=== PATIENT | female | born 1940 | race Caucasian/White ===

== ENCOUNTER 2022-09-27 10:30 | Outpatient (RCR) | payer OTHER, SELFPAY ==
--- NOTE | 2022-08-09 16:32 | PT.OPEX ---
PT [facility] Outpatient Eval PT [facility] Outpatient Eval Start: 08/09/22 13:59 Freq: Status: Active Protocol: Document 08/09/22 13:59 EMILIA (Rec: 08/09/22 14:04 EMILIA [id number]) E-signed By Amanda Stroud DPT Physical Therapy Outpatient Evaluation Insurance Information Recert Due Date 11/07/22 Insurance Name [employer] Medical Diagnosis L knee OA Treating Diagnosis L knee pain, impaired L knee ROM, impaired L knee mobility/ strength, limited tolerance for extended standing/walking Subjective Subjective Patient reports chronic L knee pain for years. States pain has been minimal but she is noticing more issues with her L knee giving way at times with standing/walking. States she feels a catch in her knee , gets a maria d of pain, and then it will give way a bit. She denies any recent falls. She occasionally uses a walking stick when going out. She has to do some stairs with a split entry home. Reports doing stairs with step to pattern. Patient reports hx of R/L ROSIBEL and R TKA - all of them 8-10+ years ago. Pain rated 2/10. Date of Last Physician Visit 08/08/22 Current Work Status Retired Precautions Treatment Precautions/Contraindications breast cancer, R/L ROSIBEL, R TKA, L OA, osteoporosis Assessment Assessment/Impression Patient is an 81 year old female with L knee pain, impaired L knee ROM, impaired L knee mobility/strength, core /hip/glut weakness, limited tolerance for extended standing/walking. Pain rated 2/10. Overall, pain has been tolerable with patient's main c/o L knee giving way, weakness. She denies any recent falls. Reports using a walking stick on occasion. She is hoping to improve her strength and avoid a L TKA surgery. L knee ROM 0-5-112 degrees. R knee ROM 0-0-130 degrees. Patient with general weakness core/hip/gluts/LEs. Gait is slow, guarded with patient amb without an AD. She denies any tenderness with palpation L knee region this session. Reports MD hit a spot yesterday that causes increased pain. Patient would like to get a HEP established and focus on her home exercises. Patient would benefit from skilled PT for pain/sx management, improved L knee ROM, core/hip/glut/LE strengthening, and establishment of HEP. Plan of Care Rehabilitation Potential Good Physical Therapy Goals 1. Decrease/maintian L knee pain at less than/equal to 3/ 10 with daily activities and with the progression of PT activities over the next 4-6 weeks. 2. Improve L knee ROM to 0-0- 120 degrees over the next 6-8 weeks for return to functional knee ROM with daily activities and improved gait with full knee ext. 3. Improve core/hip/glut/LE strength over the next 8-10 weeks for improved tolerance for extended standing/walking and performance of daily activities/housework without flare up of knee pain or knee buckling. 4. Improve balance/ proprioception within 8-10 weeks for improved stability with static/dynamic activities , decreased stress to L knee, decreased knee pain, and improved tolerance for daily/ housework activities. 5. Patient will be I with HEP within 10 weeks for progression toward above goals, ongoing self management of pain/sx, ongoing self improvements in core/hip/glut/LE strength, and for return to PLF including extended standing/walking/housework activities without flare up of L knee pain or L knee buckling. Coordination/Communication With Referral Source Treatment Plan/Direct Interventions Manual Therapy,Therapeutic Exercises Frequency/Duration 1x/week Patient Will Be Discharged From Therapy Completion of LTG(s),Skills Plateau,Independent w/HEP, Independently Progressing Evaluation Billing Untimed Code Treatment Minutes 22 Complexity Moderate Certification Information Initial Certification Date 08/09/22 Ending Certification Date 11/07/22 Physician Comment/Change : Physician NPI Number #
== END 2023-01-05 23:59 | disposition home or self-care (01) ==
PROVIDERS: PCP Family Medicine; Visit Provider Orthopaedic Surgery
DX: M17.12 Unilateral primary osteoarthritis, left knee (principal); Z51.89 Encounter for other specified aftercare
CPT/HCPCS: 97110; 97162

== ENCOUNTER 2023-05-08 09:30 | Emergency (ER) | payer OTHER, SELFPAY ==
[2023-05-08 09:42] VITALS: BP 121/72; PULSE 92; RESP 20; TEMP 36.4; O2SAT 97
--- NOTE | 2023-05-08 09:55 | ED_ITS ---
HPI - General Adult General Time Seen by Provider: 09:55 <Lilliam Martinez - Last Filed: 05/08/23 11:26> Date Seen: 05/08/23 <Lilliam Martinez - Last Filed: 05/08/23 11:26> Chief complaint: Fall/Minor Trauma <Lilliam Martinez - Last Filed: 05/08/23 11:26> Stated complaint: fell a week ago- getting worse <Lilliam Martinez - Last Filed: 05/08/23 11:26> History of Present Illness HPI narrative: Pt presents after a fall on the 9th after she fell down an incline and landed on her butt and hit the back of her head on the concrete. Denies LOC. She denies headache, confusion, visual changes, changes in speech, or weakness. She reports that since the fall, the pain in her tailbone has been consistent and improves only while lying on her side sleeping. The pain is worst when she rises from bending over. She denies numbness or tingling in her legs, or weakness of her lower extremities outside of the pain. She is able to ambulate without a walker though she has pain with this in her bottom, she typically uses a cane or a walker to ambulate. Lying down is painful as well. She is on warfarin for her afib. She was not evaluated right after the fall. She reports mild soreness of her neck but has normal range of motion. She also notes that the right side of her lower ribs did hit the arm of the chair a few days ago and are slightly sore. She denies stool incontinence or new onset urinary incontinence, she does have chronic occasional incontinence of urine once nightly that is unchanged since the fall. She is currently in 8/10 pain and declines tylenol or other pain medications. After repositioning to her side the pain is decreased to 6/10. <Lilliam Martinez - Last Filed: 05/08/23 11:26> Related Data Home medications: Home Medications Medication Instructions Recorded Confirmed anastrozole 1 mg tablet 1 mg PO 08/08/22 08/08/22 calcium carbonate 600 mg-vitamin ea PO 08/08/22 08/08/22 D3 10 mcg (400 unit) tablet diltiazem HCl 240 mg cap PO 08/08/22 08/08/22 capsule,extended release 24 hr metoprolol succinate 50 mg tab PO 08/08/22 08/08/22 tablet,extended release 24 hr warfarin 5 mg tablet 5 mg PO 08/08/22 08/08/22 <Lilliam - Last Filed: 05/08/23 11:26> Allergies/adverse reactions: Allergies Allergy/AdvReac Type Severity Reaction Status Date / Time nickel Allergy Verified 05/08/23 09:51 < - Last Filed: 05/08/23 11:26> Review of Systems Status of ROS: Reports: 10 or more systems reviewed and unremarkable except as noted in History and below < Last Filed: 05/08/23 11:26> Narrative: Constitutional: No fevers, no weight gain or loss. Eyes: No discharge. No vision changes. HENT: No congestion, no sore throat, no ear pain. Cardiovascular: No chest pain, no palpitations. Respiratory: No shortness of breath, no wheezes, no cough. Gastrointestinal: No abdominal pain, no vomiting, no diarrhea. Genitourinary: No dysuria, no hematuria. Musculoskeletal: Pain in the tailbone region which is worse when bending forward. Skin: No rashes, no pruritis. Neurological: No dizziness, weakness, sensory change, speech change. Endo/Heme/Allergies: No bruising or bleeding. No polydipsia. Pysch: no suicidality, no anxiety, no insomnia. All other systems reviewed and are negative. <Gabriel Rowland MD - Last Filed: 05/08/23 13:12> [facility] Medical History: Medical History , RN) Atrial fibrillation (06/30/12) <Lilliam Martinez - Last Filed: 05/08/23 11:26> Surgical History: Surgical History , RN) H/O: hysterectomy History of total right hip replacement Status post total knee replacement Status post total replacement of left hip <Lilliam Martinez Last Filed: 05/08/23 11:26> Social History: Social History Smoking Status: Never smoker <Lilliam Jeddo - Last Filed: 05/08/23 11:26> Exam Narrative: Exam Narrative: General: Pt was initially standing when I entered the room and reported that there is no comfortable position, the nurse and I helped her to lie down HEENT: Atraumatic, normocephalic, PEERL Cardiac: Regular rate, irregularly irregular rhythm Resp: CTAB MSK: Mild tenderness over ribs 6-8 on the R. No midline tenderness of the cervical, thoracic or lumbar spine. Diffuse tenderness to palpation of the sacrum and tailbone. Mild tenderness to palpation of the L SI joint No ecchymoses or rashes noted No LE edema Neuro: Drug Safety Data Management Specialist strength intact b/l Sensation intact b/l LE Pt able to ambulate without losing her balance <[employer] - Last Filed: 05/08/23 11:26> Const: Vital Signs, click to edit/add: Vital Signs - 24 hr 05/08/23 09:42 Temperature 97.5 F L Pulse Rate [Right Pulse Oximeter] 92 Respiratory Rate 20 Blood Pressure [Ri ght Upper Arm] 121/72 Pulse Oximetry 97 Oxygen Delivery Me thod Room Air <[employer] - Last Filed: 05/08/23 11:26> Vital Signs, click to edit/add: Vital Signs - 24 hr 05/08/23 09:42 Temperature 97.5 F L Pulse Rate [Right Pulse Oximeter] 92 Respiratory Rate 20 Blood Pressure [Ri ght Upper Arm] 121/72 Pulse Oximetry 97 Oxygen Delivery Me thod Room Air <Gabriel Rowland MD - Last Filed: 05/08/23 13:12> Course Course ED Course: DDx includes but not limited to pelvic fracture, bone bruise, tailbone fracture, muscle strain, cauda equina, conus medullaris, herniated disc of lumbar spine, shingles, rib fx <[employer] Last Filed: 05/08/23 11:26> Vital Signs Vital signs: Initial Vital Signs Temperature 97.5 F L 05/08/23 09:42 Temperature Source Temporal Artery Scan 05/08/23 09:42 Pulse Rate 92 05/08/23 09:42 Pulse Rhythm Regular 05/08/23 09:42 Respiratory Rate 20 05/08/23 09:42 Blood Pressure 121/72 05/08/23 09:42 Blood Pressure Mean 88 05/08/23 09:42 Blood Pressure Position Sitting 05/08/23 09:42 Pulse Oximetry 97 05/08/23 09:42 Oxygen Delivery Method Room Air 05/08/23 09:42 Vital Signs Temperature 97.5 F L 05/08/23 09:42 Pulse Rate 92 05/08/23 09:42 Respiratory Rate 20 05/08/23 09:42 Blood Pressure 121/72 05/08/23 09:42 Pulse Oximetry 97 05/08/23 09:42 Oxygen Delivery Method Room Air 05/08/23 09:42 Temperature 97.5 F L 05/08/23 09:42 Pulse Rate 92 05/08/23 09:42 Respiratory Rate 20 05/08/23 09:42 Blood Pressure 121/72 05/08/23 09:42 Pulse Oximetry 97 05/08/23 09:42 Oxygen Delivery Method Room Air 05/08/23 09:42 <Lilliam Martinez - Last Filed: 05/08/23 11:26> Initial Vital Signs Temperature 97.5 F L 05/08/23 09:42 Temperature Source Temporal Artery Scan 05/08/23 09:42 Pulse Rate 92 05/08/23 09:42 Pulse Rhythm Regular 05/08/23 09:42 Respiratory Rate 20 05/08/23 09:42 Blood Pressure 121/72 05/08/23 09:42 Blood Pressure Mean 88 05/08/23 09:42 Blood Pressure Position Sitting 05/08/23 09:42 Pulse Oximetry 97 05/08/23 09:42 Oxygen Delivery Method Room Air 05/08/23 09:42 Vital Signs Temperature 97.5 F L 05/08/23 09:42 Pulse Rate 92 05/08/23 09:42 Respiratory Rate 20 05/08/23 09:42 Blood Pressure 121/72 05/08/23 09:42 Pulse Oximetry 97 05/08/23 09:42 Oxygen Delivery Method Room Air 05/08/23 09:42 Temperature 97.5 F L 05/08/23 09:42 Pulse Rate 92 05/08/23 09:42 Respiratory Rate 20 05/08/23 09:42 Blood Pressure 121/72 05/08/23 09:42 Pulse Oximetry 97 05/08/23 09:42 Oxygen Delivery Method Room Air 05/08/23 09:42 <Gabriel Rowland MD - Last Filed: 05/08/23 13:12> Medical Decision Making MDM Narrative Medical decision making narrative: This patient comes in for evaluation of a fall that occurred a bit more than a week ago. She is ambulatory. She did not have loss of consciousness. She fell onto her bottom and then did bump her head. She reports pain currently when bending forward to pick something up from the floor. She states that she has rather intense pain when attempting to stand upright again. X-ray imaging of the pelvis shows no acute findings. Additionally lab results are reassuring. Her INR is therapeutic. This was reassuring to the patient. She will use [id number] medicines as needed and directed and increase her activity as tolerated. <Gabriel Rowland MD - Last Filed: 05/08/23 13:12> Lab Data Labs: Lab Results 05/08/23 Range/Units 11:40 WBC 5.42 (4.50-11.00) K/uL RBC 5.11 (4.00-5.20) m/uL Hgb 15.8 (12.0-16.0) gm/dL Hct 48.7 (33.0-51.0) % MCV 95 (80-100) fL MCH 31 (26-34) pg MCHC 32 (32-36) gm/dL RDW Coeff of Gonzalez 13.0 (11.5-15.5) % Plt Count 176 (140-440) K/uL Neut % (Auto) 56.5 (42.0-72.0) % Lymph % (Auto) 31.4 (20-44) % [place] % (Auto) 9.0 (0.0-11.0) % Eos % (Auto) 1.5 (0.0-7.0) % Baso % (Auto) 0.7 (0.0-3.0) % Neut # (Auto) 3.06 (1.7-7.0) K/uL Lymph # (Auto) 1.70 (0.90-2.90) K/uL [place] # (Auto) 0.50 (0.00-0.90) K/UL Eos # (Auto) 0.08 (0.00-0.50) K/uL Baso # (Auto) 0.04 (0.00-0.30) K/uL Abs Immat Gran (auto) 0.05 (0.00-0.30) K/uL Imm/Tot Granulo (auto) 0.9 % Diff Slide Review Acceptable Review (Acceptable) INR 2.83 H (0.91-1.10) Sodium 139 (135-149) mmol/L Potassium 3.8 (3.6-5.1) mmol/L Chloride 105 (96-114) mmol/L Carbon Dioxide 28 (20-32) mmol/L Anion Gap 6 L (7-15) mEq/L BUN 20 (7-30) mg/dL Creatinine 0.6 (0.5-1.5) mg/dL Estimated GFR 88 ml/min Glucose 96 (60-115) mg/dL Calcium 10.5 (8.4-10.6) mg/dL <Lilliam Juan - Last Filed: 05/08/23 11:26> Lab Results 05/08/23 Range/Units 11:40 WBC 5.42 (4.50-11.00) K/uL RBC 5.11 (4.00-5.20) m/uL Hgb 15.8 (12.0-16.0) gm/dL Hct 48.7 (33.0-51.0) % MCV 95 (80-100) fL MCH 31 (26-34) pg MCHC 32 (32-36) gm/dL RDW Coeff of Gonzalez 13.0 (11.5-15.5) % Plt Count 176 (140-440) K/uL Neut % (Auto) 56.5 (42.0-72.0) % Lymph % (Auto) 31.4 (20-44) % [place] % (Auto) 9.0 (0.0-11.0) % Eos % (Auto) 1.5 (0.0-7.0) % Baso % (Auto) 0.7 (0.0-3.0) % Neut # (Auto) 3.06 (1.7-7.0) K/uL Lymph # (Auto) 1.70 (0.90-2.90) K/uL [place] # (Auto) 0.50 (0.00-0.90) K/UL Eos # (Auto) 0.08 (0.00-0.50) K/uL Baso # (Auto) 0.04 (0.00-0.30) K/uL Abs Immat Gran (auto) 0.05 (0.00-0.30) K/uL Imm/Tot Granulo (auto) 0.9 % Diff Slide Review Acceptable Review (Acceptable) INR 2.83 H (0.91-1.10) Sodium 139 (135-149) mmol/L Potassium 3.8 (3.6-5.1) mmol/L Chloride 105 (96-114) mmol/L Carbon Dioxide 28 (20-32) mmol/L Anion Gap 6 L (7-15) mEq/L BUN 20 (7-30) mg/dL Creatinine 0.6 (0.5-1.5) mg/dL Estimated GFR 88 ml/min Glucose 96 (60-115) mg/dL Calcium 10.5 (8.4-10.6) mg/dL <Gabriel Rowland MD - Last Filed: 05/08/23 13:12> Imaging Data xr pelvis: Radiologist's impression: No acute fracture or malalignment. Postsurgical changes of bilateral total hip arthroplasties without evidence of hardware related complication. Minimal adjacent heterotopic ossification, similar compared to prior exam. Degenerative changes of the visualized lower lumbar spine. Few pelvic phleboliths. <Gabriel Rowland MD - Last Filed: 05/08/23 13:12> Discharge Plan Discharge Clinical Impression: Contusion of sacrum <Lilliam Martinez - Last Filed: 05/08/23 11:26> Patient Disposition: Home, Self-Care <Lilliam Martinez - Last Filed: 05/08/23 11:26> Condition: Unchanged <Lilliam Martinez - Last Filed: 05/08/23 11:26> Additional Instructions: For pain related to sacral contusion, you may take tylenol up to 1000mg every 6 hours. Do not exceed 1000mg in any dose or 4000mg in a day. You may apply over the counter a lidocaine patch to the area daily. Continue to be active as tolerated. Please follow up with your PCP if this does not resolve in 6-8 weeks. If you experience another fall, severe pain, urinary or stool incontinence, numbness or tingling of your legs, or weakness, please return to the ED. <Lilliam Martinez - Last Filed: 05/08/23 11:26> Activity Level: Activity as Tolerated <Lilliam Martinez - Last Filed: 05/08/23 11:26> Activity as Tolerated <Gabriel Rowland MD - Last Filed: 05/08/23 13:12> Discharge Diet: Regular <Lilliam Martinez - Last Filed: 05/08/23 11:26> Regular <Gabriel Rowland MD - Last Filed: 05/08/23 13:12> Prescriptions: No Action metoprolol succinate 50 mg tablet extended release 24 hr PO warfarin 5 mg tablet 5 mg PO Patient Comments: TAKE 5 MG (1 TAB) EVERY MON, MON, DANIEL 2.5 MG (1/2 TAB) ALL OTHER DAYS IN EVENING OR DIRECTED diltiazem HCl 240 mg capsule,extended release 24hr PO calcium carbonate-vitamin D3 600 mg-10 mcg (400 unit) tablet PO Patient Comments: TAKE 1 TABLET BY MOUTH TWICE A DAY WITH MEALS anastrozole 1 mg tablet 1 mg PO Patient Comments: TAKE 1 TABLET BY MOUTH EVERY DAY <Lilliam Martinez - Last Filed: 05/08/23 11:26> Follow Up/Referrals: Krysta Monroe DO [Primary Care Provider] - <Lilliam Martinez - Last Filed: 05/08/23 11:26> Stand Alone Forms: MyHealth Info Instructions <Lilliam Martinez - Last Filed: 05/08/23 11:26>
--- NOTE | 2023-05-08 11:17 | CRLHL7_ITS ---
For Patients: As a result of the Cures Act, medical imaging exams and procedure reports are released immediately into your electronic medical record. You may view this report before your referring provider. If you have questions, please contact your health care provider. Indication: Fall 1 week ago Technique: Two views of the pelvis, AP low Comparison: Pelvic radiograph on July 02, 2014 Findings/impression: No acute fracture or malalignment. Postsurgical changes of bilateral total hip arthroplasties without evidence of hardware related complication. Minimal adjacent heterotopic ossification, similar compared to prior exam. Degenerative changes of the visualized lower lumbar spine. Few pelvic phleboliths. Dictated by Reed Vargas MD @ 05/08/2023 12:54:29 PM (Electronically Signed)
[2023-05-08 11:51] LABS: Basophils Absolute Auto 0.04 K/uL (0.00-0.30); Basophils Percent Auto 0.7 % (0.0-3.0); Eosinophils Absolute Auto 0.08 K/uL (0.00-0.50); Eosinophils Percent Auto 1.5 % (0.0-7.0); Hematocrit 48.7 % (33.0-51.0); Hemoglobin* 15.8 gm/dL (12.0-16.0); Immature Granulocytes Abs Auto 0.05 K/uL (0.00-0.30); Immature Granulocytes Pct Auto 0.9 %; Lymphocytes Percent Auto 31.4 % (20-44); Mean Corpuscular HGB Conc 32 gm/dL (32-36); Mean Corpuscular Hemoglobin 31 pg (26-34); Mean Corpuscular Volume 95 fL (80-100); Neutrophils Absolute Auto 3.06 K/uL (1.7-7.0); Neutrophils Percent Auto 56.5 % (42.0-72.0); Platelet Count* 176 K/uL (140-440); Red Blood Count 5.11 m/uL (4.00-5.20); White Blood Count* 5.42 K/uL (4.50-11.00)
[2023-05-08 12:05] LABS: Chloride* 105 mmol/L (96-114); Potassium* 3.8 mmol/L (3.6-5.1); Sodium* 139 mmol/L (135-149)
[2023-05-08 12:07] LABS: INR 2.83 (0.91-1.10); Prothrombin Time 31.9 Seconds
[2023-05-08 12:08] LABS: Anion Gap 6 mEq/L (7-15); Blood Urea Nitrogen* 20 mg/dL (7-30); Carbon Dioxide* 28 mmol/L (20-32); Creatinine* 0.6 mg/dL (0.5-1.5); Estimated Glomerular Filt Rate 88 ml/min
[2023-05-08 12:09] LABS: Calcium* 10.5 mg/dL (8.4-10.6); Glucose* 96 mg/dL (60-115)
[2023-05-08 12:29] LABS: Slide Review Acceptable Review (Acceptable); Slide Review Reflex Yes
[2023-05-08 13:00] VITALS: BP 120/80; PULSE 82; RESP 20; O2SAT 96
== END 2023-05-08 13:20 | disposition home or self-care (01) ==
PROVIDERS: Emergency Provider Emergency Medicine Emergency Medical Services; PCP Family Medicine
DX: S30.0XXA Contusion of lower back and pelvis, initial encounter (principal); W18.30XA Fall on same level, unspecified, initial encounter
CPT/HCPCS: 36415; 72170; 80048; 85025; 85610; 99283; 99284

== ENCOUNTER 2023-08-08 09:00 | Outpatient (RCR) | payer OTHER, SELFPAY | END 2023-12-06 23:59 | disposition home or self-care (01) | PROVIDERS: PCP Family Medicine; Visit Provider Family Medicine | DX: S30.0XXS Contusion of lower back and pelvis, sequela (principal); R26.89 Other abnormalities of gait and mobility; M25.562 Pain in left knee; M62.81 Muscle weakness (generalized); R26.81 Unsteadiness on feet; Z91.81 History of falling; Z51.89 Encounter for other specified aftercare | CPT/HCPCS: 97110; 97162 ==

== ENCOUNTER 2023-11-29 17:24 | Outpatient (CLI) | payer OTHER, SELFPAY | END 2023-11-29 17:25 | disposition home or self-care (01) | LOC: AMB 12-01 16:45 | PROVIDERS: PCP Family Medicine; Visit Provider Family Medicine | DX: R10.9 Unspecified abdominal pain (principal) | CPT/HCPCS: A0425; A0427 ==

== ENCOUNTER 2023-11-29 17:44 | Inpatient (IN) | payer OTHER, SELFPAY ==
[2023-11-29] VITALS (15 sets, daily range): BP systolic 124–137; BP diastolic 77–91; PULSE 74–94; RESP 16–18; TEMP 36.2; O2SAT 85–96
--- NOTE | 2023-11-29 18:02 | ED_ITS ---
HPI - General Adult General Date Seen: 11/29/23 Chief complaint: Abdominal Pain Stated complaint: Bowel obstruction Time Seen by Provider: 11/29/23 17:58 History of Present Illness HPI narrative: This is an 82-year-old female presenting to the ER today by EMS from home for evaluation of abdominal pain. She has been having abdominal pain is not had any bowel movement for 2 days. She went to the [facility] clinic today and they she had an abdominal x-ray. She was prescribed GoLYTELY for constipation. She took it but has had increasing pain. She called 911. While she was in route to the ER she suffered a large volume emesis of clear fluid According to records from [facility] she has a history of essential hypertension, paroxysmal AFib, hyperparathyroidism, sensorineural hearing loss, colon polyps, history of breast cancer, osteoporosis. Patient has been experiencing generalized abdominal pain for the past couple of days. Initially started as a bandlike pain all way across her upper abdomen and lower chest and wrapping around to her back. It has been getting more diffuse and more progressive since then. She has had poor appetite. She has really only been able to pass ?a few nuggets? of stool since Monday. Her bowels are normally very regular and long. No recent black or bloody stools. Because of worsening symptoms she went to the [facility] today. She says she had an x-ray that showed a bowel obstruction and so she was sent home with a 4 L bottle of GoLYTELY. She was trying to drink ago likely and probably had a couple 100 mL but with that had worsening pain which ultimately led her family to call 911 and then she vomited on the way here. In review of her records from [facility], X-ray abdomen/pelvis 11/29/2023 IMPRESSION: Severe colonic stool burden, correlate for constipation. Otherwise, no bowel obstruction. According to the provider notes She had presented with abdominal pain and decreased bowel movements. She was prescribed a GoLYTELY bowel prep. Incidentally the patient notes that she does have history of AFib and is chronically anticoagulated on warfarin. She takes 5 mg a few days per week and 2.5 mg of warfarin the other days of the week. On Monday she usually takes 2.5. She does not have any history of coronary disease but does have occasional chest pains. She gets them once every few months, perhaps every 4 months or so. They typically occur earlier in the morning. After she arrives here in the ER she had some left-sided chest discomfort that came and went for 2 occasions. She had not been having any chest pain at home. Related Data Home Medications ?Medication ?Instructions ?Recorded ?Confirmed anastrozole 1 mg tablet 1 mg PO DAILY 08/08/22 11/29/23 calcium carbonate 600 mg-vitamin 1 tab PO Q12H 08/08/22 11/29/23 D3 10 mcg (400 unit) tablet diltiazem HCl 240 mg 240 mg PO DAILY 08/08/22 11/29/23 capsule,extended release 24 hr metoprolol succinate 50 mg 50 mg PO DAILY 08/08/22 11/29/23 tablet,extended release 24 hr warfarin 5 mg tablet 5 mg PO DAILY 08/08/22 11/29/23 cholecalciferol (vitamin D3) 25 1,000 unit PO DAILY 11/29/23 11/29/23 mcg (1,000 unit) tablet (Vitamin D3) nitroglycerin 0.4 mg sublingual 0.4 mg sublingual Q5M PRN 11/29/23 11/29/23 tablet Allergies Allergy/AdvReac Type Severity Reaction Status Date / Time nickel Allergy Verified 11/29/23 17:58 [facility] Medical History , RN) Atrial fibrillation (06/30/12) Surgical History , RN) H/O: hysterectomy History of total right hip replacement Status post total knee replacement Status post total replacement of left hip Social History Smoking Status: Never smoker Do you use any of these nicotine containing products: None How often do you have a drink containing alcohol: never How often do you have six or more drinks on one occasion: Never AUDIT-C Alcohol total score: 0 Non-prescribed substance use: denies use Exam Narrative: Exam Narrative: Constitutional: Appears well-developed and well-nourished. Alert. Uncomfortable but conversant. She has a detailed, verbose historian. Non toxic. HENT: Head: Atraumatic. Nose: Nose normal. Mouth/Throat: Oral mucosa is clear and moist. no trismus. Pharynx normal. Tonsils symmetric. No tonsillar enlargement, erythema, or exudate. Eyes: Conjunctivae normal. EOM normal. Pupils equal, round, and reactive to light. No scleral icterus. Neck: Normal range of motion. Neck supple. No tracheal deviation present. Cardiovascular: Normal rate, regular rhythm. No gallop. No friction rub. No murmur heard. Symmetric radial artery pulses Pulmonary/Chest: Effort normal. No stridor. No respiratory distress. No wheezes. No rales. No rhonchi . No tenderness. Abdominal: Soft. Bowel sounds normal. Distended and protuberant but dull to percussion. No mass. Diffuse tenderness. No rebound. No guarding. Musculoskeletal: RUE: Normal range of motion. No tenderness. No deformity LUE: Normal range of motion. No tenderness. No deformity RLE: Normal range of motion. No edema. No tenderness. No deformity LLE: Normal range of motion. No edema. No tenderness. No deformity Neurological: Alert and oriented to person, place, and time. Normal strength. CN II-VII intact. No sensory deficit. GCS eye subscore is 4. GCS verbal subscore is 5. GCS motor subscore is 6. Normal coordination Skin: Skin is warm and dry. No rash noted. No pallor. Normal capillary refill. Psychiatric: Normal mood. Normal affect. Const: Vital Signs, click to edit/add: Vital Signs - 24 hr 11/29/23 17:58 11/29/23 19:38 11/29/23 19:39 Temperature 97.2 F L Pulse Rate 86 Pulse Rate [Pulse Oximeter] 80 Respiratory Rate 18 Blood Pressure Blood Pressure [Le ft Upper Arm] 125/77 Pulse Oximetry 93 85 L 92 Oxygen Delivery Me thod Room Air Room Air Nasal Cannula Oxygen Flow Rate 2 11/29/23 20:08 11/29/23 20:10 11/29/23 20:30 Temperature Pulse Rate 90 91 88 Pulse Rate [Pulse Oximeter] Respiratory Rate Blood Pressure 137/91 H Blood Pressure [Le ft Upper Arm] Pulse Oximetry 91 92 93 Oxygen Delivery Me thod Nasal Cannula Room Air Room Air Oxygen Flow Rate 2 11/29/23 21:02 11/29/23 21:32 Temperature Pulse Rate 94 88 Pulse Rate [Pulse Oximeter] Respiratory Rate 16 18 Blood Pressure 127/88 135/87 Blood Pressure [Le ft Upper Arm] Pulse Oximetry 92 91 Oxygen Delivery Me thod Room Air Room Air Oxygen Flow Rate Course Vital Signs Vital signs: Initial Vital Signs Temperature 97.2 F L 11/29/23 17:58 Temperature Source Temporal Artery Scan 11/29/23 17:58 Pulse Rate 80 11/29/23 17:58 Respiratory Rate 18 11/29/23 17:58 Blood Pressure 125/77 11/29/23 17:58 Blood Pressure Mean 93 11/29/23 17:58 Blood Pressure Position Semi-Fowlers 11/29/23 17:58 Pulse Oximetry 93 11/29/23 17:58 Oxygen Delivery Method Room Air 11/29/23 17:58 Vital Signs Temperature 97.2 F L 11/29/23 17:58 Pulse Rate 80 11/29/23 17:58 Respiratory Rate 18 11/29/23 17:58 Blood Pressure 125/77 11/29/23 17:58 Pulse Oximetry 93 11/29/23 17:58 Oxygen Delivery Method Room Air 11/29/23 17:58 Temperature 97.2 F L 11/29/23 17:58 Pulse Rate 88 11/29/23 21:32 Respiratory Rate 18 11/29/23 21:32 Blood Pressure 135/87 11/29/23 21:32 Pulse Oximetry 91 11/29/23 21:32 Oxygen Delivery Method Room Air 11/29/23 21:32 Oxygen Flow Rate 2 11/29/23 20:08 Medical Decision Making MDM Narrative Medical decision making narrative: Presented to the Emergency Department with generalized abdominal pain, that sta rted about 2 days ago and got worse today. She had an x-ray done urgent care today that showed a large colonic stool burden so was prescribed a GoLYTELY bowel prep. While drinking that she had increasing pain, increasing bloating and developed nausea with vomiting (nonbloody). She is status post appendectomy and cholecystectomy. The differential diagnosis of abdominal pain includes: Bowel Obstruction, Ulcer, Ischemia, Cholecystitis, Diverticulitis, Pancreatitis, UTI, kidney stone, Enteritis/Colitis, amongst many other etiologies. Laboratory testing does not reveal a cause for the patient's pain. White count reassuring. Hemoglobin hemoconcentrated at 16. Electrolytes normal. Kidney function normal. LFTs normal. Lipase normal. CT imaging shows dilated fluid filled loops of small and large bowel without any clear obstruction. No perforation or free air. It is possible that she is having an ileus. The exact etiology of the abdominal pain is not clear at this time. No life threatening cause or need for emergent surgery or hospital admission is detected today. Patient was quite uncomfortable the time of presentation required IV Dilaudid for pain control which improved her pain but then triggered hypoxia. At this point did in discussion with the patient and family we agree that admission for observation for pain control and monitoring overnight is would be beneficial. Discharged home would be highly likely to fail with potential for recurrent pain or other worsening symptoms. While the patient was here in the ER she did have some left-sided chest discomfort. She recalls she does get this occasionally about once every 4 months or so at home. 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 We did obtain EKGs here which show previously known atrial fibrillation but no definite ischemia. Initial point of care troponin is normal at 0.02. No clear sign of ACS at this point. It would be reasonable to trend another troponin overnight. Discussed with our hospitalist, Dr. Hazel, who graciously agrees to admit. Lab Data Labs: Lab Results 11/29/23 11/29/23 Range/Units 19:10 21:45 WBC 8.38 (4.50-11.00) K/uL RBC 5.22 H (4.00-5.20) m/uL Hgb 16.1 H (12.0-16.0) gm/dL Hct 49.8 (33.0-51.0) % MCV 95 (80-100) fL MCH 31 (26-34) pg MCHC 32 (32-36) gm/dL RDW Coeff of Gonzalez 13.4 (11.5-15.5) % Plt Count 167 (140-440) K/uL Neut % (Auto) 68.5 (42.0-72.0) % Lymph % (Auto) 21.7 (20-44) % Doddridge % (Auto) 7.6 (0.0-11.0) % Eos % (Auto) 1.3 (0.0-7.0) % Baso % (Auto) 0.4 (0.0-3.0) % Neut # (Auto) 5.74 (1.7-7.0) K/uL Lymph # (Auto) 1.82 (0.90-2.90) K/uL Doddridge # (Auto) 0.60 (0.00-0.90) K/UL Eos # (Auto) 0.11 (0.00-0.50) K/uL Baso # (Auto) 0.03 (0.00-0.30) K/uL Abs Immat Gran (auto) 0.04 (0.00-0.30) K/uL Imm/Tot Granulo (auto) 0.5 % INR 1.79 H (0.91-1.10) Sodium 136 (135-149) mmol/L Potassium 4.1 (3.6-5.1) mmol/L Chloride 102 (96-114) mmol/L Carbon Dioxide 28 (20-32) mmol/L Anion Gap 6 L (7-15) mEq/L BUN 24 (7-30) mg/dL Creatinine 0.8 (0.5-1.5) mg/dL Estimated GFR 73 ml/min Glucose 125 H (60-115) mg/dL Lactate 1.5 (0.5-1.9) mmol/L Calcium 10.7 H (8.4-10.6) mg/dL Total Bilirubin 1.1 (0.1-1.5) mg/dL AST 44 H (12-35) U/L ALT 20 (4-35) U/L Alkaline Phosphatase 89 (40-150) U/L Total Protein 7.4 (6.0-8.3) g/dL Albumin 4.4 (3.3-5.0) g/dL Lipase 125 (23-300) U/L POC Troponin I 0.02 (0.01-0.04) ng/ml ECG Data Attestation: I personally reviewed and interpreted this ECG as follows: Interpretation: Atrial fibrillation Rate: 89 DC: Atrial fibrillation QRS axis: Normal axis. No pathologic Q-waves. ST segment/T wave: No ST segment elevation or depression QTc: 440 Discharge Plan Discharge Clinical Impression: Abdominal pain, Vomiting, Chest pain Patient Disposition: Admitted As Observation
--- NOTE | 2023-11-29 18:28 | CRLHL7_ITS ---
For Patients: As a result of the Century Cures Act, medical imaging exams and procedure reports are released immediately into your electronic medical record. You may view this report before your referring provider. If you have questions, please contact your health care provider. INDICATION: Abdominal pain and vomiting. No bowel movement for [address] ABDOMEN AND PELVIS WITH CONTRAST TECHNIQUE: Multidetector CT imaging was performed through the abdomen and pelvis following intravenous contrast administration using 70 mL Isovue 370. Coronal and sagittal reconstructions were generated. COMPARISON: None. FINDINGS: Lower chest: Mild bibasilar lung atelectasis. Mild cardiomegaly. Small to moderate-sized hiatal hernia. Liver: Normal liver size and contour. 2 centimeter hepatic cyst in the left lobe of the liver. Nonspecific mild diffuse heterogeneity of liver density. Gallbladder and bile ducts: Status post cholecystectomy. Mild dilation of the biliary tree likely reflecting post cholecystectomy reservoir effect. Pancreas: Unremarkable. Spleen: Normal. Adrenals: No nodules or masses. Kidneys, ureters, and urinary bladder: 2 centimeter right renal cortical cyst. No hydronephrosis involving either kidney. Partial obscuration of the urinary bladder by artifact from hip prostheses. No obvious bladder mass. Gastrointestinal tract: Nonspecific moderate diffuse prominence in fluid within mid and distal small bowel loops and in the colon, possibly representing gastroenteritis. No caliber transition to suggest bowel obstruction. No definite bowel wall thickening. The appendix is normal. There are a few sigmoid colon diverticula, without evidence of diverticulitis. Vascular structures: Tortuous but normal caliber abdominal aorta with mild atherosclerotic calcifications. Peritoneum: No free air, abscess, or significant free fluid. Lymph nodes: No pathologically enlarged nodes identified. Reproductive organs: Evaluation limited by artifact from hip prostheses. The uterus is not visualized and is likely surgically absent. No pelvic masses. Bones: Diffuse osteopenia. Moderate multilevel spondylosis. Bilateral hip prostheses. IMPRESSION: 1. Nonspecific increase in bowel gas in fluid, possibly representing gastroenteritis. 2. Nonacute additional findings as detailed above. ANGELA WAGONER MD [employer] Dictated by Ten Wagoner MD @ 11/29/2023 9:08:54 PM Please note that all CT scans at this facility use dose modulation, iterative reconstruction, and/or weight-based dosing when appropriate to reduce radiation dose to as low as reasonably achievable. Dictated by: Ten Wagoner MD @ 11/29/2023 21:10:37 (Electronically Signed)
[2023-11-29 19:23] LABS: Basophils Absolute Auto 0.03 K/uL (0.00-0.30); Basophils Percent Auto 0.4 % (0.0-3.0); Eosinophils Absolute Auto 0.11 K/uL (0.00-0.50); Eosinophils Percent Auto 1.3 % (0.0-7.0); Hematocrit 49.8 % (33.0-51.0); Hemoglobin* 16.1 gm/dL (12.0-16.0); Immature Granulocytes Abs Auto 0.04 K/uL (0.00-0.30); Immature Granulocytes Pct Auto 0.5 %; Lactate* 1.5 mmol/L (0.5-1.9); Lymphocytes Absolute Auto 1.82 K/uL (0.90-2.90); Lymphocytes Percent Auto 21.7 % (20-44); Mean Corpuscular HGB Conc 32 gm/dL (32-36); Mean Corpuscular Hemoglobin 31 pg (26-34); Mean Corpuscular Volume 95 fL (80-100); Monocytes Percent Auto 7.6 % (0.0-11.0); Neutrophils Absolute Auto 5.74 K/uL (1.7-7.0); Neutrophils Percent Auto 68.5 % (42.0-72.0); Platelet Count* 167 K/uL (140-440); RDW Coefficient of Variation % 13.4 % (11.5-15.5); Red Blood Count 5.22 m/uL (4.00-5.20); White Blood Count* 8.38 K/uL (4.50-11.00)
[2023-11-29 19:33] LABS: Slide Review Reflex No
[2023-11-29 19:35] LABS: Albumin* 4.4 g/dL (3.3-5.0); Chloride* 102 mmol/L (96-114)
[2023-11-29 19:36] LABS: Potassium* 4.1 mmol/L (3.6-5.1); Sodium* 136 mmol/L (135-149)
[2023-11-29 19:38] LABS: Anion Gap 6 mEq/L (7-15); Bilirubin Total* 1.1 mg/dL (0.1-1.5); Carbon Dioxide* 28 mmol/L (20-32); Creatinine* 0.8 mg/dL (0.5-1.5); Estimated Glomerular Filt Rate 73 ml/min; INR 1.79 (0.91-1.10); Prothrombin Time 22.1 Seconds; Total Protein* 7.4 g/dL (6.0-8.3)
[2023-11-29 19:39] LABS: Alanine Aminotransferase* 20 U/L (4-35); Alkaline Phosphatase* 89 U/L (40-150); Aspartate Amino Transferase* 44 U/L (12-35); Blood Urea Nitrogen* 24 mg/dL (7-30); Calcium* 10.7 mg/dL (8.4-10.6); Glucose* 125 mg/dL (60-115); Lipase* 125 U/L (23-300)
--- NOTE | 2023-11-29 19:39 | ED.NURSE ---
Sats dropping to 85% on room air following Dilaudid administration. Placed on 2 LPM via NC and sats back up to 92%.
[2023-11-29 21:58] LABS: Troponin, Point-of-Care* 0.02 ng/ml (0.01-0.04)
--- NOTE | 2023-11-29 22:53 | P.IMHP_ITS ---
Hospitalist- H&P: HPI History of Present Illness Date Seen: 11/29/23 Chief complaint: Bowel obstruction Narrative: Alicia Ordonez is a 82 year old female with atrial fibrillation, hyperparathyroidism, chronic anticoagulation, hypertension admitted through the emergency department with 2-3 day history of back pain and abdominal pain, nausea and constipation and now hypoxia. Patient reports she was generally doing well until the last 2-3 days when she developed mid to lower back and mid abdominal pain. Initially the pain was somewhat intermittent and seemed positional. When she would get up and move around it would hurt more in when she would be still in bed or in chair it was better. It has become more severe and more persistent over the last 2 days. During this time she has not had a normal bowel movement. She has only passed a few hard pellets of stool. This is unusual for her because she typically has a few bowel movements a day that are soft formed and brown. She has had a poor appetite and has been eating and drinking very little. Today she went to clinic where she had evaluation including abdominal x-rays which showed a severe burden of stool and a chest x-ray which showed no acute changes. She was prescribed 4000 mL of GoLYTELY to drink. She estimates she drank about 2/3 of that and then had increasing abdominal pain and then started recurrently vomiting. No blood in the emesis. She came to our emergency room where she had an abdominal CT which showed relatively diffuse small-bowel and colon loops that were dilated and filled with fluid. No transition point her obvious obstruction. Her abdominal pain is now better. In the emergency department she received dilaudid and subsequently became somewhat hypoxic possibly because the dilaudid. She also developed some chest pain in the emergency department and had initiate nicole of some evaluation for that as well. On admission now her symptoms are all better. Review of Systems Narrative: Prior to the last 2 or 3 days she was doing well and not having any history of bowel problems or abdominal problems. She does have a history of back problems and does have osteoporosis. [facility] Medical History (Updated 11/29/23 @ 23:57 by Getachew Hazel MD) Hypertension ?I10 - Essential (primary) hypertension (ICD-10) Breast cancer ?C50.919 - Malignant neoplasm of unspecified site of unspecified female breast (ICD-10) Osteoporosis ?M81.0 - Age-related osteoporosis without current pathological fracture (ICD- 10) Hyperparathyroidism ?E21.3 - Hyperparathyroidism, unspecified (ICD-10) Atrial fibrillation (06/30/12) ?I48.91 - Unspecified atrial fibrillation (ICD-10) Surgical History (Updated 11/29/23 @ 23:52 by Getachew Hazel MD) Hx laparoscopic cholecystectomy ?Z90.49 - Acquired absence of other specified parts of digestive tract (ICD- 10) Status post Mohs surgery ?Z98.890 - Other specified postprocedural states (ICD-10) H/O colonoscopy ?Z98.890 - Other specified postprocedural states (ICD-10) Status post total knee replacement ?Z96.659 - Presence of unspecified artificial knee joint (ICD-10) History of total right hip replacement ?Z96.641 - Presence of right artificial hip joint (ICD-10) Status post total replacement of left hip ?Z96.642 - Presence of left artificial hip joint (ICD-10) H/O: hysterectomy ?Z90.710 - Acquired absence of both cervix and uterus (ICD-10) Family History (Updated 11/29/23 @ 23:50 by Getachew Hazel MD) Daughter Breast cancer Mother Stroke Social History (Updated 11/29/23 @ 23:53 by Getachew Hazel MD) Narrative: She lives with her , Rufino, who is healthcare power of energy attorney. Code status DNR. She never smoked. She does not drink alcohol. Smoking Status: Never smoker Do you use any of these nicotine containing products: None How often do you have a drink containing alcohol: never How often do you have six or more drinks on one occasion: Never AUDIT-C Alcohol total score: 0 Non-prescribed substance use: denies use Meds Home Medications and Allergies Home Medications ?Medication ?Instructions ?Recorded ?Confirmed ?Type anastrozole 1 mg tablet 1 mg PO DAILY 08/08/22 11/29/23 History calcium carbonate 600 mg-vitamin 1 tab PO Q12H 08/08/22 11/29/23 History D3 10 mcg (400 unit) tablet diltiazem HCl 240 mg 240 mg PO DAILY 08/08/22 11/29/23 History capsule,extended release 24 hr metoprolol succinate 50 mg 50 mg PO DAILY 08/08/22 11/29/23 History tablet,extended release 24 hr warfarin 5 mg tablet 5 mg PO DAILY 08/08/22 11/29/23 History cholecalciferol (vitamin D3) 25 1,000 unit PO DAILY 11/29/23 11/29/23 History mcg (1,000 unit) tablet (Vitamin D3) nitroglycerin 0.4 mg sublingual 0.4 mg sublingual Q5M PRN 11/29/23 11/29/23 History tablet Allergies Allergy/AdvReac Type Severity Reaction Status Date / Time nickel Allergy Verified 11/29/23 17:58 Exam Narrative: Exam Narrative: She is alert and appears in no distress. Speech is normal. She is oriented to her circumstances. Oropharynx is normal. Neck is supple without mass or janessa nopathy. Respirations are notable for a few bilateral crackles at lung bases. No wheezing. Good air exchange all lung andres. Cardiovascular: S1, S2, irregularly irregular. Abdomen: Bowel sounds are active. Abdomen is soft with minimal tenderness. Extremities without edema. Chronic sun damaged skin changes noted in all sun-exposed areas. Intact pedal pulses. Const: Vital Signs, click to edit/add: Vital Signs - 24 hr 11/29/23 17:58 11/29/23 19:38 11/29/23 19:39 Temperature 97.2 F L Pulse Rate 86 Pulse Rate [Pulse Oximeter] 80 Respiratory Rate 18 Blood Pressure Blood Pressure [Le ft Upper Arm] 125/77 Pulse Oximetry 93 85 L 92 Oxygen Delivery Me thod Room Air Room Air Nasal Cannula Oxygen Flow Rate 2 11/29/23 20:08 11/29/23 20:10 11/29/23 20:30 Temperature Pulse Rate 90 91 88 Pulse Rate [Pulse Oximeter] Respiratory Rate Blood Pressure 137/91 H Blood Pressure [Le ft Upper Arm] Pulse Oximetry 91 92 93 Oxygen Delivery Me thod Nasal Cannula Room Air Room Air Oxygen Flow Rate 2 11/29/23 21:02 11/29/23 21:32 11/29/23 21:33 Temperature Pulse Rate 94 88 92 Pulse Rate [Pulse Oximeter] Respiratory Rate 16 18 Blood Pressure 127/88 135/87 Blood Pressure [Le ft Upper Arm] Pulse Oximetry 92 91 93 Oxygen Delivery Me thod Room Air Room Air Oxygen Flow Rate 11/29/23 21:45 11/29/23 22:00 11/29/23 22:02 Temperature Pulse Rate 83 82 74 Pulse Rate [Pulse Oximeter] Respiratory Rate 18 Blood Pressure 125/85 Blood Pressure [Le ft Upper Arm] Pulse Oximetry 92 95 95 Oxygen Delivery Me thod Room Air Oxygen Flow Rate 11/29/23 22:15 11/29/23 22:30 11/29/23 22:32 Temperature Pulse Rate 84 85 82 Pulse Rate [Pulse Oximeter] Respiratory Rate 16 Blood Pressure 124/83 Blood Pressure [Le ft Upper Arm] Pulse Oximetry 92 93 96 Oxygen Delivery Me thod Room Air Oxygen Flow Rate Documenting provider has reviewed patient's vital signs: yes Hospitalist - H&P: Result Labs Labs: Short CBC 11/29/23 Range/Units 19:10 WBC 8.38 (4.50-11.00) K/uL Hgb 16.1 H (12.0-16.0) gm/dL Hct 49.8 (33.0-51.0) % Plt Count 167 (140-440) K/uL BMP 11/29/23 19:10 Sodium 136 Potassium 4.1 Chloride 102 Carbon Dioxide 28 BUN 24 Creatinine 0.8 Glucose 125 H Calcium 10.7 H Liver Function 11/29/23 Range/Units 19:10 Total Bilirubin 1.1 (0.1-1.5) mg/dL AST 44 H (12-35) U/L ALT 20 (4-35) U/L Alkaline Phosphatase 89 (40-150) U/L Albumin 4.4 (3.3-5.0) g/dL Imaging Abdominal x-ray: Radiologist's impression: INDICATION: Abdominal pain ? TECHNIQUE: Abdominal radiographs, 2 views. ? COMPARISON: Abdominal radiographs 08/20/2014. ? FINDINGS: ? Bowel: No bowel obstruction. Unremarkable bowel gas pattern. Severe colonic stool burden, correlate for constipation. ? Soft tissues: Cholecystectomy clips in the right upper quadrant. ? Bones: No acute osseous abnormalities. Severe degenerative changes of the lumbar spine. S shaped scoliosis of the lumbar spine. Status post total hip arthroplasty bilaterally. ? ? ? IMPRESSION: Severe colonic stool burden, correlate for constipation. Otherwise, no bowel obstruction. ? Chest x-ray: Radiologist's impression: INDICATION: Chest pain. ? TECHNIQUE: Chest 2 views. ? COMPARISON: 12/07/20. ? FINDINGS: Cardiovascular and mediastinum: Cardiomediastinal silhouette is enlarged, similar to prior. Aortic arch calcifications. ? Lungs and pleural spaces: Lungs are clear. No sign of pleural effusion. No pneumothorax. ? Bones and soft tissues: Unremarkable for age. ? IMPRESSION: No acute findings and no significant change from the prior exam. CT scan - abdomen: Radiologist's impression: INDICATION: Abdominal pain and vomiting. No bowel movement for [address] ABDOMEN AND PELVIS WITH CONTRAST TECHNIQUE: Multidetector CT imaging was performed through the abdomen and pelvis following intravenous contrast administration using 70 mL Isovue 370. Coronal and sagittal reconstructions were generated. COMPARISON: None. FINDINGS: Lower chest: Mild bibasilar lung atelectasis. Mild cardiomegaly. Small to moderate-sized hiatal hernia. Liver: Normal liver size and contour. 2 centimeter hepatic cyst in the left lobe of the liver. Nonspecific mild diffuse heterogeneity of liver density. Gallbladder and bile ducts: Status post cholecystectomy. Mild dilation of the biliary tree likely reflecting post cholecystectomy reservoir effect. Pancreas: Unremarkable. Spleen: Normal. Adrenals: No nodules or masses. Kidneys, ureters, and urinary bladder: 2 centimeter right renal cortical cyst. No hydronephrosis involving either kidney. Partial obscuration of the urinary bladder by artifact from hip prostheses. No obvious bladder mass. Gastrointestinal tract: Nonspecific moderate diffuse prominence in fluid within mid and distal small bowel loops and in the colon, possibly representing gastroenteritis. No caliber transition to suggest bowel obstruction. No definite bowel wall thickening. The appendix is normal. There are a few sigmoid colon diverticula, without evidence of diverticulitis. Vascular structures: Tortuous but normal caliber abdominal aorta with mild atherosclerotic calcifications. Peritoneum: No free air, abscess, or significant free fluid. Lymph nodes: No pathologically enlarged nodes identified. Reproductive organs: Evaluation limited by artifact from hip prostheses. The uterus is not visualized and is likely surgically absent. No pelvic masses. Bones: Diffuse osteopenia. Moderate multilevel spondylosis. Bilateral hip prostheses. IMPRESSION: 1. Nonspecific increase in bowel gas in fluid, possibly representing gastroenteritis. 2. Nonacute additional findings as detailed above. ANGELA WAGONER MD Assessment and Plan Assessment and plan (1) Back pain: Problem comment: Back pain associated with abdominal pain. Previously was noted to be quite positional. Cause is uncertain. Status: Acute (2) Abdominal pain: Problem comment: Abdominal pain associated with back pain. Previously noted to be quite positional. Cause is uncertain. Possibly related to findings of ileus on CT abdomen. Avoid opioids for pain Status: Acute (3) Constipation: Problem comment: Associated with plain film findings of large stool burden and now findings of ileus with dilated fluid-filled loops of bowel after GoLYTELY Status: Acute (4) Vomiting: Problem comment: Likely due to current abdominal process of ileus Status: Acute (5) Ileus: Problem comment: Cause unclear Status: Acute (6) Hypoxia: Problem comment: Possibly due to dilaudid. Possibly associated with abnormal breath sounds. Monitor and further evaluate if not getting better as dilaudid wears off. Status: Acute (7) Abnormal breath sounds: Problem comment: Evaluate if symptomatic. Chest x-ray in clinic was unremarkable Status: Acute (8) Chest pain: Problem comment: Currently resolved. Trend troponin and monitor symptoms and vitals Status: Acute Plan Patient is admitted the hospital for evaluation of ileus, abdominal pain, back pain, chest pain, hypoxia. Total Time Spent Total Time Spent: Total time spent is 75 minutes, 50 minutes in coordination of care discussing with patient and and other providers ongoing evaluation management of abdominal pain and ileus.
[2023-11-29] MEDS: LACTATED RINGERS 1000 ML 1,000 ML 75 ML IV (23:40)
[2023-11-29] MEDS: WARFARIN 5 MG TABLET PO (23:40)
[2023-11-30] VITALS (7 sets, daily range): BP systolic 115–129; BP diastolic 70–89; PULSE 68–88; RESP 16–20; TEMP 36.3–36.6; O2SAT 89–91; BMI 24.2
[2023-11-30 06:35] LABS: Basophils Absolute Auto 0.06 K/uL (0.00-0.30); Eosinophils Absolute Auto 0.11 K/uL (0.00-0.50); Eosinophils Percent Auto 1.9 % (0.0-7.0); Hematocrit 44.7 % (33.0-51.0); Hemoglobin* 14.4 gm/dL (12.0-16.0); Immature Granulocytes Abs Auto 0.04 K/uL (0.00-0.30); Immature Granulocytes Pct Auto 0.7 %; Lymphocytes Absolute Auto 1.34 K/uL (0.90-2.90); Mean Corpuscular HGB Conc 32 gm/dL (32-36); Mean Corpuscular Hemoglobin 31 pg (26-34); Mean Corpuscular Volume 97 fL (80-100); Monocytes Percent Auto 7.9 % (0.0-11.0); Neutrophils Absolute Auto 3.82 K/uL (1.7-7.0); Neutrophils Percent Auto 65.5 % (42.0-72.0); Platelet Count* 160 K/uL (140-440); RDW Coefficient of Variation % 13.4 % (11.5-15.5); Red Blood Count 4.62 m/uL (4.00-5.20); White Blood Count* 5.83 K/uL (4.50-11.00)
--- NOTE | 2023-11-30 06:44 | PC.NURSE ---
Arrived to floor around 2300: A&O with some forgetfulness but pleasant and cooperative. VSS. Denies pain. Pt did have x3 medium loose stool throughout shift. A1 w/ cane and gait belt. Using call light appropriately. Bed alarm in place.
[2023-11-30 06:56] LABS: Chloride* 101 mmol/L (96-114); Potassium* 3.7 mmol/L (3.6-5.1); Slide Review Reflex No; Sodium* 137 mmol/L (135-149)
[2023-11-30 06:59] LABS: Anion Gap 4 mEq/L (7-15); Blood Urea Nitrogen* 16 mg/dL (7-30); Carbon Dioxide* 32 mmol/L (20-32); Creatinine* 0.7 mg/dL (0.5-1.5); Est. Creatinine Clearance* 37.68; Estimated Glomerular Filt Rate 85 ml/min
[2023-11-30 07:00] LABS: Calcium* 9.3 mg/dL (8.4-10.6); Glucose* 110 mg/dL (60-115)
[2023-11-30 07:03] LABS: INR 1.86 (0.91-1.10); Prothrombin Time 22.8 Seconds
[2023-11-30 07:31] LABS: Troponin I* < 0.01 ng/mL (0.01-0.04)
[2023-11-30 07:42] LABS: Thyroid Stimulating Hormone* 0.558 uIU/mL (0.270-4.20)
[2023-11-30] MEDS: dilTIAZem 240 MG CAP (CD) PO (08:47)
[2023-11-30] MEDS: METOPROLOL SUCCINATE (XL) 50 MG TAB PO (08:47)
--- NOTE | 2023-11-30 09:03 | PM.IMPN1 ---
Progress Note: A&P Assessment and plan (1) Abdominal pain: Problem details: Abdominal pain associated with back pain. Previously noted to be quite positional. Cause is uncertain. Possibly related to findings of ileus on CT abdomen. Avoid opioids for pain Status: Acute Assessment and Plan: 11/29: Nausea, vomiting have resolved, abdominal pain and back pain improving; has had several BMs. Plan for today; see how she tolerates diet, PT evaluation. She does not feel ready to discharge. Hopefully discharge to home tomorrow (2) Constipation: Problem details: Associated with plain film findings of large stool burden and now findings of ileus with dilated fluid-filled loops of bowel after GoLYTELY Status: Acute (3) Back pain: Problem details: Back pain associated with abdominal pain. Previously was noted to be quite positional. Cause is uncertain. Status: Acute Plan 11/29: Nausea, vomiting have resolved, abdominal pain and back pain improving; has had several BMs. Plan for today; see how she tolerates diet, PT evaluation. She does not feel ready to discharge. Hopefully discharge to home tomorrow Subjective Date Seen: 11/30/23 Interval history: patient had BM abdominal pain and back pain improved no vomiting this morning breakfast pending endorses weakness Exam Narrative: Exam Narrative: Gen: no acute distress HEENT: NCAT EOMI mmm CV: RRR normal s1 s2 Lungs: CTAB Abd: Soft,nt, nd Neuro: Alert, oriented, CN grossly intact; nonfocal screening?exam Psych: appropriate affect MSK: age appropriate muscle mass Skin; Warm, dry no rash on face Const: Vital Signs, click to edit/add: Vital Signs - 24 hr 11/29/23 17:58 11/29/23 19:38 11/29/23 19:39 Temperature 97.2 F L Pulse Rate 86 Pulse Rate [Pulse Oximeter] 80 Respiratory Rate 18 Blood Pressure Blood Pressure [Le ft Arm] Blood Pressure [Le ft Upper Arm] 125/77 Pulse Oximetry 93 85 L 92 Oxygen Delivery Me thod Room Air Room Air Nasal Cannula Oxygen Flow Rate 2 11/29/23 20:08 11/29/23 20:10 11/29/23 20:30 Temperature Pulse Rate 90 91 88 Pulse Rate [Pulse Oximeter] Respiratory Rate Blood Pressure 137/91 H Blood Pressure [Le ft Arm] Blood Pressure [Le ft Upper Arm] Pulse Oximetry 91 92 93 Oxygen Delivery Me thod Nasal Cannula Room Air Room Air Oxygen Flow Rate 2 11/29/23 21:02 11/29/23 21:32 11/29/23 21:33 Temperature Pulse Rate 94 88 92 Pulse Rate [Pulse Oximeter] Respiratory Rate 16 18 Blood Pressure 127/88 135/87 Blood Pressure [Le ft Arm] Blood Pressure [Le ft Upper Arm] Pulse Oximetry 92 91 93 Oxygen Delivery Me thod Room Air Room Air Oxygen Flow Rate 11/29/23 21:45 11/29/23 22:00 11/29/23 22:02 Temperature Pulse Rate 83 82 74 Pulse Rate [Pulse Oximeter] Respiratory Rate 18 Blood Pressure 125/85 Blood Pressure [Le ft Arm] Blood Pressure [Le ft Upper Arm] Pulse Oximetry 92 95 95 Oxygen Delivery Me thod Room Air Oxygen Flow Rate 11/29/23 22:15 11/29/23 22:30 11/29/23 22:32 Temperature Pulse Rate 84 85 82 Pulse Rate [Pulse Oximeter] Respiratory Rate 16 Blood Pressure 124/83 Blood Pressure [Le ft Arm] Blood Pressure [Le ft Upper Arm] Pulse Oximetry 92 93 96 Oxygen Delivery Me thod Room Air Oxygen Flow Rate 11/30/23 00:02 11/30/23 03:08 Temperature Pulse Rate Pulse Rate [Pulse Oximeter] 84 Respiratory Rate 16 16 Blood Pressure Blood Pressure [Le ft Arm] 118/70 Blood Pressure [Le ft Upper Arm] Pulse Oximetry 90 Oxygen Delivery Me thod Room Air Oxygen Flow Rate Labs Labs: Laboratory Results - last 24 hr 11/29/23 11/29/23 11/30/23 19:10 21:45 06:18 WBC 8.38 5.83 RBC 5.22 H 4.62 Hgb 16.1 H 14.4 Hct 49.8 44.7 MCV 95 97 MCH 31 31 MCHC 32 32 RDW Coeff of Gonzalez 13.4 13.4 Plt Count 167 160 Neut % (Auto) 68.5 65.5 Lymph % (Auto) 21.7 23.0 Stone % (Auto) 7.6 7.9 Eos % (Auto) 1.3 1.9 Baso % (Auto) 0.4 1.0 Neut # (Auto) 5.74 3.82 Lymph # (Auto) 1.82 1.34 Stone # (Auto) 0.60 0.50 Eos # (Auto) 0.11 0.11 Baso # (Auto) 0.03 0.06 Abs Immat Gran (auto) 0.04 0.04 Imm/Tot Granulo (auto) 0.5 0.7 INR 1.79 H 1.86 H Sodium 136 137 Potassium 4.1 3.7 Chloride 102 101 Carbon Dioxide 28 32 Anion Gap 6 L 4 L BUN 24 16 Creatinine 0.8 0.7 Estimated Creat Clear 37.68 Estimated GFR 73 85 Glucose 125 H 110 Lactate 1.5 Calcium 10.7 H 9.3 Total Bilirubin 1.1 AST 44 H ALT 20 Alkaline Phosphatase 89 Troponin I < 0.01 L Total Protein 7.4 Albumin 4.4 Lipase 125 TSH 0.558 POC Troponin I 0.02
--- NOTE | 2023-11-30 11:33 | CRLHL7_ITS ---
For Patients: As a result of the Century Cures Act, medical imaging exams and procedure reports are released immediately into your electronic medical record. You may view this report before your referring provider. If you have questions, please contact your health care provider. Indication: Abdominal pain Technique: 2 AP views of the abdomen. Comparison: 11/29/2023 Findings: Enlarged cardiomediastinal silhouette. Right upper quadrant abdominal surgical clips. Moderate multilevel degenerative changes of the visualized spine. Moderately dilated colon measuring up to 6.7 centimeter. No significant small bowel dilation. No large pneumoperitoneum. Visualized lung bases are clear. Postsurgical changes from bilateral total hip arthroplasties. Impression: Moderately dilated colon measuring up to 6.7 centimeter without significant small bowel dilation. Findings may represent colonic ileus. Dictated by Rah Keller MD @ 11/30/2023 1:35:33 PM (Electronically Signed)
[2023-11-30 12:03] LABS: Lactate* 1.2 mmol/L (0.5-1.9)
[2023-11-30 12:29] LABS: Albumin* 3.6 g/dL (3.3-5.0)
[2023-11-30 12:31] LABS: Bilirubin Direct* 0.4 mg/dL (0.0-0.5); Bilirubin Total* 1.1 mg/dL (0.1-1.5)
[2023-11-30 12:32] LABS: Alanine Aminotransferase* 113 U/L (4-35); Alkaline Phosphatase* 112 U/L (40-150); Aspartate Amino Transferase* 135 U/L (12-35); Total Protein* 6.4 g/dL (6.0-8.3)
[2023-11-30] MEDS: HYDROmorphone 0.5 mg/0.5 ml inj IVP (15:39)
--- NOTE | 2023-11-30 16:19 | ED.NURSE ---
Pt was given 1000ml lactated ringers, 0.5 mg of hydromorphone, and 4mg of Zofran 11/29/23, at 1835.
[2023-11-30] MEDS: bisacodyL 10 MG SUPP.RECT PR (18:38)
[2023-11-30] MEDS: LACTATED RINGERS 1000 ML 1,000 ML 75 ML IV (18:41)
--- NOTE | 2023-11-30 19:30 | PC.NURSE ---
End of shift [id number] - Pt alert, oriented, talkative. Up in room with standby assistance. Continent of bowel and bladder, but experienced episodes of incontinence of bowel due to urge during shift. Pt noted to experience scant amounts of liquid stool, but no formed BM during shift. Tolerating RA and clear liquid diet. Family at bedside. Pt reported feeling pain described as tightness around her abdomen that spread to her back. Pt initially refused pain medication, ended up accepting pain medication per MAR and reported improvement. Pt
[2023-11-30] MEDS: WARFARIN 5 MG TABLET PO (22:21)
--- NOTE | 2023-12-01 00:23 | PC.NURSE ---
Small liquid stool after suppository, but no formed BM. Up ad donis. Sats 88-91% RA. Reports feeling like she doesn't have enough air when speaking. Updated Dr. Hazel, oxygen order for sats below 88%. Patient given IS and educated on use as well as on C/DB.
[2023-12-01] MEDS: LACTATED RINGERS 1000 ML 1,000 ML 75 ML IV ×2 (02:16→14:23)
[2023-12-01 03:00] VITALS: BP 129/91; PULSE 91; RESP 16; TEMP 36.6; O2SAT 93
--- NOTE | 2023-12-01 06:00 | CRLHL7_ITS ---
For Patients: As a result of the Century Cures Act, medical imaging exams and procedure reports are released immediately into your electronic medical record. You may view this report before your referring provider. If you have questions, please contact your health care provider. Indication: Shortness of breath Technique: Abdomen 1 view, 2 films Comparison: Abdomen 11/30/2023 Findings/Impression: Bowel: Somewhat nonspecific bowel-gas pattern with mildly prominent loop of bowel in the mid abdomen, probably colon. Question ileus. Soft tissues: Retrocardiac consolidation. Right upper quadrant surgical clips. Bones: Degenerative disc disease lumbar spine. Status post bilateral total hip replacements. Dictated by Daniel Benavides MD @ 12/01/2023 9:18:18 AM (Electronically Signed)
[2023-12-01 06:53] LABS: Basophils Absolute Auto 0.05 K/uL (0.00-0.30); Eosinophils Absolute Auto 0.14 K/uL (0.00-0.50); Eosinophils Percent Auto 2.7 % (0.0-7.0); Hematocrit 44.3 % (33.0-51.0); Hemoglobin* 14.4 gm/dL (12.0-16.0); Immature Granulocytes Abs Auto 0.02 K/uL (0.00-0.30); Immature Granulocytes Pct Auto 0.4 %; Lymphocytes Absolute Auto 1.43 K/uL (0.90-2.90); Lymphocytes Percent Auto 27.8 % (20-44); Mean Corpuscular HGB Conc 33 gm/dL (32-36); Mean Corpuscular Hemoglobin 31 pg (26-34); Mean Corpuscular Volume 96 fL (80-100); Monocytes Percent Auto 8.7 % (0.0-11.0); Neutrophils Absolute Auto 3.06 K/uL (1.7-7.0); Neutrophils Percent Auto 59.4 % (42.0-72.0); Platelet Count* 170 K/uL (140-440); RDW Coefficient of Variation % 13.6 % (11.5-15.5); White Blood Count* 5.15 K/uL (4.50-11.00)
[2023-12-01 07:04] LABS: INR 1.99 (0.91-1.10); Prothrombin Time 24.1 Seconds
[2023-12-01 07:11] LABS: Slide Review Reflex No
[2023-12-01 07:13] LABS: Chloride* 103 mmol/L (96-114)
[2023-12-01 07:14] LABS: Albumin* 3.4 g/dL (3.3-5.0); Potassium* 3.3 mmol/L (3.6-5.1); Sodium* 136 mmol/L (135-149)
[2023-12-01 07:17] LABS: Alanine Aminotransferase* 81 U/L (4-35); Alkaline Phosphatase* 111 U/L (40-150); Anion Gap 4 mEq/L (7-15); Aspartate Amino Transferase* 92 U/L (12-35); Blood Urea Nitrogen* 10 mg/dL (7-30); Carbon Dioxide* 29 mmol/L (20-32); Creatinine* 0.6 mg/dL (0.5-1.5); Est. Creatinine Clearance* 37.68; Estimated Glomerular Filt Rate 88 ml/min; Glucose* 104 mg/dL (60-115); Total Protein* 6.1 g/dL (6.0-8.3)
[2023-12-01 07:18] LABS: Calcium* 9.9 mg/dL (8.4-10.6)
--- NOTE | 2023-12-01 07:18 | CRLHL7_ITS ---
For Patients: As a result of the Cures Act, medical imaging exams and procedure reports are released immediately into your electronic medical record. You may view this report before your referring provider. If you have questions, please contact your health care provider. Indication: Shortness of breath Technique: Chest 1 view Comparison: None Findings/Impression: Cardiovascular and mediastinum: Globular cardiomegaly with atherosclerotic calcification. Faint density behind the heart, suspect hiatal hernia. Lungs and pleural space: No pneumothorax. Pulmonary cephalization with patchy opacities lung bases consistent with atelectasis or pneumonia. Bones and soft tissues: Bilateral glenohumeral osteoarthritis. Narrowing of the acromiohumeral distance on the right consistent with rotator cuff disease. Dictated by Daniel Benavides MD @ 12/01/2023 9:16:18 AM (Electronically Signed)
[2023-12-01 08:00] VITALS: BP 136/98; PULSE 98; RESP 18; TEMP 36.6; O2SAT 91
[2023-12-01] MEDS: dilTIAZem 240 MG CAP (CD) PO (08:44)
[2023-12-01] MEDS: METOPROLOL SUCCINATE (XL) 50 MG TAB PO (08:44)
--- NOTE | 2023-12-01 09:58 | PM.IMPN1 ---
Progress Note: A&P Assessment and plan (1) Constipation: Problem details: Associated with plain film findings of large stool burden and now findings of ileus with dilated fluid-filled loops of bowel after GoLYTELY 11/30: Repeat AXR with questionable ileus; continue suppository q12h, clear liquid, Surgery consulted; pain mgmt Status: Acute (2) Abdominal pain: Problem details: likely related to findings of ileus on CT abdomen. Avoid opioids for pain Status: Acute (3) Back pain: Problem details: Back pain associated with abdominal pain. Previously was noted to be quite positional. Status: Acute (4) Hypoxia: Problem details: Possibly due to dilaudid. 11/30: CXR with possible atelectasis vs infiltrate; will check procal; on room air, normal wbc; will reassess antibiotics pending procal Status: Acute (5) Atrial fibrillation: Problem details: warfarin pharm to dose; continue metoprolol, continue diltiazem Status: Acute Plan anticipated discharge 2 days pending resolution of ileus Subjective Date Seen: 12/01/23 Interval history: patient had BM today she describes as yellow, liquid on room air; had SOB overnight continues to have suppository CXR AXR Bowel: Somewhat nonspecific bowel-gas pattern with mildly prominent loop of bowel in the mid abdomen, probably colon. Question ileus. Exam Narrative: Exam Narrative: Gen: no acute distress HEENT: NCAT EOMI mmm CV: RRR normal s1 s2 Lungs: CTAB Abd: mild distention no rebound or guarding Neuro: Alert, oriented, CN grossly intact; nonfocal screening?exam Psych: appropriate affect MSK: age appropriate muscle mass Skin; Warm, dry no rash on face Const: Vital Signs, click to edit/add: Vital Signs - 24 hr 11/30/23 10:20 11/30/23 11:00 11/30/23 20:30 Temperature 97.9 F Pulse Rate [Pulse Oximeter] 82 68 68 Respiratory Rate 20 20 16 Blood Pressure [Le ft Arm] 123/75 115/89 Pulse Oximetry 89 91 Oxygen Delivery Me thod Room Air Room Air 11/30/23 21:29 11/30/23 23:00 11/30/23 23:00 Temperature 97.3 F L 97.7 F Pulse Rate [Pulse Oximeter] 68 88 Respiratory Rate 16 16 16 Blood Pressure [Le ft Arm] 115/73 129/84 Pulse Oximetry 90 89 89 Oxygen Delivery Me thod Room Air Room Air Room Air 12/01/23 03:00 12/01/23 08:00 12/01/23 08:00 Temperature 98 F 97.9 F Pulse Rate [Pulse Oximeter] 91 98 Respiratory Rate 16 18 18 Blood Pressure [Le ft Arm] 129/91 H 136/98 H Pulse Oximetry 93 91 91 Oxygen Delivery Me thod Room Air Room Air Room Air Labs Labs: Laboratory Results - last 24 hr 11/30/23 12/01/23 11:53 05:55 WBC 5.15 RBC 4.60 Hgb 14.4 Hct 44.3 MCV 96 MCH 31 MCHC 33 RDW Coeff of Gonzalez 13.6 Plt Count 170 Neut % (Auto) 59.4 Lymph % (Auto) 27.8 [place] % (Auto) 8.7 Eos % (Auto) 2.7 Baso % (Auto) 1.0 Neut # (Auto) 3.06 Lymph # (Auto) 1.43 [place] # (Auto) 0.40 Eos # (Auto) 0.14 Baso # (Auto) 0.05 Abs Immat Gran (auto) 0.02 Imm/Tot Granulo (auto) 0.4 INR 1.99 H Sodium 136 Potassium 3.3 L Chloride 103 Carbon Dioxide 29 Anion Gap 4 L BUN 10 Creatinine 0.6 Estimated Creat Clear 37.68 Estimated GFR 88 Glucose 104 Lactate 1.2 Calcium 9.9 Total Bilirubin 1.1 1.0 Direct Bilirubin 0.4 AST 135 H 92 H ALT 113 H 81 H Alkaline Phosphatase 112 111 Total Protein 6.4 6.1 Albumin 3.6 3.4
[2023-12-01] MEDS: bisacodyL 10 MG SUPP.RECT PR ×2 (10:35→21:20)
[2023-12-01 10:45] VITALS: BP 129/89; PULSE 98; RESP 18; TEMP 36.6; O2SAT 92
[2023-12-01] MEDS: polyethylene glycoL 3350 17 GM PACK PO (14:38)
[2023-12-01 15:00] VITALS: BP 115/95; PULSE 102; RESP 18; TEMP 37.1; O2SAT 92
--- NOTE | 2023-12-01 15:08 | PM.GSCN ---
History of Present Illness Consult details Date Seen: 12/01/23 Consult date: 12/01/23 Narrative: Patient presented to the emergency department on 11/29/2023 with a 2 day history of back pain abdominal pain, nausea and constipation. She states she was in her normal state of health until about 3 days prior to the emergency department when she develop some diffuse, intermittent abdominal pain. The pain would come and go and at times radiate to the back. She usually has 1 bowel movement per day, but has been suffering from constipation. At home she continued to pass gas and only passed a few hard pellets of stool. She usually has very soft, formed bowel movements. She also reported a poor appetite. She went to the clinic for evaluation and was given GoLYTELY 4000 mL. She drink about half of this, but developed increasing abdominal pain and was unable to have a bowel movement. She came to the emergency department where she had a large emesis episode. During evaluation in the emergency department an abdominal CT scan was performed which demonstrated dilation of small bowel and colon loops with no obvious transition point. She has never had pain like this before. Her abdominal surgical history is positive for a laparoscopic cholecystectomy and hysterectomy. She denies any history of small-bowel obstructions in the past. Her last colonoscopy was ?several years ago?. No personal history of polyps that she knows of. Since being admitted her pain is improved, but is still present. She continues to pass gas. She has had a few ?small bowel?, but nothing like what she normally has. She has been tolerating clear liquids. She denies currently any nausea. Review of Systems Status of ROS: Reports: 10 or more systems reviewed and unremarkable except as noted in History and below [facility] Medical History (Updated 12/01/23 @ 10:06 by Radu Springer MD) Hypertension ?I10 - Essential (primary) hypertension (ICD-10) Breast cancer ?C50.919 - Malignant neoplasm of unspecified site of unspecified female breast (ICD-10) Osteoporosis ?M81.0 - Age-related osteoporosis without current pathological fracture (ICD-10) Hyperparathyroidism ?E21.3 - Hyperparathyroidism, unspecified (ICD-10) Atrial fibrillation (06/30/12) ?I48.91 - Unspecified atrial fibrillation (ICD-10) Surgical History (Updated 11/29/23 @ 23:52 by Getachew Hazel MD) Hx laparoscopic cholecystectomy ?Z90.49 - Acquired absence of other specified parts of digestive tract (ICD-10) Status post Mohs surgery ?Z98.890 - Other specified postprocedural states (ICD-10) H/O colonoscopy ?Z98.890 - Other specified postprocedural states (ICD-10) Status post total knee replacement ?Z96.659 - Presence of unspecified artificial knee joint (ICD-10) History of total right hip replacement ?Z96.641 - Presence of right artificial hip joint (ICD-10) Status post total replacement of left hip ?Z96.642 - Presence of left artificial hip joint (ICD-10) H/O: hysterectomy ?Z90.710 - Acquired absence of both cervix and uterus (ICD-10) Family History (Updated 11/29/23 @ 23:50 by Getachew Hazel MD) Daughter Breast cancer Mother Stroke Social History (Updated 11/29/23 @ 23:53 by Getachew Hazel MD) Narrative: She lives with her , Rufino, who is healthcare power of workers compensation attorney. Code status DNR. She never smoked. She does not drink alcohol. What is your current living situation?: I presently have a place to live Problems where you live: no known problems Problems where you live details: n/a In the past 12 months, utilities in danger of being shut off: no In past 12 months, lack of transportation kept you from medical appts, meetings, work, or getting things needed for daily living: no In the past 12 mos, have been you worried that your food would run out before you had money to buy more?: never true In the past 12 mos, the food you bought just didn't last and you didn't have money to buy more?: never true Highest level of school completed/degree received: Master's degree Smoking Status: Never smoker Do you use any of these nicotine containing products: None How often do you have a drink containing alcohol: monthly or less How often do you have six or more drinks on one occasion: Less than monthly AUDIT-C Alcohol total score: 2 Non-prescribed substance use: denies use Caffeine: Yes How often does anyone, including family, friends and others, physically hurt you: never How often does anyone, including family, friends and others, insult or talk down to you: never How often does anyone, including family, friends and others, threaten you with harm: never How often does anyone, including family, friends and others, scream or curse at you: never service: No Meds Home Medications and Allergies Home Medications ?Medication ?Instructions ?Recorded ?Confirmed ?Type anastrozole 1 mg tablet 1 mg PO DAILY 08/08/22 11/29/23 History calcium carbonate 600 mg-vitamin 1 tab PO Q12H 08/08/22 11/29/23 History D3 10 mcg (400 unit) tablet diltiazem HCl 240 mg 240 mg PO DAILY 08/08/22 11/29/23 History capsule,extended release 24 hr metoprolol succinate 50 mg 50 mg PO DAILY 08/08/22 11/29/23 History tablet,extended release 24 hr warfarin 5 mg tablet 5 mg PO DAILY 08/08/22 11/29/23 History cholecalciferol (vitamin D3) 25 1,000 unit PO DAILY 11/29/23 11/29/23 History mcg (1,000 unit) tablet (Vitamin D3) nitroglycerin 0.4 mg sublingual 0.4 mg sublingual Q5M PRN 11/29/23 11/29/23 History tablet Allergies Allergy/AdvReac Type Severity Reaction Status Date / Time nickel Allergy Verified 11/29/23 17:58 Exam Narrative: Exam Narrative: General: Alert and oriented, no acute distress Respiratory: Equal breath rise, maintained on room air CV: Well perfused, regular rhythm and rate Abdomen: Soft, mild distention. Some mild tenderness to palpation in right upper quadrant with no guarding or rebound. Positive bowel sounds. Const: Vital Signs, click to edit/add: Vital Signs - 24 hr 11/30/23 20:30 11/30/23 21:29 11/30/23 23:00 Temperature 97.3 F L Pulse Rate [Pulse Oximeter] 68 68 Respiratory Rate 16 16 16 Blood Pressure [Le ft Arm] 115/73 Pulse Oximetry 90 89 Oxygen Delivery Me thod Room Air Room Air 11/30/23 23:00 12/01/23 03:00 12/01/23 08:00 Temperature 97.7 F 98 F Pulse Rate [Pulse Oximeter] 88 91 Respiratory Rate 16 16 18 Blood Pressure [Le ft Arm] 129/84 129/91 H Pulse Oximetry 89 93 91 Oxygen Delivery Me thod Room Air Room Air Room Air 12/01/23 08:00 12/01/23 10:45 Temperature 97.9 F 97.9 F Pulse Rate [Pulse Oximeter] 98 98 Respiratory Rate 18 18 Blood Pressure [Le ft Arm] 136/98 H 129/89 Pulse Oximetry 91 92 Oxygen Delivery Ak thod Room Air Room Air Results Labs Labs: Abnormal lab results 12/01/23 Range/Units 05:55 INR 1.99 H (0.91-1.10) Potassium 3.3 L (3.6-5.1) mmol/L Anion Gap 4 L (7-15) mEq/L AST 92 H (12-35) U/L ALT 81 H (4-35) U/L Diabetes panel 12/01/23 Range/Units 05:55 Sodium 136 (135-149) mmol/L Potassium 3.3 L (3.6-5.1) mmol/L Chloride 103 (96-114) mmol/L Carbon Dioxide 29 (20-32) mmol/L BUN 10 (7-30) mg/dL Creatinine 0.6 (0.5-1.5) mg/dL Glucose 104 (60-115) mg/dL Calcium 9.9 (8.4-10.6) mg/dL AST 92 H (12-35) U/L ALT 81 H (4-35) U/L Alkaline Phosphatase 111 (40-150) U/L Total Protein 6.1 (6.0-8.3) g/dL Albumin 3.4 (3.3-5.0) g/dL Calcium panel 12/01/23 Range/Units 05:55 Calcium 9.9 (8.4-10.6) mg/dL Albumin 3.4 (3.3-5.0) g/dL Pituitary panel 12/01/23 Range/Units 05:55 Sodium 136 (135-149) mmol/L Potassium 3.3 L (3.6-5.1) mmol/L Chloride 103 (96-114) mmol/L Carbon Dioxide 29 (20-32) mmol/L BUN 10 (7-30) mg/dL Creatinine 0.6 (0.5-1.5) mg/dL Glucose 104 (60-115) mg/dL Calcium 9.9 (8.4-10.6) mg/dL Adrenal panel 12/01/23 Range/Units 05:55 Sodium 136 (135-149) mmol/L Potassium 3.3 L (3.6-5.1) mmol/L Chloride 103 (96-114) mmol/L Carbon Dioxide 29 (20-32) mmol/L BUN 10 (7-30) mg/dL Creatinine 0.6 (0.5-1.5) mg/dL Glucose 104 (60-115) mg/dL Calcium 9.9 (8.4-10.6) mg/dL Total Bilirubin 1.0 (0.1-1.5) mg/dL AST 92 H (12-35) U/L ALT 81 H (4-35) U/L Alkaline Phosphatase 111 (40-150) U/L Total Protein 6.1 (6.0-8.3) g/dL Albumin 3.4 (3.3-5.0) g/dL All other labs normal. Imaging Abdominal x-ray: report reviewed and image reviewed Abdomen CT scan report/results: report reviewed and image reviewed Progress Note:A&P Assessment and plan (1) Ileus: Status: Acute Plan Patient is an 82-year-old female with evidence of a generalized ileus. CT scan shows no transition point or concern for obstruction. An abdominal x-ray was performed yesterday and demonstrated a dilated cecum of a little less than 7 cm. When compared to the abdominal x-ray today the cecum is not easily identified. She still has some mild dilation of the small bowel and colon, but appears improved when compared to the previous days imaging. Her exam is benign and she continues to pass gas. She is tolerating a regular diet. No concern at this time for obstructions secondary to adhesions with no transition point identified on CT imaging. This could be telephone sales representative of a colonic pseudo-obstruction. The cecum was dilated and measured at 7 cm, no concern for any continuing dilation on imaging or concern for perforation at this time. -would continue clear liquids -avoid narcotics -continue suppositories and add bowel regimen of p.o. MiraLax, could also consider milk of magnesia as tolerated -encourage ambulation. -recommend repeat abdominal x-ray tomorrow morning or sooner if clinically indicated.
--- NOTE | 2023-12-01 16:48 | PC.NURSE ---
Shift Summary 05-15: Patient pleasant and cooperative. Vitals stable and WNL. Encouraged to ambulate in halls, has walked several times today. Patient is independent. No BM however is passing gas. Some abdominal distention and discomfort but denies need for pain. Tolerates clear fluids.
[2023-12-01] MEDS: WARFARIN 2.5 MG TABLET PO (20:19)
[2023-12-01 20:24] VITALS: BP 134/93; PULSE 90; RESP 16; TEMP 36.5; O2SAT 93
[2023-12-01 23:18] VITALS: BP 135/93; PULSE 98; RESP 16; TEMP 36.6; O2SAT 93
[2023-12-02] MEDS: LACTATED RINGERS 1000 ML 1,000 ML 75 ML IV (02:30)
[2023-12-02 02:32] VITALS: BP 130/77; PULSE 90; RESP 17; TEMP 36.7; O2SAT 90
--- NOTE | 2023-12-02 07:14 | CRLHL7_ITS ---
For Patients: As a result of the Century Cures Act, medical imaging exams and procedure reports are released immediately into your electronic medical record. You may view this report before your referring provider. If you have questions, please contact your health care provider. INDICATION: Ileus COMPARISON: 12/01/2023 TECHNIQUE: 1 view abdomen, supine. FINDINGS: Devices: None No stool. No dilated bowel. Mild gaseous distention of nondilated small bowel and colon throughout the abdomen. Surgical clips right upper quadrant. Phleboliths in the pelvis. Bilateral hip arthroplasties. IMPRESSION: Mild gaseous distention of the small bowel and colon may reflect a mild ileus. Dictated by Chanel Alejandro MD @ 12/02/2023 7:46:39 AM (Electronically Signed)
[2023-12-02 07:19] LABS: Basophils Absolute Auto 0.04 K/uL (0.00-0.30); Basophils Percent Auto 0.7 % (0.0-3.0); Eosinophils Absolute Auto 0.11 K/uL (0.00-0.50); Hematocrit 44.2 % (33.0-51.0); Hemoglobin* 14.3 gm/dL (12.0-16.0); Immature Granulocytes Abs Auto 0.01 K/uL (0.00-0.30); Immature Granulocytes Pct Auto 0.2 %; Lymphocytes Absolute Auto 1.25 K/uL (0.90-2.90); Lymphocytes Percent Auto 22.5 % (20-44); Mean Corpuscular HGB Conc 32 gm/dL (32-36); Mean Corpuscular Hemoglobin 31 pg (26-34); Mean Corpuscular Volume 96 fL (80-100); Monocytes Percent Auto 8.3 % (0.0-11.0); Neutrophils Absolute Auto 3.68 K/uL (1.7-7.0); Neutrophils Percent Auto 66.3 % (42.0-72.0); Platelet Count* 184 K/uL (140-440); RDW Coefficient of Variation % 13.2 % (11.5-15.5); Red Blood Count 4.61 m/uL (4.00-5.20); White Blood Count* 5.55 K/uL (4.50-11.00)
[2023-12-02 07:21] LABS: Slide Review Reflex No
[2023-12-02 07:36] LABS: INR 2.86 (0.91-1.10); Prothrombin Time 32.2 Seconds
[2023-12-02 07:46] LABS: Chloride* 103 mmol/L (96-114); Potassium* 3.2 mmol/L (3.6-5.1); Sodium* 136 mmol/L (135-149)
[2023-12-02 07:49] LABS: Anion Gap 5 mEq/L (7-15); Blood Urea Nitrogen* 6 mg/dL (7-30); Carbon Dioxide* 28 mmol/L (20-32); Creatinine* 0.6 mg/dL (0.5-1.5); Est. Creatinine Clearance* 37.68; Estimated Glomerular Filt Rate 88 ml/min
[2023-12-02 07:50] LABS: Calcium* 9.5 mg/dL (8.4-10.6); Glucose* 99 mg/dL (60-115)
--- NOTE | 2023-12-02 07:58 | PC.NURSE ---
Pt alert and oriented x3. Afebrile. No BM overnight but pt is passing gas. Pt has hypoactive bowel sounds. Pt is up SBA/Ind in room with IV pole. Pt reports feeling 4/10 pain but states its not really pain but more of a bloated feeling. pain medications offered pt refused. Pt slept throughout most of night.
[2023-12-02 08:00] VITALS: RESP 18; O2SAT 94
[2023-12-02 08:20] LABS: Magnesium* 1.9 mg/dL (1.5-2.6)
--- NOTE | 2023-12-02 08:33 | PM.GSPN ---
Subjective Subjective Date Seen: 12/02/23 Interval history: Feeling better this morning. She was able to get in a comfortable position in sleep overnight. She continues to pass gas but is concerned that she has not yet had a bowel movement. She is tolerating clear liquids with no nausea or vomiting. She does feel hungry like she could eat more regular food. On exam her abdomen remains benign, is less distended today with less pain on deep palpation. Exam Narrative: Exam Narrative: General: Alert and oriented, no acute distress Abdomen: Soft, nontender to palpation with no guarding or rebound. Nondistended Const: Vital Signs, click to edit/add: Vital Signs - 24 hr 12/01/23 10:45 12/01/23 15:00 12/01/23 15:00 Temperature 97.9 F 98.7 F Pulse Rate [Pulse Oximeter] 98 102 H Respiratory Rate 18 18 Blood Pressure [Le ft Arm] 129/89 115/95 H Pulse Oximetry 92 92 92 Oxygen Delivery Me thod Room Air Room Air Room Air 12/01/23 20:24 12/01/23 20:24 12/01/23 23:18 Temperature 97.7 F Pulse Rate [Pulse Oximeter] 90 90 Respiratory Rate 16 16 16 Blood Pressure [Le ft Arm] 134/93 H Pulse Oximetry 93 93 Oxygen Delivery Me thod Room Air Room Air 12/01/23 23:18 12/02/23 02:32 Temperature 97.8 F 98.1 F Pulse Rate [Pulse Oximeter] 98 90 Respiratory Rate 16 17 Blood Pressure [Le ft Arm] 135/93 H 130/77 Pulse Oximetry 93 90 Oxygen Delivery Me thod Room Air Room Air Labs/Imaging Imaging Imaging: Abdominal x-ray reviewed this morning. Mild dilation of colon and small bowel, this is stable compared to yesterday. Gas is within the rectum. Progress Note:A&P Assessment and plan (1) Ileus: Status: Acute Plan Patient is hospital day 3 for mild ileus. Her exam has improved today compared to yesterday with less distention and tenderness. She continues to pass gas and is tolerating clear liquids without nausea or vomiting. No evidence of obstruction at this time. Would recommend increasing oral laxative to GoLYTELY and continuous suppositories. Patient was instructed to sip on the GoLYTELY slowly, stopping if she has any nausea or increasing abdominal pain. Would encourage continued ambulation.
[2023-12-02] MEDS: POTASSIUM CHLORIDE 10 MEQ CAPSULE ER 40 MEQ PO (09:03)
[2023-12-02] MEDS: dilTIAZem 240 MG CAP (CD) PO (09:04)
[2023-12-02 09:05] LABS: Lactate* 1.5 mmol/L (0.5-1.9)
[2023-12-02] MEDS: METOPROLOL SUCCINATE (XL) 50 MG TAB PO (09:05)
[2023-12-02] MEDS: bisacodyL 10 MG SUPP.RECT PR (09:06)
[2023-12-02 09:09] VITALS: BP 139/86; PULSE 75; RESP 18; TEMP 36.6; O2SAT 94
--- NOTE | 2023-12-02 09:11 | PM.IMPN1 ---
Progress Note: A&P Assessment and plan (1) Ileus: Problem details: appears to resolving. lactate normal; starting golytele prep Status: Acute (2) Atrial fibrillation: Problem details: warfarin pharm to dose; continue metoprolol, continue diltiazem Status: Acute (3) Back pain: Problem details: Back pain associated with abdominal pain. Previously was noted to be quite positional. Status: Acute (4) Abdominal pain: Problem details: likely related to findings of ileus on CT abdomen. Avoid opioids for pain Status: Acute Subjective Date Seen: 12/02/23 Interval history: the patient is passing gas but no BM denies nausea and vomiting she states she is hungry walking in hallway AXR Mild gaseous distention of the small bowel and colon may reflect a mild ileus. Exam Narrative: Exam Narrative: Gen: no acute distress HEENT: NCAT EOMI mmm CV: RRR normal s1 s2 Lungs: CTAB Abd: Soft,nt, nd Neuro: Alert, oriented, CN grossly intact; nonfocal screening?exam Psych: anxious MSK: age appropriate muscle mass Skin; Warm, dry no rash on face Const: Vital Signs, click to edit/add: Vital Signs - 24 hr 12/01/23 10:45 12/01/23 15:00 12/01/23 15:00 Temperature 97.9 F 98.7 F Pulse Rate [Pulse Oximeter] 98 102 H Respiratory Rate 18 18 Blood Pressure [Le ft Arm] 129/89 115/95 H Pulse Oximetry 92 92 92 Oxygen Delivery Me thod Room Air Room Air Room Air 12/01/23 20:24 12/01/23 20:24 12/01/23 23:18 Temperature 97.7 F Pulse Rate [Pulse Oximeter] 90 90 Respiratory Rate 16 16 16 Blood Pressure [Le ft Arm] 134/93 H Pulse Oximetry 93 93 Oxygen Delivery Me thod Room Air Room Air 12/01/23 23:18 12/02/23 02:32 12/02/23 09:09 Temperature 97.8 F 98.1 F 97.9 F Pulse Rate [Pulse Oximeter] 98 90 75 Respiratory Rate 16 17 18 Blood Pressure [Le ft Arm] 135/93 H 130/77 139/86 Pulse Oximetry 93 90 94 Oxygen Delivery Me thod Room Air Room Air Room Air Labs Labs: Laboratory Results - last 24 hr 06/12/01/23 12/02/23 05:55 10:04 06:09 WBC 5.55 RBC 4.61 Hgb 14.3 Hct 44.2 MCV 96 MCH 31 MCHC 32 RDW Coeff of Gonzalez 13.2 Plt Count 184 Neut % (Auto) 66.3 Lymph % (Auto) 22.5 Terrell % (Auto) 8.3 Eos % (Auto) 2.0 Baso % (Auto) 0.7 Neut # (Auto) 3.68 Lymph # (Auto) 1.25 Terrell # (Auto) 0.50 Eos # (Auto) 0.11 Baso # (Auto) 0.04 Abs Immat Gran (auto) 0.01 Imm/Tot Granulo (auto) 0.2 INR 2.86 H Sodium 136 Potassium 3.2 L Chloride 103 Carbon Dioxide 28 Anion Gap 5 L BUN 6 L Creatinine 0.6 Estimated Creat Clear 37.68 Estimated GFR 88 Glucose 99 Lactate Calcium 9.5 Magnesium 1.9 Procalcitonin 0.10 Lab Acknowledgement Test Added 12/02/23 12/02/23 08:04 08:49 WBC RBC Hgb Hct MCV MCH MCHC RDW Coeff of Gonzalez Plt Count Neut % (Auto) Lymph % (Auto) Terrell % (Auto) Eos % (Auto) Baso % (Auto) Neut # (Auto) Lymph # (Auto) Terrell # (Auto) Eos # (Auto) Baso # (Auto) Abs Immat Gran (auto) Imm/Tot Granulo (auto) INR Sodium Potassium Chloride Carbon Dioxide Anion Gap BUN Creatinine Estimated Creat Clear Estimated GFR Glucose Lactate 1.5 Calcium Magnesium Procalcitonin Lab Acknowledgement Test Added
[2023-12-02] MEDS: MAGNESIUM CITRATE 300 ML SOLUTION PO (09:19)
[2023-12-02] MEDS: PEG-3350 SODIUM CL/BICARB-KCL 4,000 ML SOLN 4000 ML PO (10:40)
[2023-12-02 15:00] VITALS: BP 133/87; PULSE 72; RESP 18; TEMP 36.6; O2SAT 94
[2023-12-02] MEDS: LACTATED RINGERS 1000 ML 1,000 ML 100 ML IV (15:40)
[2023-12-02] MEDS: POTASSIUM CHLORIDE 10 MEQ CAPSULE ER 20 MEQ PO (18:18)
--- NOTE | 2023-12-02 18:37 | PC.NURSE ---
shift note; vss stable. pt had 10 oz magnesium citrate and 6 oz of Golytle. pt had total 9 moderate to large loose brown incont/cont stools. pt bottom is red; cream applied. BS hyperactive. abd soft and nontender. IV patent. pt tolerating full liquids with toast
[2023-12-02 19:00] VITALS: BP 129/72; PULSE 83; RESP 18; TEMP 36.6; O2SAT 94
[2023-12-02] MEDS: WARFARIN 2.5 MG TABLET 1.25 MG PO (20:22)
[2023-12-02] MEDS: SODIUM CHLORIDE 0.9 % (FLUSH) 10 ML SYRINGE 5 ML IVF (20:23)
[2023-12-02 23:00] VITALS: BP 128/86; PULSE 81; RESP 18; TEMP 36.6; O2SAT 94
[2023-12-03] MEDS: LACTATED RINGERS 1000 ML 1,000 ML 100 ML IV (02:15)
[2023-12-03 02:28] VITALS: BP 112/71; PULSE 91; RESP 18; TEMP 36.6; O2SAT 91
--- NOTE | 2023-12-03 05:58 | PC.NURSE ---
Shift note: Pt is alert and oriented. She complained of abdominal pain of 5 but refused pain medication. Ambulated with A1, walker and GB. Pt reported of having 9x BM. Bisacodyl was held, notified. No BM tonight. Tolerated solid food well.Vitally stable.
--- NOTE | 2023-12-03 07:21 | CRLHL7_ITS ---
For Patients: As a result of the Century Cures Act, medical imaging exams and procedure reports are released immediately into your electronic medical record. You may view this report before your referring provider. If you have questions, please contact your health care provider. INDICATION: Abdominal pain. COMPARISON: 11/29/2023 TECHNIQUE: CT of the abdomen and pelvis with intravenous contrast. Multiplanar axial, coronal, and sagittal reformats were reconstructed. Contrast: 69 mL Isovue 370. FINDINGS: Lung bases: Small bibasilar pleural effusions have increased compared to prior. Increased compressive atelectasis. Severe biatrial enlargement is not a new finding. Liver: Diffusely low-density liver. Favor diffuse patchy hepatic steatosis. There may be some component of vascular congestion as well given the degree of severe right atrial dilatation. However the intrahepatic veins do not appear to be severely dilated and there is limited if any contrast reflux into the upper abdomen. Unchanged cystic lesion just above the falciform ligament in the left lobe. Gallbladder and bile ducts: Cholecystectomy. No bile duct dilation. Pancreas: Significantly different appearance of the pancreas today compared to a few days ago. Generally contracted pancreas without any peripancreatic edema or fluid. Change raises the possibility of acute pancreatitis on the previous exam. There is a 6 millimeter low-density pancreatic body lesion (series 2, image 42). There is a 7 millimeter low-density pancreatic tail lesion (series 2, image 46). Spleen: Normal. Adrenal glands: Normal. Kidneys: Normal parenchyma. Small right renal cysts. There is contrast excreted into both renal collecting systems. No large urinary tract calculi seen. No urinary tract dilation. Urinary bladder: Only partially filled. Pelvis: Streak artifact from the hip arthroplasties. Metal reduction artifact images are provided and no pelvic cyst or mass is seen. Vessels: Scattered atherosclerotic vascular calcifications. The mesenteric arteries and veins appear patent. Bowel: Nondilated fluid-filled small bowel and colon with scattered air-fluid levels. No appreciable bowel wall thickening. Normal appendix. No formed stool burden. Lymph nodes: No adenopathy. Peritoneum: No ascites. Abdominal wall: Small fat containing right inguinal hernia. Fairly large left flank hernia containing fat and a minimal amount of the splenic flexure. Bones: No fractures. No focal worrisome bone lesions. Bilateral hip arthroplasties. IMPRESSION: 1. Increased but still small bilateral pleural effusions. 2. The pancreatic parenchyma is significantly contracted with increased enhancement when compared to the exam a few days ago. This raises the possibility that there was previously pancreatitis that has now essentially resolved. 3. There are 2 subcentimeter hypodense pancreatic lesions. 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 There are no specific recommendations regarding further imaging or follow-up in a patient of this age. 4. Continued enteritis and colitis. No ischemia or perforation seen. 5. Appearance of the liver suggestive of some combination of hepatic steatosis and vascular congestion due to elevated right heart pressures. Please note that all CT scans at this facility use dose modulation, iterative reconstruction, and/or weight-based dosing when appropriate to reduce radiation dose to as low as reasonably achievable. Dictated by Chanel Alejandro MD @ 12/03/2023 8:44:19 AM (Electronically Signed)
--- NOTE | 2023-12-03 07:22 | W.PM.CROSSCO ---
Subjective Subjective Interval history: I am hoping to discharge patient later today she has had 9+BM she still states she has abdominal pain, If CT AP ok and tolerating diet can discharge Patient making inappropriate comments towards physician nationality so I left room full discharge summary or progress note to follow later
[2023-12-03 07:25] LABS: Chloride* 105 mmol/L (96-114); INR 2.71 (0.91-1.10); Potassium* 3.4 mmol/L (3.6-5.1); Prothrombin Time 30.9 Seconds; Sodium* 136 mmol/L (135-149)
[2023-12-03 07:27] LABS: Creatinine* 0.6 mg/dL (0.5-1.5); Est. Creatinine Clearance* 37.68; Estimated Glomerular Filt Rate 88 ml/min
[2023-12-03 07:28] LABS: Anion Gap 5 mEq/L (7-15); Blood Urea Nitrogen* 7 mg/dL (7-30); Calcium* 9.6 mg/dL (8.4-10.6); Carbon Dioxide* 26 mmol/L (20-32); Glucose* 102 mg/dL (60-115)
[2023-12-03 08:00] VITALS: BP 139/80; PULSE 90; RESP 18; TEMP 36.6; O2SAT 94
--- NOTE | 2023-12-03 09:15 | P.DS_ITS ---
DS: Providers Provider Date Seen: 12/03/23 Date of admission: 12/01/23 09:30 Primary care physician: Krysta Monroe DO Admitting Clinician: Getachew Hazel MD Consults: 11/30/23 07:47 Consult to Physical Therapy [CONS] Routine Comment: Reason(s) for PT Consult:: Evaluate and Treat Any Restrictions?:: No Restrictions 11/30/23 14:21 Consult to Physician [CONS] Routine Comment: Consulting Provider: Joselin Fowler Has provider been notified: No Attending Physician on discharge: Radu Springer MD Date of Discharge: 12/03/23 DS: Diagnosis Discharge Diagnosis (1) Ileus: Status: Acute Problem details: appears to resolved; given suppository and Golyteley prep (2) Atrial fibrillation: Status: Acute Problem details: warfarin pharm to dose; continue metoprolol, continue diltiazem DS: Summary Hospital Course Hospital Course: Hospitalist- H&P: HPI History of Present Illness Date Seen: 11/29/23 Chief complaint: Bowel obstruction Narrative: Alicia Ordonez is a 82 year old female with atrial fibrillation, hyperparathyroidism, chronic anticoagulation, hypertension admitted through the emergency department with 2-3 day history of back pain and abdominal pain, nausea and constipation and now hypoxia. Patient reports she was generally doing well until the last 2-3 days when she developed mid to lower back and mid abdominal pain. Initially the pain was somewhat intermittent and seemed positional. When she would get up and move around it would hurt more in when she would be still in bed or in chair it was better. It has become more severe and more persistent over the last 2 days. During this time she has not had a normal bowel movement. She has only passed a few hard pellets of stool. This is unusual for her because she typically has a few bowel movements a day that are soft formed and brown. She has had a poor appetite and has been eating and drinking very little. Today she went to clinic where she had evaluation including abdominal x-rays which showed a severe burden of stool and a chest x-ray which showed no acute changes. She was prescribed 4000 mL of GoLYTELY to drink. She estimates she drank about 2/3 of that and then had increasing abdominal pain and then started recurrently vomiting. No blood in the emesis. She came to our emergency room where she had an abdominal CT which showed relatively diffuse small-bowel and colon loops that were dilated and filled with fluid. No transition point her obvious obstruction. Her abdominal pain is now better. In the emergency department she received dilaudid and subsequently became somewhat hypoxic possibly because the dilaudid. She also developed some chest pain in the emergency department and had initiate nicole of some evaluation for that as well. On admission now her symptoms are all better. HOSPITAL COURSE The patient was admitted and found to have mild ileus. General Surgery was consulted. She was started on suppository and miralax; then transitioned to Golytely prep. She had several episodes of BMs some formed stools with alternating liquid stools. Serial lactic acid level normal. Normal wbc. Gen Surgery consulted with no surgical intervention required. Of note patient has 2 subcentimeter hypodense pancreatic lesions. 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 discussed results with patient including option of having primary care provider help arrange abdominal MRI for further investigation Surgery Consult Assessment and plan (1) Ileus: Status: Acute Plan Patient is hospital day 3 for mild ileus. Her exam has improved today compared to yesterday with less distention and tenderness. She continues to pass gas and is tolerating clear liquids without nausea or vomiting. No evidence of obstruction at this time. Would recommend increasing oral laxative to GoLYTELY and continuous suppositories. Patient was instructed to sip on the GoLYTELY slowly, stopping if she has any nausea or increasing abdominal pain. Would encourage continued ambulation. CT AP 616 MPRESSION: 1. Increased but still small bilateral pleural effusions. 2. The pancreatic parenchyma is significantly contracted with increased enhancement when compared to the exam a few days ago. This raises the possibility that there was previously pancreatitis that has now essentially resolved. 3. There are 2 subcentimeter hypodense pancreatic lesions. 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 There are no specific recommendations regarding further imaging or follow-up in a patient of this age. 4. Continued enteritis and colitis. No ischemia or perforation seen. 5. Appearance of the liver suggestive of some combination of hepatic steatosis and vascular congestion due to elevated right heart pressures. CT AP IMPRESSION: 1. Nonspecific increase in bowel gas in fluid, possibly representing gastroenteritis. 2. Nonacute additional findings as detailed above. Time Spent with Patient Time attestation: Total time spent providing and/or coordinating discharge services: Exam Narrative: Exam Narrative: Gen: no acute distress HEENT: NCAT EOMI mmm Neck: Supple CV: RRR normal s1 s2 Lungs: CTAB Abd: Soft,nt, nd Neuro: Alert, oriented, CN grossly intact; nonfocal screening?exam Psych: appropriate affect MSK: age appropriate muscle mass Skin; Warm, dry no rash on face Const: Vital Signs, click to edit/add: Vital Signs - 24 hr 12/02/23 15:00 12/02/23 15:00 12/02/23 15:00 Temperature 97.8 F Pulse Rate [Pulse Oximeter] 72 72 Respiratory Rate 18 18 18 Blood Pressure [Le ft Arm] 133/87 Pulse Oximetry 94 94 Oxygen Delivery Me thod Room Air Room Air 12/02/23 19:00 12/02/23 23:00 12/02/23 23:00 Temperature 97.9 F Pulse Rate [Pulse Oximeter] 83 81 Respiratory Rate 18 18 18 Blood Pressure [Le ft Arm] 129/72 Pulse Oximetry 94 94 Oxygen Delivery Me thod Room Air Room Air 12/02/23 23:00 12/03/23 02:28 Temperature 97.9 F 97.9 F Pulse Rate [Pulse Oximeter] 81 91 Respiratory Rate 18 18 Blood Pressure [Le ft Arm] 128/86 112/71 Pulse Oximetry 94 91 Oxygen Delivery Me thod Room Air Room Air DS: Data Data Completed and Pending Labs on day of discharge: Labs from last 24 hours 12/03/23 06:06 INR 2.71 H Sodium 136 Potassium 3.4 L Chloride 105 Carbon Dioxide 26 Anion Gap 5 L BUN 7 Creatinine 0.6 Estimated Creat Clear 37.68 Estimated GFR 88 Glucose 102 Calcium 9.6 Discharge Plan Discharge Disposition: Home, Self-Care Date of Admission: 12/01/23 09:30 Attending Provider on Discharge: Radu Springer Consulting Providers: Joselin Fowler Primary Care Provider: Krysta Monroe Condition: Improved Anticipated Discharge Date/Time: 12/03/23 13:00 Discharge Medications: Continued metoprolol succinate 50 mg tablet extended release 24 hr 50 mg PO DAILY warfarin 5 mg tablet 5 mg PO DAILY Patient Comments: TAKE 5 MG (1 TAB) EVERY MON, MON, DANIEL 2.5 MG (1/2 TAB) ALL OTHER DAYS IN EVENING OR DIRECTED diltiazem HCl 240 mg capsule,extended release 24hr 240 mg PO DAILY calcium carbonate-vitamin D3 600 mg-10 mcg (400 unit) tablet 1 tab PO Q12H Patient Comments: TAKE 1 TABLET BY MOUTH TWICE A DAY WITH MEALS anastrozole 1 mg tablet 1 mg PO DAILY Patient Comments: TAKE 1 TABLET BY MOUTH EVERY DAY nitroglycerin 0.4 mg tablet, sublingual 0.4 mg sublingual Q5M PRN Rx Instructions: PRN CHEST PAIN cholecalciferol (vitamin D3) [Vitamin D3] 25 mcg (1,000 unit) tablet 1,000 unit PO DAILY Discharge Orders: Discharge Order (Routine); Ordered 12/03/23 Ordered By: Radu Springer Patient Education: Ileus (DC) Activity Detail: return to previous home diet Follow Up Appointments: Samantha Carver MD [Staff Physician] - 12/08/23 10:40 am ([facility] for follow-up[facility] Krysta Monroe DO [Primary Care Provider] - (post hospital follow up 3-5 days) Forms: [facility] Info Instructions
[2023-12-03] MEDS: METOPROLOL SUCCINATE (XL) 50 MG TAB PO (09:23)
[2023-12-03] MEDS: dilTIAZem 240 MG CAP (CD) PO (09:24)
[2023-12-03] MEDS: POTASSIUM CHLORIDE 10 MEQ CAPSULE ER 40 MEQ PO (09:24)
--- NOTE | 2023-12-03 14:50 | PC.NURSE ---
Shift note: dc'd iv intact rt AC. Reviewed dc instructions and copies sent with pt at dc. Belongings reviewed and sent with pt at dc. home medications sent with pt at dc
== END 2023-12-03 11:58 | disposition home or self-care (01) | DRG 390 ==
LOC: ED 22:11 → MEDSURG 22:46
PROVIDERS: Admitting Provider Hospitalist; Emergency Provider Emergency Medicine; PCP Family Medicine; Visit Provider Family Medicine
DX: K56.7 Ileus, unspecified (principal); I48.91 Unspecified atrial fibrillation; K59.00 Constipation, unspecified; M54.9 Dorsalgia, unspecified; R10.9 Unspecified abdominal pain; R11.10 Vomiting, unspecified; R09.02 Hypoxemia; R07.9 Chest pain, unspecified; R06.89 Other abnormalities of breathing; I10 Essential (primary) hypertension; M81.0 Age-related osteoporosis without current pathological fracture; E21.3 Hyperparathyroidism, unspecified; Z79.01 Long term (current) use of anticoagulants; I48.0 Paroxysmal atrial fibrillation; K86.9 Disease of pancreas, unspecified
CPT/HCPCS: 36415; 51798; 71045; 74018; 74177; 80048; 80053; 80076; 82565; 83605; 83690; 83735; 84145; 84443; 84484; 85025; 85610; 93005; 97116; 97161; 99283; 99285; A9270; G0378; J1170; J7120; Q9967

== ENCOUNTER 2023-12-03 14:47 | Emergency (ER) | payer OTHER, SELFPAY ==
[2023-12-03 14:52] VITALS: BP 124/77; PULSE 85; RESP 18; TEMP 36.3; O2SAT 94; BMI 23.6
--- NOTE | 2023-12-03 15:32 | CRLHL7_ITS ---
For Patients: As a result of the Cures Act, medical imaging exams and procedure reports are released immediately into your electronic medical record. You may view this report before your referring provider. If you have questions, please contact your health care provider. INDICATION: Pain. TECHNIQUE: Abdomen and pelvis 1 view(s) COMPARISON: CT abdomen and pelvis earlier same day. KUB dated 12/02/2023. FINDINGS/IMPRESSION: Multiple prominent air-filled loops of colon throughout the abdomen, similar to slightly increased since prior study. No evidence of pneumoperitoneum, within limitations of supine positioning. Trace right pleural effusion. Bilateral hip arthroplasties. Multilevel degenerative changes of the visualized spine. Dictated by Ruth Mejia MD @ 12/03/2023 4:40:29 PM (Electronically Signed)
--- NOTE | 2023-12-03 15:34 | ED_ITS ---
HPI - Abdominal Pain General Chief Complaint: Abdominal Pain Stated Complaint: R side pain Time Seen by Provider: 12/03/23 14:49 History of Present Illness HPI narrative: This 82-year-old female comes in with her daughter and in because of right-sided abdominal pain that seems to come and go. She was recently hospitalized for abdominal pain and was discharged about 3 hours ago. She did have a CT scan earlier today prior to discharge. She states that she went home and felt that her pain was such that she could take care of herself. She is not taking any medication for pain except some occasional Tylenol. She does have a history of some back pain and states that the pain does come around across her upper abdomen and around to her back. She has a history of lobular breast cancer and is taking an aromatase inhibitor but has not had any other radiation or chemotherapy. She has had follow-up appointments with [facility] and there is no evidence of metastatic disease currently. The while in the hospital she did have some GoLYTELY because of constipation. She states that she is now having diarrhea. She does not report any nausea, vomiting, or fever. She states that the pain is worse with certain positions or movements and when taking a deep breath. Currently she is in a good position and does not have much pain. Related Data Home Medications ?Medication ?Instructions ?Recorded ?Confirmed anastrozole 1 mg tablet 1 mg PO DAILY 08/08/22 11/29/23 calcium carbonate 600 mg-vitamin 1 tab PO Q12H 08/08/22 11/29/23 D3 10 mcg (400 unit) tablet diltiazem HCl 240 mg 240 mg PO DAILY 08/08/22 11/29/23 capsule,extended release 24 hr metoprolol succinate 50 mg 50 mg PO DAILY 08/08/22 11/29/23 tablet,extended release 24 hr warfarin 5 mg tablet 5 mg PO DAILY 08/08/22 11/29/23 cholecalciferol (vitamin D3) 25 1,000 unit PO DAILY 11/29/23 11/29/23 mcg (1,000 unit) tablet (Vitamin D3) nitroglycerin 0.4 mg sublingual 0.4 mg sublingual Q5M PRN 11/29/23 11/29/23 tablet Allergies Allergy/AdvReac Type Severity Reaction Status Date / Time nickel Allergy Verified 11/29/23 17:58 Review of Systems Status of ROS Reports: 10 or more systems reviewed and unremarkable except as noted in History and below Narrative Constitutional: No fevers, no weight gain or loss. Eyes: No discharge. No vision changes. HENT: No congestion, no sore throat, no ear pain. Cardiovascular: No chest pain, no palpitations. Respiratory: No shortness of breath, no wheezes, no cough. Gastrointestinal: No vomiting. Abdominal pain as described above. She has had some diarrhea recently related to GoLYTELY treatment. Genitourinary: No dysuria, no hematuria. Musculoskeletal: Normal range of motion. Skin: No rashes, no pruritis. Neurological: No dizziness, weakness, sensory change, speech change. Endo/Heme/Allergies: No bruising or bleeding. No polydipsia. Pysch: no suicidality, no anxiety, no insomnia. All other systems reviewed and are negative. [facility] Medical History (Updated 12/03/23 @ 17:21 by Gabriel Rowland MD) Hypertension ?I10 - Essential (primary) hypertension (ICD-10) Breast cancer ?C50.919 - Malignant neoplasm of unspecified site of unspecified female breast (ICD-10) Osteoporosis ?M81.0 - Age-related osteoporosis without current pathological fracture (ICD- 10) Hyperparathyroidism ?E21.3 - Hyperparathyroidism, unspecified (ICD-10) Atrial fibrillation (06/30/12) ?I48.91 - Unspecified atrial fibrillation (ICD-10) Surgical History (Updated 11/29/23 @ 23:52 by Getachew Hazel MD) Hx laparoscopic cholecystectomy ?Z90.49 - Acquired absence of other specified parts of digestive tract (ICD- 10) Status post Mohs surgery ?Z98.890 - Other specified postprocedural states (ICD-10) H/O colonoscopy ?Z98.890 - Other specified postprocedural states (ICD-10) Status post total knee replacement ?Z96.659 - Presence of unspecified artificial knee joint (ICD-10) History of total right hip replacement ?Z96.641 - Presence of right artificial hip joint (ICD-10) Status post total replacement of left hip ?Z96.642 - Presence of left artificial hip joint (ICD-10) H/O: hysterectomy ?Z90.710 - Acquired absence of both cervix and uterus (ICD-10) Family History (Updated 11/29/23 @ 23:50 by Getachew Hazel MD) Daughter Breast cancer Mother Stroke Social History (Updated 11/29/23 @ 23:53 by Getachew Hazel MD) Narrative: She lives with her , Rufino, who is healthcare power of consumer attorney. Code status DNR. She never smoked. She does not drink alcohol. What is your current living situation?: I presently have a place to live Problems where you live: no known problems Problems where you live details: n/a In the past 12 months, utilities in danger of being shut off: no In past 12 months, lack of transportation kept you from medical appts, meetings, work, or getting things needed for daily living: no In the past 12 mos, have been you worried that your food would run out before you had money to buy more?: never true In the past 12 mos, the food you bought just didn't last and you didn't have money to buy more?: never true Highest level of school completed/degree received: Master's degree Smoking Status: Never smoker Do you use any of these nicotine containing products: None How often do you have a drink containing alcohol: monthly or less How often do you have six or more drinks on one occasion: Less than monthly AUDIT-C Alcohol total score: 2 Non-prescribed substance use: denies use Caffeine: Yes How often does anyone, including family, friends and others, physically hurt you : never How often does anyone, including family, friends and others, insult or talk down to you: never How often does anyone, including family, friends and others, threaten you with harm: never How often does anyone, including family, friends and others, scream or curse at you: never service: No Exam Narrative: Exam Narrative: Constitutional: Well-developed, well-nourished, no acute distress. HEENT: Normocephalic, atraumatic. Neck: Normal range of motion. Nontender. Supple. Heart: Regular. No murmurs. Normal rate. Intact distal pulses. Lungs: Clear to auscultation. No chest discomfort. No wheezes, rhonchi, or rales. Abdomen: Normal bowel sounds. Nontender. No rebound tenderness. Genitalia: Deferred. Back: Normal range of motion. Extremities: Normal range of motion. No injury. Skin: Intact. No rash. Warm. No erythema or pallor. Neurologic: No altered sensation. No weakness. Alert and oriented. Psychiatric: No suicidality. No anxiety or depression. No insomnia. Nursing notes and vitals signs are reviewed. Const: Vital Signs, click to edit/add: Vital Signs - 24 hr 12/03/23 14:52 12/03/23 16:00 Temperature 97.4 F L Pulse Rate [Pulse Oximeter] 85 85 Respiratory Rate 18 16 Blood Pressure [Ri t Upper Arm] 124/77 127/91 H Pulse Oximetry 94 93 Oxygen Delivery Me thod Room Air Room Air Course Vital Signs Vital signs: Initial Vital Signs Temperature 97.4 F L 12/03/23 14:52 Temperature Source Temporal Artery Scan 12/03/23 14:52 Pulse Rate 85 12/03/23 14:52 Respiratory Rate 18 12/03/23 14:52 Blood Pressure 124/77 12/03/23 14:52 Blood Pressure Mean 92 12/03/23 14:52 Pulse Oximetry 94 12/03/23 14:52 Oxygen Delivery Method Room Air 12/03/23 14:52 Vital Signs Temperature 97.4 F L 12/03/23 14:52 Pulse Rate 85 12/03/23 14:52 Respiratory Rate 18 12/03/23 14:52 Blood Pressure 124/77 12/03/23 14:52 Pulse Oximetry 94 12/03/23 14:52 Oxygen Delivery Method Room Air 12/03/23 14:52 Temperature 97.4 F L 12/03/23 14:52 Pulse Rate 85 12/03/23 16:00 Respiratory Rate 16 12/03/23 16:00 Blood Pressure 127/91 H 12/03/23 16:00 Pulse Oximetry 93 12/03/23 16:00 Oxygen Delivery Method Room Air 12/03/23 16:00 Medications Administered Medications: Discontinued Medications Generic Name Dose Route Start Last Admin Trade Name Freq PRN Reason Stop Dose Admin Hydrocodone Bitart/Acetaminophen 1 tab 12/03/23 15:32 12/03/23 15:49 Hydrocodone-Acetamin 5-325 Mg 1 Tab PO 12/03/23 15:33 1 tab ONCE ONE Administration MDM - Abdominal Pain MDM Narrative Medical decision making narrative: This 82-year-old female comes in with episodes of severe abdominal pain. She was just discharged from the hospital several hours prior to her return visit here. She did have a CT scan this morning and I reviewed those results along with other lab and imaging results from her recent hospitalization. Today she did have another abdominal x-ray which does show distension of her bowels due to presence of gas. There are no other findings that are significant. The patient did receive 1 oral tablet of [place] with the understanding that this can slow her bowels. It did provide good pain relief. She has been having diarrhea the recently because she took a regimen of GoLYTELY while in the hospital. I recommended to the patient that she attempt to get back to regular activity and diet and as for her abdominal pain there appears to be of reason on x-ray imaging that explains it but yet does not trigger findings typical of an acute abdomen.She received instymed prescriptions for a few tablets of norco and fle xeril to be used only as needed. Discharge Plan Discharge Clinical Impression: Abdominal pain Patient Disposition: Home, Self-Care Condition: Improved Additional Instructions: Resume normal diet and activity as able. Use medicines as needed and directed. Follow up with MD return if worsening. Prescriptions: No Action metoprolol succinate 50 mg tablet extended release 24 hr 50 mg PO DAILY warfarin 5 mg tablet 5 mg PO DAILY Patient Comments: TAKE 5 MG (1 TAB) EVERY MON, MON, MON 2.5 MG (1/2 TAB) ALL OTHER DAYS IN EVENING OR DIRECTED diltiazem HCl 240 mg capsule,extended release 24hr 240 mg PO DAILY calcium carbonate-vitamin D3 600 mg-10 mcg (400 unit) tablet 1 tab PO Q12H Patient Comments: TAKE 1 TABLET BY MOUTH TWICE A DAY WITH MEALS anastrozole 1 mg tablet 1 mg PO DAILY Patient Comments: TAKE 1 TABLET BY MOUTH EVERY DAY nitroglycerin 0.4 mg tablet, sublingual 0.4 mg sublingual Q5M PRN Rx Instructions: PRN CHEST PAIN cholecalciferol (vitamin D3) [Vitamin D3] 25 mcg (1,000 unit) tablet 1,000 unit PO DAILY Follow Up/Referrals: Krysta Monroe DO [Primary Care Provider] - Stand Alone Forms: [facility] Info Instructions
[2023-12-03] MEDS: HYDROCODONE-ACETAMIN 5-325 MG 1 TAB PO (15:49)
[2023-12-03 16:00] VITALS: BP 127/91; PULSE 85; RESP 16; O2SAT 93
[2023-12-03 17:40] VITALS: PULSE 79; RESP 16; O2SAT 92
== END 2023-12-03 17:41 | disposition home or self-care (01) ==
PROVIDERS: Emergency Provider Emergency Medicine Emergency Medical Services; PCP Family Medicine
DX: R10.9 Unspecified abdominal pain (principal)
CPT/HCPCS: 74018; 99283; 99284; A9270

== ENCOUNTER 2023-12-06 08:33 | Observation (INO) | payer OTHER, SELFPAY ==
[2023-12-06] VITALS (7 sets, daily range): BP systolic 127–145; BP diastolic 86–99; PULSE 80–94; RESP 16–20; TEMP 36–36.7; O2SAT 92–99; BMI 22.9; BMI 22.8
--- NOTE | 2023-12-06 08:59 | ED.ABDPAIN ---
HPI - Abdominal Pain General Chief Complaint: Abdominal Pain Stated Complaint: Chronic abdominal pain Time Seen by Provider: 12/06/23 08:45 Source: patient, family, RN notes reviewed and old records reviewed Mode of arrival: ambulatory Limitations: no limitations History of Present Illness HPI narrative: This 82-year-old female is coming to the ER today in setting of recent ileus and no true bowel movement for the last week now. She is having ongoing abdominal pain with this. She is passing flatus maybe 3 to 4 times a day. She states she is urinating fine. She was hospitalized November 28 through the . She did have abdominal imaging and CT imaging consistent with ileus. She was tolerating orals on discharge. She did follow up in the clinic on Monday the , did start with MiraLax and Metamucil. She has been tolerating small amounts of foods, taking liquids fine. She has had no nausea or vomiting. There have been no fevers. She states that there was some documentation in the record that she has had a bowel movement since last Monday but she is adamant that she has not. She has had colonoscopy before but no reported polyps, unknown when this was last done. She has had a cholecystectomy and hysterectomy for abdominal surgeries, no history of bowel obstruction reportedly. She has been taking Tylenol for pain, did take a 1000 mg earlier this morning. MD elicited complaint: abdominal pain Related Data Hx Last Menstrual Period: Postmenopausal Patient : No Home Medications ?Medication ?Instructions ?Recorded ?Confirmed anastrozole 1 mg tablet 1 mg PO DAILY 08/08/22 12/06/23 calcium carbonate 600 mg-vitamin 1 tab PO Q12H 08/08/22 12/06/23 D3 10 mcg (400 unit) tablet diltiazem HCl 240 mg 240 mg PO DAILY 08/08/22 12/06/23 capsule,extended release 24 hr metoprolol succinate 50 mg 50 mg PO DAILY 08/08/22 12/06/23 tablet,extended release 24 hr warfarin 5 mg tablet 5 mg PO DAILY 08/08/22 12/06/23 cholecalciferol (vitamin D3) 25 1,000 unit PO DAILY 11/29/23 12/06/23 mcg (1,000 unit) tablet (Vitamin D3) nitroglycerin 0.4 mg sublingual 0.4 mg sublingual Q5M PRN 11/29/23 11/29/23 tablet Allergies Allergy/AdvReac Type Severity Reaction Status Date / Time nickel Allergy Verified 12/06/23 14:01 Review of Systems Status of ROS Reports: 6 or more systems reviewed and unremarkable except as noted in History and below Narrative Patient does also report that she is in atrial fibrillation chronically. [facility] Medical History Hypertension ?I10 - Essential (primary) hypertension (ICD-10) Breast cancer ?C50.919 - Malignant neoplasm of unspecified site of unspecified female breast (ICD-10) Osteoporosis ?M81.0 - Age-related osteoporosis without current pathological fracture (ICD-10) Hyperparathyroidism ?E21.3 - Hyperparathyroidism, unspecified (ICD-10) Atrial fibrillation (06/30/12) ?I48.91 - Unspecified atrial fibrillation (ICD-10) Surgical History Hx laparoscopic cholecystectomy ?Z90.49 - Acquired absence of other specified parts of digestive tract (ICD-10) Status post Mohs surgery ?Z98.890 - Other specified postprocedural states (ICD-10) H/O colonoscopy ?Z98.890 - Other specified postprocedural states (ICD-10) Status post total knee replacement ?Z96.659 - Presence of unspecified artificial knee joint (ICD-10) History of total right hip replacement ?Z96.641 - Presence of right artificial hip joint (ICD-10) Status post total replacement of left hip ?Z96.642 - Presence of left artificial hip joint (ICD-10) H/O: hysterectomy ?Z90.710 - Acquired absence of both cervix and uterus (ICD-10) Family History Daughter Breast cancer Mother Stroke Social History Narrative: She lives with her , Rufino, who is healthcare power of compliance attorney. Code status DNR. She never smoked. She does not drink alcohol. What is your current living situation?: I presently have a place to live Problems where you live: no known problems Problems where you live details: n/a In the past 12 months, utilities in danger of being shut off: no In past 12 months, lack of transportation kept you from medical appts, meetings, work, or getting things needed for daily living: no In the past 12 mos, have been you worried that your food would run out before you had money to buy more?: never true In the past 12 mos, the food you bought just didn't last and you didn't have money to buy more?: never true Highest level of school completed/degree received: Master's degree Smoking Status: Never smoker Do you use any of these nicotine containing products: None How often do you have a drink containing alcohol: monthly or less How often do you have six or more drinks on one occasion: Less than monthly AUDIT-C Alcohol total score: 2 Non-prescribed substance use: denies use Caffeine: Yes How often does anyone, including family, friends and others, physically hurt you: never How often does anyone, including family, friends and others, insult or talk down to you: never How often does anyone, including family, friends and others, threaten you with harm: never How often does anyone, including family, friends and others, scream or curse at you: never service: No Exam Const: Vital Signs, click to edit/add: Vital Signs - 24 hr 12/06/23 08:37 12/06/23 09:13 12/06/23 11:03 Temperature 97 F L Pulse Rate [Right Pulse Oximeter] 89 80 Respiratory Rate 18 18 Blood Pressure [Ri ght Upper Arm] 129/86 134/91 H Pulse Oximetry 99 93 94 Oxygen Delivery Me thod Room Air Room Air 12/06/23 13:31 Temperature Pulse Rate [Right Pulse Oximeter] 80 Respiratory Rate 18 Blood Pressure [Ri ght Upper Arm] 127/97 H Pulse Oximetry 93 Oxygen Delivery Me thod Room Air Alicia is an 82-year-old female that ambulatory into the ED of her own accord. She is alert, interactive, no apparent distress. Sclera clear, conjugate gaze, able speak in complete sentences with normal speech. Lungs are clear, no wheezing or crackles, no tachypnea. CV is irregular, do not hear any murmur, normal S1-S2. Abdomen is mildly distended, bowel sounds are active but have no abnormal character to them. She has some mild diffuse tenderness in the lower abdomen, no rebound or guarding or any organomegaly or masses noted at this time. She has no lower extremity edema. Her gait was independent. Documenting provider has reviewed patient's vital signs: yes Course Course ED Course: Alicia will have a repeat flat and upright, will get baseline labs. She could have ongoing ileus, this does not sound obstructive in nature. She understands we may need to repeat her CT imaging. Reevaluation(s) Time of Reevaluation #1: 10:17 Reevaluation #1: Reviewed with Alicia and her that she has buildup significant stool now, looks to be probable constipation. Labs are reassuring, no elevated white blood count, normal lactate, no electrolyte abnormalities seen. Will proceed with Enemeez. Still awaiting her INR. In review of her bowel regimen, she has been taking a tbsp of the MiraLax twice a day and then Metamucil. Consultations Consultation #1: Spoke with our general surgeon on-call Dr. Mehta. We reviewed this case. She agrees we should proceed with CT imaging with contrast and in addition to the IV, will do oral. This may help stimulate stool production. If there is no stool production, need to initiate GoLYTELY. Patient may ultimately need to go into the hospital, feel it is imperative that we know that this patient is returning to normal bowel movements prior to any discharge given her recent history. We will do the CT imaging with oral contrast to make sure we are not seeing any mass. Patient may ultimately eventually need a colonoscopy. Did review the plan with Alicia and her . Time: 13:08 Consultation #2: Have spoken to the daytime hospitalist Sobeida Betts, she directs us to the [facility] night hospitalist, will let him know to call us as soon as he is able to. Will await call back from Dr. Oshea. Did subsequently touch base with the hospitalist service on this patient, they agree for acceptance. Will place her on observation for her admission. Time: 14:04 Vital Signs Vital signs: Initial Vital Signs Temperature 97 F L 12/06/23 08:37 Temperature Source Temporal Artery Scan 12/06/23 08:37 Pulse Rate 89 12/06/23 08:37 Pulse Rhythm Regular 12/06/23 08:37 Respiratory Rate 18 12/06/23 08:37 Blood Pressure 129/86 12/06/23 08:37 Blood Pressure Mean 100 12/06/23 08:37 Blood Pressure Position Sitting 12/06/23 08:37 Pulse Oximetry 99 12/06/23 08:37 Oxygen Delivery Method Room Air 12/06/23 08:37 Vital Signs Temperature 97 F L 12/06/23 08:37 Pulse Rate 89 12/06/23 08:37 Respiratory Rate 18 12/06/23 08:37 Blood Pressure 129/86 12/06/23 08:37 Pulse Oximetry 99 12/06/23 08:37 Oxygen Delivery Method Room Air 12/06/23 08:37 Temperature 97 F L 12/06/23 08:37 Pulse Rate 80 12/06/23 13:31 Respiratory Rate 18 12/06/23 13:31 Blood Pressure 127/97 H 12/06/23 13:31 Pulse Oximetry 93 12/06/23 13:31 Oxygen Delivery Method Room Air 12/06/23 13:31 Medications Administered Medications: Discontinued Medications Generic Name Dose Route Start Last Admin Trade Name Baldo PRN Reason Stop Dose Admin Bisacodyl 10 mg 12/06/23 11:22 12/06/23 12:46 [address]acod[address] PO 12/06/23 11:23 10 mg ONCE ONE Administration Docusate Sodium/Benzocaine 5 ml 12/06/23 10:18 12/06/23 10:28 Docusate Sodium/Benzocaine 5 Ml Enema [place] 12/06/23 10:19 5 ml ONCE ONE Administration MDM - Abdominal Pain Lab Data Attestation: I reviewed the patient's lab results. Lab results narrative: TSH was normal 0.558 on 11/30/2023. Labs: Lab Results 12/06/23 12/06/23 Range/Units 09:29 09:55 WBC 5.41 (4.50-11.00) K/uL RBC 4.77 (4.00-5.20) m/uL Hgb 14.7 (12.0-16.0) gm/dL Hct 45.7 (33.0-51.0) % MCV 96 (80-100) fL MCH 31 (26-34) pg MCHC 32 (32-36) gm/dL RDW Coeff of Gonzalez 13.2 (11.5-15.5) % Plt Count 194 (140-440) K/uL Neut % (Auto) 61.3 (42.0-72.0) % Lymph % (Auto) 24.6 (20-44) % [place] % (Auto) 7.8 (0.0-11.0) % Eos % (Auto) 4.3 (0.0-7.0) % Baso % (Auto) 1.1 (0.0-3.0) % Neut # (Auto) 3.32 (1.7-7.0) K/uL Lymph # (Auto) 1.33 (0.90-2.90) K/uL [place] # (Auto) 0.40 (0.00-0.90) K/UL Eos # (Auto) 0.23 (0.00-0.50) K/uL Baso # (Auto) 0.06 (0.00-0.30) K/uL Abs Immat Gran (auto) 0.05 (0.00-0.30) K/uL Imm/Tot Granulo (auto) 0.9 % INR 3.84 H (0.91-1.10) Sodium 136 (135-149) mmol/L Potassium 3.6 (3.6-5.1) mmol/L Chloride 104 (96-114) mmol/L Carbon Dioxide 26 (20-32) mmol/L Anion Gap 6 L (7-15) mEq/L BUN 9 (7-30) mg/dL Creatinine 0.7 (0.5-1.5) mg/dL Estimated Creat Clear 39.20 Estimated GFR 85 ml/min Glucose 116 H (60-115) mg/dL Lactate 1.5 (0.5-1.9) mmol/L Calcium 10.1 (8.4-10.6) mg/dL Total Bilirubin 0.6 (0.1-1.5) mg/dL AST 46 H (12-35) U/L ALT 30 (4-35) U/L Alkaline Phosphatase 98 (40-150) U/L C-Reactive Protein 1.2 H (0.5-1.0) mg/dL Total Protein 6.7 (6.0-8.3) g/dL Albumin 3.9 (3.3-5.0) g/dL Lipase 61 (23-300) U/L Lab Acknowledgement Test Added Imaging Data Abdominal x-ray: Attestation: I have reviewed the pertinent imaging results. Radiologist's impression: Patient: ALICIA BAZAN Facility:?[facility] Patient ID:?[id number] Site Patient ID:?[id number]. Site :?[id number] Study:?XRay-Abdomen/Pelvis 2 VIEWS-12/06/2023 9:49:08 AM Ordering Physician:Ashlie Daniels Final Report: INDICATION: RECENT ILEUS, BOWEL ISSUES. (Sic) COMPARISON: None available. TECHNIQUE: Views: Two views (AP supine and AP upright views of the abdomen; 4 images). 12/03/2023 FINDINGS: Nondilated bowel. Nonspecific moderate colonic fecal loading. Small right pleural effusion. Right upper quadrant cholecystectomy clips. Cardiomegaly. Bilateral hip arthroplasties, incompletely included in the field of view. Pelvic phleboliths are incidentally noted. Lumbar spondylosis. IMPRESSION: Nondilated bowel. Nonspecific moderate colonic fecal loading. Incidental findings described above. Dictated by Saw Page MD @ 12/06/2023 10:05:48 AM (Electronic Signature) CT scan - abdomen: My impression: Patient id mid id prior to CT being done. Needed to await the oral contrast. Discharge Plan Discharge Clinical Impression: Acute constipation Abdominal pain Qualifiers: Abdominal location: lower abdomen, unspecified Qualified Code(s): R10.30 - Lower abdominal pain, unspecified Patient Disposition: Admitted As Observation Condition: Unchanged
--- NOTE | 2023-12-06 09:03 | CRLHL7_ITS ---
For Patients: As a result of the Century Cures Act, medical imaging exams and procedure reports are released immediately into your electronic medical record. You may view this report before your referring provider. If you have questions, please contact your health care provider. INDICATION: RECENT ILEUS, BOWEL ISSUES. (Sic) COMPARISON: None available. TECHNIQUE: Views: Two views (AP supine and AP upright views of the abdomen; 4 images). 12/03/2023 FINDINGS: Nondilated bowel. Nonspecific moderate colonic fecal loading. Small right pleural effusion. Right upper quadrant cholecystectomy clips. Cardiomegaly. Bilateral hip arthroplasties, incompletely included in the field of view. Pelvic phleboliths are incidentally noted. Lumbar spondylosis. IMPRESSION: Nondilated bowel. Nonspecific moderate colonic fecal loading. Incidental findings described above. Dictated by Saw Page MD @ 12/06/2023 10:05:48 AM (Electronically Signed)
[2023-12-06 09:31] LABS: Lactate* 1.5 mmol/L (0.5-1.9)
[2023-12-06 09:39] LABS: Albumin* 3.9 g/dL (3.3-5.0); Basophils Absolute Auto 0.06 K/uL (0.00-0.30); Basophils Percent Auto 1.1 % (0.0-3.0); Chloride* 104 mmol/L (96-114); Eosinophils Absolute Auto 0.23 K/uL (0.00-0.50); Eosinophils Percent Auto 4.3 % (0.0-7.0); Hematocrit 45.7 % (33.0-51.0); Hemoglobin* 14.7 gm/dL (12.0-16.0); Immature Granulocytes Abs Auto 0.05 K/uL (0.00-0.30); Immature Granulocytes Pct Auto 0.9 %; Lymphocytes Absolute Auto 1.33 K/uL (0.90-2.90); Lymphocytes Percent Auto 24.6 % (20-44); Mean Corpuscular HGB Conc 32 gm/dL (32-36); Mean Corpuscular Hemoglobin 31 pg (26-34); Mean Corpuscular Volume 96 fL (80-100); Monocytes Percent Auto 7.8 % (0.0-11.0); Neutrophils Absolute Auto 3.32 K/uL (1.7-7.0); Neutrophils Percent Auto 61.3 % (42.0-72.0); Platelet Count* 194 K/uL (140-440); RDW Coefficient of Variation % 13.2 % (11.5-15.5); Red Blood Count 4.77 m/uL (4.00-5.20); White Blood Count* 5.41 K/uL (4.50-11.00)
[2023-12-06 09:40] LABS: Potassium* 3.6 mmol/L (3.6-5.1); Slide Review Reflex No; Sodium* 136 mmol/L (135-149)
[2023-12-06 09:42] LABS: Alkaline Phosphatase* 98 U/L (40-150); Anion Gap 6 mEq/L (7-15); Aspartate Amino Transferase* 46 U/L (12-35); Bilirubin Total* 0.6 mg/dL (0.1-1.5); Carbon Dioxide* 26 mmol/L (20-32); Creatinine* 0.7 mg/dL (0.5-1.5); Estimated Glomerular Filt Rate 85 ml/min; Lipase* 61 U/L (23-300); Total Protein* 6.7 g/dL (6.0-8.3)
[2023-12-06 09:43] LABS: Alanine Aminotransferase* 30 U/L (4-35); Blood Urea Nitrogen* 9 mg/dL (7-30); Calcium* 10.1 mg/dL (8.4-10.6); Glucose* 116 mg/dL (60-115)
[2023-12-06 09:45] LABS: C Reactive Protein* 1.2 mg/dL (0.5-1.0)
[2023-12-06 10:14] LABS: INR 3.84 (0.91-1.10); Prothrombin Time 40.8 Seconds
[2023-12-06] MEDS: DOCUSATE SODIUM/BENZOCAINE 5 ML ENEMA PR (10:28)
--- OUTSIDE RECORDS SUMMARY | 2023-12-06 10:31 | XMS_ITS | Clinical Summary ---
Author Organization [facility] Address [address] [place] [id number] Care Team Providers Care Scowman Name Role Phone Elsewhere, Pcp Primary Care Provider Unavailabl e Source Comments Patient records contain information from all sites at [facility]. For routine questions regarding patient records, call [phone] during business hours, M-F 8:00 AM - 5:00 PM Central Time. Record requests for emergency care only can be directed to [phone] at any time.[facility] Allergies Active Allergy Reactions Criticality Noted Date Comments Nickel Other (see comments) 08/19/2006 rash Medications Medication Sig Dispensed Refills Start Date End Date Status cholecalciferol (VITAMIN D3) 25 mcg (1,000 Unit) capsule Take 1 capsule by mouth daily. 11/07/2017 Active dilTIAZem (TIAZAC/TAZTIA XT) 240 mg ER capsule Take 1 capsule by mouth daily. 07/02/2020 Active metoprolol succinate (TOPROL-XL) 50 mg 24 hr tablet Take 1 tablet by mouth daily. 07/02/2020 Active nitroglycerin (NITROSTAT) 0.[address] 0.4 mg under the tongue as needed. 08/20/2020 Active warfarin (COUMADIN) 5 mg tablet Monday, Monday, Monday, AND Saturdays 2.5 MG 5MG All other days 07/23/2020 Active calcium carbonate (CALCIUM 600 ORAL) Take 1 tablet by mouth 2 (two) times a day. Active anastrozole (ARIMIDEX) 1 mg tabletIndications:Ma lignant Neoplasm Of Overlapping Sites Of Left Female Breast (HCC) TAKE 1 TABLET BY MOUTH EVERY DAY 90 tablet 3 12/19/2022 Active calcium carbonate-vitamin D3 1,500 mg (600 mg calcium)-10 mcg (400 Unit) per tablet Take 1 tablet by mouth 2 (two) times a day with meals. 02/12/2023 Active Active Problems Problem Noted Date Diagnosed Date Malignant Neoplasm Of Overla pping Sites Of Left Female Breast 02/10/2021 Cancer Staging:Clinical stage from 12/24/2020:Stage IIIB(cT4c, cN1, cM0, G2, ER+, [place]-, HER2-) - Signed by Enrique Vang APRN, C.N.P., M.S.N. on 08/03/2022 Atherosclerotic Heart Diseas e Of [place] Coronary Artery Without Angina Pectoris 02/10/2021 Osteoporosis Atrial Fibrillation Unspecified Immunizations Name Administration Dates Next Due HZV (ZOSTAVAX) 05/23/2012 HepA Adult 06/10/1998,12/09/1997 HepB Adult 06/10/1998,01/06/1998,12/09/1997 IPV 01/06/1998 Influenza TIV (IM) 03/22/2019 Influenza, Quadrivalent, Adj uvanted, Preservative Free 03/20/2020 PCV13 08/01/2014 PPSV23 02/26/2007 RZV (SHINGRIX) 02/01/2021(Deferred: Other - CHECK WITH PCP) Td Preservative Free (TENIVA C, DECAVAC) 10/09/2006 Tdap 08/22/2013 influenza high dose (65 year s or older) (PF) 04/07/2018,03/23/2017,03/11/2016,2014,03/07/2014 Family History Medical History Relation Name Comments Breast cancer Daughter LNL Other Father RJG COPD Stroke Mother MBG Relation Name Status Comments Daughter LNL Father RJG Mother MBG Social History Tobacco Use Types Packs/Day Years Used Date Smoking Tobacco: Never Smokeless Tobacco: Never Tobacco Cessation:Counseling Given: Not Answered Alcohol Use Standard Drinks/Week Comments Yes 0 (1 standard drink = 0.6 oz pur e alcohol) once a month, a glass of wine Social Connection and Isolat ion Panel [NHANES] Answer Date Recorded In a typical week, how many times do you talk on the phone with family, friends, or neighbors? More than three times a week 02/09/2021 How often do you get togethe r with friends or relatives? Once a week 02/09/2021 How often do you attend chur ch or faith services? Never 02/09/2021 Do you belong to any clubs o r organizations such as judaism groups, unions, fraternal or athletic groups, or school groups? Yes 02/09/2021 How often do you attend meet ings of the clubs or organizations you belong to? More than 4 times per year 02/09/2021 Are you , , di vorced, , never , or living with a partner? 02/09/2021 AUDIT-C Answer Date Recorded Q1: How often do you have a drink containing alc ohol? Monthly or less 02/09/2021 Q2: How many drinks containi ng alcohol do you have on a typical day when you are drinking? Patient declined 02/09/2021 Q3: How often do you have si x or more drinks on one occasion? Never 02/09/2021 Overall Financial Resource Strain (CARDIA) Answe r Date Recorded How hard is it for you to pa y for the very basics like food, housing, medical care, and heating? Not hard at all 02/09/2021 [facility] - Occupational Stress Questionnaire Answer Date Recorded Do you feel stress - tense, restless, nervous, or anxious, or unable to sleep at night because your mind is troubled all the time - these days? Only a little 02/09/2021 Exercise Vital Sign Answer Date Recorde d On average, how many days pe r week do you engage in moderate to strenuous exercise (like a brisk walk)? 0 days 02/09/2021 On average, how many minutes do you engage in exercise at this level? 30 min 02/09/2021 Hunger Vital Sign Answer Date Recorded Within the past 12 months, y ou worried that your food would run out before you got the money to buy more. Never true 02/10/20 21 Within the past 12 months, t he food you bought just didn't last and you didn't have money to get more. Never true 02/09/2021 PRAPARE - Transportation Answer Date Re corded In the past 12 months, has l ack of transportation kept you from medical appointments or from getting medications? No 01/18 In the past 12 months, has l ack of transportation kept you from meetings, work, or from getting things needed for daily living? No 02/09/2021 Housing Stability Vital Sign Answer Alok e Recorded In the last 12 months, was t here a time when you were not able to pay the mortgage or rent on time? No 02/09/2021 Number of Places Lived in the Last Year Not on f ile 02/09/2021 In the last 12 months, was t here a time when you did not have a steady place to sleep or slept in a long-term (including now)? No 02/09/2021 Nutrition Answer Date Recorded Nutrition: EVOO Fat Source No 02/09 On average, how many serving s of fruits and vegetables do you eat per day (serving size is equal to 1 cup or approximately the size of a tennis ball)? 6-7 02/09/2021 Dental Answer Date Recorded Dental: Regular Dentist Yes 06/20/19 Employment Answer Date Recorded Employment status Retired 02/09/2021 Education Answer Date Recorded What is the highest level of school you have completed or the highest degree you have received? 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, [employer]) 02/09/2021 Sex and Gender Information Value Date Recorded Sex Assigned at Female 05/07/2021 2:08 PM SALES PROMOTION REPRESENTATIVE Gender Identity Female 02/09/2021 2:21 PM CDT Sexual Orientation Straight 02/09/2021 2: 21 PM CDT Last Filed Vital Signs Vital Sign Reading Time Taken Comments Blood Pressure 117/76 07/26/2023 3:04 PM SALES PROMOTION REPRESENTATIVE Pulse 74 07/26/2023 3:04 PM SALES PROMOTION REPRESENTATIVE Temperature 36.2 ??C (97.2 ??F) 07/26/2023 3:04 PM CS T Respiratory Rate 16 04/04/2023 11:0 5 AM CDT Oxygen Saturation 96% 07/26/2023 3:04 PM SALES PROMOTION REPRESENTATIVE Inhaled Oxygen Concentration - - Weight 64.4 kg (141 lb 13.9 oz) 07/26/2023 3:04 PM SALES PROMOTION REPRESENTATIVE Height 160.1 cm (5' 3.03) 07/26/2023 3:04 PM CS T Body Mass Index 25.11 07/26/2023 3:04 PM SALES PROMOTION REPRESENTATIVE Plan of Treatment Health Maintenance Due Date Last Done Comments Zoster Vaccines (2 of 3) 07/18/2012 05/23/2012 COVID-19 Vaccine (7 - 2022-2 4 season) 2023 03/15/2023, 02/25/2022, 09/16/2021, Additional history exists Depression Screening (Annual PHQ-2) 06/19/2023 Fall Risk Screen (Annual) 06/19/2023 DTaP,Tdap,and Td Vaccines (2 - Td or Tdap) 08/23/2023 08/22/2013, 10/09/2006 Office Visit for Blood Press ure Check / Re-check 07/26/2024 07/26/2023 Hepatitis A Vaccines Completed 06/10/1998, 12/09/18 98 Hepatitis B Vaccines Completed 06/10/1998, 01/06/1998, 12/09/1997 Pneumococcal vaccine (65+ years) Completed 08/01/19 15, 02/26/2007 Influenza Vaccine Completed 04/12/2023, , 03/31/2021, Additional history exists Medical Devices Implanted Type Area Commercial Lines Sales Executive Device Identifier Shelf Expiration Date Model / Serial / Lot Hip Implant Hip Implant Bilateral : Hip Knee Implant Knee Implant Right: Knee Ocular Lens Ocular Lens Bilateral : Eye Care Teams Scowman Relationship Specialty Start Date End Date Elsewhere, Pcp PCP - General Internal Medicine 11/24/22
--- OUTSIDE RECORDS SUMMARY | 2023-12-06 10:31 | XMS_ITS | Clinical Summary ---
Author Organization [facility] Address [place], [place] [address] Care Team Providers Care Interpretative Dancer Name Role Phone Porsha Lara MD Unavailable [phone] Gui Theodore MD Unavailable Unavail able Krysta Monroe DO Primary Care Provider [phone] Allergies Active Allergy Reactions Criticality Noted Date Comments Nickel Other - Describe In Comment Field rash Medications Medication Sig Dispensed Refills Start Date End Date Status cholecalciferol (VITAMIN D) 1,000 unit capsule Take 1 capsule by mouth once daily. 0 11/07/2017 Active anastrozole (ARIMIDEX) 1 mg tablet Take 1 mg by mouth once daily. 12/22/2020 Active nitroglycerin (NITROSTAT) 0.4 mg sublingual tabletIndications: Chest tightness PLACE 1 TABLET (0.4 MG) UNDER THE TONGUE EVERY 5 MINUTES IF NEEDED FOR CHEST PAIN. SIT DOWN IF USED. 25 Tablet 12/07/2021 Active calcium carbonate-vitamin D3, 600 mg-400 unit, 600 mg-10 mcg (400 unit) tabletIndications: Osteoporosis, unspecified osteoporosis type, unspecified pathological fracture presence TAKE 1 TABLET BY MOUTH TWICE A DAY WITH FOOD 180 Tablet 3 02/12/2023 Active warfarin (COUMADIN) 5 mg tabletIndications: Intermittent atrial fibrillation (HC),Anticoagulati on monitoring, INR range 2-3 Take by mouth 5 mg (5 mg x 1) every Mon, Tue, Abbi; 2.5 mg (5 mg x 0.5) all other days in the evening OR as directed 10/23/2023 Active dilTIAZem CD (CARDIZEM CD) 240 mg extended release 24 hr capsuleIndications :Paroxysmal atrial fibrillation (HC) TAKE 1 CAPSULE BY MOUTH EVERY DAY 90 Capsule 10/26/2023 Active metoprolol succinate (TOPROL XL) 50 mg sustained-release tabletIndications: PAF (paroxysmal atrial fibrillation) (HC) TAKE 1 TABLET BY MOUTH EVERY DAY 90 Tablet 11/17/2023 Active metoprolol succinate (TOPROL XL) 50 mg sustained-release tabletIndications: PAF (paroxysmal atrial fibrillation) (HC) TAKE 1 TABLET BY MOUTH EVERY DAY 90 Tablet 08/18/2023 4 Discontinued polyethylene glycol-electrolyte (GOLYTELY) 236-22.74-6.74 -5.86 gram suspensionIndicati ons:Constipation, unspecified constipation type Take 4,000 mL by mouth one time for 1 dose. 8000 mL 11/29/2023 4 Active Problems Problem Noted Date Diagnosed Date IPMN (intraductal papillary mucinous neoplasm) 0 12/04/2023 Malignant neoplasm of female breast, unspecified estrogen receptor status, unspecified laterality, unspecified site of breast 07/01/2021 Osteoporosis 07/01/2017 Overview: 06/2017 Recommend start bisphosphonate Anticoagulation monitoring, INR range 2-3 2013 Hyperparathyroidism 02/27/2013 Overview: Endocrinology in 2012 for 'mild hyperparathyroidism' and he recommended bone density and if osteoporosis follow up to consider surgery to cure the hyperparathyroidism. She did have osteoporosis and saw parathyroid surgeon Dr Pike 02/2013 and he recommended surgery and patient declined. Intermittent atrial fibrillation 07/04/2012 Overview: 2004, postoperative, resolved. Then intermittent and now more frequent 06/2012 Colon polyp 01/17/2012 Overview: Colonoscopy 12/2011 polyp repeat in 5 years Asymptomatic varicose veins 08/15/2011 Bilateral sensorineural hearing loss 12/09/2009 Overview: Right ear Tinnitus of both ears 10/16/2007 Overview: Bilateral tinnitus for the past 5+years, is not bothersome at this time. If it becomes bothersome, patient should be referred to Dr. Bria Maxwell, Stamp Press Operator, for a tinnitus consultation. Unspecified essential hypertension 08/19/2006 Actinic keratosis 08/19/2006 health maintenance 08/19/2006 Overview: Dexa normal 2005. Normal stress echocardiogram 2006 Resolved Problems Problem Noted Date Diagnosed Date Resolved Date Chest pain 08/14/2015 03/17/2022 Knee joint replacement by other means 08/19/2014 03/17/2022 Knee pain 08/30/2011 03/17/2022 Mixed hearing loss, unilateral 12/09/2009 01/19/2023 Overview: left ear Dermatophytosis of nail 10/17/200610/2008 Malignant melanoma of trunk 08/19/2006 12/10/2012 Syncope and collapse 08/19/2006 011 Encounters Date Type Department Care Team Description 12/06/2023 Nurse Triage [facility] [address] [place] [address] Krysta Monroe, DO Constipation; Abdominal Pain/problem 12/05/[address] [address] Krysta Monroe, Anticoagulation 12/05/2023 Telephone [facility] [address] [place] [address] Krysta Monroe DO Anticoagulation (OVERDUE #2 reminder) 12/04/2023 9:05 AM CDT Office Visit [facility] [address] [place] [address] Shasha Morales PA Hospital F/U (pain is manageable at the time ) 12/04/[address] [address] Kelsey Morales NP Medication Management (cyclobenzaprine) 12/04/2023 Travel 12/01/2023 Orders Only [facility] Scanner 1 scan: (1-Ord) [place], ABDOMEN 1 VIEW,2 FILMS, 12/01/2023 12/01/2023 Orders Only [facility] Scanner 1 scan: (1-Ord) [place], CHEST, 12/01/2023 11/30/2023 Orders Only [facility] Scanner 1 scan: (1-Ord) [facility], ABDOMEN 1 VIEW, 11/30/2023 11/29/2023 2:00 PM CDT Ancillary Procedure [facility] [address] [place] [address] 11/29/2023 1:45 PM CDT Ancillary Procedure [facility] [address] [place] [address] 11/29/2023 1:15 PM CDT Office Visit [address] [address] Malina Carrillo PA Back Pain 11/29/2023 Orders Only [facility] Scanner 1 scan: (1-Ord) [place] [facility], ABDOMEN/PELVIS, 11/29/2023 11/29/2023 Telephone [facility] [address] [place] [address] Malina Carrillo PA Questions 11/29/2023 Travel 11/16/[address] [address] Krysta Monroe, Refill Request (Metoprolol Succinate) 10/25/2023 Refill [facility] [address] [place] [address] Krysta Monroe DO Refill Request (Diltiazem Cd) 10/23/2023 3:15 PM CDT Orders Only [address] [address] Lab, [facility] 10/23/2023 Anticoagulation (warfarin) [facility] [address] [place] [address] 1, [facility] Anticoagulation 10/23/2023 Travel 09/26/[address] [address] Krysta Monroe DO Anticoagulation (Annual re-enrollment ) 09/14/2023 Refill [facility] [address] [place] [address] Krysta Monroe DO Refill Request (Warfarin) 09/08/2023 2:45 PM CDT Orders Only [facility] [address] [place] [address] Lab, [facility] 09/08/2023 Anticoagulation (warfarin) [facility] [address] [place] [address] 1, [facility] Anticoagulation 09/08/2023 Travel from Last 3 Months Immunizations Name Administration Dates Next Due AMB INFLUENZA IIV3 (AGE 65+ YRS) PF (Flu Clinic Only) 03/22/2019 AMB Influenza, IIV3 (Age >=3 years)(Flu Clinic Only) 03/07/2012,03/30/2011 AMB Influenza, IIV4 PF (=>6 mos Flulaval,Fluzone Fluarix)(Flu Clinic Only) 03/28/2013,03/28/2013 Amb Influenza, Inact (High-d ose) (Flu Clinic Only) 03/11/2016,03/27/2015,03/07/2014 Amb Influenza, Inactivated A IIV4 (Age 65+ Years) Preserv Free 03/20/2020 COVID-19 Vaccine Spikevax (M oderna 50mcg/0.5mL) 12YO+ [id number] Formula PF 03/15/2023 COVID-19 vaccine (Dynadmic-Bio NTech 30mcg/0.3mL) 12YO+ ALDO-SUCROSE PF, MDV 09/16/2021 Hepatitis A (Adult) 06/10/1998,12/09/1997 Hepatitis B (Adult) 06/10/1998,01/06/1998,1997 Inactivated Polio Vaccine 01/06/1998 Influenza A (H1N1), Inactiva jesus (Age >=3 Years) 06/10/2009 Influenza, High-dose Quadriv alent Inactivated 04/12/2023,03/30/2022,03/31/2021 Influenza, IIV3 (Age >=3 years) 03/08/20 10,02/19/2008,04/25/2007,05/09 Influenza, IIV4 03/23/2017 Pneumococcal Poly,23-Valent (Pneumovax) 02/26/2007 Pneumococcal conj 13-Valent (Prevnar 13) 08/01/2014 RSV, Recombinant ADJ Reconst ituted (Arexvy 120MCG/0.5mL) 03/28/2023 Td (Age >=7 Years) 10/09/2006,12/29/1995 Tdap 08/22/2013 Typhoid (oral) 02/26/2007 Zoster (Zostavax-ZVL, live) 05/23/2012 Family History Medical History Relation Name Comments Cancer-breast Daughter Other Father tobacco abuse Stroke Mother 56, Relation Name Status Comments Daughter Father (Age 84) emphysema, had colostomy, unsure about colon cancer Mother (Age 58) CVA Social History Tobacco Use Types Packs/Day Years Used Date Smoking Tobacco: Never Smokeless Tobacco: Never Tobacco Cessation:Counseling Given: Yes Alcohol Use Standard Drinks/Week Comments Not Currently 0 (1 standard drink = 0.6 oz pur e alcohol) PHQ-2 Answer Date Recorded PHQ-2 TOTAL SCORE 1 01/19/2023 Social Connections Answer Date Recorded Frequency of Communication with Friends and Fami ly 0 01/16/2023 Alcohol Use Answer Date Recorded How often do you have a drink containing alcohol ? 2 11/03/2021 How many drinks containing a lcohol do you have on a typical day when you are drinking? 0 11/03/2021 How often do you have five or more drinks on one occasion? 0 11/03/2021 Financial Resource Strain Answer Date R ecorded Difficulty of Paying Living Expenses 3 01/16/2023 Difficulty of Paying Living Expenses Not on file 01/16/2023 Food Insecurity Answer Date Recorded Worried About Running Out of Food in the Last Ye ar 1 01/16/2023 Transportation Needs Answer Date Record ed Lack of Transportation (Medical) 1 01/16/2023 Housing Stability Answer Date Recorded Unable to Pay for Housing in the Last Year 1 01/16/2023 Sex and Gender Information Value Date Recorded Sex Assigned at Not on file Gender Identity Not on file Sexual Orientation Not on file Obstetrics History Para Term AB IAB SAB Ectopic Multiple Livin g Live Births 3 2 1 1 Date Outcome GA Total Labor Labor/2nd/3rd Weight Sex Type Anes PTL Kimber A1 A5 Name Clin Para Para SAB Last Filed Vital Signs Vital Sign Reading Time Taken Comments Blood Pressure 135/90 12/04/2023 9:10 AM CDT Pulse 98 12/04/2023 9:10 AM CDT Temperature 36.7 ??C (98 ??F) 12/16/2020 9:47 AM CDT Respiratory Rate 14 02/12/2021 9:20 AM CDT Oxygen Saturation 94% 12/04/2023 9:10 AM CDT Inhaled Oxygen Concentration - - Weight 65.7 kg (144 lb 12.8 oz) 12/04/2023 9:10 AM CDT Height 162.4 cm (5' 3.94) 01/19/2023 1 0:41 AM CDT Body Mass Index 24.9 01/19/2023 10:41 AM CDT Plan of Treatment Upcoming Encounters Date Type Department Care Team (Late st Contact Info) Description 2023 10:40 AM CDT Office Visit [facility] [address] [place] [address] Samantha Carver MD [address] [place] [address] Health Maintenance Due Date Last Done Comments Zoster (shingles) series for age 50+ (1 of 2) 07/18/2012 05/23/2012 Tetanus booster 08/23/2023 08/22/2013, 09/18, 12/29/1995 COVID-19 vaccine series ( season) 2023 10/30/2023, 03/15/2023, 02/25/2022, Additional history exists BMI (ht and wt on same day) for age 18+ 01/20/2024 01/19/2023, 03/18/2022, 11/03/2021, Additional history exists Medicare Wellness for age 65+ 01/20/2024, 11/03/2021, 07/02/2020, Additional history exists Depression screening for age 12+ 01/22/2024 01/21/2023, 01/21/2023, 01/20/2023, Additional history exists Influenza for age 65+ 02/18/2024 04/12/2023 , 03/30/2022, 03/31/2021, Additional history exists Tdap Completed 08/22/2013 Pneumococcal series for age 65+ Completed 5, 02/26/2007 DEXA/DXA scan for age 65+ Completed 2020, 06/27/2017, 01/11/2013, Additional history exists Procedures Procedure Name Priority Date/Time Associated Diagnosis Comments SCAN CORRESP-IMAGING 12/01/2023 9:21 AM CDT SCAN-RADIOLOGY REPORT 12/01/2023 12:00 AM CDT SCAN-RADIOLOGY REPORT 11/30/2023 12:00 AM CDT XR ABDOMEN 2 VIEW FLAT AND UPRIGHT OR DECUBITUS STAT 11/29/2023 2:04 PM CDT Abdominal pain, epigastric Back pain without radiation XR CHEST 2 VIEWS PA AND LATERAL STAT 11/29/2023 2:04 PM CDT Chest pain, pleuritic Back pain without radiation SCAN-CT INTERPRETATION 12:00 AM CDT INR,POCT Routine 10/23/2023 3:26 PM CDT Intermittent atrial fibrillation (HC) Anticoagulation monitoring, INR range 2-3 INR,POCT Routine 09/08/2023 2:33 PM CDT Intermittent atrial fibrillation (HC) Anticoagulation monitoring, INR range 2-3 SCAN-BONE DENSITOMETRY DEXA 12/30/2020 12:00 AM CDT from Last 3 Months or Most Recently Relevant to Health Maintenance Results * SCAN CORRESP-IMAGING (12/01/2023 9:21 AM CDT) Anatomical Region Laterality Modality Other Scanner OTHER * SCAN-RADIOLOGY REPORT (12/01/2023 12:00 AM CDT) Only the most recent of2 resultswithin the time period is included. Anatomical Region Laterality Modality Other Scanner OTHER * XR ABDOMEN 2 VIEW FLAT AND UPRIGHT OR DECUBITUS (11/29/2023 2:04 PM CDT) Anatomical Region Laterality Modality Abdomen Computed Radiogr aphy 11/29/2023 2:09 PM CDT Impressions 11/29/2023 2:09 PM CDT Severe colonic stool burden, correlate for constipation. Otherwise, no bowel obstruction. Dictated by Balbir Fournier MD @ 11/29/2023 2:09:53 PM (Electronically Signed) Narrative 11/29/2023 2:09 PM CDT For Patients: ??As a result of the Cures Act, medical imaging exams and procedure reports are released immediately into your electronic medical record. ??You may view this report before your referring provider. ??If you have questions, please contact your health care provider. INDICATION: Abdominal pain TECHNIQUE: Abdominal radiographs, 2 views. COMPARISON: Abdominal radiographs 08/20/2014. FINDINGS: Bowel: No bowel obstruction. Unremarkable bowel gas pattern. Severe colonic stool burden, correlate for constipation. Soft tissues: Cholecystectomy clips in the right upper quadrant. Bones: No acute osseous abnormalities. Severe degenerative changes of the lumbar spine. S shaped scoliosis of the lumbar spine. Status post total hip arthroplasty bilaterally. Procedure Note Balbir Fournier DO - 11/29/2023 For Patients: As a result of the Cures Act, medical imagingexams and procedure reports are released immediately into your electronicmedical record. You may view this report before your referring provider.If you have questions, please contact your health care provider. INDICATION: Abdominal pain TECHNIQUE: Abdominal radiographs, 2 views. COMPARISON: Abdominal radiographs 08/20/2014. FINDINGS: Bowel: No bowel obstruction. Unremarkable bowel gas pattern. Severecolonic stool burden, correlate for constipation. Soft tissues: Cholecystectomy clips in the right upper quadrant. Bones: No acute osseous abnormalities. Severe degenerative changes of thelumbar spine. S shaped scoliosis of the lumbar spine. Status post totalhip arthroplasty bilaterally. IMPRESSION: Severe colonic stool burden, correlate for constipation. Otherwise, nobowel obstruction. Dictated by Balbir Fournier MD @ 11/29/2023 2:09:53 PM (Electronically Signed) [facility] * XR CHEST 2 VIEWS PA AND LATERAL (11/29/2023 2:04 PM CDT) Anatomical Region Laterality Modality CHEST, THORAX, Lung, HEART Compu jesus Radiography 11/29/2023 2:10 PM CDT Impressions 11/29/2023 2:10 PM CDT No acute findings and no significant change from the prior exam. Dictated by Adali Lennon MD @ 11/29/2023 2:10:11 PM (Electronically Signed) Narrative 11/29/2023 2:10 PM CDT For Patients: ??As a result of the Cures Act, medical imaging exams and procedure reports are released immediately into your electronic medical record. ??You may view this report before your referring provider. ??If you have questions, please contact your health care provider. INDICATION: Chest pain. TECHNIQUE: Chest 2 views. COMPARISON: 12/07/20. FINDINGS: Cardiovascular and mediastinum: ??Cardiomediastinal silhouette is enlarged, similar to prior. ??Aortic arch calcifications. Lungs and pleural spaces: ??Lungs are clear. ??No sign of pleural effusion. ??No pneumothorax. ?? Bones and soft tissues: Unremarkable for age. Procedure Note Adali Lennon MD - 11/29/2023 For Patients: As a result of the Cures Act, medical imagingexams and procedure reports are released immediately into your electronicmedical record. You may view this report before your referring provider.If you have questions, please contact your health care provider. INDICATION: Chest pain. TECHNIQUE: Chest 2 views. COMPARISON: 12/07/20. FINDINGS: Cardiovascular and mediastinum: Cardiomediastinal silhouette is enlarged,similar to prior. Aortic arch calcifications. Lungs and pleural spaces: Lungs are clear. No sign of pleural effusion.No pneumothorax. Bones and soft tissues: Unremarkable for age. IMPRESSION: No acute findings and no significant change from the prior exam. Dictated by Adali Lennon MD @ 11/29/2023 2:10:11 PM (Electronically Signed) [facility] * SCAN-CT INTERPRETATION (11/29/2023 12:00 AM CDT) Anatomical Region Laterality Modality Other Scanner OTHER * (ABNORMAL) INR,POCT (10/23/2023 3:26 PM CDT) Only the most recent of2 resultswithin the time period is included. INR 1.3(H) <1.3 10/23/2023 3:29 PM CDT [facility] Blood BLOOD SPECIMEN / Unknown 10/23/2023 3:26 PM CDT 10/23/2023 3:29 PM CDT Narrative [facility] - 10/23/2023 3:29 PM CDT ?Therapeutic Range 2.0-3.0 for most anticoagulated patients 2.5-3.5 or 4.0 for high risk patients Krysta Monroe DO LABORATORY [facility] [address] [place] [address], * SCAN-BONE DENSITOMETRY DEXA (12/30/2020 12:00 AM CDT) Anatomical Region Laterality Modality Other Scanner OTHER from Last 3 Months or Most Recently Relevant to Health Maintenance Advance Directives Documents on File Type Date Recorded Patient Engagement Engineer Expl anation Healthcare Directive 10/31/2012 3:[address], 08/23/2012 * Full Code (Latest Code Status on File) Date Activated Date Inactivated Comments 08/14/2015 6:23 PM 08/15/2015 7:31 PM Care Teams Interpretative Dancer Relationship Specialty Start Date End Date Krysta Monroe DO [address] [place] [address] PCP - General Family Practice 03/21/17 Porsha Lara MD Ophthalmology Surgery 04/10/12 Gui Theodore MD Surgery - Orthopedics 04/10/12
--- OUTSIDE RECORDS SUMMARY | 2023-12-06 10:31 | XMS_ITS | Referral Summary ---
Author Organization [facility] Address [address] [place] [id number] Care Team Providers Care Agricultural Commodities Inspector Name Role Phone Elsewhere, Pcp Primary Care Provider Unavailabl e Source Comments Patient records contain information from all sites at [facility]. For routine questions regarding patient records, call [phone] during business hours, M-F 8:00 AM - 5:00 PM Central Time. Record requests for emergency care only can be directed to [phone] at any time.[facility] Allergies Active Allergy Reactions Criticality Noted [...] from 12/24/2020:Stage IIIB(cT4c, cN1, cM0, G2, ER+, [place]-, HER2-) - Signed by Enrique Vang APRN, C.N.P., M.S.N. on 08/03/2022 Atherosclerotic Heart Diseas e Of [place] Coronary Artery Without Angina Pectoris 02/10/2021 Osteoporosis [...] (65 year s or older) (PF) 04/07/2018,03/23/2017,03/11/2016,2014,03/07/2014 Social History Tobacco Use Types Packs/Day Years [...] week 02/09/2021 How often do you attend [facility] or religion services? Never 02/09/2021 Do you belong to any clubs o r organizations such as hindu groups, unions, fraternal or athletic groups, or [...] and heating? Not hard at all 02/09/2021 [facility] - Occupational Stress [...] place to sleep or slept in a snf (including now)? No 02/09/2021 Nutrition Answer Date [...] 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, LANE ATTENDANT, ASIA) 02/09/2021 Sex and Gender Information Value Date Recorded Sex Assigned at Female 05/07/2021 2:08 PM CORPORATE CONSULTANT Gender Identity Female 02/09/2021 2:21 PM CDT Sexual Orientation Straight 02/09/2021 2: 21 PM CDT Last Filed Vital Signs Vital Sign Reading Time Taken Comments Blood Pressure 117/76 07/26/2023 3:04 PM CORPORATE CONSULTANT Pulse 74 07/26/2023 3:04 PM CORPORATE CONSULTANT Temperature 36.2 ??C (97.2 ??F) 07/26/2023 3:04 PM CS T Respiratory Rate 16 04/04/2023 11:0 5 AM CDT Oxygen Saturation 96% 07/26/2023 3:04 PM CORPORATE CONSULTANT Inhaled Oxygen Concentration - - Weight 64.4 kg (141 lb 13.9 oz) 07/26/2023 3:04 PM CORPORATE CONSULTANT Height 160.1 cm (5' 3.03) 07/26/2023 3:04 PM CS T Body Mass Index 25.11 07/26/2023 3:04 PM CORPORATE CONSULTANT Plan of Treatment Not on file Medical Devices Implanted Type Area Shower Room Attendant Device Identifier Shelf Expiration Date Model / Serial / Lot Hip Implant Hip Implant Bilateral : Hip Knee Implant Knee Implant Right: Knee Ocular Lens Ocular Lens Bilateral : Eye Care Teams Agricultural Commodities Inspector Relationship Specialty Start Date End Date Elsewhere, Pcp PCP - General Internal Medicine 11/24/22
--- OUTSIDE RECORDS SUMMARY | 2023-12-06 10:31 | XMS_ITS ---
Author Organization [facility] Address [address] [place] [address] Care Team Providers Care Rn Pain Management Name Role Phone Unavailable Unavailable Unavailable Surgery Details Not on file Complications Check Surgery Details section. Procedure Estimated Blood Loss Check Surgery Details section. Procedure Findings Check Surgery Details section. Procedure Specimens Taken Check Surgery Details section.
--- NOTE | 2023-12-06 11:04 | ED.NURSE ---
No bowel movement with enemeez.
[2023-12-06] MEDS: bisacodyL 5 MG TABLET DR 10 MG PO (12:46)
--- NOTE | 2023-12-06 13:05 | CRLHL7_ITS ---
For Patients: As a result of the Century Cures Act, medical imaging exams and procedure reports are released immediately into your electronic medical record. You may view this report before your referring provider. If you have questions, please contact your health care provider. Indication: ABD PAIN, COINSTIPATION, RECENT ILEUS Technique: CT abdomen/pelvis with IV contrast, 50 mL Isovue 370 Comparison: CT abdomen/pelvis on December 03 2023 Findings: Lung bases: Trace bibasilar pleural effusions decreased compared to prior exam with decreased compressive atelectasis. Severe biatrial enlargement, stable. Liver: Diffuse hepatic steatosis. Unchanged cystic lesion just above the falciform ligament in the left lobe. Gallbladder and bile ducts: Cholecystectomy. No bile duct dilation. Pancreas: No peripancreatic edema or fluid. There is a 6 millimeter low-density pancreatic body lesion (series 2, image 35). There is a 7 millimeter low-density pancreatic tail lesion (series 2, image 40). Spleen: Normal. Adrenal glands: Normal. Kidneys: Normal parenchyma. Small right renal cysts. No urinary tract calculi seen. No urinary tract dilation. Urinary bladder: Appears within normal limits given limitations from beam hardening artifact. Pelvis: Streak artifact from the hip arthroplasties. Metal reduction artifact images are provided and no pelvic cyst or mass is seen. Vessels: Scattered atherosclerotic vascular calcifications. The mesenteric arteries and veins appear patent. Bowel: No evidence of bowel obstruction or significant inflammatory changes. Enteric contrast is at the level of the distal small bowel. Normal appendix. Large volume stool burden throughout the colon. Lymph nodes: No adenopathy. Peritoneum: No ascites. Abdominal wall: Small fat containing right inguinal hernia. Fairly large left flank hernia containing fat and a minimal amount of the splenic flexure. Bones: No fractures. No suspicious bone lesions. Bilateral hip arthroplasties. Impression: 1. No evidence of bowel obstruction or significant inflammatory changes. Large volume stool burden throughout the colon. 2. Interval decrease in size of the bilateral pleural effusions, now trace. 3. Additional incidental findings as detailed above, grossly unchanged compared to prior exam. Please note that all CT scans at this facility use dose modulation, iterative reconstruction, and/or weight-based dosing when appropriate to reduce radiation dose to as low as reasonably achievable. Dictated by Reed Vargas MD @ 12/06/2023 4:15:12 PM (Electronically Signed)
--- NOTE | 2023-12-06 15:19 | ED.NURSE ---
Pt report given to shahida RN, pt to room 247 after imaging.
[2023-12-06 17:58] LABS: Magnesium* 2.1 mg/dL (1.5-2.6)
[2023-12-06] MEDS: polyethylene glycoL 238 GM BULK BOTTLE PO (19:06)
--- NOTE | 2023-12-06 19:31 | P.IMHP_ITS ---
Hospitalist- H&P: HPI History of Present Illness Date Seen: 12/06/23 Chief complaint: Severe abdominal pain Narrative: Alicia Ordonez is a 82 year old woman presents to the emergency department today for reassessment of ongoing abdominal discomfort. Denies fevers, rigors, diaphoresis. Denies nausea or vomiting. Acknowledges decreased interest in eating. Acknowledges decreased fluid intake orally as well. No blood loss of any sort including hematemesis, hemoptysis, melena, hematochezia, epistaxis, or menorrhagia. Denies having bowel movement for the past 7 days. Denies diarrhea. States she had a colonoscopy in the past with no polyps or other abnormalities specified. Remote history of cholecystectomy and total abdominal hysterectomy with no other abdominal or pelvic surgeries. Hospitalized from 11/29/2023 through 12/03/23 with ileus of unknown etiology. Had a CT scan of abdomen and pelvis with Gastrografin prior to discharge on 12/03/2023, after which she had watery stools which he describes as yellow with flecks of stool and corn. States prior to this hospitalization she has had regular bowel movements. No recent trauma or injury. No recent travel. No recent change in diet. This past 12/04/2023, patient was seen in outpatient setting and started on Metamucil daily as well as MiraLax daily due to ongoing abdominal discomfort. As best as she can tell this new medication regimen did not help. Has been adhering to a low-fat diet. Review of Systems Status of ROS: Reports: 10 or more systems reviewed and unremarkable except as noted in History and below [facility] Medical History (Updated 12/06/23 @ 19:51 by Braulio Oshea MD) Breast cancer ?C50.919 - Malignant neoplasm of unspecified site of unspecified female breast (ICD-10) History of ileus ?Z87.19 - Personal history of other diseases of the digestive system (ICD-10) Hypertension ?I10 - Essential (primary) hypertension (ICD-10) Osteoporosis ?M81.0 - Age-related osteoporosis without current pathological fracture (ICD- 10) Hyperparathyroidism ?E21.3 - Hyperparathyroidism, unspecified (ICD-10) Atrial fibrillation (06/30/12) ?I48.91 - Unspecified atrial fibrillation (ICD-10) Surgical History Hx laparoscopic cholecystectomy ?Z90.49 - Acquired absence of other specified parts of digestive tract (ICD- 10) Status post Mohs surgery ?Z98.890 - Other specified postprocedural states (ICD-10) H/O colonoscopy ?Z98.890 - Other specified postprocedural states (ICD-10) Status post total knee replacement ?Z96.659 - Presence of unspecified artificial knee joint (ICD-10) History of total right hip replacement ?Z96.641 - Presence of right artificial hip joint (ICD-10) Status post total replacement of left hip ?Z96.642 - Presence of left artificial hip joint (ICD-10) H/O: hysterectomy ?Z90.710 - Acquired absence of both cervix and uterus (ICD-10) Family History Daughter Breast cancer Mother Stroke Social History Narrative: She lives with her , Rufino, who is healthcare power of corporate associate attorney. Code status DNR. She never smoked. She does not drink alcohol. What is your current living situation?: I presently have a place to live Problems where you live: no known problems Problems where you live details: n/a In the past 12 months, utilities in danger of being shut off: no In past 12 months, lack of transportation kept you from medical appts, meetings, work, or getting things needed for daily living: no In the past 12 mos, have been you worried that your food would run out before you had money to buy more?: never true In the past 12 mos, the food you bought just didn't last and you didn't have money to buy more?: never true Highest level of school completed/degree received: Master's degree Smoking Status: Former smoker Do you use any of these nicotine containing products: None How often do you have a drink containing alcohol: monthly or less How often do you have six or more drinks on one occasion: Less than monthly AUDIT-C Alcohol total score: 2 Non-prescribed substance use: denies use Caffeine: Yes How often does anyone, including family, friends and others, physically hurt you : never How often does anyone, including family, friends and others, insult or talk down to you: never How often does anyone, including family, friends and others, threaten you with harm: never How often does anyone, including family, friends and others, scream or curse at you: never service: No Meds Home Medications and Allergies Home Medications ?Medication ?Instructions ?Recorded ?Confirmed ?Type anastrozole 1 mg tablet 1 mg PO DAILY 08/08/22 12/06/23 History calcium carbonate 600 mg-vitamin 1 tab PO BIDWM 08/08/22 12/06/23 History D3 10 mcg (400 unit) tablet diltiazem HCl 240 mg 240 mg PO DAILY 08/08/22 12/06/23 History capsule,extended release 24 hr metoprolol succinate 50 mg 50 mg PO DAILY 08/08/22 12/06/23 History tablet,extended release 24 hr warfarin 5 mg tablet 2.5 - 5 mg PO DAILY 08/08/22 12/06/23 History cholecalciferol (vitamin D3) 25 1,000 unit PO DAILY 11/29/23 12/06/23 History mcg (1,000 unit) tablet (Vitamin D3) nitroglycerin 0.4 mg sublingual 0.4 mg sublingual Q5M PRN 11/29/23 12/06/23 History tablet Home Medication Comments: MiraLax 1 tbsp b.i.d. starting 12/04/2023. Metamucil once daily, dose not specified, starting 12/04/2023. Allergies Allergy/AdvReac Type Severity Reaction Status Date / Time nickel Allergy Verified 12/06/23 14:01 Exam Narrative: Exam Narrative: I 1st examined her in the emergency department and then secondly in the hospital inpatient setting area. When I see her she appears comfortable and in no acute distress. Vision and hearing are adequate. Does utilize hearing aid. Alert and oriented to self, place, time, situation. Friendly, articulate, cooperative. Tympanic membranes and external auditory canals normal bilaterally. Midline nasal septum. Tacky buccal mucosa. Dentition in fair repair. No icterus or conjunctival injection. Pupils are equally round and reactive to light and accommodation. Conjugate gaze. Extraocular muscles intact. Neck is supple. Midline trachea. No JVD or hepatojugular reflux. No carotid bruits. No head neck lymphadenopathy. Lungs are clear to auscultation without wheezing, rhonchi, or rales. Chest wall excursions are full. No CVA tenderness with percussion. Heart tones chaotic with normal S1-S2 without obvious gallop or rub. Does have a soft systolic murmur across the precordium. Abdomen appears slightly distended but is not tympanitic. Active bowel sounds. Soft, nontender. No organomegaly or masses. No rebound or guarding. Moves all 4 extremities. Cranial nerves 3-12 grossly normal. No focal motor neurologic deficits. No tremor, asterixis, or ataxia. Skin is warm, dry, intact. Const: Vital Signs, click to edit/add: Vital Signs - 24 hr 12/06/23 08:37 12/06/23 09:13 12/06/23 11:03 Temperature 97 F L Pulse Rate [Right Pulse Oximeter] 89 80 Respiratory Rate 18 18 Blood Pressure [Le ft Arm] Blood Pressure [Ri ght Upper Arm] 129/86 134/91 H Pulse Oximetry 99 93 94 Oxygen Delivery Me thod Room Air Room Air 12/06/23 13:31 12/06/23 15:37 Temperature 96.8 F L Pulse Rate [Right Pulse Oximeter] 80 Respiratory Rate 18 20 Blood Pressure [Le ft Arm] 145/99 H Blood Pressure [Ri ght Upper Arm] 127/97 H Pulse Oximetry 93 95 Oxygen Delivery Me thod Room Air Room Air Hospitalist - H&P: Result Labs Labs: Short CBC 12/06/23 Range/Units 09:29 WBC 5.41 (4.50-11.00) K/uL Hgb 14.7 (12.0-16.0) gm/dL Hct 45.7 (33.0-51.0) % Plt Count 194 (140-440) K/uL [facility] 12/06/23 09:29 Sodium 136 Potassium 3.6 Chloride 104 Carbon Dioxide 26 BUN 9 Creatinine 0.7 Glucose 116 H Calcium 10.1 Liver Function 12/06/23 Range/Units 09:29 Total Bilirubin 0.6 (0.1-1.5) mg/dL AST 46 H (12-35) U/L ALT 30 (4-35) U/L Alkaline Phosphatase 98 (40-150) U/L Albumin 3.9 (3.3-5.0) g/dL Imaging Abdominal x-ray: Attestation: I have reviewed the pertinent imaging results. Radiologist's impression: I reviewed today's images as well as images from 11/30/2023 through 12/03/2023. Previous images suggested ileus with air-fluid levels and dilatation of the colon without any apparent stool burden. Today's x-ray suggests she has I at least a moderate stool burden throughout the colon. Otherwise unremarkable. CT scan - abdomen and pelvis: Attestation: I have reviewed the pertinent imaging results. Radiologist's impression: Impression: 1. No evidence of bowel obstruction or significant inflammatory changes. Large volume stool burden throughout the colon. 2. Interval decrease in size of the bilateral pleural effusions, now trace. 3. Additional incidental findings as detailed above, grossly unchanged compared to prior exam. Assessment and Plan Assessment and plan (1) Acute constipation: Problem comment: -etiology not yet determined. -given her relatively unstable and fragile state, including with recent hospitalization as specified above, I recommend that she be admitted for initiation evacuation efforts and establishment of safe discharge disposition plan. -minimal bowel movement after gastrografin oral challenge with CT scan today. Will initiate polyethylene glycol bowel prep until we achieve satisfactory elimination of stool. -will likely need to be on some sort of bowel regimen for discharge as well. -will need outpatient follow-up including the possibility of gastroenterology consultation. Status: Acute (2) History of ileus: Problem comment: - hospitalize 11/29/2023 - 12/03/2023 and resolved with conservative measures. Etiology uncertain. Status: Acute (3) Atrial fibrillation: Problem comment: warfarin pharm to dose; continue metoprolol, continue diltiazem Status: Acute (4) Chronic back pain: Status: Acute (5) Breast cancer: Problem comment: - no recurrence and currently on anastrozole 1 mg daily Status: Acute Plan 1. Reviewed impression with patient, , daughter, son-in-law. 2. Reviewed my recommendations with patient and her family as well. 3. Answered their questions to their satisfaction. Reviewed with them the actual images obtained from radiographic imaging. 4. They are agreeable with above stated plans and recommendations. Total Time Spent Total Time Spent: 75 minutes
[2023-12-06] MEDS: ACETAMINOPHEN 325 MG TABLET 650 MG PO (19:54)
[2023-12-06] MEDS: SENNOSIDES/DOCUSATE TABLET 1 TAB PO (21:04)
[2023-12-06] MEDS: MAGNESIUM OXIDE 400 MG TABLET PO (21:04)
[2023-12-06] MEDS: SODIUM CHLORIDE 0.9 % (FLUSH) 10 ML SYRINGE 5 ML IVF (21:05)
--- NOTE | 2023-12-06 23:40 | PC.NURSE ---
End of Shift: Patient pleasant and cooperative. Afebrile. Rating pain in abdomen 5/10 and PRN Tylenol given x1. Tolerating clear liquids with no nausea. Up to bathroom with SBA. Miralax given as ordered, per MD give to results, 7 dose given from bulk supply this shift. Patient had 7 moderate BMs this shift. Started out formed then changed to soft/loose yellow/green. Continent and incontinent of stool.
[2023-12-07 00:03] VITALS: RESP 16; O2SAT 92
[2023-12-07 03:00] VITALS: BP 141/98; PULSE 89; RESP 16; O2SAT 96
[2023-12-07] MEDS: ACETAMINOPHEN 325 MG TABLET 650 MG PO (05:38)
[2023-12-07 06:46] LABS: Lactate* 1.6 mmol/L (0.5-1.9)
[2023-12-07 06:50] LABS: Hematocrit 46.8 % (33.0-51.0); Hemoglobin* 15.1 gm/dL (12.0-16.0); Mean Corpuscular HGB Conc 32 gm/dL (32-36); Mean Corpuscular Hemoglobin 31 pg (26-34); Mean Corpuscular Volume 96 fL (80-100); Platelet Count* 198 K/uL (140-440); Red Blood Count 4.88 m/uL (4.00-5.20); White Blood Count* 4.87 K/uL (4.50-11.00)
[2023-12-07 06:54] LABS: Slide Review Reflex No
[2023-12-07 07:00] VITALS: BP 137/107; PULSE 87; RESP 18; TEMP 36.4; O2SAT 97
--- NOTE | 2023-12-07 07:00 | CRLHL7_ITS ---
For Patients: As a result of the Century Cures Act, medical imaging exams and procedure reports are released immediately into your electronic medical record. You may view this report before your referring provider. If you have questions, please contact your health care provider. Indication: Constipation Technique: Abdomen 1 view. Comparison: 12/06/2023 Findings: Decreased stool within colon. Hip replacement hardware bilaterally. Status post cholecystectomy. Degenerative changes. Mild chronic elevation right hemidiaphragm. Impression: Decreased stool in the colon since the prior study. Dictated by Ricardo Miller MD @ 12/07/2023 11:20:18 AM (Electronically Signed)
[2023-12-07 07:05] LABS: Chloride* 105 mmol/L (96-114); Potassium* 3.4 mmol/L (3.6-5.1); Sodium* 137 mmol/L (135-149)
[2023-12-07 07:06] LABS: INR 4.03 (0.91-1.10); Prothrombin Time 42.4 Seconds
[2023-12-07 07:08] LABS: Creatinine* 0.6 mg/dL (0.5-1.5); Estimated Glomerular Filt Rate 88 ml/min
[2023-12-07 07:09] LABS: Anion Gap 5 mEq/L (7-15); Blood Urea Nitrogen* 6 mg/dL (7-30); Carbon Dioxide* 27 mmol/L (20-32); Glucose* 122 mg/dL (60-115); Phosphorus* 2.7 mg/dL (2.5-4.5)
[2023-12-07 07:10] LABS: Calcium* 9.6 mg/dL (8.4-10.6); Magnesium* 2.1 mg/dL (1.5-2.6)
[2023-12-07 07:12] LABS: C Reactive Protein* 0.9 mg/dL (0.5-1.0)
[2023-12-07 07:13] LABS: Hemoglobin A1C* 6.1 % (0-5.6)
--- NOTE | 2023-12-07 07:38 | PC.NURSE ---
End of shift [id number]: A&O w/ some forgetfulness. Up to the bathroom independently. Pt received ? bottle of MiraLAX on previous shift. Pt has had several incontinent bowel movement throughout the night. Flaking Roll Operator hand many conversations w/ pt overnight about continuing MiraLAX because she seemed concerned every time she went to the bathroom. Pt discussed a want to sleep when she can. MiraLAX was not given overnight due to increased bowel movements. Although this morning pt was quite upset with quality analyst/technical writer, reporting that quality analyst/technical writer did not have any conversations with her about her MiraLAX that she was ?lying in bed waiting all night?. Flaking Roll Operator sat with pt and reminded of many conversations that were had overnight.
[2023-12-07 08:26] LABS: Thyroid Stimulating Hormone* 0.992 uIU/mL (0.270-4.20)
[2023-12-07] MEDS: MAGNESIUM OXIDE 400 MG TABLET PO (08:54)
[2023-12-07] MEDS: METOPROLOL SUCCINATE (XL) 50 MG TAB PO (08:54)
[2023-12-07] MEDS: dilTIAZem 240 MG CAP (CD) PO (08:54)
[2023-12-07 11:00] VITALS: BP 110/89; PULSE 81; RESP 18; O2SAT 97
--- NOTE | 2023-12-07 12:54 | P.DS_ITS ---
DS: Providers Provider Date Seen: 12/07/23 Date of admission: 12/06/23 15:15 Primary care physician: Krysta Monroe DO Admitting Clinician: Estrella Murphy MD Consults: 12/06/23 16:38 Consult to Occupational Therapy [CONS] Routine Comment: Reason(s) for OT Consult:: Evaluate and Treat Any Restrictions?:: No Restrictions Consult to Physical Therapy [CONS] Routine Comment: Reason(s) for PT Consult:: Evaluate and Treat Any Restrictions?:: No Restrictions 12/07/23 07:00 Consult to Tire Assembler [CONS] Routine Comment: Reason for Consult:: Social Service Consult Attending Physician on discharge: RICCI Barrera, [facility] Date of Discharge: 12/07/23 DS: Diagnosis Discharge Diagnosis (1) Acute constipation: Status: Acute Problem details: CT scan shows no evidence of bowel obstruction or significant inflammatory changes, large volume stool burden throughout the colon. Etiology not yet determined, recent ileus without recent normal stools. Given her relatively unstable and fragile state, including with recent hospitalization as specified above, she was admitted for initiation evacuation efforts and establishment of safe discharge disposition plan. Received gastrografin oral challenge with CT scan and polyethylene glycol bowel prep resulting in several large stools followed by several more loose stools. Repeat abdominal xray shows decreased stool within colon. Discharged home with instructions to stay close to home until having normal stools. Recommend metamucil and magnesium once daily as ongoing bowel regimen. Senna prn. Stay hydrated and exercise daily. Outpatient follow up with PCP, consider GI consult if necessary. (2) History of ileus: Status: Acute Problem details: Hospitalized 11/29/2023 - 12/03/2023 and resolved with conservative measures. Etiology uncertain. Repeat imaging during this hospital course without evidence or ileus or obstruction. (3) Atrial fibrillation: Status: Acute Problem details: Continued on metoprolol and diltiazem. Coumadin was held for INR 3.84. INR 4.03 on 12/07/2023. Patient is instructed to hold her Coumadin tonight, contacting clinic within 24 hours for further Coumadin dosing. (4) Breast cancer: Status: Acute Problem details: - no recurrence and currently on anastrozole 1 mg daily DS: Summary Hospital Course Hospital Course: [age] year old female past medical history significant for atrial fibrillation on chronic anticoagulation, history of breast cancer, chronic back pain, recent ileus was admitted to the medical floor for further management acute constipation. Course of care and details as noted above. CT finding showing acute constipation, no evidence of obstruction or ileus. Patient was admitted, received oral therapies for constipation, with successful large stools. Discharge home with bowel regimen and close follow-up with PCP. Consider GI consult is necessary. Occupational therapy was consulted, during inpatient testing concern for issues with attention, memory, noted to be tangential, verbose, recommending further neuropsych testing as an outpatient which can be scheduled by her PCP. [place] . Apparently patient reports she has done these limited tests in the past. Remainder of chronic medical comorbidities were monitored and managed with home medications. Status at Discharge Overall status at discharge: patient is back to baseline Time Spent with Patient Time attestation: Total time spent providing and/or coordinating discharge services: Time spent: Greater than 30 minutes Exam Narrative: Exam Narrative: PHYSICAL EXAM General: Pleasant, conversant, NAD Cardiovascular: RRR Pulmonary: No dyspnea Abdomen: Soft, mildly distended Neurological: Alert, answering questions appropriately Skin: Warm, dry. Const: Vital Signs, click to edit/add: Vital Signs - 24 hr 12/06/23 13:31 12/06/23 15:37 12/06/23 19:00 Temperature 96.8 F L 98.1 F Pulse Rate [Left P ulse Oximeter] 86 Pulse Rate [Right Pulse Oximeter] 80 Respiratory Rate 18 20 16 Blood Pressure [Le ft Arm] 145/99 H 127/86 Blood Pressure [Ri ght Arm] Blood Pressure [Ri ght Upper Arm] 127/97 H Pulse Oximetry 93 95 94 Oxygen Delivery Me thod Room Air Room Air Room Air 12/06/23 23:59 12/07/23 00:03 12/07/23 03:00 Temperature 97.7 F Pulse Rate [Left P ulse Oximeter] 94 89 Pulse Rate [Right Pulse Oximeter] Respiratory Rate 16 16 16 Blood Pressure [Le ft Arm] 136/90 H 141/98 H Blood Pressure [Ri ght Arm] Blood Pressure [Ri ght Upper Arm] Pulse Oximetry 92 92 96 Oxygen Delivery Me thod Room Air Room Air Room Air 12/07/23 07:00 12/07/23 07:00 12/07/23 07:00 Temperature 97.6 F Pulse Rate [Left P ulse Oximeter] 87 87 Pulse Rate [Right Pulse Oximeter] Respiratory Rate 18 18 18 Blood Pressure [Le ft Arm] 137/107 H Blood Pressure [Ri ght Arm] Blood Pressure [Ri ght Upper Arm] Pulse Oximetry 97 97 Oxygen Delivery Me thod Room Air Room Air 12/07/23 11:00 Temperature Pulse Rate [Left P ulse Oximeter] 81 Pulse Rate [Right Pulse Oximeter] Respiratory Rate 18 Blood Pressure [Le ft Arm] Blood Pressure [Ri ght Arm] 110/89 Blood Pressure [Ri ght Upper Arm] Pulse Oximetry 97 Oxygen Delivery Me thod DS: Data Data Completed and Pending Labs on day of discharge: Labs from last 24 hours 12/07/23 12/06/23 12/06/23 06:18 16:38 09:29 WBC 4.87 RBC 4.88 Hgb 15.1 Hct 46.8 MCV 96 MCH 31 MCHC 32 Plt Count 198 INR 4.03 H Sodium 137 Potassium 3.4 L Chloride 105 Carbon Dioxide 27 Anion Gap 5 L BUN 6 L Creatinine 0.6 Estimated Creat Clear 39.20 Estimated GFR 88 Glucose 122 H Hemoglobin A1c 6.1 H Lactate 1.6 Calcium 9.6 Phosphorus 2.7 Magnesium 2.1 2.1 C-Reactive Protein 0.9 TSH 0.992 Lab Acknowledgement Test Added Imaging Abdominal x-ray: Attestation: I have reviewed the pertinent imaging results. Radiologist's impression: Abdomen 1 view. Comparison: 12/06/2023 Findings: Decreased stool within colon. Hip replacement hardware bilaterally. Status post cholecystectomy. Degenerative changes. Mild chronic elevation right hemidiaphragm. Impression: Decreased stool in the colon since the prior study. Views: Two views (AP supine and AP upright views of the abdomen; 4 images). 12/03/2023 FINDINGS: Nondilated bowel. Nonspecific moderate colonic fecal loading. Small right pleural effusion. Right upper quadrant cholecystectomy clips. Cardiomegaly. Bilateral hip arthroplasties, incompletely included in the field of view. Pelvic phleboliths are incidentally noted. Lumbar spondylosis. IMPRESSION: Nondilated bowel. Nonspecific moderate colonic fecal loading. Incidental findings described above. CT scan - abdomen: Attestation: I have reviewed the pertinent imaging results. My impression: Incidental findings consistent with previous CT 12/03/2023 Radiologist's impression: CT abdomen/pelvis with IV contrast, 50 mL Isovue 370 Comparison: CT abdomen/pelvis on December 03 2023 Findings: Lung bases: Trace bibasilar pleural effusions decreased compared to prior exam with decreased compressive atelectasis. Severe biatrial enlargement, stable. Liver: Diffuse hepatic steatosis. Unchanged cystic lesion just above the falciform ligament in the left lobe. Gallbladder and bile ducts: Cholecystectomy. No bile duct dilation. Pancreas: No peripancreatic edema or fluid. There is a 6 millimeter low-density pancreatic body lesion (series 2, image 35). There is a 7 millimeter low-density pancreatic tail lesion (series 2, image 40). Spleen: Normal. Adrenal glands: Normal. Kidneys: Normal parenchyma. Small right renal cysts. No urinary tract calculi seen. No urinary tract dilation. Urinary bladder: Appears within normal limits given limitations from beam hardening artifact. Pelvis: Streak artifact from the hip arthroplasties. Metal reduction artifact images are provided and no pelvic cyst or mass is seen. Vessels: Scattered atherosclerotic vascular calcifications. The mesenteric arteries and veins appear patent. Bowel: No evidence of bowel obstruction or significant inflammatory changes. Enteric contrast is at the level of the distal small bowel. Normal appendix. Large volume stool burden throughout the colon. Lymph nodes: No adenopathy. Peritoneum: No ascites. Abdominal wall: Small fat containing right inguinal hernia. Fairly large left flank hernia containing fat and a minimal amount of the splenic flexure. Bones: No fractures. No suspicious bone lesions. Bilateral hip arthroplasties. Impression: 1. No evidence of bowel obstruction or significant inflammatory changes. Large volume stool burden throughout the colon. 2. Interval decrease in size of the bilateral pleural effusions, now trace. 3. Additional incidental findings as detailed above, grossly unchanged compared to prior exam. Discharge Plan Discharge Disposition: Home, Self-Care Date of Admission: 12/06/23 15:15 Attending Provider on Discharge: Sobeida Millard Primary Care Provider: Krysta Monroe Condition: Unchanged Anticipated Discharge Date/Time: 12/07/23 12:23 Discharge Medications: New sennosides-docusate sodium [Stool Softener-Laxative] 8.6-50 mg Tablet 1 tab PO BID PRN (Reason: constipation) Qty: 30 0RF magnesium oxide 400 mg (241.3 mg magnesium) Tablet 400 mg PO DAILY Qty: 30 0RF Metamucil 3.4 gram/5.4 gram powder 1 tbsp PO DAILY Qty: 660 0RF Rx Instructions: mix into at least 8 oz of water or juice before administering Continued metoprolol succinate 50 mg tablet extended release 24 hr 50 mg PO DAILY warfarin 5 mg tablet 2.5 - 5 mg PO DAILY Patient Comments: TAKE 5 MG (1 TAB) EVERY SUN, TUE, DANIEL 2.5 MG (1/2 TAB) ALL OTHER DAYS IN EVENING OR DIRECTED diltiazem HCl 240 mg capsule,extended release 24hr 240 mg PO DAILY calcium carbonate-vitamin D3 600 mg-10 mcg (400 unit) tablet 1 tab PO BIDWM Patient Comments: TAKE 1 TABLET BY MOUTH TWICE A DAY WITH MEALS anastrozole 1 mg tablet 1 mg PO DAILY Patient Comments: TAKE 1 TABLET BY MOUTH EVERY DAY nitroglycerin 0.4 mg tablet, sublingual 0.4 mg sublingual Q5M PRN Rx Instructions: PRN CHEST PAIN cholecalciferol (vitamin D3) [Vitamin D3] 25 mcg (1,000 unit) tablet 1,000 unit PO DAILY Discharge Orders: Discharge Order (Routine); Ordered 12/07/23 Ordered By: Sobeida Millard Patient Education: Magnesium Oxide (By mouth), Senna (By mouth), Constipation (DC), Abdominal Pain (DC) Additional Instructions: INR was 4.03 today. Do not take your coumadin tonight. Please contact your clinic today and let them know this, they need to make recommendations on your Coumadin dosing to adjust for this elevation in the INR. Continue to take magnesium and metamucil once daily to help regulate your bowels. You can take docusate sodium as needed if you have not have a bowel movement in 1-2 days. Stay hydrated and continue to walk daily. You may continue to have loose stools over the next few days. Stay close to home. You may have gas pains or cramping related to the medications you have taken. Activity Level: No Restrictions Discharge Diet: Regular Follow Up Appointments: Krysta Monroe DO [Primary Care Provider] - 12/08/23 10:00 am (post hospital follow up 5-7 days Recommend outpatient Neuropsych testing per OT recommendations) [facility]: [facility] Info Instructions
--- NOTE | 2023-12-07 16:45 | PC.NURSE ---
Nursing Care Hours: [id number] Pt this shift calm and cooperative with cares, alert and oriented. c/o aches and pain throughout body and abdomen. Pt up independently and walking the halls. Tolerating clear liquids. BM decreased from NOC and bowel aids held. VSS. IV removed for discharge. Instructions went over with pt and spouse. All questions and concerns addressed.
== END 2023-12-07 13:30 | disposition home or self-care (01) ==
LOC: ED 14:58 → MEDSURG 15:16
PROVIDERS: Internal Medicine; Admitting Provider Family Medicine; Emergency Provider Family Medicine; PCP Family Medicine; Visit Provider Family Medicine
DX: K59.00 Constipation, unspecified (principal); R10.30 Lower abdominal pain, unspecified; Z87.19 Personal history of other diseases of the digestive system; G89.29 Other chronic pain; M54.9 Dorsalgia, unspecified; J90 Pleural effusion, not elsewhere classified; I48.91 Unspecified atrial fibrillation; K76.0 Fatty (change of) liver, not elsewhere classified; I10 Essential (primary) hypertension; E21.3 Hyperparathyroidism, unspecified; M47.896 Other spondylosis, lumbar region; M81.0 Age-related osteoporosis without current pathological fracture; N95.9 Unspecified menopausal and perimenopausal disorder; Z79.01 Long term (current) use of anticoagulants; Z90.49 Acquired absence of other specified parts of digestive tract; Z90.710 Acquired absence of both cervix and uterus; Z87.891 Personal history of nicotine dependence; Z85.3 Personal history of malignant neoplasm of breast; Z96.659 Presence of unspecified artificial knee joint; Z96.643 Presence of artificial hip joint, bilateral; Z98.890 Other specified postprocedural states; Z66 Do not resuscitate
CPT/HCPCS: 36415; 74018; 74019; 74177; 80048; 80053; 83036; 83605; 83690; 83735; 84100; 84443; 85025; 85027; 85610; 86140; 94761; 97116; 97161; 97165; 99284; 99285; A9270; G0378; Q9965; Q9967

== ENCOUNTER 2024-01-28 00:59 | Outpatient (CLI) | payer OTHER, SELFPAY ==
--- OUTSIDE RECORDS SUMMARY | 2024-01-31 22:50 | XMS_ITS | Clinical Summary ---
Author Organization [facility] Address [address] [place] [id number] Care Team Providers Care Senior Capital Markets Specialist Name Role Phone Elsewhere, Pcp Primary Care Provider Unavailabl e Source Comments Patient records contain information from all sites at [facility]. For routine questions regarding patient records, call [phone] during business hours, M-F 8:00 AM - 5:00 PM Central Time. Record requests for emergency care only can be directed to [phone] at any time.[facility] Allergies Active Allergy Reactions Criticality Noted [...] from 12/24/2020:Stage IIIB(cT4c, cN1, cM0, G2, ER+, AK-, HER2-) - Signed by Enrique Vang APRN, C.N.P., M.S.N. on 08/03/2022 Atherosclerotic Heart Diseas e Of [place] Coronary Artery Without Angina Pectoris 02/10/2021 Osteoporosis Atrial Fibrillation Unspecified Encounters Date Type Department Care Team Description 12/18/2023 Refill Department of Oncology in [place], [place] [address] [place] [address] Jonna Chu M.B., B.Ch. Med Refill ( anastrozole) 12/18/2023 Clinical Communication Department of Oncology in [place], [place] [address] [place] [address] Lurdes Law R.N. Med Refill (anastrozole) 12/18/2023 Clinical Communication Department of Oncology in [place], [place] [address] [place] [address] Jonna Chu M.B., B.Ch. Appointment from Last [...] often do you attend chur ch or episcopalian services? Never 02/09/2021 Do you belong to any clubs o r organizations such as islam groups, unions, fraternal or athletic groups, or [...] and heating? Not hard at all 02/09/2021 [facility] [place] of Occupat ional Health - Occupational Stress [...] place to sleep or slept in a [facility] (including now)? No 02/09/2021 Nutrition Answer Date [...] 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, CAMPAIGN CONSULTANT, ASIA) 02/09/2021 Sex and Gender Information Value Date Recorded Sex Assigned at Female 05/07/2021 2:08 PM SE[employer]ESS [employer]BE ROLLER Gender Identity Female 02/09/2021 2:21 PM CDT Sexual Orientation Straight 02/09/2021 2: 21 PM CDT Last Filed Vital Signs Vital Sign Reading Time Taken Comments Blood Pressure 117/76 07/26/2023 3:04 PM SEAMLESS TUBE ROLLER Pulse 74 07/26/2023 3:04 PM SEAMLESS TUBE ROLLER Temperature 36.2 ??C (97.2 ??F) 07/26/2023 3:04 PM CS T Respiratory Rate 16 04/04/2023 11:0 5 AM CDT Oxygen Saturation 96% 07/26/2023 3:04 PM SEAMLESS TUBE ROLLER Inhaled Oxygen Concentration - - Weight 64.4 kg (141 lb 13.9 oz) 07/26/2023 3:04 PM SEAMLESS TUBE ROLLER Height 160.1 cm (5' 3.03) 07/26/2023 3:04 PM CS T Body Mass Index 25.11 07/26/2023 3:04 PM SEAMLESS TUBE ROLLER Plan of Treatment Upcoming Encounters Date Type Department Care Team (Latest Contact Info) Description 03/08/2024 12:15 PM CDT Clinical Communication Virtual Review in [place], [place] [address] [place] [address] 03/12/2024 8:15 PM CDT Appointment Department of Radiology, [facility], in [place], [place] [address] [place] [phone] Jonna Chu M.B., B.Ch. [address] [place] [phone] 03/13/2024 3:20 PM CDT Office Visit Department of Oncology in [address] [phone] Jonna Chu M.B., B.Ch. [address] [place] [phone] Health Maintenance Due Date Last Done Comments [...] 15, 02/26/2007 Medical Devices Implanted Type Area Infrastructure Developer Device Identifier Shelf Expiration Date Model / [...] Recently Relevant to Health Maintenance Care Teams Senior Capital Markets Specialist Relationship Specialty Start Date End Date Elsewhere, Pcp PCP - General Internal Medicine 11/24/22
--- OUTSIDE RECORDS SUMMARY | 2024-01-31 22:51 | XMS_ITS | Referral Summary ---
Author Organization [facility] Address [address] [place] [address] Care Team Providers Care Shelf Drier Operator Name Role Phone Elsewhere, Pcp Primary Care Provider Unavailabl e Source Comments Patient records contain information from all sites at [facility]. For routine questions regarding patient records, call [phone] during business hours, M-F 8:00 AM - 5:00 PM Central Time. Record requests for emergency care only can be directed to [phone] at any time.[facility] Encounters Date Type Department Care Team Description 12/18/2023 Refill Department of Oncology in [place], [place] [address] [place] [address] Jonna Chu M.B., B.Ch. Med Refill ( anastrozole) 12/18/2023 Clinical Communication Department of Oncology in [place], [place] [address] [place] [address] Lurdes Law R.N. Med Refill (anastrozole) 12/18/2023 Clinical Communication Department of Oncology in [place], [place] [address] [place] [address] Jonna Chu M.B., B.Ch. Appointment from Last [...] from 12/24/2020:Stage IIIB(cT4c, cN1, cM0, G2, ER+, KS-, HER2-) - Signed by Enrique Vang APRN, C.N.P., M.S.N. on 08/03/2022 Atherosclerotic Heart Diseas e Of [place] Coronary Artery Without Angina Pectoris 02/10/2021 Osteoporosis [...] often do you attend chur ch or latter-day services? Never 02/09/2021 Do you belong to any clubs o r organizations such as alevism groups, unions, fraternal or athletic groups, or [...] and heating? Not hard at all 02/09/2021 [facility] [place] of Occupat ional Health - Occupational Stress [...] place to sleep or slept in a custodial (including now)? No 02/09/2021 Nutrition Answer Date [...] 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, ELECTROMECHANICAL ENGINEER, ASIA) 02/09/2021 Sex and Gender Information Value Date Recorded Sex Assigned at Female 05/07/2021 2:08 PM DISABILITY BENEFITS SPECIALIST Gender Identity Female 02/09/2021 2:21 PM CDT Sexual Orientation Straight 02/09/2021 2: 21 PM CDT Last Filed Vital Signs Vital Sign Reading Time Taken Comments Blood Pressure 117/76 07/26/2023 3:04 PM DISABILITY BENEFITS SPECIALIST Pulse 74 07/26/2023 3:04 PM DISABILITY BENEFITS SPECIALIST Temperature 36.2 ??C (97.2 ??F) 07/26/2023 3:04 PM CS T Respiratory Rate 16 04/04/2023 11:0 5 AM CDT Oxygen Saturation 96% 07/26/2023 3:04 PM DISABILITY BENEFITS SPECIALIST Inhaled Oxygen Concentration - - Weight 64.4 kg (141 lb 13.9 oz) 07/26/2023 3:04 PM DISABILITY BENEFITS SPECIALIST Height 160.1 cm (5' 3.03) 07/26/2023 3:04 PM CS T Body Mass Index 25.11 07/26/2023 3:04 PM DISABILITY BENEFITS SPECIALIST Plan of Treatment Upcoming Encounters Date Type Department Care Team (Latest Contact Info) Description 03/08/2024 12:15 PM CDT Clinical Communication Virtual Review in [place], [place] 200 [place] [address] 03/12/2024 8:15 PM CDT Appointment Department of Radiology, [facility], in [address] [address] Jonna Chu M.B., B.Ch. [address] [place] [phone] 03/13/2024 3:20 PM CDT Office Visit Department of Oncology in [address] [phone] oJnna Chu M.B., B.Ch. [address] [place] [phone] Medical Devices Implanted Type Area Brewery Technician Device Identifier Shelf Expiration Date Model / [...] Recently Relevant to Health Maintenance Care Teams Shelf Drier Operator Relationship Specialty Start Date End Date Elsewhere, Pcp PCP - General Internal Medicine 11/24/22
--- OUTSIDE RECORDS SUMMARY | 2024-01-31 22:51 | XMS_ITS | Encounter Summary ---
Author Organization [facility] Address [address] [place] [phone] Care Team Providers Care Air Export Logistics Manager Name Role Phone Elsewhere, Pcp Primary Care Provider Unavailabl e Reason for Visit * Reason Onset Date Comments Appointment 12/18/2023 Encounter Details Date Type Department Care Team (Late st Contact Info) Description 12/18/2023 Clinical Communication Department of Oncology in [place], [place] [address] [place] [phone] Jonna Chu M.B., B.Ch. [address] [place] [phone] Appointment Social History Tobacco Use Types Packs/Day [...] often do you attend chur ch or cheondoism services? Never 02/09/2021 Do you belong to any clubs o r organizations such as jehovah's witness groups, unions, fraternal or athletic groups, or [...] heating? Not hard at all 02/09/2021 [facility] [place] of Occupat ional Health - Occupational Stress [...] place to sleep or slept in a chcf (including now)? No 02/09/2021 Nutrition Answer Date [...] 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, [employer]KHAND CLAM DREDGE, ASIA) 02/09/2021 Sex and Gender Information Value Date Recorded Sex Assigned at Female 05/07/2021 2:08 PM TRAFFIC LIEUTENANT Gender Identity Female 02/09/2021 2:21 PM CDT Sexual Orientation Straight 02/09/2021 2: 21 PM CDT documented as of this encounter Plan of Treatment Upcoming Encounters Date Type Department Care Team (Latest Contact Info) Description 03/08/2024 12:15 PM CDT Clinical Communication Virtual Review in [place], [place] 200 [place] [address] 03/12/2024 8:15 PM CDT Appointment Department of Radiology, [facility], in [place], [place] [address] [place] [phone] Jonna Chu M.B., B.Ch. [address] [place] [phone] 03/13/2024 3:20 PM CDT Office Visit Department of Oncology in [place], [place] [address] [place] [phone] Jonna Chu M.B., B.Ch. [address] [place] [phone] documented as of this encounter Visit Diagnoses Not on filedocumented in this encounter Care Teams Air Export Logistics Manager Relationship Specialty Start Date End Date Elsewhere, Pcp PCP - General Internal Medicine 11/24/22 documented as of this encounter
--- OUTSIDE RECORDS SUMMARY | 2024-01-31 22:51 | XMS_ITS | Encounter Summary ---
Author Organization [facility] Address [address] [place] [address] Care Team Providers Care Club Car Attendant Name Role Phone Elsewhere, Pcp Primary Care Provider Unavailabl e Reason for Visit * Reason Onset Date Comments Med Refill 12/18/2023 anastrozole Encounter Details Date Type Department Care Team (Latest Contact Info) Description 12/18/2023 Clinical Communication Department of Oncology in [place], [place] [address] [place] [address] Lurdes Law R.N. [address] [place] [address] Med Refill (anastrozole) Social History Tobacco Use [...] often do you attend chur ch or taoism services? Never 02/09/2021 Do you belong to [...] and heating? Not hard at all 02/09/2021 [facility] of Occupat ional Health - Occupational Stress [...] place to sleep or slept in a care home (including now)? No 02/09/2021 Nutrition Answer [...] 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, REFERRAL CLERK, ASIA) 02/09/2021 Sex and Gender Information Value Date Recorded Sex Assigned at Female 05/07/2021 2:08 PM DENTAL OFFICE MANAGER Gender Identity Female 02/09/2021 2:21 PM CDT [...] PM CDT Clinical Communication Virtual Review in [place], [place] 200 [place] [address] 03/12/2024 8:15 PM CDT Appointment Department of Radiology, [facility], in [place], [place] [address] [place] [phone] Jonna Chu M.B., B.Ch. [address] [place] [phone] 03/13/2024 3:20 PM CDT Office Visit Department of Oncology in [address] [phone] Jonna Chu M.B., B.Ch. [address] [place] [phone] documented as of this encounter Visit Diagnoses Not on filedocumented in this encounter Care Teams Club Car Attendant Relationship Specialty Start Date End Date Elsewhere, Pcp PCP - General Internal Medicine 11/24/22 documented as of this encounter
--- OUTSIDE RECORDS SUMMARY | 2024-01-31 22:51 | XMS_ITS | Clinical Summary ---
Author Organization [facility] Address [place], [place] [address] Care Team Providers Care Senior Director Creative Services Name Role Phone Porsha Lara MD Unavailable [phone] Gui Theodore MD Unavailable Unavail able Samantha Jamison MD Primary Care Prov ider Allergies Active Allergy Reactions Criticality Noted Date Comments Nickel Other - Describe In Comment Field rash Medications Medication Sig Dispensed Refills Start Date End Date Status cholecalciferol (VITAMIN D) 1,000 unit capsule Take 1 capsule by mouth once daily. 0 8 Active anastrozole (ARIMIDEX) 1 mg tablet Take 1 mg by mouth once daily. 1 Active nitroglycerin (NITROSTAT) 0.4 mg sublingual tabletIndications :Chest tightness PLACE 1 TABLET (0.4 MG) UNDER THE TONGUE EVERY 5 MINUTES IF NEEDED FOR CHEST PAIN. SIT DOWN IF USED. 25 Tablet 2 Active metoprolol succinate (TOPROL XL) 50 mg sustained-release tabletIndications :PAF (paroxysmal atrial fibrillation) (HC) TAKE 1 TABLET BY MOUTH EVERY DAY 90 Tablet 4 Active bisacodyL (DULCOLAX) 10 mg suppositoryIndica tions:Constipatio n, unspecified constipation type Insert 1 Suppository (10 mg) rectally once daily if needed (constipation). 5 Suppository 3 4 Active Potassium Chloride (Klor-Con M15) 15 mEq tabletIndications :Severe tricuspid regurgitation by prior echocardiogram,Mi tral valve prolapse,Other heart failure (HC),Pleural effusion,Hepatic congestion Take 1 Tablet (15 mEq) by mouth once daily with a meal. 90 Tablet 3 4 Active Additional Information Patient not taking.Reported on 12/27/2023 warfarin (COUMADIN) 5 mg tabletIndications :Intermittent atrial fibrillation (HC),Anticoagulat ion monitoring, INR range 2-3 Take by mouth 2.5 mg every day in the evening OR as directed 4 Active furosemide (LASIX) 20 mg tabletIndications :Other heart failure (HC) Take 1 Tablet (20 mg) by mouth two times daily. 90 Tablet 1 4 Active diclofenac topical (VOLTAREN) 1 % gelIndications:Ac james right-sided thoracic back pain,Costochondra l chest pain Apply 2 g topically to affected area(s) 4 times daily if needed (right rib/back pain). 150 g 1 4 Active dilTIAZem CD (CARDIZEM CD) 240 mg extended release 24 hr capsuleIndication s:Paroxysmal atrial fibrillation (HC) TAKE 1 CAPSULE BY MOUTH EVERY DAY 90 Capsule 4 Active dilTIAZem CD (CARDIZEM CD) 240 mg extended release 24 hr capsuleIndication s:Paroxysmal atrial fibrillation (HC) TAKE 1 CAPSULE BY MOUTH EVERY DAY 90 Capsule 4 01/26/20 24 Discontinued Active Problems Problem Noted Date Diagnosed Date [...] should be referred to Dr. Bria Maxwell, Agitator Operator, for a tinnitus consultation. Unspecified essential hypertension 08/19/2006 Actinic keratosis 08/19/2006 health maintenance 08/19/2006 Overview: Dexa normal 2005. Normal stress echocardiogram 2006 Resolved Problems Problem Noted Date Diagnosed Date Resolved Date Chest pain 08/14/2015 03/17/2022 Knee joint replacement by other means 08/19/2014 03/17/2022 Knee pain 08/30/2011 03/17/2022 Mixed hearing loss, unilateral 12/09/2009 01/19/2023 Overview: left ear Dermatophytosis of nail 10/17/2006 05/10/2008 Malignant melanoma of trunk 08/19/2006 12/10/2012 Syncope and collapse 08/19/2006 011 Encounters Date Type Department Care Team Description 01/29/2024 Orders Only [facility] Scanner 1 scan: (1-Ord) [place], XR CHEST 1V PORTABLE, 01/29/2024 01/29/2024 Refill [facility] [address] [place], [place] [id number] Samantha Jamison MD Refill Request (Furosemide 20mg) 01/28/2024 Orders Only [facility] Scanner 1 scan: (1-Ord) [facility], XR CHEST 1V PORTABLE, 01/28/2024 01/28/2024 Orders Only [facility] Scanner 1 scan: (1-Ord) [facility], CT CHEST ABDOMEN PELV W CON, 01/28/2024 01/24/2024 Telephone [facility] [address] [place] [address] Samantha Jamison MD SAIRA (SAIRA) 01/24/2024 Refill [facility] [address] [facility] [place] [address] Krysta Monroe, Refill Request (Diltiazem Cd) 01/01/2024 9:50 AM CDT Office Visit [facility] [address] [facility] [place] [address] Samantha Jamison MD Follow Up (Pain is in the upper abdomin, wraps around right flank. ) 01/01/2024 Travel 12/30/2023 Anticoagulation (warfarin) [facility] [address] [facility] [place] [address] 1, [facility] Anticoagulation 12/30/2023 Travel 12/29/2023 2:15 PM CDT Orders Only [address] [address] Lab, [facility] 12/29/2023 Telephone [facility] [address] [place] [address] Samantha Jamison MD Lab (Need orders) 12/29/2023 Travel 12/28/2023 9:45 AM CDT Ancillary Procedure [facility] [address] [place] [address] 12/27/2023 11:10 AM CDT Phone Office Visit [facility] [address] [place] [address] Shasha Morales PA Medication Management (Should she be taking potassium ?/Okay to take meds before ultrasound ) 12/27/2023 Travel 12/25/2023 Travel 12/22/[address] [place] [address] Ricardo Casillas MD Medication Management (furosemide (LASIX) 20 mg tablet) 12/19/2023 Telephone [facility] [address] [facility] [address] [place] [address] Ricardo Casillas MD Medication Management 12/18/2023 Orders Only [facility] [address] [place] [address] Samantha Jamison MD <No scans attached> 12/15/2023 10:40 AM CDT Office Visit [facility] [address] [place] [address] Samantha Jamison MD Follow Up (Feeling constipated but will have BM while she urinates, does not have to push. /Feels like she has incontinent BM but is just air. ) 12/15/2023 9:00 AM CDT Ancillary Procedure [facility] [address] [place] [address] 12/15/2023 Anticoagulation (warfarin) [facility] [address] [place] [address] 1, [facility] Anticoagulation 12/15/2023 Travel 12/11/2023 Telephone [facility] [address] [place] [address] Krysta Monroe DO Medication Management (Diet ) 12/09/2023 Telephone [facility] [address] [place] [address] Samantha Jamison MD Anticoagulation (Annual re-enrollment- Warfarin) 12/09/2023 Telephone [facility] [address] [place] [address] Krysta Monroe DO Anticoagulation (Dosing ) 12/09/2023 Anticoagulation (warfarin) [facility] [address] [place] [address] 1, [facility] Anticoagulation 2023 10:40 AM CDT Office Visit [facility] [address] [place] [address] Samantha Jamison MD Follow Up (12/03 Shasha Morales ) 2023 Travel 2023 Refill [facility] [address] [place] [address] Krysta Monroe DO Refill Request (Warfarin) 12/07/2023 Orders Only [facility] Scanner 1 scan: (1-Ord) [facility], XR ABDOMEN 1V, 12/07/2023 12/06/2023 Orders Only [facility] Scanner 1 scan: (1-Ord) [facility], CT ABDOMEN PELVIS W CON, 12/06/2023 12/06/2023 Orders Only [facility] Scanner 1 scan: (1-Ord) [place], XR ABDOMEN MIN 2V, 12/06/2023 12/06/2023 Nurse Triage [facility] [address] [place] [address] Krysta Monroe DO Constipation; Abdominal Pain/problem 12/05/2023 Telephone [facility] [address] [place] [address] Krysta Monroe DO Anticoagulation 12/05/2023 Telephone [facility] [address] [place] [address] Krysta Monroe DO Anticoagulation (OVERDUE #2 reminder) 12/04/2023 9:05 AM CDT Office Visit [facility] [address] [place] [address] Shasha Morales PA Hospital F/U (pain is manageable at the time ) 12/04/2023 Telephone [facility] [address] [place] [address] Kelsey Morales NP Medication Management (cyclobenzaprine) 12/04/2023 Travel 12/03/2023 Orders Only [facility] Scanner 1 scan: (1-Ord) [facility], XR ABDOMEN 1V, 12/03/2023 12/03/2023 Orders Only [facility] Scanner 1 scan: (1-Ord) [place], ABD PELVIS W, 12/03/2023 12/02/2023 Orders Only [facility] Scanner 1 scan: (1-Ord) [facility], XR ABDOMEN 1V, 12/02/2023 12/01/2023 Orders Only [facility] Scanner 1 scan: (1-Ord) [place], ABDOMEN 1 VIEW,2 FILMS, 12/01/2023 12/01/2023 Orders Only [facility] Scanner 1 scan: (1-Ord) [place], CHEST, 12/01/2023 11/30/2023 Orders Only [facility] Scanner 1 scan: (1-Ord) [facility], ABDOMEN 1 VIEW, 11/30/2023 11/29/2023 2:00 PM CDT Ancillary Procedure [address] [address] 11/29/2023 1:45 PM CDT Ancillary Procedure [address] [address] 11/29/2023 1:15 PM CDT Office Visit [address] [address] Malina Carrillo PA Back Pain 11/29/2023 Orders Only [facility] Scanner 1 scan: (1-Ord) [facility], EKG, 11/29/2023 11/29/2023 Orders Only [facility] Scanner 1 scan: (1-Ord) [place] H+C, ABDOMEN/PELVIS, 11/29/2023 11/29/[address] [address] Malina Carrillo PA Questions 11/29/2023 Travel 11/16/[address] [address] Krysta Monroe DO Refill Request (Metoprolol Succinate) [...] COVID-19 Vaccine Spikevax (M oderna 50mcg/0.5mL) 12YO+ [id number] Formula PF 03/15/2023 COVID-19 vaccine (Pfizer-Bio NTech 30mcg/0.3mL) 12YO+ ALDO-SUCROSE PF, MDV 09/16/2021 [...] Care Team (Late st Contact Info) Description 02/12/2024 3:05 PM CDT Office Visit [facility] [address] [place] [address] Samantha Jamison MD [address] [place] [address] 03/05/2024 10:15 AM CDT Office Visit [facility] [address] [place] [address] Samantha Jamison MD [address] [place] [address] Health Maintenance Due Date Last Done Comments [...] Procedure Name Priority Date/Time Associated Diagnosis Comments SCAN-RADIOLOGY REPORT 01/29/2024 12:00 AM CDT SCAN-RADIOLOGY REPORT 01/28/2024 12:00 AM CDT SCAN-CT INTERPRETATION 12:00 AM CDT PRO-BNP Routine 12/29/2023 2:30 PM CDT Hepatic [...] REPORT 12/03/2023 12:00 AM CDT SCAN-CT INTERPRETATION 4 12:00 AM CDT SCAN-RADIOLOGY REPORT 12/02/2023 12:00 [...] Recently Relevant to Health Maintenance Results * SCAN-RADIOLOGY REPORT (01/29/2024 12:00 AM CDT) Only the most recent of8 resultswithin the time period is included. Anatomical Region Laterality Modality Other Scanner OTHER * SCAN-CT INTERPRETATION (01/28/2024 12:00 AM CDT) Only the most recent of4 resultswithin the time period is included. Anatomical Region Laterality Modality Other Scanner OTHER * (ABNORMAL) PROTIME-INR (12/29/2023 2:30 PM CDT) Only the most recent of3 resultswithin the time period is included. INR 2.3(H) <1.3 12/29/2023 9:39 PM CDT [facility] PROTIME 25.2(H) 10.3 - 12.3 sec 12/29/2023 9:39 PM CDT [facility] Blood BLOOD SPECIMEN / Unknown Venipuncture / Unknown 12/29/2023 2:30 PM CDT 12/29/2023 2:35 PM CDT Narrative [facility] - 12/29/2023 9:39 PM CDT ?Therapeutic Range [...] is on UFH. Krysta Monroe DO HEMATOLOGY [facility] [address] [place] [address], [place] * (ABNORMAL) PRO-BNP (12/29/2023 2:30 PM CDT) Only the most recent of3 resultswithin the time period is included. [facility] PRO-BNP 2,834(H) <450 pg/mL 12/29/2023 10:37 PM CDT [facility] Blood BLOOD SPECIMEN / Unknown Venipuncture / Unknown 12/29/2023 2:30 PM CDT 12/29/2023 3:[address] [facility] - 12/29/2023 10:37 PM CDT The following [...] heart failure. ? Ghazala HARVEY SEND [facility] [address] [place] [address], * (ABNORMAL) COMP METABOLIC PANEL (12/29/2023 2:30 PM CDT) Only the most recent of2 resultswithin the time period is included. SODIUM 137 136 - 145 mmol/L 12/29/2023 10:36 PM CDT [facility] POTASSIUM 4.9 3.5 - 5.1 mmol/L 12/29/2023 10:36 PM CDT [facility] CHLORIDE 102 98 - 107 mmol/L 12/29/2023 10:36 PM CDT [facility] CO2,TOTAL 25 22 - 29 mmol/L 12/29/2023 10:36 PM CDT [facility] ANION GAP 10 5 - 18 12/29/2023 10:36 PM CDT [facility] GLUCOSE 162(H) 70 - 99 mg/dL 12/29/2023 10:36 PM CDT [facility] CALCIUM 10.3(H) 8.8 - 10.2 mg/dL 12/29/2023 10:36 PM CDT [facility] BUN 20 8 - 23 mg/dL 12/29/2023 10:36 PM T [facility] CREATININE 0.90 0.50 - 0.90 mg/dL 12/29/2023 10:36 PM CDT [facility] BUN/CREAT RATIO 22(H) 10 - 20 10:36 PM CDT [facility] eGFR 63(L) >90 mL/min/1.7 3m2 12/29/2023 10:36 PM CDT [facility] Comment:As of 2021, eG FR is calculated by the CKD-EPI creatinine equation without race adjustment. ??eGFR can be influenced by muscle mass, exercise, and diet. ??The reported eGFR is an estimation only and is only applicable if the renal function is stable. ALBUMIN 3.9(L) 4.0 - 4.9 g/dL 12/29/2023 10:36 PM CDT [facility] PROTEIN,TOTAL 6.6 6.0 - 8.0 g/dL 12/29/2023 10:36 PM CDT [facility] BILIRUBIN,TOTAL 0.4 0.0 - 1.2 mg/dL 12/29/2023 10:36 PM CDT [facility] ALK PHOSPHATASE 111(H) 35 - 104 IU/L 12/29/2023 10:36 PM CDT [facility] ALT (SGPT) 14 10 - 35 IU/L 12/29/2023 10:36 PM CDT [facility] AST (SGOT) 32 10 - 35 IU/L 12/29/2023 10:36 PM CDT [facility] Blood BLOOD SPECIMEN / Unknown Venipuncture / Unknown 12/29/2023 2:30 PM CDT 12/29/2023 3:22 PM CDT Ghazala HARVEY CHEMISTRY [facility] [address] [place] [address], [place] * US ABDOMEN LIMITED LIVER (12/28/2023 [...] For Patients: ??As a result of the Century Cures Act, medical imaging exams and procedure [...] * (ABNORMAL) PTH,INTACT (12/15/2023 11:46 AM CDT) Pathologist [facility] CALCIUM 11.2(H) 8.8 - 10.2 mg/dL 12/16/2023 5:27 AM CDT [facility] PTH,INTACT 23.9 15.0 - 69.0 pg/mL 12/16/2023 5:27 AM CDT [facility] Blood BLOOD SPECIMEN / Unknown Venipuncture / Unknown 12/15/2023 11:46 AM CDT 12/15/2023 11:46 AM CDT Samantha Jamison MD SEND OUTS [facility] [address] [place] [address], [place] * ECHO TTE COMPLETE WO CONTRAST (12/15/2023 9:52 AM CDT) Pathologist [facility] AORTIC VALVE MEAN PG 3 mmHg EJECTION FRACTION 53 % PEAK TR VELOCITY 3.0 m/s LVEDD 3.9 cm EJECTION FRACTION 55 - 60% Anatomical Region Laterality Modality Ultrasound 12/15/2023 9:11 AM CDT Narrative 12/15/2023 11:36 AM CDT ECHOCARDIOGRAM ALICIA G BENI ? Accession#: ?? [id number] : ?1940 83 years Study Date: ?? 12/15/2023 9:11:18 AM Gender: F ?BP: ? 135/76 mmHg Height: 135.00 cm ?BSA: ?1.47 m? ? ? Weight: 64.00 kg ? Tech: ? MSR ? Referring MD: SAMANTHA JAMISON Site: ? [facility] Reading Location: Mobile OP Patient Location: Outpatient. [...] . This study was interpreted by an [facility] accredited facility. ??Final ?? Procedure Note Rah Hdz MD - 12/15/2023 ECHOCARDIOGRAM ALICIA BAZAN : 1940 83 years Study Date: 12/15/2023 9:11:18 AM Gender: F BP: 135/76 mmHg Height: 135.00 cm BSA: 1.47 m? ? ? Weight: 64.00 kg Tech: R Referring MD: SAMANTHA JAMISON Site: [facility] Reading Location: Mobile OP Patient Location: Outpatient. [...] . This study was interpreted by an [facility] accredited facility. Final Samantha Jamison MD ECHO ORD * CBC WITH AUTO DIFFERENTIAL (2023 11:55 AM CDT) [facility] WHITE BLOOD COUNT 6.4 4.5 - 11.0 thou/cu mm 2023 12:10 PM CDT [facility] RED BLOOD COUNT 5.06 4.00 - 5.20 mil/cu mm 2023 12:10 PM CDT [facility] HEMOGLOBIN 15.8 12.0 - 16.0 g/dL 2023 12:10 PM CDT [facility] HEMATOCRIT 47.7 33.0 - 51.0 % 2023 12:10 PM CDT [facility] MCV 94 80 - 100 fL 2023 12:10 PM CDT [facility] MCH 31.2 26.0 - 34.0 pg 2023 12:10 PM CDT [facility] MCHC 33.1 32.0 - 36.0 g/dL 2023 12:10 PM CDT [facility] RDW 13.9 11.5 - 15.5 % 2023 12:10 PM CDT [facility] PLATELET COUNT 224 140 - 440 thou/cu mm 2023 12:10 PM CDT [facility] MPV 10.2 6.5 - 11.0 fL 2023 12:10 PM CDT [facility] % NEUT 59.3 % 2023 12:10 PM CDT [facility] % LYMPH 29.2 % 2023 12:10 PM CDT [facility] % MONO 8.1 % 2023 12:10 PM CDT [facility] % EOS 2.5 % 2023 12:10 PM CDT [facility] % BASO 0.9 % 2023 12:10 PM CDT [facility] ABSOLUTE NEUTROPHILS 3.8 1.7 - 7.0 thou/cu mm 2023 12:10 PM CDT [facility] ABSOLUTE LYMPHOCYTES 1.9 0.9 - 2.9 thou/cu mm 2023 12:10 PM CDT [facility] ABSOLUTE MONOCYTES 0.5 <0.9 thou/cu mm 2023 12:10 PM CDT [facility] ABSOLUTE EOSINOPHILS 0.2 <0.5 thou/cu mm 2023 12:10 PM CDT [facility] ABSOLUTE BASOPHILS 0.1 <0.3 thou/cu mm 2023 12:10 PM CDT [facility] Blood BLOOD SPECIMEN / Unknown Venipuncture / Unknown 2023 11:55 AM CDT 2023 11:55 AM CDT Samantha Jamison MD HEMATOLOGY [facility] [address] [place] [address], * LIPASE (2023 11:55 AM CDT) LIPASE 25.8 13.0 - 60.0 IU/L 2023 8:50 PM CDT [facility] Blood BLOOD SPECIMEN / Unknown Venipuncture / Unknown 2023 11:55 AM CDT 2023 11:55 AM CDT Samantha Jamison MD CHEMISTRY Performing Organization Address City/[facility]/ZIP Co de Phone Number [facility] [address] [address], * (ABNORMAL) LIVER PANEL (HEPATIC FUNCTION PANEL) (2023 11:55 AM CDT) ALBUMIN 4.1 4.0 - 4.9 g/dL 2023 8:54 PM CDT [facility] PROTEIN,TOTAL 7.0 6.0 - 8.0 g/dL 2023 8:54 PM CDT [facility] BILIRUBIN,TOTAL 0.6 0.0 - 1.2 mg/dL 2023 8:54 PM CDT [facility] BILIRUBIN,DIRECT <0.2 0.0 - 0.3 mg/dL 2023 8:54 PM CDT [facility] BILIRUBIN,INDIRE CT 2023 8:54 PM CDT [facility] Comment:Unable to calculate, Direct Bili <0.2 ALK PHOSPHATASE 121(H) 35 - 104 IU/L 2023 8:54 PM CDT [facility] ALT (SGPT) 31 10 - 35 IU/L 2023 8:54 PM CDT [facility] AST (SGOT) 53(H) 10 - 35 IU/L 2023 8:54 PM CDT [facility] Blood BLOOD SPECIMEN / Unknown Venipuncture / Unknown 2023 11:55 AM CDT 2023 11:55 AM CDT Samantha Jamison MD CHEMISTRY [facility] [address] [place] [address], * (ABNORMAL) BASIC METABOLIC PANEL (2023 11:55 AM CDT) SODIUM 137 136 - 145 mmol/L 2023 8:50 PM CDT [facility] POTASSIUM 4.5 3.5 - 5.1 mmol/L 2023 8:50 PM CDT [facility] CHLORIDE 100 98 - 107 mmol/L 2023 8:50 PM CDT [facility] CO2,TOTAL 26 22 - 29 mmol/L 2023 8:50 PM CDT [facility] ANION GAP 11 5 - 18 2023 8:50 PM CDT [facility] GLUCOSE 127(H) 70 - 99 mg/dL 2023 8:50 PM CDT [facility] CALCIUM 10.7(H) 8.8 - 10.2 mg/dL 2023 8:50 PM CDT [facility] BUN 8 8 - 23 mg/dL 2023 8:50 PM T [facility] CREATININE 0.87 0.50 - 0.90 mg/dL 2023 8:50 PM CDT [facility] BUN/CREAT RATIO 9(L) 10 - 20 8:50 PM CDT [facility] eGFR 66(L) >90 mL/min/1.7 3m2 2023 8:50 PM CDT [facility] Comment:As of 2021, eG FR [...] 11:55 AM CDT Samantha Jamison MD CHEMISTRY [facility] [address] [place] [address], [place] * UA W/ SEDIMENT EXAM REFLEXED PER CRITERIA (2023 11:30 AM CDT) COLOR Yellow Yellow Color 2023 12:27 PM CDT [facility] CLARITY Clear Clear Clarity 2023 12:27 PM CDT [facility] SPECIFIC GRAVITY,URINE 1.015 1.010, 1.015, 1.020, 1.025 2023 12:27 PM CDT [facility] PH,URINE 5.5 6.0, 7.0, 8.0, 5.5, 6.5, 7.5, 8.5 2023 12:27 PM CDT [facility] UROBILINOGEN, QUALITATIVE Normal Normal EU/dl 2023 12:27 PM CDT [facility] PROTEIN, URINE Negative Negative mg/dL 2023 12:27 PM CDT [facility] GLUCOSE, URINE Negative Negative mg/dL 2023 12:27 PM CDT [facility] KETONES,URINE Negative Negative mg/dL 2023 12:27 PM CDT [facility] BILIRUBIN,URI NE Negative Negative 2023 12:27 PM CDT [facility] OCCULT BLOOD,URINE Negative Negative 2023 12:27 PM CDT [facility] NITRITE Negative Negative 2023 12:27 PM CDT [facility] LEUKOCYTE ESTERASE Negative Negative 2023 12:27 PM CDT [facility] Urine URINE SPECIMEN / Unknown Non-Blood / Unknown 2023 11:30 AM CDT 2023 12:23 PM CDT Samantha Jamison MD URINE [facility] [address] [place] [address], * SCAN CORRESP-IMAGING (12/01/2023 9:21 AM CDT) [...] For Patients: ??As a result of the 21st Century Cures Act, medical imaging exams and procedure [...] total hip arthroplasty bilaterally. Procedure Note Balbir Fournier, - 11/29/2023 For Patients: As a result [...] Documents on File Type Date Recorded Patient Button Pusher Expl anation Healthcare Directive 10/31/2012 3:[address], 08/23/2012 * Full Code (Latest Code Status on File) Date Activated Date Inactivated Comments 08/14/2015 6:23 PM 08/15/2015 7:31 PM Care Teams Senior Director Creative Services Relationship Specialty Start Date End Date Samantha Jamison MD [address] [place] [address] PCP - General Family Practice 12/15/23 Porsha Lara MD Ophthalmology Surgery 04/10/12 Gui Theodore MD Surgery - Orthopedics 04/10/12
--- OUTSIDE RECORDS SUMMARY | 2024-01-31 22:51 | XMS_ITS | Encounter Summary ---
Author Organization [facility] Address [address] [place] [address] Care Team Providers Care Finisher Machine Name Role Phone Elsewhere, Pcp Primary Care Provider Unavailabl e Reason for Visit * Reason Comments Med Refill anastrozole Encounter Details Date Type Department Care Team (Late st Contact Info) Description 12/18/2023 Refill Department of Oncology in [place], [place] [address] [place] [phone] Jonna Chu M.B., B.Ch. [address] [place] [phone] Med Refill ( anastrozole) Social History Tobacco [...] any clubs o r organizations such as religion groups, unions, fraternal or athletic groups, or [...] and heating? Not hard at all 02/09/2021 [facility] [place] of Occupat ional Health - Occupational Stress [...] place to sleep or slept in a longterm (including now)? No 02/09/2021 Nutrition Answer Date [...] 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, OVERLOCKER, ASIA) 02/09/2021 Sex and Gender Information Value Date Recorded Sex Assigned at Female 05/07/2021 2:08 PM FLIGHT RESERVATIONS MANAGER Gender Identity Female 02/09/2021 2:21 PM CDT Sexual Orientation Straight 02/09/2021 2: 21 PM CDT documented as of this encounter Plan of Treatment Upcoming Encounters Date Type Department Care Team (Latest Contact Info) Description 03/08/2024 12:15 PM CDT Clinical Communication Virtual Review in [address] [phone] 03/12/2024 8:15 PM CDT Appointment Department of Radiology, [facility], in [address] [phone] Jonna Chu M.B., B.Ch. [address] [place] [phone] 03/13/2024 3:20 PM CDT Office Visit Department of Oncology in [address] [phone] Jonna Chu M.B., B.Ch. 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
--- OUTSIDE RECORDS SUMMARY | 2024-01-31 22:51 | XMS_ITS ---
Author Organization [facility] Address [address] [place] [address] Care Team Providers Care Deburring Machine Operator Name Role Phone Unavailable Unavailable Unavailable Surgery Details Not on file Complications Check Surgery Details section. Procedure Estimated Blood Loss Check Surgery Details section. Procedure Findings Check Surgery Details section. Procedure Specimens Taken Check Surgery Details section.
== END 2024-01-28 01:00 | disposition home or self-care (01) ==
LOC: AMB 01-31 22:48
PROVIDERS: PCP Family Medicine; Visit Provider Family Medicine
DX: R53.1 Weakness (principal)
CPT/HCPCS: A0425; A0427

== ENCOUNTER 2024-01-28 01:25 | Inpatient (IN) | payer OTHER, SELFPAY ==
[2024-01-28] VITALS (18 sets, daily range): BP systolic 90–149; BP diastolic 61–91; PULSE 75–111; RESP 18–32; TEMP 36.5–39.2; O2SAT 91–97; BMI 23.0
--- NOTE | 2024-01-28 | XR_ITS ---
Patient: JANET BAZAN Facility:?[facility] RIS Patient ID:?[id number] Site Patient ID:?[id number]. Site :?[id number] Study:?XRay-Chest PORTABLE-01/28/2024 4:14:13 AM Ordering Physician:NERY Final Report: INDICATION: Weakness and fever TECHNIQUE: 1 view chest radiograph COMPARISON: 08/14/2015, 12/18/[address] FINDINGS: Devices: None. Lung volumes are good. Mild peripheral septal lines. Normal pulmonary vascular markings. No pleural effusion. No pneumothorax. Severe cardiomegaly. Upper mediastinal contours are obscured by patient rotation towards the right. IMPRESSION: Severe cardiomegaly. Very minimal peripheral septal thickening is similar to prior and probably represents scarring rather than pulmonary edema. No pneumonia seen. Dictated by Chanel Alejandro MD @ 01/28/2024 4:30:43 AM Signed by:?Chanel Alejandro MD @01/28/2024 4:30:43 AM (Electronic Signature)
[2024-01-28] MEDS: 0.9 % SODIUM CHLORIDE 1000 ml 1,000 ML IV (03:00)
--- NOTE | 2024-01-28 04:28 | ED.GENADULT ---
HPI - General Adult General Chief complaint: Weakness Stated complaint: weakness Time Seen by Provider: 01/28/24 04:27 History of Present Illness HPI narrative: 83-year-old woman presenting to the emergency department via EMS accompanied by her .? Primary initial complaint was that of weakness.? This may have been increasing over the last couple of days. ?She had been feeling with little uncomfortable or upset stomach though has not been vomiting today. ?Somewhat more weak as well.? She does not endorse dysuria, frequency or new urgency.? She does recall having had a surprisingly loose stool this morning. This evening though when on the couch she was trying to get up I believe and just ended up sliding to the floor.? Unable to get up.? She has been experiencing some left knee pain in particular and this did seem to want to move.? She did not strike her head.? She did not injure her knee. There was no loss of consciousness.? Was not particularly more short of breath.? Does have some tightness around her torso but this apparently has been going on for years. Related Data Home Medications ?Medication ?Instructions ?Recorded ?Confirmed anastrozole 1 mg tablet 1 mg PO DAILY 08/08/22 12/06/23 calcium carbonate 600 mg-vitamin 1 tab PO BIDWM 08/08/22 12/06/23 D3 10 mcg (400 unit) tablet diltiazem HCl 240 mg 240 mg PO DAILY 08/08/22 12/06/23 capsule,extended release 24 hr metoprolol succinate 50 mg 50 mg PO DAILY 08/08/22 12/06/23 tablet,extended release 24 hr warfarin 5 mg tablet 2.5 - 5 mg PO DAILY 08/08/22 12/06/23 cholecalciferol (vitamin D3) 25 1,000 unit PO DAILY 11/29/23 12/06/23 mcg (1,000 unit) tablet (Vitamin D3) nitroglycerin 0.4 mg sublingual 0.4 mg sublingual Q5M PRN 11/29/23 12/06/23 tablet Previous Rx's ?Medication ?Instructions ?Recorded magnesium oxide 400 mg (241.3 mg 400 mg PO DAILY #30 tabs 12/07/23 magnesium) tablet psyllium husk 3.4 gram/5.4 gram 1 tbsp PO DAILY #660 grams 12/07/23 oral powder (Metamucil) sennosides 8.6 mg-docusate sodium 1 tab PO BID PRN constipation #30 12/07/23 50 mg tablet (Stool tabs Softener-Laxative) Allergies Allergy/AdvReac Type Severity Reaction Status Date / Time nickel Allergy Verified 12/06/23 14:01 Review of Systems Status of ROS: Reports: 6 or more systems reviewed and unremarkable except as noted in History and below PFSH PFS Medical History Breast cancer ?C50.919 - Malignant neoplasm of unspecified site of unspecified female breast (ICD-10) History of ileus ?Z87.19 - Personal history of other diseases of the digestive system (ICD-10) Hypertension ?I10 - Essential (primary) hypertension (ICD-10) Osteoporosis ?M81.0 - Age-related osteoporosis without current pathological fracture (ICD-10) Hyperparathyroidism ?E21.3 - Hyperparathyroidism, unspecified (ICD-10) Atrial fibrillation (06/30/12) ?I48.91 - Unspecified atrial fibrillation (ICD-10) Surgical History Hx laparoscopic cholecystectomy ?Z90.49 - Acquired absence of other specified parts of digestive tract (ICD-10) Status post Mohs surgery ?Z98.890 - Other specified postprocedural states (ICD-10) H/O colonoscopy ?Z98.890 - Other specified postprocedural states (ICD-10) Status post total knee replacement ?Z96.659 - Presence of unspecified artificial knee joint (ICD-10) History of total right hip replacement ?Z96.641 - Presence of right artificial hip joint (ICD-10) Status post total replacement of left hip ?Z96.642 - Presence of left artificial hip joint (ICD-10) H/O: hysterectomy ?Z90.710 - Acquired absence of both cervix and uterus (ICD-10) Family History Daughter Breast cancer Mother Stroke Social History Narrative: She lives with her , Rufino, who is healthcare power of workers compensation defense attorney. Code status DNR. She never smoked. She does not drink alcohol. What is your current living situation?: I presently have a place to live Problems where you live: no known problems Problems where you live details: n/a In the past 12 months, utilities in danger of being shut off: no In past 12 months, lack of transportation kept you from medical appts, meetings, work, or getting things needed for daily living: no In the past 12 mos, have been you worried that your food would run out before you had money to buy more?: never true In the past 12 mos, the food you bought just didn't last and you didn't have money to buy more?: never true Highest level of school completed/degree received: Master's degree Smoking Status: Former smoker Do you use any of these nicotine containing products: None How often do you have a drink containing alcohol: monthly or less How often do you have six or more drinks on one occasion: Less than monthly AUDIT-C Alcohol total score: 2 Non-prescribed substance use: denies use Caffeine: Yes How often does anyone, including family, friends and others, physically hurt you: never How often does anyone, including family, friends and others, insult or talk down to you: never How often does anyone, including family, friends and others, threaten you with harm: never How often does anyone, including family, friends and others, scream or curse at you: never service: No Exam Narrative: Exam Narrative: She is quite alert pleasantly verbose.? Unclear chronic appearing hyper pigmentation perhaps on face.? Lips are dry oropharynx is sticky.? She is breathing easily.? Lungs appear to be clear.? Moderate kyphosis of the thoracic spine.? Heart in what appears to be a regular rate and rhythm today with some ectopic beats.? Abdomen is soft and not tender.? Extremities with diffuse superficial varicosities.? There is no lower extremity edema.? She generally appears well perfused.? The left knee does show an effusion.? Nontender.? Flexes and extends without difficulty.? No inflammatory changes. ?Cranial nerves 2-12 are intact.? Eyes are bright consistent with lens reimplantation.? Subtle yellowing perhaps to her sclera. Const: Vital Signs, click to edit/add: Vital Signs - 24 hr 01/28/24 01:25 01/28/24 02:30 01/28/24 03:00 Temperature 100.0 F H 98.6 F Pulse Rate [Left P ulse Oximeter] 95 92 105 H Respiratory Rate 20 18 18 Blood Pressure [Le ft Upper Arm] 129/91 H 130/72 130/85 Pulse Oximetry 94 94 95 Oxygen Delivery Me thod Room Air Room Air Room Air 01/28/24 04:00 01/28/24 04:35 Temperature Pulse Rate [Left P ulse Oximeter] 96 Respiratory Rate 18 Blood Pressure [Le ft Upper Arm] 132/78 Pulse Oximetry 94 96 Oxygen Delivery Me thod Room Air Documenting provider has reviewed patient's vital signs: yes Course Vital Signs Vital signs: Initial Vital Signs Temperature 100.0 F H 01/28/24 01:25 Temperature Source Temporal Artery Scan 01/28/24 01:25 Pulse Rate 95 01/28/24 01:25 Pulse Rhythm Irregular 01/28/24 01:25 Respiratory Rate 20 01/28/24 01:25 Blood Pressure 129/91 H 01/28/24 01:25 Blood Pressure Mean 103 01/28/24 01:25 Blood Pressure Position Sitting 01/28/24 01:25 Pulse Oximetry 94 01/28/24 01:25 Oxygen Delivery Method Room Air 01/28/24 01:25 Vital Signs Temperature 100.0 F H 01/28/24 01:25 Pulse Rate 95 01/28/24 01:25 Respiratory Rate 20 01/28/24 01:25 Blood Pressure 129/91 H 01/28/24 01:25 Pulse Oximetry 94 01/28/24 01:25 Oxygen Delivery Method Room Air 01/28/24 01:25 Temperature 98.6 F 01/28/24 03:00 Pulse Rate 96 01/28/24 04:00 Respiratory Rate 18 01/28/24 04:00 Blood Pressure 132/78 01/28/24 04:00 Pulse Oximetry 96 01/28/24 04:35 Oxygen Delivery Method Room Air 01/28/24 04:00 Medications Administered Medications: Generic Name Dose Route Start Last Admin Trade Name Freq PRN Reason Stop Dose Admin Sodium Chloride 1,000 mls @ 1,000 mls/hr 01/28/24 04:27 01/28/24 04:00 0.9 % Sodium Chloride 1000 Ml IV 01/28/24 05:26 Infused .Q1H ONE Infusion Medical Decision Making MDM Narrative Medical decision making narrative: I suspect a viral illness NOS. I think this amplified other joint pain or just other underlying weakness. Would screen for COVID and influenza. Check labs further for red flags. I suppose may have had some tachyarrhythmia. Other dysrhythmia? Anemia? Does not appear to be postictal. Look for infection in urine; without symptoms otherwise would need to be convincing for to treat. EKG shows atrial fibrillation.? There are PVCs demonstrated.? Rate of 99 Labs overall reassuring. Mildly hyponatremic. BNP however of a little over 6000. COVID and influenza are negative. 2-5 for red cells and white cells on microscopic although nitrate and leukocyte esterase negative. Given a L normal saline in the emergency department.? Able to ambulate well with walker but still tremulous and worried about managing stairs at home. and she feel that needs to stay due to weakness and then being unsafe at home. Skin did feel as though might be getting more warm or generating a fever though recheck remained afebrile. Did do a chest x-ray as well. Rather BNP though otherwise without respiratory symptoms. What I think is an evolving fever though and weakness I think warrant chest x-ray. I am unable to see these images at this time due to system downtime. Did discuss though this admission with hospitalist was thankfully accepting. One-view portable chest now available, reviewed by me shows marked cardiomegaly. This is significant increase since 2016 comparison. Mediastinal fullness as well. I do not otherwise see infiltrative process or pulmonary fusion. Medical Records Medical records reviewed: Yes I reviewed the patient's medical records Lab Data Lab results reviewed: Yes I reviewed the patient's lab results ECG Data Attestation: I personally reviewed and interpreted this ECG as follows: (EKG shows atrial fibrillation and demonstrating PVCs. Rate of 99) Discharge Plan Discharge Clinical Impression: Weakness, Heart failure Patient Disposition: Admitted As Observation Condition: Improved
--- OUTSIDE RECORDS SUMMARY | 2024-01-28 04:34 | XMS_ITS | Referral Summary ---
Author Organization [facility] Address [address] [place] [address] Care Team Providers Care Cargo Service Supervisor Name Role Phone Elsewhere, Pcp Primary Care Provider Unavailabl e Source Comments Patient records contain information from all sites at [facility]. For routine questions regarding patient records, call [phone] during business hours, M-F 8:00 AM - 5:00 PM Central Time. Record requests for emergency care only can be directed to [phone] at any time.[facility] Encounters Date Type Department Care Team Description 12/18/2023 Refill Department of Oncology in [place], [place] [address] [place] [address] Jonna Chu M.B., B.Ch. Med Refill ( anastrozole) 12/18/2023 Clinical Communication Department of Oncology in [place], [place] [address] [place] [address] Lurdes Law R.N. Med Refill (anastrozole) 12/18/2023 Clinical Communication Department of Oncology in [place], [place] [address] [place] [address] Jonna Chu M.B., B.Ch. Appointment from Last 3 Months Allergies Active Allergy Reactions Criticality Noted Date [...] mouth 2 (two) times a day. Active calcium carbonate-vitamin D3 1,500 mg (600 mg calcium)-10 mcg (400 Unit) per tablet Take 1 tablet by mouth 2 (two) times a day with meals. 02/12/2023 Active anastrozole (Arimidex) 1 mg tabletIndications:Ma lignant Neoplasm Of Overlapping Sites Of Left Female Breast (HCC) take 1 tablet by mouth every day 90 tablet 3 12/18/2023 Active Active Problems Problem Noted Date Diagnosed Date Malignant Neoplasm Of Overla pping Sites Of Left Female Breast 02/10/2021 Cancer Staging:Clinical stage from 12/24/2020:Stage IIIB(cT4c, cN1, cM0, G2, ER+, [place]-, HER2-) - Signed by Enrique Vang APRN, C.N.P., M.S.N. on 08/03/2022 Atherosclerotic Heart Diseas e Of [place] Coronary Artery Without Angina Pectoris 02/10/2021 Osteoporosis [...] often do you attend chur ch or temple services? Never 02/09/2021 Do you belong to any clubs o r organizations such as lutheran groups, unions, fraternal or athletic groups, or [...] and heating? Not hard at all 02/09/2021 [facility] [place] of Occupat ional Health - Occupational Stress [...] now)? No 02/09/2021 Nutrition Answer Date Recorded On average, how many serving s of [...] 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, HOUSE MOVER HELPER, ASIA) 02/09/2021 Sex and Gender Information Value Date Recorded Sex Assigned at Female 05/07/2021 2:08 PM PROGRAM INSTRUCTOR Gender Identity Female 02/09/2021 2:21 PM CDT Sexual Orientation Straight 02/09/2021 2: 21 PM CDT Last Filed Vital Signs Vital Sign Reading Time Taken Comments Blood Pressure 117/76 07/26/2023 3:04 PM PROGRAM INSTRUCTOR Pulse 74 07/26/2023 3:04 PM PROGRAM INSTRUCTOR Temperature 36.2 ??C (97.2 ??F) 07/26/2023 3:04 PM CS T Respiratory Rate 16 04/04/2023 11:0 5 AM CDT Oxygen Saturation 96% 07/26/2023 3:04 PM PROGRAM INSTRUCTOR Inhaled Oxygen Concentration - - Weight 64.4 kg (141 lb 13.9 oz) 07/26/2023 3:04 PM PROGRAM INSTRUCTOR Height 160.1 cm (5' 3.03) 07/26/2023 3:04 PM CS T Body Mass Index 25.11 07/26/2023 3:04 PM PROGRAM INSTRUCTOR Plan of Treatment Upcoming Encounters Date Type Department Care Team (Latest Contact Info) Description 03/08/2024 12:15 PM CDT Clinical Communication Virtual Review in [place], [place] 200 [place] [address] 03/12/2024 8:15 PM CDT Appointment Department of Radiology, [facility], in [address] [phone] Jonna Chu M.B., B.Ch. [address] [place] [phone] 03/13/2024 3:20 PM CDT Office Visit Department of Oncology in [address] [phone] Jonna Chu M.B., B.Ch. [address] [place] [phone] Medical Devices Implanted Type Area Irrigation Equipment Installer Device Identifier Shelf Expiration Date Model / Serial / Lot Hip Implant Hip Implant Bilateral : Hip Knee Implant Knee Implant Right: Knee Ocular Lens Ocular Lens Bilateral : Eye Procedures Procedure Name Priority Date/Time Associated Diagnosis Comments COMPREHENSIVE METABOLIC PANEL, S/P Routine 04/03/2023 5:13 PM CDT Malignant Neoplasm Of Breast Female Left (HCC) from Last 3 Months or Most Recently Relevant to Health Maintenance Care Teams Cargo Service Supervisor Relationship Specialty Start Date End Date Elsewhere, Pcp PCP - General Internal Medicine 11/24/22
--- OUTSIDE RECORDS SUMMARY | 2024-01-28 04:34 | XMS_ITS | Encounter Summary ---
Author Organization [facility] Address [address] [place] [address] Care Team Providers Care Health Underwriter Name Role Phone Elsewhere, Pcp Primary Care Provider Unavailabl e Reason for Visit * Reason Comments Med Refill anastrozole Encounter Details Date Type Department Care Team (Late st Contact Info) Description 12/18/2023 Refill Department of Oncology in [place], [place] [address] [place] [phone] Jonna Chu M.B., B.Ch. [address] [place] [phone] Med Refill ( anastrozole) Social History Tobacco Use Types Packs/Day Years Used Date Smoking Tobacco: Never Smokeless Tobacco: Never Alcohol Use Standard Drinks/Week Comments Yes 0 [...] often do you attend chur ch or mosque services? Never 02/09/2021 Do you belong to any clubs o r organizations such as religious groups, unions, fraternal or athletic groups, or [...] and heating? Not hard at all 02/09/2021 [facility] [place] of Occupat ional Health - Occupational Stress [...] place to sleep or slept in a fdc (including now)? No 02/09/2021 Nutrition Answer Date [...] 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, PARCEL POST CARRIER, ASIA) 02/09/2021 Sex and Gender Information Value Date Recorded Sex Assigned at Female 05/07/2021 2:08 PM ARMOR SENIOR SERGEANT Gender Identity Female 02/09/2021 2:21 PM CDT Sexual Orientation Straight 02/09/2021 2: 21 PM CDT documented as of this encounter Plan of Treatment Upcoming Encounters Date Type Department Care Team (Latest Contact Info) Description 03/08/2024 12:15 PM CDT Clinical Communication Virtual Review in [address] [phone] 03/12/2024 8:15 PM CDT Appointment Department of Radiology, [facility], in [address] [phone] Jonna Chu M.B., B.Ch. [address] [place] [phone] 03/13/2024 3:20 PM CDT Office Visit Department of Oncology in [address] [phone] Jonna Chu M.B., B.Ch. [address] [place] [phone] documented as of this encounter Visit Diagnoses Diagnosis Malignant Neoplasm Of Overlapping Sites Of Left Female Breast (HCC) documented in this encounter Care Teams Health Underwriter Relationship Specialty Start Date End Date Elsewhere, Pcp PCP - General Internal Medicine 11/24/22 documented as of this encounter
--- OUTSIDE RECORDS SUMMARY | 2024-01-28 04:34 | XMS_ITS | Clinical Summary ---
Author Organization [facility] Address [address] [place] [address] Care Team Providers Care Special Education Administrator Name Role Phone Elsewhere, Pcp Primary Care Provider Unavailabl e Source Comments Patient records contain information from all sites at [facility]. For routine questions regarding patient records, call [phone] during business hours, M-F 8:00 AM - 5:00 PM Central Time. Record requests for emergency care only can be directed to [phone] at any time.[facility] Allergies Active Allergy Reactions Criticality Noted Date [...] from 12/24/2020:Stage IIIB(cT4c, cN1, cM0, G2, ER+, [place]-, HER2-) - Signed by Enrique Vang APRN, C.N.P., M.S.N. on 08/03/2022 Atherosclerotic Heart Diseas e Of [place] Coronary Artery Without Angina Pectoris 02/10/2021 Osteoporosis Atrial Fibrillation Unspecified Encounters Date Type Department Care Team Description 12/18/2023 Refill Department of Oncology in [place], [place] [address] [place] [address] Jonna Chu M.B., B.Ch. Med Refill ( anastrozole) 12/18/2023 Clinical Communication Department of Oncology in [place], [place] [address] [place] [address] Lurdes Law R.N. Med Refill (anastrozole) 12/18/2023 Clinical Communication Department of Oncology in [place], [place] [address] [place] [address] Jonna Chu M.B., B.Ch. Appointment from Last 3 Months Immunizations Name Administration Dates Next Due HZV [...] often do you attend chur ch or amish services? Never 02/09/2021 Do you belong to any clubs o r organizations such as samaritan groups, unions, fraternal or athletic groups, or [...] and heating? Not hard at all 02/09/2021 [facility] [place] of Occupat ional Health - Occupational Stress [...] place to sleep or slept in a nursing home (including now)? No 02/09/2021 Nutrition Answer Date [...] 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, STATIC BALANCER, ASIA) 02/09/2021 Sex and Gender Information Value Date Recorded Sex Assigned at Female 05/07/2021 2:08 PM ENGLISH FACULTY MEMBER Gender Identity Female 02/09/2021 2:21 PM CDT Sexual Orientation Straight 02/09/2021 2: 21 PM CDT Last Filed Vital Signs Vital Sign Reading Time Taken Comments Blood Pressure 117/76 07/26/2023 3:04 PM ENGLISH FACULTY MEMBER Pulse 74 07/26/2023 3:04 PM ENGLISH FACULTY MEMBER Temperature 36.2 ??C (97.2 ??F) 07/26/2023 3:04 PM CS T Respiratory Rate 16 04/04/2023 11:0 5 AM CDT Oxygen Saturation 96% 07/26/2023 3:04 PM ENGLISH FACULTY MEMBER Inhaled Oxygen Concentration - - Weight 64.4 kg (141 lb 13.9 oz) 07/26/2023 3:04 PM ENGLISH FACULTY MEMBER Height 160.1 cm (5' 3.03) 07/26/2023 3:04 PM CS T Body Mass Index 25.11 07/26/2023 3:04 PM ENGLISH FACULTY MEMBER Plan of Treatment Upcoming Encounters Date Type Department Care Team (Latest Contact Info) Description 03/08/2024 12:15 PM CDT Clinical Communication Virtual Review in [place], [place] 200 [place] [address] 03/12/2024 8:15 PM CDT Appointment Department of Radiology, [facility], in [place], [place] [address] [place] [phone] Jonna Chu M.B., B.Ch. [address] [place] [phone] 03/13/2024 3:20 PM CDT Office Visit Department of Oncology in [address] [phone] Jonna Chu M.B., B.Ch. [address] [place] [phone] Health Maintenance Due Date Last Done Comments Zoster Vaccines (2 of 3) 07/18/2012 05/23/2012 COVID-19 Vaccine (2022-2 4 season) 2023 03/15/2023, 02/25/2022, 09/16/2021, Additional history exists Depression Screening (Annual PHQ-2) 06/19/2023 Fall Risk Screen (Annual) 06/19/2023 DTaP,Tdap,and Td Vaccines (2 - Td or Tdap) 08/23/2023 08/22/2013, 10/09/2006 Influenza Vaccine (#1) 2024 , 03/30/2022, 03/31/2021, Additional history exists Office Visit for Blood Press ure Check / Re-check 07/26/2024 07/26/2023 Creatinine Level (Kidney Fun ction Test) 12/28/2024 12/29/2023, 12/15/2023, 2023, Additional history exists Potassium Level 12/28/2024 12/29/2023, 11/18, 2023, Additional history exists Sodium Level 12/28/2024 12/29/2023, 11/18, 2023, Additional history exists Hepatitis A Vaccines Completed 06/10/1998, 12/09/18 98 Hepatitis B Vaccines Completed 06/10/1998, 01/06/1998, 12/09/1997 Pneumococcal vaccine (65+ years) Completed 08/01/19 15, 02/26/2007 Medical Devices Implanted Type Area Print Line Feeder Device Identifier Shelf Expiration Date Model / [...] Recently Relevant to Health Maintenance Care Teams Special Education Administrator Relationship Specialty Start Date End Date Elsewhere, Pcp PCP - General Internal Medicine 11/24/22
--- OUTSIDE RECORDS SUMMARY | 2024-01-28 04:34 | XMS_ITS | Clinical Summary ---
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 0 11/08/19 18 Active anastrozole (ARIMIDEX) 1 mg tablet Take 1 mg by mouth once daily. 12/23/19 21 Active nitroglycerin (NITROSTAT) 0.4 mg sublingual tabletIndications :Chest tightness PLACE 1 TABLET (0.4 MG) UNDER THE TONGUE EVERY 5 MINUTES IF NEEDED FOR CHEST PAIN. SIT DOWN IF USED. 25 Tablet 12/08/19 22 Active metoprolol succinate (TOPROL XL) 50 mg sustained-release tabletIndications :PAF (paroxysmal atrial fibrillation) (HC) TAKE 1 TABLET BY MOUTH EVERY DAY 90 Tablet 11/17/19 24 Active bisacodyL (DULCOLAX) 10 mg suppositoryIndica tions:Constipatio n, unspecified constipation type Insert 1 Suppository (10 mg) rectally once daily if needed (constipation). 5 Suppository 3 12/11/19 24 Active Potassium Chloride (Klor-Con M15) 15 mEq tabletIndications :Severe tricuspid regurgitation by prior echocardiogram,Mi tral valve prolapse,Other heart failure (HC),Pleural effusion,Hepatic congestion Take 1 Tablet (15 mEq) by mouth once daily with a meal. 90 Tablet 3 12/15/19 24 Active Additional Information Patient not taking.Reported on 12/27/2023 warfarin (COUMADIN) 5 mg tabletIndications :Intermittent atrial fibrillation (HC),Anticoagulat ion monitoring, INR range 2-3 Take by mouth 2.5 mg every day in the evening OR as directed 12/15/19 24 Active furosemide (LASIX) 20 mg tabletIndications :Other heart failure (HC) Take 1 Tablet (20 mg) by mouth two times daily. 90 Tablet 1 12/18/19 24 Active diclofenac topical (VOLTAREN) 1 % gelIndications:[place] right-sided thoracic back pain,Costochondra l chest pain Apply 2 g topically to affected area(s) 4 times daily if needed (right rib/back pain). 150 g 1 01/01/20 24 Active dilTIAZem CD (CARDIZEM CD) 240 mg extended release 24 hr capsuleIndication s:Paroxysmal atrial fibrillation (HC) TAKE 1 CAPSULE BY MOUTH EVERY DAY 90 Capsule 01/26/20 24 Active dilTIAZem CD (CARDIZEM CD) 240 mg extended release 24 hr capsuleIndication s:Paroxysmal atrial fibrillation (HC) TAKE 1 CAPSULE BY MOUTH EVERY DAY 90 Capsule 10/26/19 24 024 Discontinued diclofenac topical (VOLTAREN) 1 % gelIndications:[place] right-sided thoracic back pain,Costochondra l chest pain Apply 2 g topically to affected area(s) four times daily. 150 g 1 01/01/20 24 024 Discontinued(*M edication adjustment) Active Problems Problem Noted Date Diagnosed Date Severe tricuspid regurgitation by prior echocard iogram 12/11/2023 Mitral valve prolapse 12/11/2023 IPMN (intraductal papillary mucinous neoplasm) 0 12/04/2023 [...] should be referred to Dr. Bria Maxwell, Editor At Large, for a tinnitus consultation. Unspecified essential hypertension 08/19/2006 Actinic keratosis 08/19/2006 health maintenance 08/19/2006 Overview: Dexa normal 2005. Normal stress echocardiogram 2006 Resolved Problems Problem Noted Date Diagnosed Date Resolved Date Chest pain 08/14/2015 03/17/2022 Knee joint replacement by other means 08/19/2014 03/17/2022 Knee pain 08/30/2011 03/17/2022 Mixed hearing loss, unilateral 12/09/2009 01/19/2023 Overview: left ear Dermatophytosis of nail 10/17/2006 05/0 10/2008 Malignant melanoma of trunk 08/19/2006 12/10/2012 Syncope and collapse 08/19/2006 011 Encounters Date Type Department Care Team Description 01/24/2024 Telephone [facility] [address] [place] [address] Samantha Jamison MD SAIRA (SAIRA) 01/24/2024 Refill [facility] [address] [place] [address] Krysta Monroe, Refill Request (Diltiazem Cd) 01/01/2024 9:50 AM CDT Office Visit [facility] [address] [facility] [place] [address] Samantha Jamison MD Follow Up (Pain is in the upper abdomin, wraps around right flank. ) 01/01/2024 Travel 12/30/2023 Anticoagulation (warfarin) [facility] [address] [place] [address] 1, [facility] Anticoagulation 12/30/2023 Travel 12/29/2023 2:15 PM CDT Orders Only [address] [address] Lab, [facility] 12/29/2023 Telephone [facility] [address] [place] [address] Samantha Jamison MD Lab (Need orders) 12/29/2023 Travel 12/28/2023 9:45 AM CDT Ancillary Procedure [facility] [address] [facility] [place] [address] 12/27/2023 11:10 AM CDT Phone Office Visit [facility] [address] [place] [address] Shasha Morales PA Medication Management (Should she be taking potassium ?/Okay to take meds before ultrasound ) 12/27/2023 Travel 12/25/2023 Travel 12/22/2023 Telephone [facility] [address] [place] [address] Ricardo Casillas MD Medication Management (furosemide (LASIX) 20 mg tablet) 12/19/2023 Telephone [facility] [address] [facility] [address] [place] [address] Ricardo Casillas MD Medication Management 12/18/2023 Orders Only [address] [address] Samantha Jamison MD <No scans attached> 12/15/2023 10:40 AM CDT Office Visit [facility] [address] [place] [address] Samantha Jamison MD Follow Up (Feeling constipated but will have BM while she urinates, does not have to push. /Feels like she has incontinent BM but is just air. ) 12/15/2023 9:00 AM CDT Ancillary Procedure [facility] [address] [place] [address] 12/15/2023 Anticoagulation (warfarin) [facility] [address] [place] [address] 1, [facility] Anticoagulation 12/15/2023 Travel 12/11/2023 Telephone [facility] [address] [place] [address] Krysta Monroe DO Medication Management (Diet ) 12/09/2023 Telephone [facility] [address] [place] [address] Samantha Jamison MD Anticoagulation (Annual re-enrollment- Warfarin) 12/09/2023 Telephone [facility] [address] [place] [address] Krysta Monroe DO Anticoagulation (Dosing ) 12/09/2023 Anticoagulation (warfarin) [facility] [address] [place] [address] 1, [facility] Anticoagulation 2023 10:40 AM CDT Office Visit [facility] [address] [place] [address] Samantha Jamison MD Follow Up (12/03 Shasha Malekarla ) 2023 Travel 2023 Refill [facility] [address] [place] [address] Krysta Monroe DO Refill Request (Warfarin) 12/07/[address] [facility] Scanner 1 scan: (1-Ord) [facility], XR ABDOMEN 1V, 12/07/2023 12/06/2023 Orders Only [facility] Scanner 1 scan: (1-Ord) [facility], CT ABDOMEN PELVIS W CON, 12/06/2023 12/06/2023 Orders Only [facility] Scanner 1 scan: (1-Ord) [place], XR ABDOMEN MIN 2V, 12/06/2023 12/06/2023 Nurse Triage [facility] [address] [place] [address] Krysta Monroe, Constipation; Abdominal Pain/problem 12/05/2023 Telephone [facility] [address] [place] [address] Krysta Monroe DO Anticoagulation 12/05/2023 Telephone [facility] [address] [place] [address] Krysta Monroe DO Anticoagulation (OVERDUE #2 reminder) 12/04/2023 9:05 AM CDT Office Visit [facility] [address] [place] [address] Shasha Morales PA Hospital F/U (pain is manageable at the time ) 12/04/2023 Telephone [facility] [address] [place] [address] Kelsey Morales NP Medication Management (cyclobenzaprine) 12/04/2023 Travel 12/03/2023 Orders Only [facility] Scanner 1 scan: (1-Ord) [facility], XR ABDOMEN 1V, 12/03/2023 12/03/2023 Orders Only [facility] Scanner 1 scan: (1-Ord) [place], ABD PELVIS W, 12/03/2023 12/02/2023 Orders Only [facility] Scanner 1 scan: (1-Ord) [facility], XR ABDOMEN 1V, 12/02/2023 12/01/2023 Orders Only [facility] Scanner 1 scan: (1-Ord) [place], ABDOMEN 1 VIEW,2 FILMS, 12/01/2023 12/01/2023 Orders Only [facility] Scanner 1 scan: (1-Ord) [place], CHEST, 12/01/2023 11/30/2023 Orders Only [facility] Scanner 1 scan: (1-Ord) [facility], ABDOMEN 1 VIEW, 11/30/2023 11/29/2023 2:00 PM CDT Ancillary Procedure [facility] [address] [place] [address] 11/29/2023 1:45 PM CDT Ancillary Procedure [facility] [address] [facility] [place] [address] 11/29/2023 1:15 PM CDT Office Visit [facility] [address] [facility] [place] [address] Malina Carrillo PA Back Pain 11/29/2023 Orders Only [facility] Scanner 1 scan: (1-Ord) [facility], EKG, 11/29/2023 11/29/2023 Orders Only [facility] Scanner 1 scan: (1-Ord) [place] H+C, ABDOMEN/PELVIS, 11/29/2023 11/29/2023 Telephone [facility] [address] [facility] [place] [address] Malina Carrillo PA Questions 11/29/2023 Travel 11/16/2023 Refill [facility] [address] [facility] [place] [address] Krysta Monroe DO Refill Request (Metoprolol Succinate) from Last 3 Months Immunizations Name Administration [...] COVID-19 Vaccine Spikevax (M oderna 50mcg/0.5mL) 12YO+ [id number] Formula PF 03/15/2023 COVID-19 vaccine ([employer] 30mcg/0.3mL) 12YO+ ALDO-SUCROSE PF, MDV 09/16/2021 [...] of Communication with Friends and Fami ly Not on file 01/18/2024 Alcohol Use Answer Date Recorded How often [...] Sign Reading Time Taken Comments Blood Pressure 124/76 01/01/2024 9:45 AM CDT Pulse 86 01/01/2024 9:45 AM CDT Temperature 36.7 ??C (98 ??F) 12/16/2020 9:47 AM CDT Respiratory Rate 14 02/12/2021 9:20 AM CDT Oxygen Saturation 97% 01/01/2024 9:45 AM CDT Inhaled Oxygen Concentration - - Weight 63.2 kg (139 lb 6 oz) 12/15/2023 10:48 AM CDT Height 162.4 cm (5' 3.94) 01/19/2023 10:41 AM C DT Body Mass Index 23.97 01/19/2023 10:41 AM CDT Plan of Treatment Upcoming Encounters Date Type Department Care Team (Late st Contact Info) Description 01/29/2024 3:30 PM CDT Office Visit [facility] [address] [place] [address] Souleymane Cote MD [address] [facility] [address] [place], [place] [id number] 03/05/2024 10:15 AM CDT Office Visit [facility] [address] [facility] [address] Samantha Jamison MD [address] [address] Health Maintenance Due Date Last Done Comments Zoster (shingles) series for age 50+ (1 of 2) 07/18/2012 05/23/2012 Tetanus booster 08/23/2023 08/22/2013, 09/18, 12/29/1995 COVID-19 vaccine series (2022-24 season) 2023 10/30/2023, 03/15/2023, 02/25/2022, Additional history [...] Procedure Name Priority Date/Time Associated Diagnosis Comments PRO-BNP Routine 12/29/2023 2:30 PM CDT Hepatic congestion COMP METABOLIC PANEL Routine 12/29/2023 2:30 PM CDT Hepatic congestion PROTIME-INR STAT 12/29/2023 2:30 PM CDT Intermittent atrial fibrillation (HC) Anticoagulation monitoring, INR range 2-3 US ABDOMEN LIMITED LIVER Routine 12/28/2023 11:24 AM CDT Hepatic congestion Abdominal pain, RUQ (right upper quadrant) PROTIME-INR STAT 12/15/2023 11:46 AM CDT Intermittent atrial fibrillation (HC) Anticoagulation monitoring, INR range 2-3 PTH,INTACT Routine 12/15/2023 11:46 AM CDT Hyperparathyroidism (HC) COMP METABOLIC PANEL Routine 12/15/2023 11:46 AM CDT Severe tricuspid regurgitation by prior echocardiogram Mitral valve prolapse Other heart failure (HC) Pleural effusion Hepatic congestion PRO-BNP Routine 12/15/2023 11:46 AM CDT Severe tricuspid regurgitation by prior echocardiogram Mitral valve prolapse Other heart failure (HC) Pleural effusion Hepatic congestion ECHO TTE COMPLETE WO CONTRAST [place] 12/15/2023 9:52 AM CDT Severe tricuspid regurgitation by prior echocardiogram Mitral valve prolapse Pleural effusion Hepatic congestion CBC WITH AUTO DIFFERENTIAL Routine 2023 11:55 AM CDT Elevated liver enzymes Abdominal pain, RUQ (right upper quadrant) LIPASE Routine 2023 11:55 AM CDT Elevated liver enzymes Abdominal pain, RUQ (right upper quadrant) CBC WITH AUTO DIFFERENTIAL Routine 2023 11:55 AM CDT Elevated liver enzymes Abdominal pain, RUQ (right upper quadrant) PRO-BNP Routine 2023 11:55 AM CDT Elevated liver enzymes Abdominal pain, RUQ (right upper quadrant) Intermittent atrial fibrillation (HC) Other heart failure (HC) BASIC METABOLIC PANEL Routine 2023 11:55 AM CDT Elevated liver enzymes Abdominal pain, RUQ (right upper quadrant) HEPATIC FUNCTION PANEL Routine 11:55 AM CDT Elevated liver enzymes Abdominal pain, RUQ (right upper quadrant) PROTIME-INR STAT 2023 11:55 AM CDT Intermittent atrial fibrillation (HC) Anticoagulation monitoring, INR range 2-3 UA W/ SEDIMENT EXAM REFLEXED PER CRITERIA Routine 2023 11:30 AM CDT Urinary frequency SCAN-RADIOLOGY REPORT 12/07/2023 12:00 AM CDT SCAN-CT INTERPRETATION 12:00 AM CDT SCAN-RADIOLOGY REPORT 12/06/2023 12:00 AM CDT SCAN-RADIOLOGY REPORT 12/03/2023 12:00 AM CDT SCAN-CT INTERPRETATION 12:00 AM CDT SCAN-RADIOLOGY REPORT 12/02/2023 12:00 AM CDT SCAN CORRESP-IMAGING 12/01/2023 9:21 AM CDT SCAN-RADIOLOGY REPORT 12/01/2023 12:00 AM CDT SCAN-RADIOLOGY REPORT 11/30/2023 12:00 AM CDT XR ABDOMEN 2 VIEW FLAT AND UPRIGHT OR DECUBITUS STAT 11/29/2023 2:04 PM CDT Abdominal pain, epigastric Back pain without radiation XR CHEST 2 VIEWS PA AND LATERAL STAT 11/29/2023 2:04 PM CDT Chest pain, pleuritic Back pain without radiation SCAN-ELECTROCARDIOGRAM EKG 11/29/2023 12:00 AM CDT SCAN-CT INTERPRETATION 12:00 AM CDT SCAN-BONE DENSITOMETRY DEXA 12/30/2020 12:00 AM CDT from Last 3 Months or Most Recently Relevant to Health Maintenance Results * (ABNORMAL) PROTIME-INR (12/29/2023 2:30 PM CDT) Only the most recent of3 resultswithin the time period is included. INR 2.3(H) <1.3 12/29/2023 9:39 PM CDT [facility] PROTIME 25.2(H) 10.3 - 12.3 sec 12/29/2023 9:39 PM CDT [facility] Blood BLOOD SPECIMEN / Unknown Venipuncture / Unknown 12/29/2023 2:30 PM CDT 12/29/2023 2:35 PM CDT Narrative [facility] - 12/29/2023 9:39 PM CDT ?Therapeutic Range 2.0-3.0 for most anticoagulated patients 2.5-3.5 or 4.0 for high risk patients The INR is only used for patients on stable oral anticoagulant therapy. It makes no significant contribution to the diagnosis or treatment of patients whose Protime is prolonged for other reasons. INR results are increased when heparin levels exceed 1.0 U/mL, which corresponds to an aPTT >125 seconds if the patient is on UFH. Krysta Monroe DO HEMATOLOGY [facility] [address] [place] [address], * (ABNORMAL) PRO-BNP (12/29/2023 2:30 PM CDT) Only the most recent of3 resultswithin the time period is included. PRO-BNP 2,834(H) <450 pg/mL 12/29/2023 10:37 PM CDT [facility] Blood BLOOD SPECIMEN / Unknown Venipuncture / Unknown 12/29/2023 2:30 PM CDT 12/29/2023 3:22 PM CDT [facility] - 12/29/2023 10:37 PM CDT The following cut-points have been suggested for the use of proBNP for the diagnostic evaluation of heart failure (HF) in patient with acute dyspnea. Patients with eGFR >= 60 Diagnosis (rule in CHF) ? <50 Years Old ?450 pg/mL 50 - 75 Years Old ?900 pg/mL >75 Years Old ? 1800 pg/mL Exclusion (rule out CHF) Age Independent ?300 pg/mL A cutoff of 1200 pg/mL for patients with an eGFR <60 yields a diagnostic sensitivity of 89% and specificity of 72% for acute congestive heart failure. ? [facility] [address] [place] [address], * (ABNORMAL) COMP METABOLIC PANEL (12/29/2023 2:30 PM CDT) Only the most recent of2 resultswithin the time period is included. SODIUM 137 136 - 145 mmol/L 12/29/2023 10:36 PM CDT [facility] POTASSIUM 4.9 3.5 - 5.1 mmol/L 12/29/2023 10:36 PM CDT [facility] CHLORIDE 102 98 - 107 mmol/L 12/29/2023 10:36 PM CDT [facility] CO2,TOTAL 25 22 - 29 mmol/L 12/29/2023 10:36 PM CDT [facility] ANION GAP 10 5 - 18 12/29/2023 10:36 PM CDT [facility] GLUCOSE 162(H) 70 - 99 mg/dL 12/29/2023 10:36 PM CDT [facility] CALCIUM 10.3(H) 8.8 - 10.2 mg/dL 12/29/2023 10:36 PM CDT [facility] BUN 20 8 - 23 mg/dL 12/29/2023 10:36 PM T [facility] CREATININE 0.90 0.50 - 0.90 mg/dL 12/29/2023 10:36 PM T [facility] BUN/CREAT RATIO 22(H) 10 - 20 10:36 PM T [facility] eGFR 63(L) >90 mL/min/1.7 3m2 12/29/2023 10:36 PM T [facility] Comment:As of 2021, eG FR is calculated by the CKD-EPI creatinine equation without race adjustment. ??eGFR can be influenced by muscle mass, exercise, and diet. ??The reported eGFR is an estimation only and is only applicable if the renal function is stable. ALBUMIN 3.9(L) 4.0 - 4.9 g/dL 12/29/2023 10:36 PM CDT [facility] PROTEIN,TOTAL 6.6 6.0 - 8.0 g/dL 12/29/2023 10:36 PM T [facility] BILIRUBIN,TOTAL 0.4 0.0 - 1.2 mg/dL 12/29/2023 10:36 PM T [facility] ALK PHOSPHATASE 111(H) 35 - 104 IU/L 12/29/2023 10:36 PM T [facility] ALT (SGPT) 14 10 - 35 IU/L 12/29/2023 10:36 PM T [facility] AST (SGOT) 32 10 - 35 IU/L 12/29/2023 10:36 PM T [facility] Blood BLOOD SPECIMEN / Unknown Venipuncture / Unknown 12/29/2023 2:30 PM CDT 12/29/2023 3:22 PM CDT Gh[facility]ala Lia HARVEY CHEMISTRY [facility] [address] [place] [address], [place] * US ABDOMEN LIMITED LIVER (12/28/2023 11:24 AM CDT) Anatomical Region Laterality Modality LIVER Ultrasound 12/31/2023 7:02 AM CDT Impressions 12/31/2023 7:02 AM CDT Stable simple intrahepatic cysts and simple renal cyst. No intrahepatic mass or ascites. No biliary obstruction. Dictated by Ricardo Miller MD @ 12/31/2023 7:02:37 AM (Electronically Signed) Narrative 12/31/2023 7:02 AM CDT For Patients: ??As a result of the Cures Act, medical imaging exams and procedure reports are released immediately into your electronic medical record. ??You may view this report before your referring provider. ??If you have questions, please contact your health care provider. INDICATION: Hepatic congestion, abdominal pain COMPARISON: CT 12/18/2020 TECHNIQUE: Real time johnson scale imaging and color Doppler analysis was performed of the right upper quadrant. FINDINGS: Simple intrahepatic cyst again noted measuring 2.1 x 1.5 x 1.6 cm. There is a normal appearance of the hepatic IVC and proximal abdominal aorta. There is no evidence of ascites. The gallbladder is absent. The common bile duct is of normal size and measures 9 mm in diameter at the level of the vick hepatis. ??The pancreas is not well visualized. There is no evidence of a stone or hydronephrosis within the right kidney. ??The right kidney measures 7.5 cm in length. Simple cyst right kidney again noted measuring 2.0 x 1.6 x 1.8 cm. Procedure Note Ricardo Miller MD - 12/31/2023 For Patients: As a result of the Cures Act, medical imagingexams and procedure reports are released immediately into your electronicmedical record. You may view this report before your referring provider.If you have questions, please contact your health care provider. INDICATION: Hepatic congestion, abdominal pain COMPARISON: CT 12/18/2020 TECHNIQUE: Real time johnson scale imaging and color Doppler analysis was performed ofthe right upper quadrant. FINDINGS: Simple intrahepatic cyst again noted measuring 2.1 x 1.5 x 1.6 cm. Thereis a normal appearance of the hepatic IVC and proximal abdominal aorta.There is no evidence of ascites. The gallbladder is absent. The commonbile duct is of normal size and measures 9 mm in diameter at the level ofthe vick hepatis. The pancreas is not well visualized. There is noevidence of a stone or hydronephrosis within the right kidney. The rightkidney measures 7.5 cm in length. Simple cyst right kidney again notedmeasuring 2.0 x 1.6 x 1.8 cm. IMPRESSION: Stable simple intrahepatic cysts and simple renal cyst. No intrahepaticmass or ascites. No biliary obstruction. Dictated by Ricardo Miller MD @ 12/31/2023 7:02:37 AM (Electronically Signed) Samantha Jamison MD US * (ABNORMAL) PTH,INTACT (12/15/2023 11:46 AM CDT) CALCIUM 11.2(H) 8.8 - 10.2 mg/dL 12/16/2023 5:27 AM CDT [facility] PTH,INTACT 23.9 15.0 - 69.0 pg/mL 12/16/2023 5:27 AM CDT [facility] Blood BLOOD SPECIMEN / Unknown Venipuncture / Unknown 12/15/2023 11:46 AM CDT 12/15/2023 11:46 AM CDT Samantha Jamison MD [facility] [address] [place] [address], [place] * ECHO TTE COMPLETE WO CONTRAST (12/15/2023 9:52 AM CDT) AORTIC VALVE MEAN PG 3 mmHg EJECTION FRACTION 53 % PEAK TR VELOCITY 3.0 m/s LVEDD 3.9 cm EJECTION FRACTION 55 - 60% Anatomical Region Laterality Modality Ultrasound 12/15/2023 9:11 AM CDT Narrative 12/15/2023 11:36 AM CDT ECHOCARDIOGRAM ALICIA BAZAN ? Accession#: ?? [id number] : ?1940 83 years Study Date: ?? 12/15/2023 9:11:18 AM Gender: F ?BP: ? 135/76 mmHg Height: 135.00 cm ?BSA: ?1.47 m? ? ? Weight: 64.00 kg ? Tech: ? MSR ? Referring MD: SAMANTHA JAMISON Site: ? [facility] Reading Location: Mobile OP Patient Location: Outpatient. Procedure: 2D, Color Doppler and Spectral Doppler. Indication for study: Severe tricuspid regurgitation by prior echocardiogram; Mitral valve prolapse; Pleural effusion; Hepatic congestion Cardiac Rhythm: Regular.Study quality: Good. Final Impressions: 1. Normal LV size, normal wall thickness, normal function with an estimated EF of 55 - 60%. 2. Right ventricular cavity size is moderately enlarged, global systolic RV function is mildly reduced. 3. Severe bi-atrial enlargement. 4. Posterior leaflet mitral valve prolapse with mild mitral regurgitation. 5. Moderate tricuspid regurgitation. Comparison Compared to prior exam of 05/18/22: - Tricuspid regurgitation has decreased. Chamber Sizes and Function Normal left ventricular size, normal wall thickness, normal global systolic function with an estimated EF of 55 - 60%. Left atrial size is severely enlarged. Right ventricular cavity size is moderately enlarged, global systolic RV function is mildly reduced. The right atrium is severely enlarged. Right atrial volume index is 78 ml/m? ? ?. Right atrial area is 31 cm? ? ?. The pulmonary artery is not well visualized. The sinus of Valsalva is normal sized. The ascending aorta is normal sized. Valves, RV Pressures and Diastolic Function The aortic valve is normal in structure and trileaflet, no stenosis and mild regurgitation. The mitral valve is myxomatous, mild mitral regurgitation. Indeterminate pattern of LV diastolic filling. The tricuspid valve is normal in structure. Tricuspid regurgitation is moderate. The tricuspid regurgitant velocity is 3.0 m/s, the estimated right ventricular systolic pressure is 35 mmHg plus right atrial pressure. The pulmonic valve is normal. No pulmonary regurgitation. Masses, Effusion, Shunts There is no pericardial effusion. The inferior vena cava is normal sized, respiratory size variation greater than 50%. No left to right shunting was detected by limited color flow Doppler interrogation of the interatrial septum. MEASUREMENTS AND CALCULATIONS 2-D Measurements and LV Function: LVID (d) 3.9 cm LV FS% (2D) ?? 47 % LVID (s) 2.1 cm LVOT diameter 2.1 cm IVS (d) ??0.9 cm HR ?83 bpm LVPW (d) 1.1 cm LA Vol index ??77 ml/m2 Ao Sinus 3.3 cm RA Vol index ??78 ml/m2 Asc Ao ?? 3.6 cm RA area ? 31 cm?RV Max 4C (d) 4.8 cm Diastology: Mitral E Peak 0.7 m/s A Peak 0.2 m/s E/A ?3.1 DT ? 126 msec Aortic Valve: Vmax ? 1.1 m/s ??ANILA (V) ?? 2.82 cm? AI P 1/2 380 msec VTI ?0.18 m ?? ANILA (I) ?? 2.63 cm? ? ? LVOT V max 0.9 m/s ??Max PG ?5 mmHg LVOT VTI ?? 0.14 m ?? Mean PG ?? 3 mmHg SV ? 49 ml ?Dim Index 0.75 SV index ?? 33 ml/m? ? ? CO ?4.0 l/min ?CI ?2.7 l/min/m? ? ? Mitral Valve: MVA ? 6.0 cm? ? ? MV P 1/2 ??37 msec MV Mean G 1 mmHg MV VTI ?0.12 m Tricuspid Valve and estimated PA pressures: TR Vmax 3.0 m/s TAPSE 1.9 cm TR maxG 35 mmHg Pulmonic Valve: PV AT 65 msec . This study was interpreted by an [facility] accredited facility. ??Final ?? Procedure Note Rah Hdz MD - 12/15/2023 ECHOCARDIOGRAM ALICIA BAZAN : 1940 83 years Study Date: 12/15/2023 9:11:18 AM Gender: F BP: 135/76 mmHg Height: 135.00 cm BSA: 1.47 m? ? ? Weight: 64.00 kg Tech: MSR Referring MD: SAMANTHA JAMISON Site: [facility] Reading Location: Mobile OP Patient Location: Outpatient. Procedure: 2D, Color Doppler and Spectral Doppler. Indication for study: Severe tricuspid regurgitation by priorechocardiogram; Mitral valve prolapse; Pleural effusion; Hepaticcongestion Cardiac Rhythm: Regular.Study quality: Good. Final Impressions: 1. Normal LV size, normal wall thickness, normal function with anestimated EF of 55 - 60%. 2. Right ventricular cavity size is moderately enlarged, global systolicRV function is mildly reduced. 3. Severe bi-atrial enlargement. 4. Posterior leaflet mitral valve prolapse with mild mitralregurgitation. 5. Moderate tricuspid regurgitation. Comparison Compared to prior exam of 05/18/22: - Tricuspid regurgitation has decreased. Chamber Sizes and Function Normal left ventricular size, normal wall thickness, normal globalsystolic function with an estimated EF of 55 - 60%. Left atrial size isseverely enlarged. Right ventricular cavity size is moderately enlarged,global systolic RV function is mildly reduced. The right atrium isseverely enlarged. Right atrial volume index is 78 ml/m? ? ?. Right atrialarea is 31 cm? ? ?. The pulmonary artery is not well visualized. The sinus ofValsalva is normal sized. The ascending aorta is normal sized. Valves, RV Pressures and Diastolic Function The aortic valve is normal in structure and trileaflet, no stenosis andmild regurgitation. The mitral valve is myxomatous, mild mitralregurgitation. Indeterminate pattern of LV diastolic filling. Thetricuspid valve is normal in structure. Tricuspid regurgitation ismoderate. The tricuspid regurgitant velocity is 3.0 m/s, the estimatedright ventricular systolic pressure is 35 mmHg plus right atrial pressure.The pulmonic valve is normal. No pulmonary regurgitation. Masses, Effusion, Shunts There is no pericardial effusion. The inferior vena cava is normal sized,respiratory size variation greater than 50%. No left to right shunting wasdetected by limited color flow Doppler interrogation of the interatrialseptum. MEASUREMENTS AND CALCULATIONS 2-D Measurements and LV Function: LVID (d) 3.9 cm LV FS% (2D) 47 % LVID (s) 2.1 cm LVOT diameter 2.1 cm IVS (d) 0.9 cm HR 83 bpm LVPW (d) 1.1 cm LA Vol index 77 ml/m2 Ao Sinus 3.3 cm RA Vol index 78 ml/m2 Asc Ao 3.6 cm RA area 31 cm? ? ? RV Max 4C (d) 4.8 cm Diastology: Mitral E Peak 0.7 m/s A Peak 0.2 m/s E/A 3.1 DT 126 msec Aortic Valve: Vmax 1.1 m/s ANILA (V) 2.82 cm? ? ? AI P 1/2 380 msec VTI 0.18 m ANILA (I) 2.63 cm? ? ? LVOT V max 0.9 m/s Max PG 5 mmHg LVOT VTI 0.14 m Mean PG 3 mmHg SV 49 ml Dim Index 0.75 SV index 33 ml/m? ? ? CO 4.0 l/min CI 2.7 l/min/m? ? ? Mitral Valve: MVA 6.0 cm? ? ? MV P 1/2 37 msec MV Mean G 1 mmHg MV VTI 0.12 m Tricuspid Valve and estimated PA pressures: TR Vmax 3.0 m/s TAPSE 1.9 cm TR maxG 35 mmHg Pulmonic Valve: PV AT 65 msec . This study was interpreted by an [facility] accredited facility. Final Samantha Jamison MD ECHO ORD * CBC WITH AUTO DIFFERENTIAL (2023 11:55 AM CDT) WHITE BLOOD COUNT 6.4 4.5 - 11.0 thou/cu mm 2023 12:10 PM CDT [facility] RED BLOOD COUNT 5.06 4.00 - 5.20 mil/cu mm 2023 12:10 PM CDT [facility] HEMOGLOBIN 15.8 12.0 - 16.0 g/dL 2023 12:10 PM CDT [facility] HEMATOCRIT 47.7 33.0 - 51.0 % 2023 12:10 PM CDT [facility] MCV 94 80 - 100 fL 2023 12:10 PM CDT [facility] MCH 31.2 26.0 - 34.0 pg 2023 12:10 PM CDT [facility] MCHC 33.1 32.0 - 36.0 g/dL 2023 12:10 PM CDT [facility] RDW 13.9 11.5 - 15.5 % 2023 12:10 PM CDT [facility] PLATELET COUNT 224 140 - 440 thou/cu mm 2023 12:10 PM CDT [facility] MPV 10.2 6.5 - 11.0 fL 2023 12:10 PM CDT [facility] % NEUT 59.3 % 2023 12:10 PM CDT [facility] % LYMPH 29.2 % 2023 12:10 PM CDT [facility] % MONO 8.1 % 2023 12:10 PM CDT [facility] % EOS 2.5 % 2023 12:10 PM CDT [facility] % BASO 0.9 % 2023 12:10 PM CDT [facility] ABSOLUTE NEUTROPHILS 3.8 1.7 - 7.0 thou/cu mm 2023 12:10 PM CDT [facility] ABSOLUTE LYMPHOCYTES 1.9 0.9 - 2.9 thou/cu mm 2023 12:10 PM CDT [facility] ABSOLUTE MONOCYTES 0.5 <0.9 thou/cu mm 2023 12:10 PM CDT [facility] ABSOLUTE EOSINOPHILS 0.2 <0.5 thou/cu mm 2023 12:10 PM CDT [facility] ABSOLUTE BASOPHILS 0.1 <0.3 thou/cu mm 2023 12:10 PM CDT [facility] Blood BLOOD SPECIMEN / Unknown Venipuncture / Unknown 2023 11:55 AM CDT 2023 11:55 AM CDT Samantha Jamison MD HEMATOLOGY [facility] [address] [place] [address], * LIPASE (2023 11:55 AM CDT) LIPASE 25.8 13.0 - 60.0 IU/L 2023 8:50 PM CDT [facility] Blood BLOOD SPECIMEN / Unknown Venipuncture / Unknown 2023 11:55 AM CDT 2023 11:55 AM CDT Samantha Jamison MD CHEMISTRY [facility] [address] [place] [address], [place] * (ABNORMAL) LIVER PANEL (HEPATIC FUNCTION PANEL) (2023 11:55 AM CDT) ALBUMIN 4.1 4.0 - 4.9 g/dL 2023 8:54 PM CDT [facility] PROTEIN,TOTAL 7.0 6.0 - 8.0 g/dL 2023 8:54 PM CDT [facility] BILIRUBIN,TOTAL 0.6 0.0 - 1.2 mg/dL 2023 8:54 PM CDT [facility] BILIRUBIN,DIRECT <0.2 0.0 - 0.3 mg/dL 2023 8:54 PM CDT [facility] BILIRUBIN,INDIRE CT 2023 8:54 PM CDT [facility] Comment:Unable to calculate, Direct Bili <0.2 ALK PHOSPHATASE 121(H) 35 - 104 IU/L 2023 8:54 PM CDT [facility] ALT (SGPT) 31 10 - 35 IU/L 2023 8:54 PM CDT [facility] AST (SGOT) 53(H) 10 - 35 IU/L 2023 8:54 PM CDT [facility] Blood BLOOD SPECIMEN / Unknown Venipuncture / Unknown 2023 11:55 AM CDT 2023 11:55 AM CDT Samantha Jamison MD CHEMISTRY [facility] [address] [place] [address], * (ABNORMAL) BASIC METABOLIC PANEL (2023 11:55 AM CDT) Pathologist [facility] SODIUM 137 136 - 145 mmol/L 2023 8:50 PM CDT [facility] POTASSIUM 4.5 3.5 - 5.1 mmol/L 2023 8:50 PM CDT [facility] CHLORIDE 100 98 - 107 mmol/L 2023 8:50 PM CDT [facility] CO2,TOTAL 26 22 - 29 mmol/L 2023 8:50 PM CDT [facility] ANION GAP 11 5 - 18 2023 8:50 PM CDT [facility] GLUCOSE 127(H) 70 - 99 mg/dL 2023 8:50 PM CDT [facility] CALCIUM 10.7(H) 8.8 - 10.2 mg/dL 2023 8:50 PM CDT [facility] BUN 8 8 - 23 mg/dL 2023 8:50 PM CDT [facility] CREATININE 0.87 0.50 - 0.90 mg/dL 2023 8:50 PM CDT [facility] BUN/CREAT RATIO 9(L) 10 - 20 8:50 PM CDT [facility] eGFR 66(L) >90 mL/min/1.7 3m2 2023 8:50 PM CDT [facility] Comment:As of 2021, eG FR is calculated by the CKD-EPI creatinine equation without race adjustment. ??eGFR can be influenced by muscle mass, exercise, and diet. ??The reported eGFR is an estimation only and is only applicable if the renal function is stable. Blood BLOOD SPECIMEN / Unknown Venipuncture / Unknown 2023 11:55 AM CDT 2023 11:55 AM CDT Samantha Jamison MD [facility] [address] [place] [address], * UA W/ SEDIMENT EXAM REFLEXED PER CRITERIA (2023 11:30 AM CDT) COLOR Yellow Yellow Color 2023 12:27 PM CDT [facility] CLARITY Clear Clear Clarity 2023 12:27 PM CDT [facility] SPECIFIC GRAVITY,URINE 1.015 1.010, 1.015, 1.020, 1.025 2023 12:27 PM CDT [facility] PH,URINE 5.5 6.0, 7.0, 8.0, 5.5, 6.5, 7.5, 8.5 2023 12:27 PM CDT [facility] UROBILINOGEN, QUALITATIVE Normal Normal EU/dl 2023 12:27 PM CDT [facility] PROTEIN, URINE Negative Negative mg/dL 2023 12:27 PM CDT [facility] GLUCOSE, URINE Negative Negative mg/dL 2023 12:27 PM CDT [facility] KETONES,URINE Negative Negative mg/dL 2023 12:27 PM CDT [facility] BILIRUBIN,URI NE Negative Negative 2023 12:27 PM CDT [facility] OCCULT BLOOD,URINE Negative Negative 2023 12:27 PM CDT [facility] NITRITE Negative Negative 2023 12:27 PM CDT [facility] LEUKOCYTE ESTERASE Negative Negative 2023 12:27 PM CDT [facility] Urine URINE SPECIMEN / Unknown Non-Blood / Unknown 2023 11:30 AM CDT 2023 12:23 PM CDT Samantha Jamison MD URINE [facility] [address] [place] [address], * SCAN-RADIOLOGY REPORT (12/07/2023 12:00 AM CDT) Only the most recent of6 resultswithin the time period is included. Anatomical Region Laterality Modality Other Scanner OTHER * SCAN-CT INTERPRETATION (12/06/2023 12:00 AM CDT) Only the most recent of3 resultswithin the time period is included. 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
--- OUTSIDE RECORDS SUMMARY | 2024-01-28 04:34 | XMS_ITS ---
Author Organization [facility] Address [address] [place] [address] Care Team Providers Care Executive Sous Chef Name Role Phone Unavailable Unavailable Unavailable Surgery Details Not on file Complications Check Surgery Details section. Procedure Estimated Blood Loss Check Surgery Details section. Procedure Findings Check Surgery Details section. Procedure Specimens Taken Check Surgery Details section.
--- OUTSIDE RECORDS SUMMARY | 2024-01-28 04:34 | XMS_ITS | Encounter Summary ---
Author Organization [facility] Address [address] [place] [id number] Care Team Providers Care Licensed Optical Dispenser Name Role Phone Elsewhere, Pcp Primary Care Provider Unavailabl e Reason for Visit * Reason Onset Date Comments Med Refill 12/18/2023 [email or web address] Encounter Details Date Type Department Care Team (Latest Contact Info) Description 12/18/2023 Clinical Communication Department of Oncology in [place], [place] [address] [place] [phone] Lurdes Law R.N. [address] [place] [address] Med Refill (anastrozole) Social History Tobacco Use Types Packs/Day Years [...] often do you attend chur ch or caodaism services? Never 02/09/2021 Do you belong to any clubs o r organizations such as faith groups, unions, fraternal or athletic groups, or [...] and heating? 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 - 12/18/2023 2:27 PM CDT This has been completed in an alternate encounter documented in this encounter Plan of Treatment Upcoming Encounters Date Type Department Care Team (Latest Contact Info) Description 03/08/2024 12:15 PM CDT Clinical Communication Virtual Review in [place], [place] [address] [place] [address] 03/12/2024 8:15 PM CDT Appointment Department of Radiology, [facility], in [place], [place] [address] [place] [phone] Jonna Chu M.B., B.Ch. [address] [place] [phone] 03/13/2024 3:20 PM CDT Office Visit Department of Oncology in [address] [phone] Jonna Chu M.B., B.Ch. [address] [place] [phone] documented as of this encounter Visit Diagnoses Not on filedocumented in this encounter Care Teams Licensed Optical Dispenser Relationship Specialty Start Date End Date Elsewhere, Pcp PCP - General Internal Medicine 11/24/22 documented as of this encounter
--- OUTSIDE RECORDS SUMMARY | 2024-01-28 04:34 | XMS_ITS | Encounter Summary ---
Author Organization [facility] Address [address] [place] [address] Care Team Providers Care Compensation Advisor Name Role Phone Elsewhere, Pcp Primary Care Provider Unavailabl e Reason for Visit * Reason Onset Date Comments Appointment 12/18/2023 Encounter Details Date Type Department Care Team (Late st Contact Info) Description 12/18/2023 Clinical Communication Department of Oncology in [place], [place] [address] [place] [phone] Jonna Chu M.B., B.Ch. [address] [place] [phone] Appointment Social History Tobacco Use Types Packs/Day Years [...] often do you attend chur ch or anglican services? Never 02/09/2021 Do you belong to any clubs o r organizations such as latter-day groups, unions, fraternal or athletic groups, or [...] Not hard at all 02/09/2021 [facility] Occup[facility] ional [facility] - Occupational Stress [...] place to sleep or slept in a [place] facility (including now)? No 02/09/2021 Nutrition Answer Date [...] 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, WINDOWS SERVER ARCHITECT, ASIA) 02/09/2021 Sex and Gender Information Value Date Recorded Sex Assigned at Female 05/07/2021 2:08 PM VISION THERAPIST Gender Identity Female 02/09/2021 2:21 PM CDT Sexual Orientation Straight 02/09/2021 2: 21 PM CDT documented as of this encounter Plan of Treatment Upcoming Encounters Date Type Department Care Team (Latest Contact Info) Description 03/08/2024 12:15 PM CDT Clinical Communication Virtual Review in [place], [place] [address] [place] [address] 03/12/2024 8:15 PM CDT Appointment Department of Radiology, [facility], in [place], [place] [address] [place] [phone] Jonna Chu M.B., B.Ch. [address] [place] [phone] 03/13/2024 3:20 PM CDT Office Visit Department of Oncology in [place], [place] [address] [place] [phone] Jonna Chu M.B., B.Ch. [address] [place] [phone] documented as of this encounter Visit Diagnoses Not on filedocumented in this encounter Care Teams Compensation Advisor Relationship Specialty Start Date End Date Elsewhere, Pcp PCP - General Internal Medicine 11/24/22 documented as of this encounter
[2024-01-28 05:05] LABS: Prothrombin Time 18.1 Seconds
[2024-01-28 05:19] LABS: Appearance Urine Clear (Clear); Bilirubin Urine Negative (Negative); Blood Urine 1+ (Negative); Color Urine Yellow (Yellow); Glucose Urine Negative (Negative); Ketones Urine Negative (Negative); Specific Gravity Urine > 1.030 (1.000-1.030)
[2024-01-28 05:20] LABS: Bacteria Urine Few; Leukocyte Esterase Urine Negative (Negative); Nitrite Urine Negative (Negative); Protein Urine 2+ (Negative); Squamous Epithelial Cell Urine Few (None-Few); Urobilinogen Urine 0.2 (0.2-1.0); pH Urine 5.5 (5.0-8.5)
[2024-01-28 05:21] LABS: Mucus Urine Few; PCR FLU A Negative PCR FLU A (Negative); PCR FLU B Negative PCR FLU B (Negative); SARS PCR* Negative SARS-CoV-2 (Negative)
[2024-01-28 05:23] LABS: Albumin* 4.3 g/dL (3.3-5.0); Anion Gap 6 mEq/L (7-15); Bilirubin Total* 1.2 mg/dL (0.1-1.5); Blood Urea Nitrogen* 17 mg/dL (7-30); Calcium* 10.3 mg/dL (8.4-10.6); Carbon Dioxide* 27 mmol/L (20-32); Chloride* 99 mmol/L (96-114); Creatinine* 0.8 mg/dL (0.5-1.5); Est. Creatinine Clearance* 37.01; Estimated Glomerular Filt Rate 72 ml/min; Glucose* 159 mg/dL (60-115); Potassium* 3.7 mmol/L (3.6-5.1); Sodium* 132 mmol/L (135-149); Total Protein* 7.6 g/dL (6.0-8.3)
[2024-01-28 05:24] LABS: Alanine Aminotransferase* 26 U/L (4-35); Alkaline Phosphatase* 103 U/L (40-150); Aspartate Amino Transferase* 49 U/L (12-35); Bilirubin Direct* 0.3 mg/dL (0.0-0.5); C Reactive Protein* 5.1 mg/dL (0.5-1.0); Ethanol* < 0.01 % (0.01-0.03); NT Pro B Type NatriureticPept* 6130 pg/mL
[2024-01-28 05:27] LABS: Hematocrit 49.2 % (33.0-51.0); Hemoglobin* 15.8 gm/dL (12.0-16.0); Lymphocytes Percent Auto 9.1 % (20-44); Mean Corpuscular HGB Conc 32 gm/dL (32-36); Mean Corpuscular Hemoglobin 31 pg (26-34); Mean Corpuscular Volume 95 fL (80-100); Monocytes Percent Auto 3.5 % (0.0-11.0); Neutrophils Percent Auto 86.5 % (42.0-72.0); Platelet Count* 137 K/uL (140-440); Red Blood Count 5.17 m/uL (4.00-5.20)
[2024-01-28 05:28] LABS: Basophils Percent Auto 0.7 % (0.0-3.0); Immature Granulocytes Pct Auto 0.2 %; Slide Review Reflex No
--- NOTE | 2024-01-28 05:41 | P.IMHP_ITS ---
Hospitalist- H&P: HPI History of Present Illness Date Seen: 01/28/24 Chief complaint: weakness Narrative: Alicia Ordonez is a 83 year old female With a past medical history of atrial fibrillation, chronic lower back pain, osteoarthritis of the left knee, constipation, and congestive heart failure who presented to [place] emergency department on 01/26/2024 for further evaluation and management of weakness. Patient reports that for the past couple of days she has not felt well. She reports some mild nausea and diarrhea and an increase in generalized weakness. She had some difficulties managing the stairs today therefore this sparked her concern and she has brought into the emergency department with her . She reports that her has also been feeling slightly unwell to however is less symptomatic. She denies any definite fevers or chills. No new shortness of breath or cough or chest discomfort. No significant abdominal pain. No dysuria, urinary frequency or hesitancy or flank pain. No significant nasal congestion or sore throat. Workup in the emergency department showed a normal CBC and metabolic panel. Influenza and SARS-CoV-2 testing negative. Chest x- ray clear. Pro NT BNP elevated. Review of Systems Status of ROS: Reports: 10 or more systems reviewed and unremarkable except as noted in History and below [facility] Medical History (Updated 01/28/24 @ 04:43 by Ricardo Mcmanus MD) Breast cancer ?C50.919 - Malignant neoplasm of unspecified site of unspecified female lisa ast (ICD-10) History of ileus ?Z87.19 - Personal history of other diseases of the digestive system (ICD-10) Hypertension ?I10 - Essential (primary) hypertension (ICD-10) Osteoporosis ?M81.0 - Age-related osteoporosis without current pathological fracture (ICD- 10) Hyperparathyroidism ?E21.3 - Hyperparathyroidism, unspecified (ICD-10) Atrial fibrillation (06/30/12) ?I48.91 - Unspecified atrial fibrillation (ICD-10) Surgical History (Updated 01/28/24 @ 05:49 by Ruddy Longoria DO) Hx laparoscopic cholecystectomy ?Z90.49 - Acquired absence of other specified parts of digestive tract (ICD- 10) Status post Mohs surgery ?Z98.890 - Other specified postprocedural states (ICD-10) H/O colonoscopy ?Z98.890 - Other specified postprocedural states (ICD-10) Status post total knee replacement ?Z96.659 - Presence of unspecified artificial knee joint (ICD-10) History of total right hip replacement ?Z96.641 - Presence of right artificial hip joint (ICD-10) Status post total replacement of left hip ?Z96.642 - Presence of left artificial hip joint (ICD-10) H/O: hysterectomy ?Z90.710 - Acquired absence of both cervix and uterus (ICD-10) Family History Daughter Breast cancer Mother Stroke Social History Narrative: She lives with her , Rufino, who is healthcare power of dry ice maker. Code status DNR. She never smoked. She does not drink alcohol. What is your current living situation?: I presently have a place to live Problems where you live: no known problems Problems where you live details: n/a In the past 12 months, utilities in danger of being shut off: no In past 12 months, lack of transportation kept you from medical appts, meetings, work, or getting things needed for daily living: no In the past 12 mos, have been you worried that your food would run out before you had money to buy more?: never true In the past 12 mos, the food you bought just didn't last and you didn't have money to buy more?: never true Highest level of school completed/degree received: Master's degree Smoking Status: Former smoker Do you use any of these nicotine containing products: None How often do you have a drink containing alcohol: monthly or less How often do you have six or more drinks on one occasion: Less than monthly AUDIT-C Alcohol total score: 2 Non-prescribed substance use: denies use Caffeine: Yes How often does anyone, including family, friends and others, physically hurt you : never How often does anyone, including family, friends and others, insult or talk down to you: never How often does anyone, including family, friends and others, threaten you with harm: never How often does anyone, including family, friends and others, scream or curse at you: never service: No Meds Home Medications and Allergies Home Medications ?Medication ?Instructions ?Recorded ?Confirmed ?Type anastrozole 1 mg tablet 1 mg PO DAILY 08/08/22 12/06/23 History calcium carbonate 600 mg-vitamin 1 tab PO BIDWM 08/08/22 12/06/23 History D3 10 mcg (400 unit) tablet diltiazem HCl 240 mg 240 mg PO DAILY 08/08/22 12/06/23 History capsule,extended release 24 hr metoprolol succinate 50 mg 50 mg PO DAILY 08/08/22 12/06/23 History tablet,extended release 24 hr warfarin 5 mg tablet 2.5 - 5 mg PO DAILY 08/08/22 12/06/23 History cholecalciferol (vitamin D3) 25 1,000 unit PO DAILY 11/29/23 12/06/23 History mcg (1,000 unit) tablet (Vitamin D3) nitroglycerin 0.4 mg sublingual 0.4 mg sublingual Q5M PRN 11/29/23 12/06/23 History tablet Allergies Allergy/AdvReac Type Severity Reaction Status Date / Time nickel Allergy Verified 12/06/23 14:01 Exam Const: Vital Signs, click to edit/add: Vital Signs - 24 hr 01/28/24 01:25 01/28/24 02:30 01/28/24 03:00 Temperature 100.0 F H 98.6 F Pulse Rate [Left P ulse Oximeter] 95 92 105 H Pulse Rate [Pulse Oximeter] Respiratory Rate 20 18 18 Blood Pressure [Le ft Arm] Blood Pressure [Le ft Upper Arm] 129/91 H 130/72 130/85 Pulse Oximetry 94 94 95 Oxygen Delivery Me thod Room Air Room Air Room Air 01/28/24 04:00 01/28/24 04:35 01/28/24 04:59 Temperature 99.1 F Pulse Rate [Left P ulse Oximeter] 96 Pulse Rate [Pulse Oximeter] 95 Respiratory Rate 18 20 Blood Pressure [Le ft Arm] 149/90 H Blood Pressure [Le ft Upper Arm] 132/78 Pulse Oximetry 94 96 93 Oxygen Delivery Me thod Room Air Room Air Common normals: no apparent distress and oriented x3 General appearance: cooperative and comfortable HENMT: Common normals: normocephalic, head/scalp atraumatic and hearing grossly normal bilaterally Head and scalp: normocephalic and atraumatic Eye: Common normals: PERRL, EOMs intact bilaterally, conjunctivae normal and no scleral icterus Conjunctiva: conjunctiva(e) normal Pupil: PERRL Neck & C-Spine: Common normals: no lymphadenopathy, supple and no JVD Chest: Common normals: inspection of chest normal Resp: Common normals: normal respiratory effort, no use of accessory muscles and clear to auscultation bilaterally Auscultation: clear to auscultation bilaterally Cardio: Common normals: no JVD and regular rate Rate: regular rate Rhythm: abnormal rhythm GI: Common normals: Normal to inspection, nondistended, normoactive bowel sounds present, soft to palpation and non-tender Palpation: soft Extremity: Common normals: normal to inspection Neuro: Common normals: oriented x3, moves all extremities, no focal motor deficits and no sensory deficits noted Psych: Common normals: mental status grossly normal Skin: Common normals: no rashes or lesions noted General skin exam: no rashes or lesions noted Hospitalist - H&P: Result Labs Labs: Short CBC 01/28/24 Range/Units 01:58 WBC 5.40 (4.50-11.00) K/uL Hgb 15.8 (12.0-16.0) gm/dL Hct 49.2 (33.0-51.0) % Plt Count 137 L (140-440) K/uL BMP 01/28/24 01:58 Sodium 132 L Potassium 3.7 Chloride 99 Carbon Dioxide 27 BUN 17 Creatinine 0.8 Glucose 159 H Calcium 10.3 Liver Function 01/28/24 Range/Units 01:58 Total Bilirubin 1.2 (0.1-1.5) mg/dL Direct Bilirubin 0.3 (0.0-0.5) mg/dL AST 49 H (12-35) U/L ALT 26 (4-35) U/L Alkaline Phosphatase 103 (40-150) U/L Albumin 4.3 (3.3-5.0) g/dL Urine 01/28/24 Range/Units 01:58 Urine Color Yellow (Yellow) Urine Appearance Clear (Clear) Urine pH 5.5 (5.0-8.5) Ur Specific Otis > 1.030 H (1.000-1.030) Urine Protein 2+ A (Negative) Urine Glucose (UA) Negative (Negative) Assessment and Plan Assessment and plan (1) Heart failure: Status: Acute (2) Weakness: Status: Acute (3) Chronic back pain: Status: Acute (4) Atrial fibrillation: Problem comment: Continued on metoprolol and diltiazem. Coumadin was held for INR 3.84. INR 4.03 on 12/07/2023. Patient is instructed to hold her Coumadin tonight, contacting clinic within 24 hours for further Coumadin dosing. Status: Acute (5) Osteoarthritis of left knee: Status: Acute (6) H/O: hysterectomy: Status: Acute Plan No definite etiology for her generalized weakness and physical deconditioning. She has no significant clinical symptoms that would indicate any infectious process with exception of her reports of nausea and diarrhea thus leading to possible viral syndrome. Laboratory evaluation as well as urinalysis and chest x-ray are largely nonrevealing. We will have physical therapy see the patient here in the morning as well as occupational therapy. Patient may benefit from supportive management/care for the next day or 2 while working with therapy. If this is truly a viral illness, her symptoms should begin to start improving here soon thus leading to improve strength and coordination.
--- NOTE | 2024-01-28 07:08 | PC.NURSE ---
Arrived to floor at 0440 via stretcher. A&O. reports pain in lower back but tolerable. A1 with walker. VSS. Pt sleeping in bed. bed alarm in place.
[2024-01-28] MEDS: dilTIAZem 240 MG CAP (CD) PO (09:11)
[2024-01-28] MEDS: METOPROLOL SUCCINATE (XL) 50 MG TAB PO (09:12)
[2024-01-28] MEDS: PSYLLIUM HUSK (WITH SUGAR) 12 GM PACKET PO (09:12)
[2024-01-28] MEDS: SODIUM CHLORIDE 0.9 % (FLUSH) 10 ML SYRINGE 5 ML IVF ×2 (09:20→20:55)
[2024-01-28] MEDS: FUROSEMIDE 20 MG TABLET PO (09:36)
[2024-01-28] MEDS: POTASSIUM CHLORIDE 10 MEQ CAPSULE ER 20 MEQ PO (09:36)
--- NOTE | 2024-01-28 13:16 | PC.PHA ---
Warfarin consult note: Reason for warfarin: AFIB INR goal requested by the provider: 2-3 Most recent INR: 1.4 ON 01/28/24 Usual home dose (if any): 2.5 MG DAILY Today's dose ordered: 2.5 MG Vitamin K given: NONE Comments: RESUME HOME DOSE AND FOLLOW INR DAILY
--- NOTE | 2024-01-28 13:17 | W.PM.CROSSCO ---
Subjective Subjective Interval history: patient admitted this morning for generalized weakness per her and son she has been having diarrhea 1) Will check c diff pcr; stool cx 2) Start ceftriaxone for possible UTI given profound weakness discussed option of monitoring off antibiotics with family who are very concerned about underlying infection and requested to start antibiotics while UCx are pending 3) check tele 4) Am labs cbc, cmp, procal
[2024-01-28] MEDS: 0.9 % SODIUM CHLORIDE 250 ml IV (13:38)
[2024-01-28] MEDS: cefTRIAXone 2 GM in 0.9 % SODIUM CHLORIDE Mini-bag 100 ML IVPB (13:38)
[2024-01-28 13:56] LABS: Procalcitonin* 0.62 ng/mL (<0.50)
[2024-01-28] MEDS: WARFARIN 2.5 MG TABLET PO (17:08)
[2024-01-28] MEDS: ACETAMINOPHEN 325 MG TABLET 650 MG PO (18:11)
--- NOTE | 2024-01-28 18:21 | PC.NURSE ---
End of Shift: Patient pleasant and cooperative. Patient vitally stable, tachy at times, see vitals, BS WNL, IV SL and intact. Patient 1 assist/walker. Patient rates back pain at most 4/10, but also rates no pain, no pain meds given. Patient urinating and had 2 loose stools with some stool in brief. Patient tolerating regular diet but does not have much of an appetite. Patient does seem exhausted and has been sleeping majority of day. Patient had a temp of 100.9, room temp was decrease, some blankets removed from patient and room door opened to evaluate if patient truly had a fever. Temp taken again with temp 99, then temp was taken again towards end of shift and was 102.5, tylenol given. Patient on 1 L of oxygen in the low 90s, as patient has been sleeping on/off and with sleep patient desats to mid 80's.
--- NOTE | 2024-01-28 18:28 | CRLHL7_ITS ---
For Patients: As a result of the Century Cures Act, medical imaging exams and procedure reports are released immediately into your electronic medical record. You may view this report before your referring provider. If you have questions, please contact your health care provider. Indication: Fever, diarrhea Technique: Volumetric multidetector CT images of the chest, abdomen, and pelvis were obtained after the administration of intravenous contrast. 68 cc Isovue 370 low osmolar intravenous contrast Comparison: CT chest, abdomen and pelvis December 18, 2020 FINDINGS: CHEST The thoracic inlet is unremarkable. The thyroid gland is within normal limits. The thoracic aorta is nonaneurysmal with moderate scattered atherosclerotic calcification. There is no filling defect to suggest pulmonary embolus. There is no mediastinal, hilar, or axillary adenopathy. There are basilar pleural effusions with adjacent compressive atelectasis. There is mild biapical pleural thickening. Calcified granulomas are appreciated within the lower lobes. The thoracic osseus structures are intact without fracture, lytic, or blastic lesion. There is evolving likely chronic compression fracture of the T7 vertebral body with endplate Schmorl`s defects. There is no significant retropulsion. ABDOMEN AND PELVIS The liver is enlarged with a somewhat heterogeneous attenuation and enhancement with cystic change of the left liver. The spleen is normal in attenuation and size. Prior cholecystectomy. There is no intrahepatic or common ductal dilatation. Mild thickening of the gastric antrum and gastric rugal folds. Moderate pancreatic atrophy. The adrenal glands are unremarkable without evidence of adenoma. Cystic change of the right kidney with otherwise preserved corticomedullary differentiation. No evidence of distal obstructive calculus. There is moderate stool seen throughout the colon with minimal fluid-filled mid to distal small bowel. The appendix is unremarkable without significant inflammatory change. The abdominal aorta is nonaneurysmal with mild to moderate scattered atherosclerotic calcification. Evaluation of central pelvic structures is limited due to beam hardening artifact from bilateral hip arthroplasty. Otherwise, there is prior hysterectomy. There is no pathologically enlarged epigastric, mesenteric, retroperitoneal, or pelvic sidewall lymph node. The anterior abdominal wall is grossly intact without significant hernias. There is no free air or free fluid. The visualized osseous structures are grossly intact without evidence of displaced fracture, lytic or blastic lesion. The lumbar vertebral body heights are grossly maintained with endplate Schmorl`s defects. There is minimal anterolisthesis of L3 on L4. There is mild levo scoliotic deformity of the AP alignment. Impression: 1. Trace basilar pleural effusions with adjacent compressive atelectasis. 2. Mildly heterogeneous appearance of the liver which may represent phase-contrast changes. 3. Interval development of a chronic compression fracture of the T7 vertebral body from remote comparison. Otherwise stable moderate degenerative changes of the thoracic and lumbar spine without additional acute abnormality. 4. Moderate fluid is seen within the proximal colon and mid to distal small bowel which may represent mild enterocolitis. Please note that all CT scans at this facility use dose modulation, iterative reconstruction, and/or weight-based dosing when appropriate to reduce radiation dose to as low as reasonably achievable. Dictated by Montana Ha MD @ 01/28/2024 8:44:00 PM (Electronically Signed)
[2024-01-28 20:51] LABS: Basophils Absolute Auto 0.03 K/uL (0.00-0.30); Basophils Percent Auto 0.6 % (0.0-3.0); HCO3 VBG 24 mmol/L (21-28); Hematocrit 42.4 % (33.0-51.0); Hemoglobin* 13.6 gm/dL (12.0-16.0); Immature Granulocytes Abs Auto 0.02 K/uL (0.00-0.30); Immature Granulocytes Pct Auto 0.4 %; Lactate* 1.2 mmol/L (0.5-1.9); Lymphocytes Percent Auto 6.2 % (20-44); Mean Corpuscular HGB Conc 32 gm/dL (32-36); Mean Corpuscular Hemoglobin 30 pg (26-34); Mean Corpuscular Volume 95 fL (80-100); Monocytes Percent Auto 3.6 % (0.0-11.0); Neutrophils Percent Auto 89.2 % (42.0-72.0); PCO2 VBG 36 mmHG (40-50); PO2 VBG 51.7 mmHG (25-47); Platelet Count* 105 K/uL (140-440); RDW Coefficient of Variation % 13.9 % (11.5-15.5); Red Blood Count 4.48 m/uL (4.00-5.20); White Blood Count* 5.01 K/uL (4.50-11.00)
[2024-01-28 20:53] LABS: Slide Review Reflex No
[2024-01-28] MEDS: 0.9 % SODIUM CHLORIDE 250 ml 250 ML IV (20:55)
[2024-01-28 21:05] LABS: C.Difficile Negative (Negative); CDIFFEPI 027 PRESUMPTIVE NEGATIVE (Negative)
[2024-01-28 21:14] LABS: C Reactive Protein* 7.2 mg/dL (0.5-1.0)
[2024-01-29] VITALS (12 sets, daily range): BP systolic 96–116; BP diastolic 62–76; PULSE 67–107; RESP 18–24; TEMP 36.7–37.6; O2SAT 90–93
[2024-01-29 06:34] LABS: Basophils Absolute Auto 0.03 K/uL (0.00-0.30); Basophils Percent Auto 0.6 % (0.0-3.0); Hematocrit 42.8 % (33.0-51.0); Hemoglobin* 13.7 gm/dL (12.0-16.0); Immature Granulocytes Abs Auto 0.03 K/uL (0.00-0.30); Immature Granulocytes Pct Auto 0.6 %; Lymphocytes Percent Auto 11.6 % (20-44); Mean Corpuscular HGB Conc 32 gm/dL (32-36); Mean Corpuscular Hemoglobin 31 pg (26-34); Mean Corpuscular Volume 95 fL (80-100); Monocytes Percent Auto 2.9 % (0.0-11.0); Neutrophils Percent Auto 84.3 % (42.0-72.0); Platelet Count* 95 K/uL (140-440); RDW Coefficient of Variation % 13.7 % (11.5-15.5); Red Blood Count 4.49 m/uL (4.00-5.20); White Blood Count* 5.44 K/uL (4.50-11.00)
--- NOTE | 2024-01-29 06:34 | PC.NURSE ---
SHIFT NOTE: Pt is cooperative, alert with periodic confusion. Pt woke up at 2am and started calling relatives thinking it was 2pm. Pt easily reoriented. Denies pain, SOB, CP, and N/V. Pt given one 250ml bolus per MD order last night for soft BP's, effective. Otherwise VSS on 1-2L O2 PNC. Up to the BR with a walker and 1 assist.
[2024-01-29 06:43] LABS: Slide Review Reflex No
[2024-01-29 06:44] LABS: Chloride* 100 mmol/L (96-114)
[2024-01-29 06:45] LABS: Potassium* 3.5 mmol/L (3.6-5.1); Sodium* 127 mmol/L (135-149)
[2024-01-29 06:47] LABS: Alkaline Phosphatase* 88 U/L (40-150); Anion Gap 2 mEq/L (7-15); Aspartate Amino Transferase* 58 U/L (12-35); Bilirubin Total* 0.6 mg/dL (0.1-1.5); Blood Urea Nitrogen* 14 mg/dL (7-30); Carbon Dioxide* 25 mmol/L (20-32); Creatinine* 0.6 mg/dL (0.5-1.5); Est. Creatinine Clearance* 37.01; Estimated Glomerular Filt Rate 88 ml/min
[2024-01-29 06:48] LABS: Alanine Aminotransferase* 29 U/L (4-35); Calcium* 9.5 mg/dL (8.4-10.6); Glucose* 129 mg/dL (60-115)
[2024-01-29 07:03] LABS: Procalcitonin* 0.63 ng/mL (<0.50)
[2024-01-29 07:30] LABS: INR 1.38 (0.91-1.10); Prothrombin Time 17.9 Seconds
[2024-01-29] MEDS: dilTIAZem 240 MG CAP (CD) PO (08:33)
[2024-01-29] MEDS: METOPROLOL SUCCINATE (XL) 50 MG TAB PO (08:33)
[2024-01-29] MEDS: FUROSEMIDE 20 MG TABLET PO (08:33)
[2024-01-29] MEDS: PSYLLIUM HUSK (WITH SUGAR) 12 GM PACKET PO (08:33)
[2024-01-29] MEDS: POTASSIUM CHLORIDE 10 MEQ CAPSULE ER 20 MEQ PO (08:34)
[2024-01-29] MEDS: SODIUM CHLORIDE 0.9 % (FLUSH) 10 ML SYRINGE 5 ML IVF ×2 (08:34→21:34)
--- NOTE | 2024-01-29 09:06 | CRLHL7_ITS ---
For Patients: As a result of the Century Cures Act, medical imaging exams and procedure reports are released immediately into your electronic medical record. You may view this report before your referring provider. If you have questions, please contact your health care provider. INDICATION: Hypoxia, atelectasis. TECHNIQUE: Chest 1 views. COMPARISON: Prior day chest radiographs and CT chest abdomen pelvis dated 01/28/2024. FINDINGS/IMPRESSION: Redemonstrated cardiomegaly. Lung volumes are substantially lower relative to the prior day chest radiographs. Redemonstrated small bilateral pleural effusions with basilar atelectasis. Redemonstrated small bilateral pleural effusions. No pneumothorax. Dictated by Dc Charlton MD @ 01/29/2024 9:46:07 AM (Electronically Signed)
--- NOTE | 2024-01-29 09:26 | P.IMPN_ITS ---
Progress Note: A&P Assessment and plan (1) Weakness: Problem details: - likely related to acute illness/UTI - therapies following to assist with discharge planning Status: Acute (2) SIRS (systemic inflammatory response syndrome): Problem details: - as evidenced by fever, hypoxia (91% oxygen saturation on 1L NC), known UTI, diarrhea/enterocolitis on imaging, need for IVFs - blood culture currently NGTD Status: Acute (3) Atrial fibrillation: Problem details: - rate controlled on Metoprolol and Diltiazem - supratherapeutic INR during last stay, currently subtherapeutic - Pharmacist team following/managing Status: Acute (4) Compression fracture of T7 vertebra: Problem details: - appears chronic, but having back pain - trial of Lidocaine patch (01/28) Status: Acute (5) UTI (urinary tract infection): Problem details: - moreno sensitive E Coli, on Ceftriaxone (01/27) Status: Acute (6) Thrombocytopenia: Problem details: - new diagnosis during this stay (current platelet count 90s) - no evidence of acute bleeding, continue to follow Status: Acute (7) Enterocolitis: Problem details: - mild per CT scan and per exam/symptoms, negative C Diff - tolerating po intake, continue to follow symptoms Status: Acute (8) Hyponatremia: Problem details: - Na 132 on admission, currently 127 - likely increased free water/low solute intake in the setting of illness - add protein drink 1-2 times/day to increase solute intake, follow Na Status: Acute Plan - per above - continue IV Ceftriaxone, close monitoring - home vs SNF when medically stable (afebrile x 24 hours, tolerating po intake, negative Blood Cultures) Subjective Date Seen: 01/29/24 Interval history: Alicia was admitted to the hospital yesterday for generalized weakness and intermittent diarrhea. Workup has revealed pansensitive E coli UTI on urine culture, on Ceftriaxone for this. TMax 102.5 yesterday afternoon; at that time blood culture was obtained in addition to CT C/A/P: mild enterocolitis, pleural effusions on CXR, chronic appearing T7 compression fracture. Diarrhea improving (negative C-Diff), tolerating bland diet. This morning, Alicia continues to feel weak but has no other concerns for hospitalist team. at bedside, notes that patient was confused yesterday (called him in the middle of the night), seems closer to baseline today. Working with therapies to help determine discharge plan. Exam Narrative: Exam Narrative: GEN: Alert and sitting at the edge of the bed, nontoxic HEENT: EOMIs bilaterally, no scleral icterus CV: Rate controlled atrial fibrillation R: LCTA bilaterally without concerning wheezing, rales, or rhonchi Ext: Trace ankle edema Skin: Scattered bruising, no other concerning skin lesions or rashes on exposed skin Neuro: No focal deficits, no resting tremor Psych: Appropriate Const: Vital Signs, click to edit/add: Vital Signs - 24 hr 01/28/24 11:21 01/28/24 14:49 01/28/24 15:00 Temperature 98.2 F 100.9 F H Pulse Rate Pulse Rate [Pulse Oximeter] 109 H 109 H Respiratory Rate 30 H 32 H 32 H Blood Pressure [Le ft Arm] Blood Pressure [Ri ght Arm] 114/71 127/77 Pulse Oximetry 97 91 Oxygen Delivery Me thod Room Air Nasal Cannula Oxygen Flow Rate 1 01/28/24 15:47 01/28/24 15:51 01/28/24 15:52 Temperature 99.4 F Pulse Rate 111 H Pulse Rate [Pulse Oximeter] Respiratory Rate Blood Pressure [Le ft Arm] Blood Pressure [Ri ght Arm] Pulse Oximetry 93 Oxygen Delivery Me thod Oxygen Flow Rate 01/28/24 18:02 01/28/24 18:11 01/28/24 18:59 Temperature 102.5 F H 102.5 F H 99.7 F H Pulse Rate Pulse Rate [Pulse Oximeter] Respiratory Rate Blood Pressure [Le ft Arm] Blood Pressure [Ri ght Arm] Pulse Oximetry Oxygen Delivery Me thod Oxygen Flow Rate 01/28/24 19:30 01/28/24 23:00 01/28/24 23:00 Temperature 97.7 F Pulse Rate 75 Pulse Rate [Pulse Oximeter] 80 Respiratory Rate 20 Blood Pressure [Le ft Arm] 90/61 Blood Pressure [Ri ght Arm] Pulse Oximetry 91 96 Oxygen Delivery Me thod Nasal Cannula Oxygen Flow Rate 1 01/28/24 23:00 01/28/24 23:00 01/29/24 03:00 Temperature 97.8 F 99.5 F Pulse Rate Pulse Rate [Pulse Oximeter] 78 78 80 Respiratory Rate 20 20 20 Blood Pressure [Le ft Arm] 99/73 116/69 Blood Pressure [Ri ght Arm] Pulse Oximetry 96 92 Oxygen Delivery Me thod Nasal Cannula Nasal Cannula Oxygen Flow Rate 2 1 Labs Labs: Laboratory Results - last 24 hr 01/28/24 01/28/24 01/28/24 01:58 13:19 19:00 WBC RBC Hgb Hct MCV MCH MCHC RDW Coeff of Gonzalez Plt Count Neut % (Auto) Lymph % (Auto) [place] % (Auto) Eos % (Auto) Baso % (Auto) Neut # (Auto) Lymph # (Auto) [place] # (Auto) Eos # (Auto) Baso # (Auto) Abs Immat Gran (auto) Imm/Tot Granulo (auto) INR VBG pH VBG pCO2 VBG pO2 VBG HCO3 Sodium Potassium Chloride Carbon Dioxide Anion Gap BUN Creatinine Estimated Creat Clear Estimated GFR Glucose Lactate Calcium Total Bilirubin AST ALT Alkaline Phosphatase C-Reactive Protein Total Protein Albumin Procalcitonin 0.62 H Stl C. diff Tox B Gene Negative Stl C. diff [id number] PRESUMPTIVE NEGATIVE Lab Acknowledgement Test Added 01/28/24 01/29/24 20:45 06:10 WBC 5.01 5.44 RBC 4.48 4.49 Hgb 13.6 13.7 Hct 42.4 42.8 MCV 95 95 MCH 30 31 MCHC 32 32 RDW Coeff of Gonzalez 13.9 13.7 Plt Count 105 L 95 L Neut % (Auto) 89.2 H 84.3 H Lymph % (Auto) 6.2 L 11.6 L [place] % (Auto) 3.6 2.9 Eos % (Auto) 0.0 0.0 Baso % (Auto) 0.6 0.6 Neut # (Auto) 4.50 4.60 Lymph # (Auto) 0.30 L 0.60 L [place] # (Auto) 0.20 0.20 Eos # (Auto) 0.00 0.00 Baso # (Auto) 0.03 0.03 Abs Immat Gran (auto) 0.02 0.03 Imm/Tot Granulo (auto) 0.4 0.6 INR 1.38 H VBG pH 7.440 H VBG pCO2 36 L VBG pO2 51.7 H VBG HCO3 24 Sodium 127 L Potassium 3.5 L Chloride 100 Carbon Dioxide 25 Anion Gap 2 L BUN 14 Creatinine 0.6 Estimated Creat Clear 37.01 Estimated GFR 88 Glucose 129 H Lactate 1.2 Calcium 9.5 Total Bilirubin 0.6 AST 58 H ALT 29 Alkaline Phosphatase 88 C-Reactive Protein 7.2 H Total Protein 6.0 Albumin 3.0 L Procalcitonin 0.63 H Stl C. diff Tox B Gene Stl C. diff [id number] Lab Acknowledgement
[2024-01-29] MEDS: LIDOCAINE 5% PATCH 1 PATCH TRANSDERMA (11:18)
--- NOTE | 2024-01-29 13:16 | RESP.RT ---
Removed oxygen from patient this AM. She has been sitting in chair for most of the morning. Initiated Aerobika. Pt does well with it. Treatment done twice. Her SPo2 is 93%. Continue with IS and Aerobika, encourage ambulation and sitting in chair. BBS decreased in bases o/w clear after treatment.
[2024-01-29] MEDS: cefTRIAXone 2 GM in 0.9 % SODIUM CHLORIDE Mini-bag 100 ML IVPB (13:37)
--- NOTE | 2024-01-29 15:07 | PC.SOCIAL ---
Addendum entered by ALVINO Esparza 01/29/24 16:45: Discharge planning: When this worker spoke with pt and her this afternoon they were leaning towards having the pt go to short-term rehab vs. home with home care in place, as they feel having the pt go to short-term rehab is the best option for her recovery after the hospital. Social work to follow-up as needed. Addendum entered by ALVINO Esparza 01/29/24 16:42: Discharge planning: With the help of UR, it was discovered that pt's [employer] Medicare [employer]vantage plan requires a prior authorization and not a three night inpatient stay in the hospital. Pt does have a co-pay of $3,000.00 per insurance and has already spent down about $900.00 of it. community health outreach worker gave this information to the family and also checked if there were openings at [facility] per the families request. [facility] is in-network with pt's insurance and they do have openings this week. Pt's , Rufino, requested that this worker send over the pt's referral to [facility] this afternoon for review. community health outreach worker sent it to Yahaira via secure email. Social work to follow-up as needed. Original Note: Discharge planning: community health outreach worker met with pt and her son, Torey, this afternoon to discuss discharge planning. community health outreach worker explained Medicare SNF benefits to pt and her son. community health outreach worker explained that pt became inpatient status today, so jose will be her first night as an inpatient in the hospital. community health outreach worker explained to the pt and her son that this worker checked in with MD and PT, and they shared they should know a better recommendation for the pt's discharge tomorrow morning after she is assessed again. community health outreach worker did leave the pt and her son a copy of [facility] for reference. Social work to follow-up as needed.
[2024-01-29] MEDS: WARFARIN 5 MG TABLET PO (16:32)
[2024-01-29] MEDS: 0.9 % SODIUM CHLORIDE 250 ml 250 ML IV (17:08)
--- NOTE | 2024-01-29 19:21 | PC.NURSE ---
End of shift: Patient pleasant and cooperative, alert with periodic confusion. VSS besides some soft BP?s this shift, MD notified, bolus completed per MD. SpO2 maintained above 90% on RA. LSCTA. Patient declined lunch this shift, supplemented with Ensure. IV asymptomatic and patent. Patient had multiple liquid BM?s this morning, which has seemed to resolve this afternoon. Denies pain this shift. 1A walker and gait belt to bathroom.?2000cc fluid restriction.
[2024-01-30] VITALS (9 sets, daily range): BP systolic 90–125; BP diastolic 64–89; PULSE 68–104; RESP 16–20; TEMP 36.3–36.6; O2SAT 90–93
[2024-01-30 06:31] LABS: Basophils Percent Auto 0.5 % (0.0-3.0); Eosinophils Percent Auto 0.3 % (0.0-7.0); Hematocrit 41.1 % (33.0-51.0); Hemoglobin* 13.5 gm/dL (12.0-16.0); Immature Granulocytes Pct Auto 0.3 %; Lymphocytes Percent Auto 20.1 % (20-44); Mean Corpuscular HGB Conc 33 gm/dL (32-36); Mean Corpuscular Hemoglobin 30 pg (26-34); Mean Corpuscular Volume 92 fL (80-100); Monocytes Percent Auto 10.7 % (0.0-11.0); Neutrophils Percent Auto 68.1 % (42.0-72.0); Platelet Count* 92 K/uL (140-440); RDW Coefficient of Variation % 13.4 % (11.5-15.5); Red Blood Count 4.46 m/uL (4.00-5.20); White Blood Count* 3.74 K/uL (4.50-11.00)
[2024-01-30 06:36] LABS: Slide Review Reflex Yes
--- NOTE | 2024-01-30 06:43 | PC.NURSE ---
Pt alert and oriented x3. Afebrile. On room air. Denies pain, chest pain, SOB, and N/V. Pt is up SBA with walker and gait belt, voiding and tolerating a 2000 fluid restriction. ?
[2024-01-30 06:50] LABS: Albumin* 2.9 g/dL (3.3-5.0); Chloride* 100 mmol/L (96-114); Sodium* 127 mmol/L (135-149)
[2024-01-30 06:51] LABS: INR 1.18 (0.91-1.10); Potassium* 3.2 mmol/L (3.6-5.1); Prothrombin Time 15.8 Seconds
[2024-01-30 06:53] LABS: Alanine Aminotransferase* 24 U/L (4-35); Alkaline Phosphatase* 91 U/L (40-150); Anion Gap 3 mEq/L (7-15); Aspartate Amino Transferase* 50 U/L (12-35); Bilirubin Total* 0.6 mg/dL (0.1-1.5); Blood Urea Nitrogen* 15 mg/dL (7-30); Carbon Dioxide* 24 mmol/L (20-32); Creatinine* 0.6 mg/dL (0.5-1.5); Est. Creatinine Clearance* 37.01; Estimated Glomerular Filt Rate 88 ml/min; Glucose* 114 mg/dL (60-115); Total Protein* 5.8 g/dL (6.0-8.3)
[2024-01-30 06:54] LABS: Calcium* 9.2 mg/dL (8.4-10.6); Magnesium* 2.1 mg/dL (1.5-2.6)
[2024-01-30 07:08] LABS: Procalcitonin* 0.44 ng/mL (<0.50)
[2024-01-30 07:20] LABS: Slide Review Acceptable Review (Acceptable)
[2024-01-30] MEDS: METOPROLOL SUCCINATE (XL) 50 MG TAB PO (08:43)
[2024-01-30] MEDS: dilTIAZem 240 MG CAP (CD) PO (08:43)
[2024-01-30] MEDS: POTASSIUM CHLORIDE 10 MEQ CAPSULE ER 20 MEQ PO (08:43)
[2024-01-30] MEDS: FUROSEMIDE 20 MG TABLET PO (08:44)
[2024-01-30] MEDS: SODIUM CHLORIDE 0.9 % (FLUSH) 10 ML SYRINGE 5 ML IVF ×2 (08:44→20:57)
--- NOTE | 2024-01-30 10:30 | P.IMPN_ITS ---
Progress Note: A&P Assessment and plan (1) UTI (urinary tract infection): Problem details: - moreno sensitive E Coli, on Ceftriaxone (01/27) - transitioned to oral Macrobid 100mg BID (01/29) Status: Acute (2) Weakness: Problem details: - likely related to acute illness/UTI - therapies following to assist with discharge planning Status: Acute (3) SIRS (systemic inflammatory response syndrome): Problem details: - as evidenced by fever, hypoxia (91% oxygen saturation on 1L NC), known UTI, diarrhea/enterocolitis on imaging, need for IVFs - blood culture currently NGTD Status: Acute (4) Hyponatremia: Problem details: - Na 132 on admission, currently 127 - likely increased free water/low solute intake in the setting of illness - add protein drink 1-2 times/day to increase solute intake, follow Na Status: Acute (5) Acute hypokalemia: Problem details: will replace; likely acute illness, not eating, lasix dosing Status: Acute (6) Atrial fibrillation: Problem details: - rate controlled on Metoprolol and Diltiazem - supratherapeutic INR during last stay, currently subtherapeutic (WARFARIN) - Pharmacist team following/managing Status: Acute (7) Hematoma: Problem details: left lateral knee. no effusion. crepitus noted on flexion and extension. from her slide (not fall by patient report) on day of ER presentation conservative care Status: Acute (8) Compression fracture of T7 vertebra: Problem details: - appears chronic, but having back pain - trial of Lidocaine patch (01/28) - improving Status: Acute (9) Thrombocytopenia: Problem details: - new diagnosis during this stay (current platelet count 90s) - no evidence of acute bleeding, continue to follow Status: Acute (10) Enterocolitis: Problem details: - mild per CT scan and per exam/symptoms, negative C Diff - tolerating po intake, continue to follow symptoms Status: Acute Subjective Date Seen: 01/30/24 Interval history: Daily Progress Note - Hospital Medicine Day #: 3 CC: weakness, AMS, UTI, hyponatremia 24 HOUR UPDATE: improving nicely. Up with SBA/walker. loose/incontinent stool this am. Much more aware and making conversation. Notable Labs, Micro, Rads, Interventions: CBC is stable. Platelet count is s127., potassium is down trending down to 3.2 Procalcitonin is down trending Imaging and micro been reviewed since admission. Objective: alert, good historian, above average vocabulary and intellect noted. Vitals: see above Lungs: Clear. Cardiac: S1S2. left knee: large ecchymosis - outlined. by report improving. Disposition/Potential discharge - Today I spent 50minutes seeing the patient, reviewing Expanse and EPIC notes/diagnostics, discussing the care plan with our care time that includes social work, PT/OT, pharmacy, RT, senior living and documenting my impressions and plan in the medical record. Exam Const: Vital Signs, click to edit/add: Vital Signs - 24 hr 01/29/24 12:42 01/29/24 12:45 01/29/24 15:29 Temperature 98.2 F 98.7 F Pulse Rate 67 Pulse Rate [Pulse Oximeter] 80 90 Respiratory Rate 18 18 Blood Pressure [Le ft Arm] 96/62 Blood Pressure [Ri ght Arm] 96/69 Pulse Oximetry 93 91 Oxygen Delivery Me thod Room Air Room Air 01/29/24 15:30 01/29/24 15:31 01/29/24 16:48 Temperature Pulse Rate 90 Pulse Rate [Pulse Oximeter] 90 Respiratory Rate 18 Blood Pressure [Le ft Arm] Blood Pressure [Ri ght Arm] Pulse Oximetry 91 Oxygen Delivery Me thod 01/29/24 21:18 01/29/24 23:00 01/29/24 23:00 Temperature 98.1 F Pulse Rate 90 Pulse Rate [Pulse Oximeter] 88 Respiratory Rate 24 Blood Pressure [Le ft Arm] Blood Pressure [Ri ght Arm] 106/71 Pulse Oximetry 91 91 Oxygen Delivery Me thod Room Air 01/29/24 23:00 01/29/24 23:00 01/30/24 03:00 Temperature 98.0 F 97.8 F Pulse Rate Pulse Rate [Pulse Oximeter] 94 94 Respiratory Rate 24 20 20 Blood Pressure [Le ft Arm] 110/76 119/89 Blood Pressure [Ri ght Arm] Pulse Oximetry 90 90 Oxygen Delivery Me thod Room Air Room Air 01/30/24 07:45 01/30/24 08:29 01/30/24 08:32 Temperature 97.9 F Pulse Rate Pulse Rate [Pulse Oximeter] 94 94 Respiratory Rate 18 18 Blood Pressure [Le ft Arm] 125/86 Blood Pressure [Ri ght Arm] Pulse Oximetry 91 91 Oxygen Delivery Me thod Room Air 01/30/24 09:17 Temperature Pulse Rate 104 H Pulse Rate [Pulse Oximeter] Respiratory Rate Blood Pressure [Le ft Arm] Blood Pressure [Ri ght Arm] Pulse Oximetry Oxygen Delivery Me thod Labs Labs: Laboratory Results - last 24 hr 01/30/24 06:05 WBC 3.74 L RBC 4.46 Hgb 13.5 Hct 41.1 MCV 92 MCH 30 MCHC 33 RDW Coeff of Gonzalez 13.4 Plt Count 92 L Neut % (Auto) 68.1 Lymph % (Auto) 20.1 Mathews % (Auto) 10.7 Eos % (Auto) 0.3 Baso % (Auto) 0.5 Neut # (Auto) 2.50 Lymph # (Auto) 0.80 L Mathews # (Auto) 0.40 Eos # (Auto) 0.00 Baso # (Auto) 0.00 Abs Immat Gran (auto) 0.00 Imm/Tot Granulo (auto) 0.3 Diff Slide Review Acceptable Review INR 1.18 H Sodium 127 L Potassium 3.2 L Chloride 100 Carbon Dioxide 24 Anion Gap 3 L BUN 15 Creatinine 0.6 Estimated Creat Clear 37.01 Estimated GFR 88 Glucose 114 Calcium 9.2 Magnesium 2.1 Total Bilirubin 0.6 AST 50 H ALT 24 Alkaline Phosphatase 91 Total Protein 5.8 L Albumin 2.9 L Procalcitonin 0.44
--- NOTE | 2024-01-30 11:13 | PC.SOCIAL ---
Addendum entered by ALVINO Esparza 01/30/24 16:07: Discharge planning: Pt was accepted to short-term rehab at [facility] for tomorrow(Monday). load out worker updated the pt's with this information this afternoon and he stated that he wanted to wait to make a decision about sending the pt to [facility] or taking her home after the doctor assesses the pt again in the morning. load out worker updated the provider on duty with this information and pt's nurse. Social work to follow-up as needed. Addendum entered by ALVINO Esparza 01/30/24 11:53: Discharge planning: [facility] is still reviewing pt's referral. Social work to follow-up as needed. Original Note: Discharge planning: load out worker sent the updated provider note on pt from today to [facility] per their request. load out worker also updated them that pt would be staying in the hospital again tonight and would hopefully be ready for discharge tomorrow. Social work to follow-up as needed.
[2024-01-30] MEDS: LIDOCAINE 5% PATCH 1 PATCH TRANSDERMA (11:44)
[2024-01-30] MEDS: NITROFURANTOIN MONOHYD MACRO 100 MG CAPSULE PO ×2 (11:44→20:57)
[2024-01-30] MEDS: POTASSIUM BICARB 25 MEQ EFFERVESCENT TAB PO ×2 (13:50→17:38)
--- NOTE | 2024-01-30 14:43 | PC.NURSE ---
End of Shift: Patient pleasant and cooperative, A&O. VSS, afebrile. She did have slightly soft BP?s this morning, MD notified. Patient reports pain this morning on her back, rating a 3 out of 10, patient declined PRN medication, scheduled lidocaine patch applied to area. SBA with walker and gait belt. Tolerating regular diet and 2000ml fluid restriction.
[2024-01-30] MEDS: WARFARIN 5 MG TABLET PO (17:36)
--- NOTE | 2024-01-30 22:59 | PC.NURSE ---
Patient is alert and oriented. Denies pain. Up with assist of 1, walker and GB. Went for 3rd walk of the day this evening around the unit. Tolerated well. Encouraged to drink Ensure/supplement and was able to finish her 2nd one of the day.
[2024-01-31 02:42] VITALS: BP 128/73; PULSE 84; RESP 18; TEMP 36.5; O2SAT 91
[2024-01-31 06:45] LABS: Chloride* 99 mmol/L (96-114)
[2024-01-31 06:46] LABS: Potassium* 3.4 mmol/L (3.6-5.1); Sodium* 129 mmol/L (135-149)
[2024-01-31 06:48] LABS: Creatinine* 0.5 mg/dL (0.5-1.5); Est. Creatinine Clearance* 37.01; Estimated Glomerular Filt Rate 92 ml/min
[2024-01-31 06:49] LABS: Anion Gap 2 mEq/L (7-15); Blood Urea Nitrogen* 18 mg/dL (7-30); Calcium* 9.2 mg/dL (8.4-10.6); Carbon Dioxide* 28 mmol/L (20-32); Glucose* 109 mg/dL (60-115); INR 1.14 (0.91-1.10); Prothrombin Time 15.4 Seconds
[2024-01-31 07:45] VITALS: PULSE 114
--- NOTE | 2024-01-31 07:48 | PC.NURSE ---
Pt alert and oriented x3 with some forgetfulness with time. Afebrile. On room air. Denies pain, chest pain, SOB, and N/V. Tolerating a 2000 fluid restriction. Pt is up SBA with walker and gait belt. Night uneventful.
[2024-01-31 07:51] VITALS: BP 113/85; PULSE 79; RESP 28; TEMP 36.8; O2SAT 90
[2024-01-31] MEDS: METOPROLOL SUCCINATE (XL) 50 MG TAB PO (08:54)
[2024-01-31] MEDS: dilTIAZem 240 MG CAP (CD) PO (08:54)
[2024-01-31] MEDS: PSYLLIUM HUSK (WITH SUGAR) 12 GM PACKET PO (08:54)
[2024-01-31] MEDS: NITROFURANTOIN MONOHYD MACRO 100 MG CAPSULE PO (08:54)
[2024-01-31] MEDS: POTASSIUM CHLORIDE 10 MEQ CAPSULE ER 20 MEQ PO (08:54)
[2024-01-31] MEDS: FUROSEMIDE 20 MG TABLET PO (08:54)
[2024-01-31] MEDS: SODIUM CHLORIDE 0.9 % (FLUSH) 10 ML SYRINGE 5 ML IVF (08:55)
--- NOTE | 2024-01-31 10:07 | PC.SOCIAL ---
Discharge planning: After meeting with the doctor, the pt and her family decided to decline the bed at [facility] and return home. Pt does want to take non-emergent EMS home in order to get into her home safely. mud worker talked with the pt and her about the cost of non-emergent EMS and they were in agreement. Pt signed the non-emergent EMS transportation form. mud worker gave the form to the charge nurse on duty. The cost for the non-emergent EMS will be about $95.00($85 for pick-up and $5 per mile/pt lives two miles from the hospital). Social work to follow-up as needed.
[2024-01-31] MEDS: LIDOCAINE 5% PATCH 1 PATCH TRANSDERMA (10:55)
[2024-01-31 11:12] VITALS: BP 104/71; PULSE 53; RESP 20; TEMP 37.1; O2SAT 94
--- NOTE | 2024-01-31 11:22 | P.DS_ITS ---
DS: Providers Provider Date Seen: 01/31/24 Date of admission: 01/29/24 09:55 Primary care physician: Dr. Carver Admitting Clinician: Ruddy Longoria DO Consults: 01/28/24 05:25 Consult to Physical Therapy [CONS] Routine Comment: Reason(s) for PT Consult:: Evaluate and Treat Any Restrictions?:: No Restrictions 01/28/24 05:28 Consult to Occupational Therapy [CONS] Routine Comment: Reason(s) for OT Consult:: Evaluate and Treat Any Restrictions?:: No Restrictions Attending Physician on discharge: Estrella Murphy MD [place] Hospital[facility] Date of Discharge: 01/31/24 DS: Diagnosis Discharge Diagnosis (1) UTI (urinary tract infection): Status: Acute Problem details: - moreno sensitive E Coli, on Ceftriaxone (01/27) - transitioned to oral keflex at discharge (2) SIRS (systemic inflammatory response syndrome): Status: Acute Problem details: - as evidenced by fever, hypoxia - resolved by discharge - blood culture NGTD (3) Weakness: Status: Acute Problem details: - likely related to acute illness/UTI - improving thru stay - discussed with OT/PT- pt declined 3L rehab stay (4) Hyponatremia: Status: Acute Problem details: - Na 132 on admission, currently 129 - likely increased free water/low solute intake in the setting of illness - add protein drink 1-2 times/day to increase solute intake - f/u BMP at hospital discharge appt (5) Chronic anticoagulation: Status: Acute Problem details: -pt came in on 2.5mg warfarin; INR stayed subtherapeutic; increased to 5 mg lucero y at discharge and close INR f/u (6) Acute hypokalemia: Status: Acute Problem details: will replace; likely acute illness, not eating, lasix dosing -improved to 3.4; asked her to double her potassium home dose to 15 Klor-Con to BID until she see's her PCP (7) Atrial fibrillation: Status: Acute Problem details: - rate controlled on Metoprolol and Diltiazem - on warfarin (8) Hematoma: Status: Acute Problem details: left lateral knee. no effusion. crepitus noted on flexion and extension. from her slide (not fall by patient report) on day of ER presentation conservative care (9) Thrombocytopenia: Status: Acute Problem details: - new diagnosis during this stay (current platelet count 90s) - no evidence of acute bleeding, continue to follow (10) Compression fracture of T7 vertebra: Status: Acute Problem details: - appears chronic, but having back pain - trial of Lidocaine patch (01/28) - improving (11) Enterocolitis: Status: Acute Problem details: - mild per CT scan and per exam/symptoms, negative C Diff - tolerating po intake, continue to follow symptoms DS: Summary Hospital Course Hospital Course: FINAL DIAGNOSIS/FOLLOW UP ISSUES: UTI - completing therapy with keflex. starting her on vaginal premarin for prevention. Hyponatriemia; Hypokalemia; subtherapeutic INR - follow BMP and INR within a week of discharge Compression Fracture - CONTINUOUS IMPROVEMENT COORDINATOR. added lidoderm patch for comfort. Left knee hematoma - conservative care. BRIEF HOSPITAL COURSE: Patient was admitted for 4 days. Synopsis of acute inpatient issues are outlined above. Chronic medical conditions with notable findings outlined above. Her cognition and strength improved with treatment of her UTI. We treated her pain with a Lidoderm patch. This is likely related to an old compression fracture from osteoporosis. She also slid to her knees prior to admission and has a hematoma on her left knee. Her electrolytes were off in those were slowly corrected prior to discharge. She is being discharged on oral Keflex, vaginal Premarin for UTI prevention, increased potassium supplementation, increased Coumadin dosing. Therapies and hospital medicine staff felt she should go to a short-term rehab stay, however she preferred and her preferred for her to discharge home. Expressed my concern. They felt the would be okay. I did use non emergent BLS to help get her in her home safely and up the stairs. DISCHARGE MEDICATIONS: See Reconciled list - SIGNIFICANT CHANGES: Increased Klor-Con to 15meq BID lidoderm patch warfarin 5mg daily keflex 1 grram BID for 5 days vaginal premarin cream for UTI prevention Specific instructions to the patient and follow-up are outlined below. REVIEW OF SYSTEMS No new chest pain or dyspnea Pain controlled No voiding difficulties Tolerating diet challenge PHYSICAL EXAM: CONSTITUTIONAL: mildly confused at times but redirects well. well spoken. VITAL SIGNS: see record. HEENT: Normocephalic, atraumatic. PERRL, EOMI, conjunctivae pink, no scleral icterus. Ears and nose externally normal. Pharynx normal. NECK: No JVD. No carotid bruit, no thyromegaly, no adenopathy. CHEST: Clear to auscultation bilaterally. HEART: S1 and S2 normal. Edema ABDOMEN: Soft, nontender. Normal bowel sounds. MUSCULOSKELETAL: small circumscribed erythema and small hematoma; left lateral knee NEURO: Cranial nerves intact. Grossly intact. No asymmetric findings. SKIN: No rashes, petechiae, concerning changes PSYCHIATRIC: Mood euthymic. DISPOSITION: home with Time spent on discharge 37 minutes. Status at Discharge Functional status at discharge: uses cane/walker Overall status at discharge: patient is progressing back to baseline Time Spent with Patient Time attestation: Total time spent providing and/or coordinating discharge services: Exam Const: Vital Signs, click to edit/add: Vital Signs - 24 hr 01/30/24 15:00 01/30/24 15:00 01/30/24 15:00 Temperature 97.3 F L Pulse Rate Pulse Rate [Pulse Oximeter] 68 68 Respiratory Rate 18 18 Blood Pressure [Ri ght Arm] 102/72 Pulse Oximetry 93 93 Oxygen Delivery Me thod Room Air Oxygen Flow Rate 1 01/30/24 15:00 01/30/24 19:00 01/30/24 23:22 Temperature 97.6 F Pulse Rate 92 Pulse Rate [Pulse Oximeter] 73 82 Respiratory Rate 18 16 Blood Pressure [Ri ght Arm] 121/88 Pulse Oximetry 92 90 Oxygen Delivery Me thod Room Air Room Air Oxygen Flow Rate 01/30/24 23:22 01/30/24 23:22 01/31/24 02:42 Temperature 97.7 F Pulse Rate 77 Pulse Rate [Pulse Oximeter] 84 Respiratory Rate 18 Blood Pressure [Ri ght Arm] 128/73 Pulse Oximetry 90 91 Oxygen Delivery Me thod Room Air Oxygen Flow Rate 01/31/24 07:45 01/31/24 07:51 01/31/24 07:51 Temperature 98.3 F Pulse Rate 114 H Pulse Rate [Pulse Oximeter] 79 Respiratory Rate 28 H Blood Pressure [Ri ght Arm] 113/85 Pulse Oximetry 90 90 Oxygen Delivery Me thod Room Air Oxygen Flow Rate 01/31/24 07:51 01/31/24 11:12 Temperature 98.7 F Pulse Rate Pulse Rate [Pulse Oximeter] 79 53 L Respiratory Rate 28 H 20 Blood Pressure [Ri ght Arm] 104/71 Pulse Oximetry 94 Oxygen Delivery Me thod Room Air Oxygen Flow Rate DS: Data Data Completed and Pending Labs on day of discharge: Labs from last 24 hours 01/31/24 06:04 INR 1.14 H Sodium 129 L Potassium 3.4 L Chloride 99 Carbon Dioxide 28 Anion Gap 2 L BUN 18 Creatinine 0.5 Estimated Creat Clear 37.01 Estimated GFR 92 Glucose 109 Calcium 9.2 Preliminary micro results at discharge 01/28/24 09:45 Stool Culture - Preliminary Stool 01/28/24 20:45 Blood Culture - Preliminary Blood NO GROWTH AFTER 48 HOURS Discharge Plan Discharge Disposition: Home w/ Parent or Adult Date of Admission: 01/29/24 09:55 Attending Provider on Discharge: Estrella Murphy Primary Care Provider: Krysta Monroe Condition: Improved Anticipated Discharge Date/Time: 01/31/24 09:36 Discharge Medications: New conjugated estrogens 0.625 mg/gram cream 0.3125 mg vaginal DAILY Qty: 30 0RF Rx Instructions: if inserting tube is difficult; just apply a nickel size amount over the labia and clitoris. cephalexin 500 mg tablet 1,000 mg PO BID Qty: 20 0RF lidocaine 5 % Adhesive Patch,Medicated 1 patch transdermal Q24H Qty: 30 0RF Continued metoprolol succinate 50 mg tablet extended release 24 hr 50 mg PO DAILY diltiazem HCl 240 mg capsule,extended release 24hr 240 mg PO DAILY anastrozole 1 mg tablet 1 mg PO DAILY nitroglycerin 0.4 mg tablet, sublingual 0.4 mg sublingual Q5M PRN Rx Instructions: PRN CHEST PAIN cholecalciferol (vitamin D3) [Vitamin D3] 25 mcg (1,000 unit) tablet 1,000 unit PO DAILY bisacodyl 10 mg suppository 10 mg RI DAILY PRN (Reason: constipation) furosemide 20 mg tablet 20 mg PO DAILY diclofenac sodium 1 % gel 2 g TOPICAL QID PRN Changed potassium chloride [Klor-Con M15] 15 mEq tablet,ER particles/crystals 15 meq PO BID Qty: 30 0RF warfarin 5 mg tablet 5 mg PO DAILY Qty: 30 0RF Discharge Orders: Discharge Order (Routine); Ordered 01/31/24 Ordered By: Estrella Murphy Patient Education: Cephalexin (By mouth), Conjugated Estrogens (Into the vagina), Lidocaine (Into the skin) Additional Instructions: 1. I have a temporary increase in your potassium dosing from once a day to twice a day. Dr. Carver can check your potassium and sodium levels next week. 2. Take 5mg of coumadin/warfarin daily. Have your INR checked next week as well. 3. Finish all the antibiotic 4. I have the vaginal cream sent in. It comes with a tube/plunger kit but Alicia can just use a nickel size amount on her two fingers and apply to externally and inside the labia every day until she follows up with Dr. Carver. Activity Level: Activity as Tolerated Discharge Diet: Regular Follow Up Appointments: Samantha Carver MD [Staff Physician] - 02/12/24 3:05 pm ([facility] for follow-up.) Forms: [employer] Info Instructions
--- NOTE | 2024-01-31 12:02 | PC.NURSE ---
Discharge: Patient pleasant and cooperative. Patient vitally stable, lungs clear, BS WNL, IV removed, catheter intact. Patient denies pain. Patient SBA/walker. Patient tolerating regular diet, urinating well, and with loose stools. Tele=A.fib. Patient with lidocaine patch on mid back, and discharged with patch. Manager Trust explained to patient that lidocaine patch needs to be removed at 1055 pm tonight or sooner. Patient signed belongings sheet and discharge form. Patient nor spouse had further questions regarding discharge education. Patient left the floor by EMS stretcher to home at 1150.
--- NOTE | 2024-01-31 17:42 | PC.NURSE ---
Patients here, returned patients anastrozole.
== END 2024-01-31 11:50 | disposition home or self-care (01) | DRG 690 ==
LOC: ED 04:32 → MEDSURG 04:46
PROVIDERS: Family Medicine; Hospitalist; Internal Medicine; Admitting Provider Student in an Organized Health Care Education/Training Program; Emergency Provider Family Medicine; PCP Family Medicine; Visit Provider Family Medicine
DX: N39.0 Urinary tract infection, site not specified (principal); S22.060A Wedge compression fracture of T7-T8 vertebra, initial encounter for closed fracture; E87.1 Hypo-osmolality and hyponatremia; B96.20 Unspecified Escherichia coli [E. coli] as the cause of diseases classified elsewhere; R53.1 Weakness; Z79.01 Long term (current) use of anticoagulants; E87.6 Hypokalemia; I48.91 Unspecified atrial fibrillation; S80.02XA Contusion of left knee, initial encounter; D69.6 Thrombocytopenia, unspecified; K52.9 Noninfective gastroenteritis and colitis, unspecified; I10 Essential (primary) hypertension; E21.3 Hyperparathyroidism, unspecified; G89.29 Other chronic pain; M54.50 Low back pain, unspecified; M17.12 Unilateral primary osteoarthritis, left knee; I50.9 Heart failure, unspecified; Z90.710 Acquired absence of both cervix and uterus
CPT/HCPCS: 36415; 71045; 71260; 74177; 80048; 80053; 80076; 81001; 81003; 82077; 82803; 83605; 83735; 83880; 84145; 85025; 85610; 86140; 87040; 87045; 87046; 87086; 87186; 87427; 87493; 87631; 93005; 94664; 94761; 97110; 97116; 97162; 97165; 97530; 97535; 99284; 99285; G0378; A4565; A9270; J0696; J7030; J7050; L3260; L3670; Q9967

== ENCOUNTER 2024-01-31 11:48 | Outpatient (CLI) | payer OTHER, SELFPAY ==
--- OUTSIDE RECORDS SUMMARY | 2024-02-01 04:56 | XMS_ITS | Clinical Summary ---
Author Organization [facility] Address [place], [place] [address] Care Team Providers Care Stripper Opaquer Name Role Phone Porsha Lara MD Unavailable [phone] Gui Theodore MD Unavailable Unavail able Samantha [...] should be referred to Dr. Bria Maxwell, Cloth Trimmer Hand, for a tinnitus consultation. Unspecified essential hypertension [...] Department Care Team Description 01/29/2024 Orders Only [facility] Scanner 1 scan: (1-Ord) [facility], XR CHEST 1V PORTABLE, 01/29/2024 01/29/2024 Refill [facility] [address] [place], [place] [phone] Samantha Jamison MD Refill Request (Furosemide 20mg) 01/28/2024 Orders Only [facility] Scanner 1 scan: (1-Ord) [facility], XR CHEST 1V PORTABLE, 01/28/2024 01/28/2024 Orders Only [facility] Scanner 1 scan: (1-Ord) [facility], CT CHEST ABDOMEN PELV W CON, 01/28/2024 01/24/2024 Telephone [facility] [address] [place] [address] Samantha Jamison MD SAIRA (SAIRA) 01/24/2024 Refill [facility] 1400 [place] [address] Krysta Monroe, Refill Request (Diltiazem Cd) 01/01/2024 9:50 AM CDT Office Visit [facility] [address] [place] [address] Samantha Jamison MD Follow Up (Pain is in the upper abdomin, wraps around right flank. ) 01/01/2024 Travel 12/30/2023 Anticoagulation (warfarin) [facility] [address] [place] [address] 1, [facility] Anticoagulation 12/30/2023 Travel 12/29/2023 2:15 PM CDT Orders Only [address] [address] Lab, [facility] 12/29/2023 Telephone [facility] [address] [place] [address] Samantha Jamison MD Lab (Need orders) 12/29/2023 Travel 12/28/2023 9:45 AM CDT Ancillary Procedure [facility] [address] [place] [address] 12/27/2023 11:10 AM CDT Phone Office Visit [facility] [address] [place] [address] Shasha Morales PA Medication Management (Should she be taking potassium ?/Okay to take meds before ultrasound ) 12/27/2023 Travel 12/25/2023 Travel 12/22/[address] [place] [address] Ricardo Casillas MD Medication Management (furosemide (LASIX) 20 mg tablet) 12/19/2023 Telephone [facility] [address] [facility] [address] [place] [address] Ricardo Casillas MD Medication Management 12/18/2023 Orders Only [facility] [address] [place] [address] Samantha Jamison MD <No scans attached> 12/15/2023 10:40 AM CDT Office Visit [facility] [address] [place] [address] Samantha Jamison MD Follow Up (Feeling constipated but will have BM while she urinates, does not have to push. /Feels like she has incontinent BM but is just air. ) 12/15/2023 9:00 AM CDT Ancillary Procedure [facility] [address] [place] [address] 12/15/2023 Anticoagulation (warfarin) [facility] [address] [place] [address] 1, [facility] Anticoagulation 12/15/2023 Travel 12/11/2023 Telephone [facility] [address] [place] [address] Krysta Monroe DO Medication Management (Diet ) 12/09/2023 Telephone [facility] [address] [place] [address] Samantha Jamison MD Anticoagulation (Annual re-enrollment- Warfarin) 12/09/2023 Telephone [facility] [address] [place] [address] Krysta Monroe DO Anticoagulation (Dosing ) 12/09/2023 Anticoagulation (warfarin) [facility] [address] [place] [address] 1, [facility]ticoagulation 2023 10:40 AM CDT Office Visit [facility] [address] [place] [address] Samantha Jamison MD Follow Up (12/03 Shasha Morales ) 2023 Travel 2023 Refill [facility] [address] [place] [address] Krysta Monroe DO Refill Request (Warfarin) 12/07/2023 Orders Only [facility] Scanner 1 scan: (1-Ord) [facility], XR ABDOMEN 1V, 12/07/2023 12/06/2023 Orders Only [facility] Scanner 1 scan: (1-Ord) [facility], CT ABDOMEN PELVIS W CON, 12/06/2023 12/06/2023 Orders Only [facility] Scanner 1 scan: (1-Ord) [facility], XR ABDOMEN MIN 2V, 12/06/2023 12/06/2023 Nurse Triage [facility] [address] [place] [address] Krysta Monroe DO Constipation; Abdominal Pain/problem 12/05/2023 Telephone [facility] [address] [place] [address] Krysta Monroe DO Anticoagulation 12/05/2023 Telephone [facility] [address] [place] [address] Krysta Monroe DO Anticoagulation (OVERDUE #2 reminder) 12/04/2023 9:05 AM CDT Office Visit [facility] [address] [place] [address] Shasha Morales PA Hospital F/U (pain is manageable at the time ) 12/04/2023 Telephone [facility] [address] [place] [address] Kelsey Morales NP Medication Management (cyclobenzaprine) 12/04/2023 Travel 12/03/2023 Orders Only [facility] Scanner 1 scan: (1-Ord) [facility], XR ABDOMEN 1V, 12/03/2023 12/03/2023 Orders Only [facility] Scanner 1 scan: (1-Ord) [facility], ABD PELVIS W, 12/03/2023 12/02/2023 Orders Only [facility] Scanner 1 scan: (1-Ord) [facility], XR ABDOMEN 1V, 12/02/2023 12/01/2023 Orders Only [facility] Scanner 1 scan: (1-Ord) [facility], ABDOMEN 1 VIEW,2 FILMS, 12/01/2023 12/01/2023 Orders Only [facility] Scanner 1 scan: (1-Ord) [facility], CHEST, 12/01/2023 11/30/2023 Orders Only [facility] Scanner 1 scan: (1-Ord) [facility], ABDOMEN 1 VIEW, 11/30/2023 11/29/2023 2:00 PM CDT Ancillary Procedure [address] [address] 11/29/2023 1:45 PM CDT Ancillary Procedure [address] [address] 11/29/2023 1:15 PM CDT Office Visit [address] [address] Malina Carrillo PA Back Pain 11/29/2023 Orders Only [facility] Scanner 1 scan: (1-Ord) [facility], EKG, 11/29/2023 11/29/2023 Orders Only [facility] Scanner 1 scan: (1-Ord) [facility] H+C, ABDOMEN/PELVIS, 11/29/2023 11/29/[address] [address] Malina Carrillo PA Questions 11/29/2023 Travel 11/16/[address] [address] Krysta Monroe DO Refill Request (Metoprolol Succinate) [...] COVID-19 Vaccine Spikevax (M oderna 50mcg/0.5mL) 12YO+ [id number] Formula PF 03/15/2023 COVID-19 vaccine (Pfizer-Bio NTech [...] Description 02/12/2024 3:05 PM CDT Office Visit [facility] [address] [place] [address] Samantha Jamison MD [address] [place] [address] 03/05/2024 10:15 AM CDT Office Visit [facility] [address] [place] [address] Samantha Jamison MD [address] [place] [address] Health Maintenance Due Date Last Done Comments [...] INR 2.3(H) <1.3 12/29/2023 9:39 PM CDT [facility] PROTIME 25.2(H) 10.3 - 12.3 sec 12/29/2023 9:39 PM CDT [facility] Blood BLOOD SPECIMEN / Unknown Venipuncture / Unknown 12/29/2023 2:30 PM CDT 12/29/2023 2:35 PM CDT Narrative [facility] - 12/29/2023 9:39 PM CDT ?Therapeutic [...] is on UFH. Krysta Monroe DO HEMATOLOGY [facility] [address] [place] [address], [place] * (ABNORMAL) PRO-BNP (12/29/2023 2:30 PM CDT) Only the most recent of3 resultswithin the time period is included. [facility] PRO-BNP 2,834(H) <450 pg/mL 12/29/2023 10:37 PM CDT [facility] Blood BLOOD SPECIMEN / Unknown Venipuncture / Unknown 12/29/2023 2:30 PM CDT 12/29/2023 3:22 PM CDT [facility] - 12/29/2023 10:37 PM CDT The [...] heart failure. ? Ghazala HARVEY SEND OUTS [facility] [address] [place] [address], * (ABNORMAL) COMP METABOLIC PANEL (12/29/2023 2:30 PM CDT) Only the most recent of2 resultswithin the time period is included. SODIUM 137 136 - 145 mmol/L 12/29/2023 10:36 PM CDT [facility] POTASSIUM 4.9 3.5 - 5.1 mmol/L 12/29/2023 10:36 PM CDT [facility] CHLORIDE 102 98 - 107 mmol/L 12/29/2023 10:36 PM CDT [facility] CO2,TOTAL 25 22 - 29 mmol/L 12/29/2023 10:36 PM CDT [facility] ANION GAP 10 5 - 18 12/29/2023 10:36 PM CDT [facility] GLUCOSE 162(H) 70 - 99 mg/dL 12/29/2023 10:36 PM CDT [facility] CALCIUM 10.3(H) 8.8 - 10.2 mg/dL 12/29/2023 10:36 PM CDT [facility] BUN 20 8 - 23 mg/dL 12/29/2023 10:36 PM T [facility] CREATININE 0.90 0.50 - 0.90 mg/dL 12/29/2023 10:36 PM CDT [facility] BUN/CREAT RATIO 22(H) 10 - 20 10:36 PM CDT [facility] eGFR 63(L) >90 mL/min/1.7 3m2 12/29/2023 10:36 PM CDT [facility] Comment:As of 2021, eG FR is calculated by the CKD-EPI creatinine equation without race adjustment. ??eGFR can be influenced by muscle mass, exercise, and diet. ??The reported eGFR is an estimation only and is only applicable if the renal function is stable. ALBUMIN 3.9(L) 4.0 - 4.9 g/dL 12/29/2023 10:36 PM CDT [facility] PROTEIN,TOTAL 6.6 6.0 - 8.0 g/dL 12/29/2023 10:36 PM CDT [facility] BILIRUBIN,TOTAL 0.4 0.0 - 1.2 mg/dL 12/29/2023 10:36 PM CDT [facility] ALK PHOSPHATASE 111(H) 35 - 104 IU/L 12/29/2023 10:36 PM CDT [facility] ALT (SGPT) 14 10 - 35 IU/L 12/29/2023 10:36 PM CDT [facility] AST (SGOT) 32 10 - 35 IU/L 12/29/2023 10:36 PM CDT [facility] Blood BLOOD SPECIMEN / Unknown Venipuncture / Unknown 12/29/2023 2:30 PM CDT 12/29/2023 3:22 PM CDT Ghazala HARVEY CHEMISTRY [facility] [address] [place] [address], [place] * US ABDOMEN LIMITED LIVER (12/28/2023 [...] (ABNORMAL) PTH,INTACT (12/15/2023 11:46 AM CDT) Pathologist [facility] CALCIUM 11.2(H) 8.8 - 10.2 mg/dL 12/16/2023 5:27 AM CDT [facility] PTH,INTACT 23.9 15.0 - 69.0 pg/mL 12/16/2023 5:27 AM CDT [facility] Blood BLOOD SPECIMEN / Unknown Venipuncture / Unknown 12/15/2023 11:46 AM CDT 12/15/2023 11:46 AM CDT Samantha Jamison MD SEND OUTS [facility] [address] [place] [address], [place] * ECHO TTE COMPLETE WO CONTRAST (12/15/2023 9:52 AM CDT) Pathologist [facility] AORTIC VALVE MEAN PG 3 mmHg EJECTION FRACTION 53 % PEAK TR VELOCITY 3.0 m/s LVEDD 3.9 cm EJECTION FRACTION 55 - 60% Anatomical Region Laterality Modality Ultrasound 12/15/2023 9:11 AM CDT Narrative 12/15/2023 11:36 AM CDT ECHOCARDIOGRAM ALICIA G BENI ? Accession#: ?? [id number] : ?1940 83 years Study Date: ?? 12/15/2023 9:11:18 AM Gender: F ?BP: ? 135/76 mmHg Height: 135.00 cm ?BSA: ?1.47 m? ? ? Weight: 64.00 kg ? Tech: ? MSR ? Referring MD: SAMANTHA JAMISON Site: ? [facility] Reading Location: Mobile OP Patient Location: [...] . This study was interpreted by an [facility] accredited facility. ??Final ?? Procedure Note Rah Hdz MD - 12/15/2023 ECHOCARDIOGRAM ALICIA BAZAN : 1940 83 years Study Date: 12/15/2023 9:11:18 AM Gender: F BP: 135/76 mmHg Height: 135.00 cm BSA: 1.47 m? ? ? Weight: 64.00 kg Tech: R Referring MD: SAMANTHA JAMISON Site: [facility] Reading Location: Mobile OP Patient Location: [...] . This study was interpreted by an [facility] accredited facility. Final Samantha Jamison MD ECHO ORD * CBC WITH AUTO DIFFERENTIAL (2023 11:55 AM CDT) [facility] WHITE BLOOD COUNT 6.4 4.5 - 11.0 thou/cu mm 2023 12:10 PM CDT [facility] RED BLOOD COUNT 5.06 4.00 - 5.20 mil/cu mm 2023 12:10 PM CDT [facility] HEMOGLOBIN 15.8 12.0 - 16.0 g/dL 2023 12:10 PM CDT [facility] HEMATOCRIT 47.7 33.0 - 51.0 % 2023 12:10 PM CDT [facility] MCV 94 80 - 100 fL 2023 12:10 PM CDT [facility] MCH 31.2 26.0 - 34.0 pg 2023 12:10 PM CDT [facility] MCHC 33.1 32.0 - 36.0 g/dL 2023 12:10 PM CDT [facility] RDW 13.9 11.5 - 15.5 % 2023 12:10 PM CDT [facility] PLATELET COUNT 224 140 - 440 thou/cu mm 2023 12:10 PM CDT [facility] MPV 10.2 6.5 - 11.0 fL 2023 12:10 PM CDT [facility] % NEUT 59.3 % 2023 12:10 PM CDT [facility] % LYMPH 29.2 % 2023 12:10 PM CDT [facility] % MONO 8.1 % 2023 12:10 PM CDT [facility] % EOS 2.5 % 2023 12:10 PM CDT [facility] % BASO 0.9 % 2023 12:10 PM CDT [facility] ABSOLUTE NEUTROPHILS 3.8 1.7 - 7.0 thou/cu mm 2023 12:10 PM CDT [facility] ABSOLUTE LYMPHOCYTES 1.9 0.9 - 2.9 thou/cu mm 2023 12:10 PM CDT [facility] ABSOLUTE MONOCYTES 0.5 <0.9 thou/cu mm 2023 12:10 PM CDT [facility] ABSOLUTE EOSINOPHILS 0.2 <0.5 thou/cu mm 2023 12:10 PM CDT [facility] ABSOLUTE BASOPHILS 0.1 <0.3 thou/cu mm 2023 12:10 PM CDT [facility] Blood BLOOD SPECIMEN / Unknown Venipuncture / Unknown 2023 11:55 AM CDT 2023 11:55 AM CDT Samantha Jamison MD HEMATOLOGY [facility] [address] [place] [address], * LIPASE (2023 11:55 AM CDT) LIPASE 25.8 13.0 - 60.0 IU/L 2023 8:50 PM CDT [facility] Blood BLOOD SPECIMEN / Unknown Venipuncture / Unknown 2023 11:55 AM CDT 2023 11:55 AM CDT Samantha Jamison MD CHEMISTRY Performing Organization Address City/[facility]/ZIP Co de Phone Number [facility] [address] [address], * (ABNORMAL) LIVER PANEL (HEPATIC FUNCTION PANEL) (2023 11:55 AM CDT) ALBUMIN 4.1 4.0 - 4.9 g/dL 2023 8:54 PM CDT [facility] PROTEIN,TOTAL 7.0 6.0 - 8.0 g/dL 2023 8:54 PM CDT [facility] BILIRUBIN,TOTAL 0.6 0.0 - 1.2 mg/dL 2023 8:54 PM CDT [facility] BILIRUBIN,DIRECT <0.2 0.0 - 0.3 mg/dL 2023 8:54 PM CDT [facility] BILIRUBIN,INDIRE CT 2023 8:54 PM CDT [facility] Comment:Unable to calculate, Direct Bili <0.2 ALK PHOSPHATASE 121(H) 35 - 104 IU/L 2023 8:54 PM CDT [facility] ALT (SGPT) 31 10 - 35 IU/L 2023 8:54 PM CDT [facility] AST (SGOT) 53(H) 10 - 35 IU/L 2023 8:54 PM CDT [facility] Blood BLOOD SPECIMEN / Unknown Venipuncture / Unknown 2023 11:55 AM CDT 2023 11:55 AM CDT Samantha Jamison MD CHEMISTRY [facility] [address] [place] [address], * (ABNORMAL) BASIC METABOLIC PANEL (2023 11:55 AM CDT) SODIUM 137 136 - 145 mmol/L 2023 8:50 PM CDT [facility] POTASSIUM 4.5 3.5 - 5.1 mmol/L 2023 8:50 PM CDT [facility] CHLORIDE 100 98 - 107 mmol/L 2023 8:50 PM CDT [facility] CO2,TOTAL 26 22 - 29 mmol/L 2023 8:50 PM CDT [facility] ANION GAP 11 5 - 18 2023 8:50 PM CDT [facility] GLUCOSE 127(H) 70 - 99 mg/dL 2023 8:50 PM CDT [facility] CALCIUM 10.7(H) 8.8 - 10.2 mg/dL 2023 8:50 PM CDT [facility] BUN 8 8 - 23 mg/dL 2023 8:50 PM T [facility] CREATININE 0.87 0.50 - 0.90 mg/dL 2023 8:50 PM CDT [facility] BUN/CREAT RATIO 9(L) 10 - 20 8:50 PM CDT [facility] eGFR 66(L) >90 mL/min/1.7 3m2 2023 8:50 PM CDT [facility] Comment:As of 2021, eG FR [...] 11:55 AM CDT Samantha Jamison MD CHEMISTRY [facility] [address] [place] [address], [place] * UA W/ SEDIMENT EXAM REFLEXED PER CRITERIA (2023 11:30 AM CDT) COLOR Yellow Yellow Color 2023 12:27 PM CDT [facility] CLARITY Clear Clear Clarity 2023 12:27 PM CDT [facility] SPECIFIC GRAVITY,URINE 1.015 1.010, 1.015, 1.020, 1.025 2023 12:27 PM CDT [facility] PH,URINE 5.5 6.0, 7.0, 8.0, 5.5, 6.5, 7.5, 8.5 2023 12:27 PM CDT [facility] UROBILINOGEN, QUALITATIVE Normal Normal EU/dl 2023 12:27 PM CDT [facility] PROTEIN, URINE Negative Negative mg/dL 2023 12:27 PM CDT [facility] GLUCOSE, URINE Negative Negative mg/dL 2023 12:27 PM CDT [facility] KETONES,URINE Negative Negative mg/dL 2023 12:27 PM CDT [facility] BILIRUBIN,URI NE Negative Negative 2023 12:27 PM CDT [facility] OCCULT BLOOD,URINE Negative Negative 2023 12:27 PM CDT [facility] NITRITE Negative Negative 2023 12:27 PM CDT [facility] LEUKOCYTE ESTERASE Negative Negative 2023 12:27 PM CDT [facility] Urine URINE SPECIMEN / Unknown Non-Blood / Unknown 2023 11:30 AM CDT 2023 12:23 PM CDT Samantha Jamison MD URINE [facility] [address] [place] [address], * SCAN CORRESP-IMAGING (12/01/2023 9:21 AM CDT) [...] Documents on File Type Date Recorded Patient Graphics Intern Expl anation Healthcare Directive 10/31/2012 3:[address], 08/23/2012 * Full Code (Latest Code Status on File) Date Activated Date Inactivated Comments 08/14/2015 6:23 PM 08/15/2015 7:31 PM Care Teams Stripper Opaquer Relationship Specialty Start Date End Date Samantha Jamison MD [address] [place] [address] PCP - General Family Practice 12/15/23 Porsha Lara MD Ophthalmology Surgery 04/10/12 Gui Theodore MD Surgery - Orthopedics 04/10/12
--- OUTSIDE RECORDS SUMMARY | 2024-02-01 04:56 | XMS_ITS ---
Author Organization [facility] Address [address] [place] [address] Care Team Providers Care Intel Recruiter Name Role Phone Unavailable Unavailable Unavailable Surgery Details Not on file Complications Check Surgery Details section. Procedure Estimated Blood Loss Check Surgery Details section. Procedure Findings Check Surgery Details section. Procedure Specimens Taken Check Surgery Details section.
--- OUTSIDE RECORDS SUMMARY | 2024-02-01 04:56 | XMS_ITS | Encounter Summary ---
Author Organization [facility] Address [address] [place] [address] Care Team Providers Care Entry Level Paralegal Name Role Phone Elsewhere, Pcp Primary Care Provider Unavailabl e Reason for Visit * Reason Onset Date Comments Appointment 12/18/2023 Encounter Details Date Type Department Care Team (Late st Contact Info) Description 12/18/2023 Clinical Communication Department of Oncology in [place], [place] [address] [place] [phone] Jonna Chu M.B., B.Ch. [address] [place] [phone] Appointment Social History Tobacco Use Types Packs/Day [...] often do you attend chur ch or jehovah's witness services? Never 02/09/2021 Do you belong to any clubs o r organizations such as jew groups, unions, fraternal or athletic groups, or [...] and heating? Not hard at all 02/09/2021 [facility] [place] of Occupat ional Health - Occupational Stress [...] place to sleep or slept in a intermediate (including now)? No 02/09/2021 Nutrition Answer Date [...] 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, WELDER/FITTER, ASIA) 02/09/2021 Sex and Gender Information Value Date Recorded Sex Assigned at Female 05/07/2021 2:08 PM ACCOUNTING ADMINISTRATIVE ASSISTANT Gender Identity Female 02/09/2021 2:21 PM CDT Sexual Orientation Straight 02/09/2021 2: 21 PM CDT documented as of this encounter Plan of Treatment Upcoming Encounters Date Type Department Care Team (Latest Contact Info) Description 03/08/2024 12:15 PM CDT Clinical Communication Virtual Review in [place], [place] [address] [place] [phone] 03/12/2024 8:15 PM CDT Appointment Department of Radiology, [facility], in [place], [place] [address] [place] [phone] Jonna Chu M.B., B.Ch. [address] [place] [phone] 03/13/2024 3:20 PM CDT Office Visit Department of Oncology in [place], [place] [address] [place] [phone] Jonna Chu M.B., B.Ch. [address] [place] [phone] documented as of this encounter Visit Diagnoses Not on filedocumented in this encounter Care Teams Entry Level Paralegal Relationship Specialty Start Date End Date Elsewhere, Pcp PCP - General Internal Medicine 11/24/22 documented as of this encounter
--- OUTSIDE RECORDS SUMMARY | 2024-02-01 04:56 | XMS_ITS | Referral Summary ---
Author Organization [facility] Address [address] [place] [address] Care Team Providers Care Dispensing Lead Name Role Phone Elsewhere, Pcp Primary Care Provider Unavailabl e Source Comments Patient records contain information from all sites at [facility]. For routine questions regarding patient records, call [phone] during business hours, M-F 8:00 AM - 5:00 PM Central Time. Record requests for emergency care only can be directed to [phone] at any time.[facility] Encounters Date Type Department Care Team Description 12/18/2023 Refill Department of Oncology in [place], [place] [address] [place] [address] Jonna Chu M.B., B.Ch. Med Refill ( anastrozole) 12/18/2023 Clinical Communication Department of Oncology in [place], [place] [address] [place] [address] Lurdes Law R.N. Med Refill (anastrozole) 12/18/2023 Clinical Communication Department of Oncology in [place], [place] [address] [place] [address] Jonna Chu M.B., B.Ch. Appointment from Last [...] from 12/24/2020:Stage IIIB(cT4c, cN1, cM0, G2, ER+, ME-, HER2-) - Signed by Enrique Vang APRN, C.N.P., M.S.N. on 08/03/2022 Atherosclerotic Heart Diseas e Of [place] Coronary Artery Without Angina Pectoris 02/10/2021 Osteoporosis [...] often do you attend chur ch or methodist services? Never 02/09/2021 Do you belong to any clubs o r organizations such as buddhism groups, unions, fraternal or athletic groups, or [...] and heating? Not hard at all 02/09/2021 [facility] [place] of Occupat ional Health - Occupational Stress [...] 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, DISASTER RECOVERY ANALYST, ASIA) 02/09/2021 Sex and Gender Information Value Date Recorded Sex Assigned at Female 05/07/2021 2:08 PM CREW CLERK Gender Identity Female 02/09/2021 2:21 PM CDT Sexual Orientation Straight 02/09/2021 2: 21 PM CDT Last Filed Vital Signs Vital Sign Reading Time Taken Comments Blood Pressure 117/76 07/26/2023 3:04 PM CREW CLERK Pulse 74 07/26/2023 3:04 PM CREW CLERK Temperature 36.2 ??C (97.2 ??F) 07/26/2023 3:04 PM CS T Respiratory Rate 16 04/04/2023 11:0 5 AM CDT Oxygen Saturation 96% 07/26/2023 3:04 PM CREW CLERK Inhaled Oxygen Concentration - - Weight 64.4 kg (141 lb 13.9 oz) 07/26/2023 3:04 PM CREW CLERK Height 160.1 cm (5' 3.03) 07/26/2023 3:04 PM CS T Body Mass Index 25.11 07/26/2023 3:04 PM CREW CLERK Plan of Treatment Upcoming Encounters Date Type Department Care Team (Latest Contact Info) Description 03/08/2024 12:15 PM CDT Clinical Communication Virtual Review in [place], [place] 200 [place] [address] 03/12/2024 8:15 PM CDT Appointment Department of Radiology, [facility], in [address] [address] Jonna Chu M.B., B.Ch. [address] [place] [phone] 03/13/2024 3:20 PM CDT Office Visit Department of Oncology in [address] [address] Jonna Chu M.B., B.Ch. [address] [place] [phone] Medical Devices Implanted Type Area Measuring Machine Tender Device Identifier Shelf Expiration Date Model / [...] Recently Relevant to Health Maintenance Care Teams Dispensing Lead Relationship Specialty Start Date End Date Elsewhere, Pcp PCP - General Internal Medicine 11/24/22
--- OUTSIDE RECORDS SUMMARY | 2024-02-01 04:56 | XMS_ITS | Encounter Summary ---
Author Organization [facility] Address [address] [place] [address] Care Team Providers Care Completion Manager Name Role Phone Elsewhere, Pcp Primary Care Provider Unavailabl e Reason for Visit * Reason Onset Date Comments Med Refill 12/18/2023 anastrozole Encounter Details Date Type Department Care Team (Latest Contact Info) Description 12/18/2023 Clinical Communication Department of Oncology in [place], [place] [address] [place] [address] Lurdes Law R.N. [address] [place] [address] Med Refill (anastrozole) Social History Tobacco Use [...] often do you attend chur ch or presybeterian services? Never 02/09/2021 Do you belong to any clubs o r organizations such as presybeterian groups, unions, fraternal or athletic groups, or [...] and heating? Not hard at all 02/09/2021 [facility] of Occupat ional Health - Occupational [...] 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, BI TESTER, ASIA) 02/09/2021 Sex and Gender Information Value Date Recorded Sex Assigned at Female 05/07/2021 2:08 PM EDUCATIONAL TECHNICIAN Gender Identity Female 02/09/2021 2:21 PM CDT [...] PM CDT Clinical Communication Virtual Review in [place], [place] 200 [place] [address] 03/12/2024 8:15 PM CDT Appointment Department of Radiology, [facility], in [place], [place] [address] [place] [phone] Jonna Chu M.B., B.Ch. [address] [place] [phone] 03/13/2024 3:20 PM CDT Office Visit Department of Oncology in [address] [address] Jonna Chu M.B., B.Ch. [address] [place] [phone] documented as of this encounter Visit Diagnoses Not on filedocumented in this encounter Care Teams Completion Manager Relationship Specialty Start Date End Date Elsewhere, Pcp PCP - General Internal Medicine 11/24/22 documented as of this encounter
--- OUTSIDE RECORDS SUMMARY | 2024-02-01 04:56 | XMS_ITS | Encounter Summary ---
Author Organization [facility] Address [address] [place] [address] Care Team Providers Care Health Sciences Program Coordinator Name Role Phone Elsewhere, Pcp Primary Care Provider Unavailabl e Reason for Visit * Reason Comments Med Refill anastrozole Encounter Details Date Type Department Care Team (Late st Contact Info) Description 12/18/2023 Refill Department of Oncology in [place], [place] [address] [place] [phone] Jonna Chu M.B., B.Ch. [address] [place] [phone] Med Refill ( anastrozole) Social History Tobacco [...] often do you attend chur ch or lutheran services? Never 02/09/2021 Do you belong to any clubs o r organizations such as moravian groups, unions, fraternal or athletic groups, or [...] and heating? Not hard at all 02/09/2021 [facility] [place] of Occupat ional Health - Occupational Stress [...] place to sleep or slept in a halfway (including now)? 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 [address] [place] [phone] 03/13/2024 3:20 PM CDT Office Visit Department of Oncology in [address] [phone] Jonna Chu M.B., B.Ch. [address] [place] [phone] documented as of this encounter Visit Diagnoses Diagnosis Malignant Neoplasm Of Overlapping Sites Of Left Female Breast (HCC) documented in this encounter Care Teams Health Sciences Program Coordinator Relationship Specialty Start Date End Date Elsewhere, Pcp PCP - General Internal Medicine 11/24/22 documented as of this encounter
--- OUTSIDE RECORDS SUMMARY | 2024-02-01 04:56 | XMS_ITS | Clinical Summary ---
Author Organization [facility] Address [address] [place] [address] Care Team Providers Care Psychiatry Teacher Name Role Phone Elsewhere, Pcp Primary Care Provider Unavailabl e Source Comments Patient records contain information from all sites at [facility]. For routine questions regarding patient records, call [phone] during business hours, M-F 8:00 AM - 5:00 PM Central Time. Record requests for emergency care only can be directed to [phone] at any time.[facility] Allergies Active Allergy Reactions Criticality Noted [...] from 12/24/2020:Stage IIIB(cT4c, cN1, cM0, G2, ER+, [place]-, HER2-) - Signed by Enrique Vang APRN, C.N.P., M.S.N. on 08/03/2022 Atherosclerotic Heart Diseas e Of [place] Coronary Artery Without Angina Pectoris 02/10/2021 Osteoporosis Atrial Fibrillation Unspecified Encounters Date Type Department Care Team Description 12/18/2023 Refill Department of Oncology in [place], [place] [address] [place] [address] Jonna Chu M.B., B.Ch. Med Refill ( anastrozole) 12/18/2023 Clinical Communication Department of Oncology in [place], [place] [address] [place] [address] Lurdes Law R.N. Med Refill (anastrozole) 12/18/2023 Clinical Communication Department of Oncology in [place], [place] [address] [place] [address] Jonna Chu M.B., B.Ch. Appointment from Last [...] often do you attend chur ch or shinto services? Never 02/09/2021 Do you belong to any clubs o r organizations such as scientologist groups, unions, fraternal or athletic groups, or [...] and heating? Not hard at all 02/09/2021 [facility] [place] of Occupat ional Health - Occupational Stress [...] place to sleep or slept in a correction (including now)? 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 Gender Identity Female 02/09/2021 2:21 PM CDT Sexual Orientation Straight 02/09/2021 2: 21 PM CDT Last Filed Vital Signs Vital Sign Reading Time Taken Comments Blood Pressure 117/76 07/26/2023 3:04 PM PACKING CHECKER Pulse 74 07/26/2023 3:04 PM PACKING CHECKER Temperature 36.2 ??C (97.2 ??F) 07/26/2023 3:04 PM CS T Respiratory Rate 16 04/04/2023 11:0 5 AM CDT Oxygen Saturation 96% 07/26/2023 3:04 PM PACKING CHECKER Inhaled Oxygen Concentration - - Weight 64.4 kg (141 lb 13.9 oz) 07/26/2023 3:04 PM PACKING CHECKER Height 160.1 cm (5' 3.03) 07/26/2023 3:04 PM CS T Body Mass Index 25.11 07/26/2023 3:04 PM PACKING CHECKER Plan of Treatment Upcoming Encounters Date Type Department Care Team (Latest Contact Info) Description 03/08/2024 12:15 PM CDT Clinical Communication Virtual Review in [place], [place] 200 [place] [address] 03/12/2024 8:15 PM CDT Appointment Department of Radiology, [facility], in [place], [place] [address] [place] [phone] Jonna Chu M.B., B.Ch. [address] [place] [phone] 03/13/2024 3:20 PM CDT Office Visit Department of Oncology in [address] [phone] Jonna Chu M.B., B.Ch. 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
== END 2024-01-31 11:49 | disposition home or self-care (01) ==
PROVIDERS: PCP Family Medicine; Visit Provider Student in an Organized Health Care Education/Training Program
DX: R53.1 Weakness (principal); Z99.3 Dependence on wheelchair
CPT/HCPCS: A0425; A0428

== ENCOUNTER 2024-03-01 09:00 | Outpatient (RCR) | payer OTHER, SELFPAY | END 2024-06-29 23:59 | disposition home or self-care (01) | PROVIDERS: PCP Family Medicine; Visit Provider Student in an Organized Health Care Education/Training Program | DX: M54.6 Pain in thoracic spine (principal); R07.89 Other chest pain; R29.3 Abnormal posture; R29.898 Other symptoms and signs involving the musculoskeletal system; Z51.89 Encounter for other specified aftercare | CPT/HCPCS: 97110; 97162 ==

== ENCOUNTER 2024-08-26 15:15 | Outpatient (RCR) | payer OTHER, SELFPAY | END 2024-11-25 11:50 | disposition home or self-care (01) | PROVIDERS: PCP Family Medicine; Visit Provider Family Medicine | DX: H81.11 Benign paroxysmal vertigo, right ear (principal); Z51.89 Encounter for other specified aftercare | CPT/HCPCS: 95992; 97110; 97112; 97161 ==